=== PATIENT | female | born 1955 | race Caucasian/White ===

== ENCOUNTER 2024-06-08 08:39 | Outpatient (REF) | payer MEDICARE, SELFPAY | END 2024-06-08 08:40 | disposition home or self-care (01) | LOC: HO.SH 08:39 | PROVIDERS: Visit Provider Internal Medicine | DX: H91.09 Ototoxic hearing loss, unspecified ear (principal) | CPT/HCPCS: 92552; 92556; 92557; 92567; 92588; 92591 ==

== ENCOUNTER 2024-06-29 09:37 | Outpatient (REF) | payer MEDICARE, SELFPAY | END 2024-06-29 09:38 | disposition home or self-care (01) | LOC: HO.SH 09:37 | PROVIDERS: Visit Provider Internal Medicine | DX: H91.09 Ototoxic hearing loss, unspecified ear (principal) | CPT/HCPCS: 92552; 92556; 92588 ==

== ENCOUNTER 2024-07-28 09:53 | Outpatient (REF) | payer MEDICARE, SELFPAY | END 2024-07-28 09:54 | disposition home or self-care (01) | LOC: HO.SH 09:53 | PROVIDERS: PCP Nurse Practitioner Family; Visit Provider Internal Medicine | DX: H91.09 Ototoxic hearing loss, unspecified ear (principal) | CPT/HCPCS: 92552; 92556; 92588 ==

== ENCOUNTER 2024-08-25 10:23 | Outpatient (REF) | payer MEDICARE, SELFPAY | END 2024-08-25 10:24 | disposition home or self-care (01) | LOC: HO.SH 10:23 | PROVIDERS: PCP Nurse Practitioner Family; Visit Provider Internal Medicine | DX: H91.09 Ototoxic hearing loss, unspecified ear (principal) | CPT/HCPCS: 92552; 92556; 92588 ==

== ENCOUNTER 2024-09-30 07:53 | Outpatient (REF) | payer MEDICARE, SELFPAY ==
--- OUTSIDE RECORDS SUMMARY | 2024-09-30 07:56 | XMS_ITS | Encounter Summary ---
Author Organization [facility] Address [phone] [place] [address] Care Team Providers Care Tufting Machine Fixer Name Role Phone Melissa Mcdaniel MANAGER OF SOFTWARE DEVELOPMENT Primary Care Provider [phone] Leonel Feng MD Unavailable [phone] Les Dempsey MD Unavailable Juliet Kirkland NP Primary Care Provide r Encounter Details Date Type Department Care Team (Latest Contact Info) Description 02/17/2020 Transcribe Orders [facility] [address] [place] [address] [place] [address] Melissa Mcdaniel, MANAGER OF SOFTWARE DEVELOPMENT [address] [place] [address] Encounter for screening for other suspected endocrine disorder (Primary Dx); Encounter for screening for lipid disorder; Annual physical exam; Encounter for screening for diabetes mellitus; Anemia, unspecified type; Dysuria Social History Tobacco Use Types Packs/Day Years Used Date Smoking Tobacco: Former Smokeless Tobacco: Never Alcohol Use Standard Drinks/Week Comments Yes 0 (1 standard drink = 0.6 oz pur e alcohol) socially Sex and Gender Information Value Date Recorded Sex Assigned at Not on file Gender Identity Not on file Sexual Orientation Not on file documented as of this encounter Plan of Treatment Upcoming Encounters Date Type Department Care Team (Late st Contact Info) Description 10/08/2024 10:30 AM EST Appointment [facility] Pulmonary and Critical Care Unit [address] [facility] [address] [place] [address] Roshan Albarran MD [address] [place] [address] [email or web address] 10/08/2024 11:30 AM EST Office Visit [facility] [address] [facility] [address] [place] [address] Roshan Albarran MD [address] [place] [address] [email or web address] 10/15/2024 4:30 PM EST Office Visit [facility] Rheumatology [address] [place] [address] Sia Lebron MD [address] [facility], [address] [place] [address] [email or web address] documented as of this encounter Results * (ABNORMAL) Urinalysis w/reflex Urine Culture (02/17/2020 8:22 AM EDT) COLOR STRAW(A) Yellow [facility] CLARITY Clear [facility] GLUCOSE Negative Negative [facility] BILI Negative Negative [facility] KETONES Negative Negative [facility] SPECIFIC GRAVITY <1.005 1.005 - 1.030 [facility] BLOOD 2+(A) Negative [facility] PH 6.5 5.0 - 8.0 [facility] Protein-UA Negative Negative [facility] NITRITE Negative Negative [facility] Leukocyte esterase, ur Negative Negative [facility] Urine (Urine) 02/17/2020 8:2 2 AM EDT 02/17/2020 8:25 AM EDT Melissa Mcdaniel NP URINE ORDERABLES [facility] [address] [place] [address] * (ABNORMAL) CBC and differential (02/17/2020 7:25 AM EDT) WBC 6.46 4.00 - 11.00 K/uL [facility] Comment:Note Reference Range updates to all CBC and Differential results. RBC 3.97 3.72 - 5.30 M/uL [facility] HGB 13.1 11.4 - 15.9 g/dL [facility] Comment:Note updated Referen ce Ranges for all CBC and Differential results. HCT 39.7 34.2 - 46.8 % [facility] PLT 233 140 - 430 K/uL [facility] MCV 100.0(H) 78.0 - 97.0 fL [facility] MCH 33.0 25.0 - 33.0 pg [facility] MCHC 33.0 32.0 - 36.0 g/dL [facility] RDW 12.5 11.0 - 16.0 % [facility] MPV 11.3 8.4 - 12.8 fl [facility] NRBC 0.00 0 /100 WBCs [facility] ABSOLUTE NRBC 0.00 0 K/uL [facility] DIFF METHOD Auto [facility] NEUTS 64.8 43.0 - 75.0 % [facility] LYMPHS 23.2 18.2 - 47.4 % [facility] MONOS 9.1 4.00 - 11.00 % [facility] EOS 2.2 0.0 - 8.0 % [facility] BASOS 0.5 0.0 - 2.0 % [facility] Granulocytes, immature (%) 0.2 0.0 - 0.9 % [facility] ABSOLUTE NEUTS 4.19 1.80 - 7.70 K/uL [facility] ABSOLUTE LYMPHS 1.50 1.00 - 3.10 K/uL [facility] ABSOLUTE MONOS 0.59 0.20 - 0.80 K/uL [facility] ABSOLUTE EOS 0.14 0.00 - 0.80 K/uL [facility] ABSOLUTE BASOS 0.03 0.00 - 0.09 K/uL [facility] Granulocytes, immature 0.01 0.00 - 0.05 K/uL [facility] Blood 02/17/2020 7:25 AM EDT 02/17/2020 7:29 AM EDT Melissa Mcdaniel MANAGER OF SOFTWARE DEVELOPMENT LAB BLOOD ORDERABLES [address] [address] * (ABNORMAL) Comprehensive metabolic panel (02/17/2020 7:25 AM EDT) SODIUM 132(L) 133 - 146 mmol/L [facility] POTASSIUM 4.6 3.3 - 5.1 mmol/L [facility] CHLORIDE 98 96 - 108 mmol/L [facility] CO2 27 21 - 35 mmol/L [facility] BUN 9 6 - 19 mg/dL [facility] CREATININE 0.60 0.5 - 1.5 mg/dL [facility] GLUCOSE 99 70 - 99 mg/dL [facility] ALBUMIN 4.1 3.9 - 4.8 g/dL [facility] TOTAL PROTEIN 6.8 6.5 - 8.0 g/dL [facility] CALCIUM 9.2 8.4 - 10.3 mg/dL [facility] ALKALINE PHOSPHATASE 68 39 - 117 U/L [facility] TOTAL BILIRUBIN 1.0 0.0 - 1.2 mg/dL [facility] AST 23 0 - 37 U/L [facility] ALT 18 0 - 40 U/L [facility] GLOBULIN 2.7 1 - 4.8 g/dL [facility] EGFR 98 >59 mL/min/1.7 3m2 [facility] Comment:Estimated glomerular filtration rate calculated using the CKD-EPI equation. ANION GAP 12 10 - 20 mmol/L [facility] Blood 02/17/2020 7:25 AM EDT 02/17/2020 7:29 AM EDT Melissa Mcdaniel NP LAB BLOOD ORDERABLES [address] [address] * Hepatitis C antibody, qualitative (02/17/2020 7:25 AM EDT) HCV NON-REACTIV E NON-REACTI VE [facility] Blood 02/17/2020 7:25 AM EDT 02/17/2020 7:29 AM EDT Melissa Mcdaniel MANAGER OF SOFTWARE DEVELOPMENT LAB BLOOD ORDERABLES Performing Organization Address [facility] Co de Phone Number [address] [address] * (ABNORMAL) Lipid panel (02/17/2020 7:25 AM EDT) HDL 60 mg/dL [facility] Comment: ? Interpretation <40 mg/dL: Low HDL cholesterol (major risk factor for CHD) Greater than or equal to 60 mg/dL: High HDL cholesterol ( negative risk factor for CHD) HDL - cholesterol is affected by a number of factors, e.g. smoking, excerise, hormones, sex and age. CHOLESTEROL 155 0 - 240 mg/dL [facility] TRIGLYCERIDES 69 30 - 160 mg/dL [facility] LDL 81 50 - 129 mg/dL [facility] Comment: LDL levels in terms of risk for coronary heart disease: <100 mg/dL: Optimal 100-129 mg/dL: Near or above optimal 130-159 mg/dL: Borderline high 160-189 mg/dL: High >190 mg/dL: Very High CARDIAC RISK RATIO 2.6(L) 3.3 - 4.4 [facility] Blood 02/17/2020 7:25 AM EDT 02/17/2020 7:29 AM EDT Melissa Mcdaniel NP LAB BLOOD ORDERABLES Performing Organization Address City/[facility]/ZIP Co de Phone Number [address] [address] * TSH (02/17/2020 7:25 AM EDT) TSH 1.79 0.27 - 4.20 uIU/mL [facility] Blood 02/17/2020 7:25 AM EDT 02/17/2020 7:29 AM EDT Melissa M Jonas MANAGER OF SOFTWARE DEVELOPMENT LAB BLOOD ORDERABLES [facility] [address] [place] [address] documented in this encounter Visit Diagnoses Diagnosis Encounter for screening for other suspected endocrine disorder- Primary Encounter for screening for lipid disorder Annual physical exam Routine general medical examination at a health care facility Encounter for screening for diabetes mellitus Anemia, unspecified type Dysuria documented in this encounter 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 1:32 AM EDT [facility]-Exposed Comment:Recent close contact 08/03/2020 08/03/2020 08/17/2020 1:24 AM EST COVID-19 03/31/2021 03/31/2021 04/21/2021 1:23 AM EDT CoV-Risk 04/29/2022 04/29/2022 04/29/2022 1:04 PM EDT COVID-19 04/29/2022 04/29/2022 05/20/2022 1:21 AM EDT documented as of this encounter Care Teams Tufting Machine Fixer Relationship Specialty Start Date End Date Melissa Mcdaniel MANAGER OF SOFTWARE DEVELOPMENT [address] [place] [address] PCP - General Nurse Practitioner 03/20/18 04/19/24 Juliet Kirkland NP [address] [place] [address] PCP - General Nurse Practitioner 04/20/24 Leonel Feng MD [address] [place] [address] Pulmonary Disease 01/16/24 Les Dempsey MD [facility] [address] [address] Infectious Diseases 01/16/24 documented as of this encounter Additional Source Comments The information contained in this document represents components of the legal health record. It is not the complete legal health record.[facility]
--- OUTSIDE RECORDS SUMMARY | 2024-09-30 07:57 | XMS_ITS | Encounter Summary ---
Author Organization [facility] Address [phone] [address] [place] [address] Care Team Providers Care Physical Therapy Aid Name Role Phone Melissa Mcdaniel HOT WORKER Primary Care Provider Leonel Feng MD Unavailable [phone] Les Dempsey MD Unavailable Juliet Kirkland HOT WORKER Primary Care Provide r Encounter Details Date Type Department Care Team (Late st Contact Info) Description 01/15/2024 Procedure Pass [facility], Ct Scan - [address] [address] Social History Tobacco Use Types Packs/Day Years Used Date Smoking Tobacco: Never Passive Smoke Exposure: Past Smokeless Tobacco: Never Alcohol Use Standard Drinks/Week Comments Yes 0 (1 standard drink = 0.6 oz pur e alcohol) socially Education Answer Date Recorded Are you interested in more education? Not on cherie e 12/07/2022 Are you concerned about learning? Not on file 12/07/2022 No 12/07/2022 No 12/07/2022 Digital Access Answer Date Recorded No 01/02/2023 No 01/02/2023 Reliable internet access at home? Not on file 01/02/2023 Device with a working camera? Not on file Sex and Gender Information Value Date Recorded Sex Assigned at Not on file Gender Identity Not on file Sexual Orientation Not on file documented as of this encounter Plan of Treatment Upcoming Encounters Date Type Department Care Team (Late st Contact Info) Description 10/08/2024 10:30 AM EST Appointment [facility] Pul[facility] and [facility] Care Unit [address] [place] [address] Roshan Albarran MD [address] [place] [address] [email or web address] 10/08/2024 11:30 AM EST Office Visit [facility] [address] [place] [address] Roshan Albarran MD [address] [place] [address] [email or web address] 10/15/2024 4:30 PM EST Office Visit [facility] Rheumatology [address] [place] [address] Sia Lebron MD [address] [place] [address], [address] [place] [address] [email or web address] documented as of this encounter Visit Diagnoses Not on filedocumented in this encounter Care Teams Physical Therapy Aid Relationship Specialty Start Date End Date Melissa Mcdaniel NP [address] [place] [address] PCP - General Nurse Practitioner 03/20/18 04/19/24 Juliet Kirkland NP [address] [place] [address] PCP - General Nurse Practitioner 04/20/24 [place] [address] [place] [address] Pulmonary Disease 01/16/24 Les Dempsey MD [address] [address] Infectious Diseases 01/16/24 documented as of this encounter Additional Source Comments The information contained in this document represents components of the legal health record. It is not the complete legal health record.[facility]
--- OUTSIDE RECORDS SUMMARY | 2024-09-30 07:59 | XMS_ITS | Encounter Summary ---
Author Organization [facility] Address [phone] [address] [place] [address] Care Team Providers Care Night Shift Name Role Phone Leonel Feng MD Unavailable [phone] Les Dempsey MD Unavailable Juliet Kirkland NP Primary Care Provide r Encounter Details Date Type Department Care Team (Late st Contact Info) Description 08/28/2024 Telephone [facility] [address] [address] Rosalva Dinh, RN [address] [place] [address] [email or web address] Social History Tobacco Use Types Packs/Day Years Used Date Smoking Tobacco: Never Passive Smoke Exposure: Past Smokeless Tobacco: Never Alcohol Use Standard Drinks/Week Comments Yes 0 (1 standard drink = 0.6 oz pur e alcohol) socially Home Health Assessment: Transportation Answer Date Recorded Lack of Transportation (Medical) No 06/11/2024 Lack of Transportation (Non-Medical) No 06/11/2024 Patient Unable or Declines to Respond No 06/11/2024 Child or Family Care Answer Date Record [...] your housing situation today? I have lana sing 06/25/2024 How many times have you move [...] or tries to control you? No 06/09/2024 Sex and Gender Information Value Date Recorded Sex Assigned at Not on file Gender Identity Not on file Sexual Orientation Not on file documented as of this encounter Progress Notes * Rosalva Dinh RN - 09/03/2024 7:13 PM EST Arykayce order sent documented in this encounter Plan of Treatment Upcoming Encounters Date Type Department Care Team (Late st Contact Info) Description 10/08/2024 10:30 AM EST Appointment [facility] [place] [place] [facility] [address] [facility] [address] [place] [address] Roshan Albarran MD [address] [place] [address] [email or web address] 10/08/2024 11:30 AM EST Office Visit [facility] [address] [facility] [address] [place] [address] Roshan Albarran MD [address] [place] [address] [email or web address] 10/15/2024 4:30 PM EST Office Visit [facility] Rheumatology [address] [place] [address] Sia Lebron MD 22 [facility], [address] [place] [address] [email or web address] documented as of this encounter Visit Diagnoses Not on filedocumented in this encounter Care Teams Night Shift Relationship Specialty Start Date End Date Juliet Kirkland NP [address] [place] [address] PCP - General Nurse Practitioner 04/20/24 Leonel Feng MD [address] [place] [address] Pulmonary Disease 01/16/24 Les Dempsey MD [address] [place] [address] Infectious Diseases 01/16/24 documented as of this encounter Additional Source Comments The information contained in this document represents components of the legal health record. It is not the complete legal health record.[facility]
--- OUTSIDE RECORDS SUMMARY | 2024-09-30 08:00 | XMS_ITS | Encounter Summary ---
Author Organization [facility] Address [phone] [address] [place] [address] Care Team Providers Care Irrigation Laborer Name Role Phone Leonel Feng MD Unavailable [phone] Les Dempsey MD Unavailable [phone] Juliet Kirkland PRINTED [employer] BOARDS STRIPPER ETCHER Primary Care Provide r Encounter Details Date Type Department Care Team (Latest Contact Info) Description 09/01/2024 9:46 AM EST - 09/01/2024 11:59 PM EST Hospital Encounter [facility] [address] [place] [address] Roshan Albarran MD [address] [place] [address] [email or web address] Discharge Disposition: Home or Self Care Social History Tobacco Use Types Packs/Day Years [...] on file documented as of this encounter Medications at Time of Discharge Medication Sig Dispensed Refills Start Date End Date ALTEPLASE CATH 1 mg by Intracatheter route as needed (PICC line occlusion). Instill 2mg in 2.2 ml of sterile water into occluded cath for 30 - 120mins; aspirate and discard before flushing with saline; may repeat x 1; no more than 4mg per 24 hrs. 07/02/2024 cevimeline (EVOXAC) 30 mg capsuleIndications: Sicca syndrome TAKE 1 CAPSULE 3 TIMES A DAY 270 capsule 3 06/17/2024 dicyclomine (BENTYL) 10 MG capsule Take 20 mg by mouth daily. 08/05/2024 ELDERBERRY FRUIT ORAL Take by mouth. esomeprazole (NEXIUM) 20 MG capsule Take 20 mg by mouth daily. ESTRING 2 mg (7.5 mcg /24 hour) vaginal ring Place 2 mg vaginally every 3 (three) months. 07/24/2024 famotidine (PEPCID) 40 MG tablet Take 40 mg by mouth nightly at bedtime as needed for heartburn. gabapentin (NEURONTIN) 300 MG capsule Take 300 mg by mouth 3 (three) times a day. 10/30/2023 01/30/2025 hydroxychloroquine (PLAQUENIL) 200 mg tabletIndications:S icca syndrome,Raynaud's disease without gangrene [The details of the medication are not available because there are pending changes by a home health clinician.] 135 tablet 3 10/16/2023 Lactobacillus rhamnosus GG (CULTURELLE PROBIOTIC) 15 billion cell CpSP Take 1 capsule by mouth daily. levalbuterol (XOPENEX CONCENTRATE) 1.25 mg/0.5 mL nebulizer solution Take 1 ampule by nebulization daily. 02/19/2023 lysine 1,000 mg Tab Take 1 tablet by mouth 2 (two) times a day. ondansetron (ZOFRAN) 4 MG tablet Take 1 tablet (4 mg total) by mouth every 12 (twelve) hours as needed for nausea. 60 tablet 1 08/27/2024 pramipexole (MIRAPEX) 0.25 MG tablet Take 3 tablets (0.75 mg total) by mouth nightly at bedtime. 05/20/2024 sodium chloride (HYPER-RAQUEL) 7 % Nebu Take 4 mL by nebulization 2 (two) times a day. 05/06/2024 05/01/2025 zolpidem (AMBIEN) 10 mg tabletIndications:T isaura 1/2 tablet as needed Take 10 mg by mouth nightly as needed for sleep. fluconazole (DIFLUCAN) 200 MG tablet Take 1 tablet (200 mg total) by mouth daily for 3 days. 3 tablet 09/01/2024 09/04/2024 azithromycin (ZITHROMAX) 250 MG tablet Take 1 tablet (250 mg total) by mouth daily. 90 tablet 07/30/2024 09/29/2024 ethambutoL (MYAMBUTOL) 400 MG tablet Take 2 tablets (800 mg total) by mouth daily. 180 tablet 07/30/2024 09/29/2024 omadacycline (NUZYRA) 150 mg tablet Take 2 tablets (300 mg total) by mouth daily. 60 tablet 5 06/02/2024 09/29/2024 rifAMPin (RIFADIN) 300 MG capsule Take 2 capsules (600 mg total) by mouth daily. 180 capsule 07/30/2024 09/29/2024 documented as of this encounter Plan of Treatment Upcoming Encounters Date Type Department Care Team (Late st Contact Info) Description 10/08/2024 10:30 AM EST Appointment [facility] Pulmonary and Critical Care Unit 55 [facility] [address] [place] [address] Roshan Albarran MD [address] [place] [address] [email or web address] 10/08/2024 11:30 AM EST Office Visit [facility] 55 [facility] [address] [place] [address] Roshan Albarran MD [address] [place] [address] [email or web address] 10/15/2024 4:30 PM EST Office Visit [facility] Rheumatology [address] [place] [address] [place] [address] Sia Lebron MD 22 [facility], [address] [place] [address] (work) [email or web address] documented as of this encounter Procedures Procedure Name Priority Date/Time Associated Diagnosis Comments CREATININE/EGFR Routine 09/01/2024 9:15 AM EST Pulmonary Mycobacterium avium complex (MAC) infection AMIKACIN, TROUGH Routine 09/01/2024 9:15 AM EST Pulmonary Mycobacterium avium complex (MAC) infection LFTS (HEPATIC PANEL) Routine 09/01/2024 9:15 AM EST Pulmonary Mycobacterium avium complex (MAC) infection CBC AND DIFFERENTIAL Routine 09/01/2024 9:15 AM EST Pulmonary Mycobacterium avium complex (MAC) infection BUN Routine 09/01/2024 9:15 AM EST Pulmonary Mycobacterium avium complex (MAC) infection documented in this encounter Results * Amikacin, trough (09/01/2024 9:15 AM EST) AMIKACIN, TROUGH <0.8 <8.0 mcg/mL [facility] DPT OF LAB MED AND PAT+ Blood 09/01/2024 9:15 AM EST 09/01/2024 9:48 AM EST Roshan Albarran MD LAB BLOOD ORDERABLES [facility] DPT OF LAB MED AND PAT+ [address] [place] [address] * BUN (09/01/2024 9:15 AM EST) BUN 8 6 - 19 mg/dL [facility] Blood 09/01/2024 9:15 AM EST 09/01/2024 9:48 AM EST Roshan Albarran MD LAB BLOOD ORDERABLES [facility] [address] [place] [address] * Creatinine/eGFR (09/01/2024 9:15 AM EST) CREATININE 0.50 0.5 - 1.5 mg/dL [facility] EGFR 103 >59 mL/min/1.7 3m2 [facility] Comment:Estimated glomerular filtration rate calculated using the CKD-EPI refit equation. Blood 09/01/2024 9:15 AM EST 09/01/2024 9:48 AM EST Roshan Albarran MD LAB BLOOD ORDERABLES [facility] [address] [place], [place] [id number] * (ABNORMAL) CBC and differential (09/01/2024 9:15 AM EST) WBC 3.35(L) 4.00 - 11.00 K/uL [facility] RBC 3.84(L) 4.00 - 5.20 M/uL [facility] HGB 12.6 12.0 - 16.0 g/dL [facility] HCT 38.7 36.0 - 46.0 % [facility] PLT 166 150 - 450 K/uL [facility] MCV 100.8(H) 80.0 - 100.0 fL [facility] MCH 32.8(H) 27.0 - 31.0 pg [facility] MCHC 32.6 32.0 - 36.0 g/dL [facility] RDW 12.3 11.5 - 14.5 % [facility] MPV 11.5 8.4 - 12.0 fL [facility] NRBC 0.00 0.00 /100 WBCs [facility] ABSOLUTE NRBC 0.00 0.00 K/uL [facility] DIFF METHOD Auto [facility] NEUTS 60.8 48.0 - 76.0 % [facility] LYMPHS 22.7 18.0 - 41.0 % [facility] MONOS 9.3 4.0 - 11.0 % [facility] EOS 5.4(H) 0.0 - 5.0 % [facility] BASOS 0.9 0.0 - 1.5 % [facility] Granulocytes, immature (%) 0.9 0.0 - 0.9 % [facility] ABSOLUTE NEUTS 2.04 1.92 - 7.60 K/uL [facility] ABSOLUTE LYMPHS 0.76 0.72 - 4.10 K/uL [facility] ABSOLUTE MONOS 0.31 0.16 - 1.10 K/uL [facility] ABSOLUTE EOS 0.18 0.00 - 0.50 K/uL [facility] ABSOLUTE BASOS 0.03 0.00 - 0.15 K/uL [facility] Granulocytes, immature 0.03 0.00 - 0.09 K/uL [facility] Blood 09/01/2024 9:15 AM EST 09/01/2024 9:48 AM EST Roshan Albarran MD LAB BLOOD ORDERABLES Performing Organization Address City/[facility]/ZIP Co de Phone Number [address] [address] * LFTs (hepatic panel) (09/01/2024 9:15 AM EST) ALKALINE PHOSPHATASE 85 39 - 117 U/L [facility] TOTAL BILIRUBIN 0.7 0.0 - 1.2 mg/dL [facility] DIRECT BILIRUBIN <0.2 0 - 0.3 mg/dL [facility] Bilirubin (Indirect) NOT CALCULATED 0 - 1.5 mg/dL [facility] AST 20 0 - 37 U/L [facility] ALT 13 0 - 40 U/L [facility] TOTAL PROTEIN 6.5 6.5 - 8.0 g/dL [facility] ALBUMIN 4.3 3.9 - 4.8 g/dL [facility] GLOBULIN 2.2 1 - 4.8 g/dL [facility] A/G Ratio 1.95 1.00 - 4.80 RATIO [facility] Blood 09/01/2024 9:15 AM EST 09/01/2024 9:48 AM EST Roshan Albarran MD LAB BLOOD ORDERABLES [address] [address] documented in this encounter Visit Diagnoses Diagnosis Pulmonary Mycobacterium avium complex (MAC) infection documented in this encounter Care Teams Irrigation Laborer Relationship Specialty Start Date End Date Juliet Kirkland NP [address] [place] [address] PCP - General Nurse Practitioner 04/20/24 Leonel Feng MD [address] [place] [address] Pulmonary Disease 01/16/24 Les Dempsey MD [address] [place] [address] Infectious Diseases 01/16/24 documented as of this encounter Additional Source Comments The information contained in this document represents components of the legal health record. It is not the complete legal health record.[facility]
--- OUTSIDE RECORDS SUMMARY | 2024-09-30 08:00 | XMS_ITS | Encounter Summary ---
Author Organization Formerly [facility] Address [phone] [place] [address] Care Team Providers Care Neurophysiologist Name Role Phone Leonel Feng MD Unavailable [phone] Les Dempsey MD Unavailable Juliet Kirkland TOWER FOREMAN Primary Care Provide r Reason for Visit * Reason Onset Date Comments Medication Prior Authorization 09/02/2024 C evimeline Encounter Details Date Type Department Care Team (Late st Contact Info) Description 09/02/2024 Telephone [facility] Rheumatology 22 [place] [address] Sia Lebron MD 22 [facility], [address] [place] [address] [email or web address] Medication Prior Authorization (Cevimeline ) Social History Tobacco Use Types Packs/Day Years [...] as of this encounter Progress Notes * Monique Maynard RN - 09/04/2024 2:09 PM EST Fax notification received PA for Cevimeline approved 08/05/24-09/04/25. It looks like in the fax we received they were only covering a 30 day supply then would need PA so patient should be all set next time goes to fill it. * Monique Maynard RN - 09/04/2024 12:54 PM EST Vilma from [facility] calls and wondering if patient has ever tried pilocarpine? I dont see in records. It appears patient stable on cevimeline since 2019. We will get a fax with PA determination. * Khushboo Kern LPN - 09/02/2024 11:51 AM EST Form signed and faxed Await response * Khushboo Kern LPN - 09/02/2024 11:42 AM EST PA for cevimeline filled out awaiting provider signature then will be faxed documented in this encounter Plan of Treatment Upcoming Encounters Date Type Department Care Team (Late st Contact Info) Description 10/08/2024 10:30 AM EST Appointment [facility] Pulmonary and Critical Care Unit [address] [place] [address] Roshan Albarran MD 55 [place] [address] [email or web address] 10/08/2024 11:30 AM EST Office Visit [facility] [address] [address] Roshan Albarran MD [address] [place] [address] [email or web address] 10/15/2024 4:30 PM EST Office Visit [facility] Rheumatology 22 [place] [address] Sia Lebron MD 22 [facility], [address] [place] [address] [email or web address] documented as of this encounter Visit Diagnoses Not on filedocumented in this encounter Care Teams Neurophysiologist Relationship Specialty Start Date End Date Juliet Kirkland NP [address] [place] [address] PCP - General Nurse Practitioner 04/20/24 Leonel Feng MD [address] [place] [address] Pulmonary Disease 01/16/[address] [facility] [address] [address] Infectious Diseases 01/16/24 documented as of this encounter Additional Source Comments The information contained in this document represents components of the legal health record. It is not the complete legal health record.[facility]
--- OUTSIDE RECORDS SUMMARY | 2024-09-30 08:00 | XMS_ITS | Encounter Summary ---
Author Organization [facility] Address [phone] [facility] [place] [address] Care Team Providers Care Offset Printing Operator Name Role Phone Unavailable Primary Care Provider Unavailabl e Encounter Details Date Type Department Care Team (Late st Contact Info) Description 12/11/2016 Hospital Encounter [facility],Outside Imaging [address] [place], [place] [phone] System, Provider Not In, [facility] [address] [address] Social History Tobacco Use Types Packs/Day Years [...] Info) Description 10/08/2024 10:30 AM EST Appointment [facility] Pulmonary and Critical Care Unit 55 [facility] [place] 201 [place] [address] Roshan Albarran MD 55 [place] [address] [email or web address] 10/08/2024 11:30 AM EST Office Visit [facility] [address] Yakov [address] [place] [address] Roshan Albarran MD [address] [place] [address] [email or web address] 10/15/2024 4:30 PM EST Office Visit [facility] Rheumatology [address] [place] [address] Sia Lebron MD 22 [facility], [address] [place] [address] [email or web address] documented as of this encounter Procedures Procedure Name Priority Date/Time Associated Diagnosis Comments BI MAMMOGRAM OUTSIDE (NO INTERPRETATION) Routine 12/11/2016 12:00 AM EDT documented in this encounter Results * Mammogram Outside (No Interpretation) (12/11/2016 12:00 AM EDT) Narrative SYSTEMGENERATED, DOCUMENTATION - 12/13/2017 2:02 PM EDT This study is for PACS storage only and not for interpretation. Provider Not In System PhD IMG OUTSIDE I MAGING W/OUT INTERPRETATION documented in this encounter Visit Diagnoses Not [...] is not the complete legal health record.[facility]ly [facility]
--- OUTSIDE RECORDS SUMMARY | 2024-09-30 08:00 | XMS_ITS | Encounter Summary ---
Author Organization [facility] Address [phone] [address] [place] [address] Care Team Providers Care Jig Maker Name Role Phone Leonel Feng MD Unavailable [phone] Les Dempsey MD Unavailable uJliet Kirkland WATER/WASTEWATER PROJECT ENGINEER Primary Care Provide r Reason for Visit * Reason Onset Date Comments COPAT Follow-up 09/10/2024 Encounter Details Date Type Department Care Team (Late st Contact Info) Description 09/10/2024 Telephone [facility] [address] [address] Rosalva Dinh, RN [address] [place] [phone] [email or web address] COPAT Follow-up Social History Tobacco Use Types Packs/Day Years [...] Progress Notes * Rosalva Dinh RN - 09/10/2024 3:33 PM EST Infectious Disease COPAT Follow-up Note Weekly labs reviewed in [facility] and documented below. Note forwarded to ID DM and ID pharmacy for review. Patient now has clofazimine and Arikayce on hand. She will have a virtual teaching on how to administer Arikayce on 09/14/24 at 0900hrs. Official start date for Arikayce and clofazimine is 09/14/24. Per Dr. Albarran, Orders to D/C IV amikacin, IV imipenem, and PICC line sent to [facility] and [facility]. PICC line to be removed on 09/14/24 by [facility]. Regimen from 09/14/24: omadacycline 300mg PO daily azithromycin 250mg PO daily rifampin 600mg PO daily ethambutol 800 mg PO daily clofazimine 100mg PO daily Arikayce 590mg daily via inhalation Diagnosis: Pulmonary MAC Medication: IV imipenem/cilastatin 1000mg Q12hrs IV amikacin 1250mg TIW (, , Sat) omadacycline 300mg PO daily azithromycin 250mg PO daily rifampin 600mg PO daily Ethambutol 800 mg PO daily Weekly Labs: CBC/diff, LFTs, BUN/Cr, Amikacin trough (2-hr and 6hr levels of amikacin to be obtained after 3rd dose on 06/23) Start Date: 06/09/24 Anticipated Stop Date: 12 weeks= ~09/01/2024 PICC: R basilic DL Follow-Up Appt: 07/30/24 at 1 PM VNA: [facility] V[facility] Infusion Company: [facility] Date 05/2008/18/2408/2509/01/2409/08 BUN 14 7 7 12 6 12 11 9 12 10 12 11 7 8 10 Scr 0.74 0.50 0.40 0.50 0.50 0.50 0.40 0.40 0.40 0.40 0.30 0.40 0.50 0.50 0.50 ALT 20 14 13 16 18 15 15 14 14 16 13 14 15 13 14 AST 22 19 19 20 24 21 20 20 20 21 19 23 21 20 18 Alk Phos 85 92 84 91 83 80 80 87 83 88 90 83 87 85 78 Total Bili 0.4 0.6 0.5 0.8 0.6 0.8 0.4 0.8 0.6 0.7 0.5 0.7 1.0 0.7 0.7 Direct Bili - <0.2 <0.2 0.2 <0.2 <0.2 <0.2 <0.2 <0.2 <0.2 <0.2 <0.2 <0.2 <0.2 <0.2 WBC 5.95 8.31 6.53 4.59 4.35 3.86 4.34 4.42 4.08 5.43 4.07 4.78 3.82 3.35 3.72 Hgb 13.2 12.1 12.0 13.4 12.9 12.6 12.9 12.7 12.3 12.8 12.4 12.5 12.8 12.6 12.9 HCT 39.6 37.1 36.5 39.9 39.1 38.2 38.5 38.1 37.0 39.3 38.4 39.2 38.5 38.7 38.8 PLT 212 183 168 205 201 171 193 191 186 178 178 183 171 166 173 % Neutrophils 62.2 75.1 69.8 61.1 52.0 61.1 57.8 65.2 63.0 66.6 59.8 69.3 64.9 60.8 62.4 ANC 3.70 6.25 4.56 2.80 2.26 2.36 2.51 2.88 2.57 3.62 2.43 3.31 2.48 2.04 2.32 % Eosinophils 3.2 3.6 5.5 6.3 6.0 7.8 7.6 6.3 5.4 7.2 4.4 3.1 3.9 5.4 4.8 AEC 0.19 0.30 0.36 0.29 0.26 0.30 0.33 0.28 0.22 0.39 0.18 0.15 0.15 0.18 0.18 07/16/2407/30 Amikacin dose - 900mg TIW 900mg TIW 1100mg TIW 1250mg TIW 1250mg TIW 1250mg TIW 1250mg TIW 1250mg TIW 1250mg TIW 1250mg TIW 1250mg TIW 1250mg TIW 1250mg TIW 1250mg TIW 2hr level - 27.2 - 25.0 40.8 - - - - - - - - - - 6 hr level - 10.7 - 13.4 12.7 - - - - - - - - - - Trough - - <0.8 - - <0.8 <0.8 <0.8 <0.8 <0.8 <0.8 <0.8 <0.8 <0.8 <0.8 Comments Trough дмитрий forThur Labs are entered manually. Please reference scanned lab results for original documentation. documented in this encounter Plan of Treatment Upcoming Encounters Date Type Department Care Team (Late st Contact Info) Description 10/08/2024 10:30 AM EST Appointment [facility] Pulmonary and Critical Care Unit 55 [facility] 201 [place] [address] Roshan Albarran MD 55 [place] [address] [email or web address] 10/08/2024 11:30 AM EST Office Visit [facility] [address] [address] Roshan Albarran MD 55 [place] [address] [email or web address] 10/15/2024 4:30 PM EST Office Visit [facility] Rheumatology [address] [place] [address] [place] [address] Sia Lebron MD 22 [facility], [address] [place] [address] documented as of this encounter Visit Diagnoses Not on filedocumented in this encounter Care Teams Jig Maker Relationship Specialty Start Date End Date Juliet Kirkland NP [address] [place] [address] PCP - General Nurse Practitioner 04/20/24 Leonel Feng MD [address] [place] [address] Pulmonary Disease 01/16/24 Les Dempsey MD [address] [place] [address] Infectious Diseases 01/16/24 documented as of this encounter Additional Source Comments The information contained in this document represents components of the legal health record. It is not the complete legal health record.[facility]
--- OUTSIDE RECORDS SUMMARY | 2024-09-30 08:00 | XMS_ITS | Encounter Summary ---
Author Organization [facility] Address [phone] [place] [address] Care Team Providers Care Utility Worker Forge Name Role Phone Leonel Feng MD Unavailable [phone] Les Dempsey MD Unavailable Juliet Kirkland NURSE STAFF INDUSTRIAL Primary Care Provide r Reason for Visit * Auth/Cert (Routine) Specialty Diagnoses / Procedures Referred By Contac t Referred To Contact Referral ID Status Reason Start Date Expiration Date Visits Re quested Visits Authorized [id number] 1 1 Encounter Details Date Type Department Care Team (Late st Contact Info) Description 09/14/2024 10:30 AM EST Home [facility] Visit [facility] [address] [place], [place] [phone] Guanako Jiménez RN [address] [place] [address] [email or web address] SN OASIS DISCHARGE VISIT Social History Tobacco Use Types Packs/Day Years [...] on file documented as of this encounter Last Filed Vital Signs Vital Sign Reading Time Taken Comments Blood Pressure 114/78 09/14/2024 10:55 AM EST Pulse 76 09/14/2024 10:55 AM EST Temperature 36.5 ??C (97.7 ??F) 09/14/2024 10:[address] Respiratory Rate 18 09/14/2024 10:55 AM EST Oxygen Saturation 96% 09/14/2024 10:55 AM EST Inhaled Oxygen Concentration - - Weight - - Height - - Body Mass Index - - documented in this encounter Plan of Treatment Upcoming Encounters Date Type Department Care Team (Late st Contact Info) Description 10/08/2024 10:30 AM EST Appointment [facility] Pulmonary and Critical Care Unit [address] [place] [address] Roshan Albarran MD 55 [place] [address] [email or web address] 10/08/2024 11:30 AM EST Office Visit [facility] [address] [facility] 515 [place] [address] Roshan Albarran MD 55 [place] [address] [email or web address] 10/15/2024 4:30 PM EST Office Visit [facility] Rheumatology [address] [place] [address] Sia Lebron MD [address] [place] [address], [address] [place] [address] [email or web address] documented as of this encounter Visit Diagnoses Not on filedocumented in this encounter Home Health Visit - Care Plan Visit Details Visit Type -SN OASIS DISCHAR GE VISIT Discipline -Senior Living Problems Problem Description Start Date Status Goals Interve ntions HH - Medication Management Disciplines: All Active Home Health Disciplines 06/11/2024 Active 1 goal linked to scheduled/document ed intervention 2 goal interventions scheduled/document ed in this visit HH - Focus of Care and Teaching Disciplines: All Active Home Health Disciplines w/RD 06/11/2024 Active 1 goal linked to scheduled/document ed intervention 1 goal intervention scheduled/document ed in this visit HH - Emergency Planning - Knowledge of Disciplines: All Active Home Health Disciplines 06/11/2024 Active 1 goal linked to scheduled/document ed intervention 2 goal interventions scheduled/document ed in this visit HH - Standard of Care Disciplines: All Active Home Health Disciplines 06/11/2024 Active 1 goal linked to scheduled/document ed intervention 2 goal interventions scheduled/document ed in this visit HH - Pain Disciplines: All Active Home Health Disciplines 06/11/2024 Active 1 goal linked to scheduled/document ed intervention 1 goal intervention scheduled/document ed in this visit HH - Infusion Therapy Disciplines: Senior Living 06/11/2024 Active 1 goal linked to scheduled/document ed intervention 5 goal interventions scheduled/document ed in this visit HH - Lab Disciplines: All Active Home Health Disciplines 06/11/2024 Active 1 goal linked to scheduled/document ed intervention 2 goal interventions scheduled/document ed in this visit Goals Goal Associated Problem Outcome Goal Met? Visit Notes HH - Safe medication management, avoid unnecessary harm related to medication errors and/or interactions HH - Medication Management No HH - Communication and collaboration to achieve patient goals HH - Focus of Care and Teaching No HH - Knowledge of options for managing care in the event of an emergency related situation. HH - Emergency Planning - Knowledge of No HH - Achieve care management for a safe to home/community discharge from homecare HH - Standard of Care No HH - Frequency of pain interfering with patient's activity or movement will improve with activity or movement by discharge. Description: Pain will be managed over the course of care. Patient's acceptable level of pain is 1 - pain that doesn't interfere. HH - Pain No HH - Device will remain patent and free from infection, demonstrate/verbalize management of infusion therapy and device HH - Infusion Therapy No HH - Verbalize an understanding for lab work/specimen collection HH - Lab No Interventions Intervention Associated Problem/Goal Status Variance Visit Notes HH - I/E medication management: administration, purpose, dosages, preparation, setup, scheduling, side effects, food/drug interactions, and potential complications as indicated Description: Update patient's copy of medication list as needed. Problem:HH - Medication Management Goal:HH - Safe medication management, avoid unnecessary harm related to medication errors and/or interactions Completed HH - Complete medication review every visit and medication reconciliation as indicated. Pharmacy information: Description: [facility] Problem:HH - Medication Management Goal:HH - Safe medication management, avoid unnecessary harm related to medication errors and/or interactions Completed HH - Focus of care, teaching completed and plan for next visit Problem: - Focus of Care and Teaching Goal:HH - Communication and collaboration to achieve patient goals Completed Patient admitted to home care on 06/11/2024 for treatment of MAC with IV ABX via PICC line. PMH: underlying Sicca syndrome, fibromyalgia, chronic sinusitis and GERD and bronchiectasis noted since 2020, diagnosed with pulmonary MAC in 2021 managed with thrice weekly Azithro/rif/ethambuto l. Pt completed IV ABX treatment yesterday and has transitioned to oral and inhaled antibiotics for the next year for maintenance therapy. Pt's respiratory endurance has improved over past few weeks and increased ability to clear mucous via coughing. Appetite has improved and pt is maintaining weight. She is planning a later winter trip to [facility] with her in October for about 4 weeks and overal feels much improved. Lab draw was completed via PICC line. PICC line was removed today using sterile technique length of cath was 43cm. She tolerated the procedure well, pressure was applied x 2 min manually, no bleeding noted. VSS. Pt is aware of discharge from [facility] services. Lab specs delivered to [facility] lab in [place]. - I/E management of care in an urgent or emergency (ER) situation: When to call your Home Care Team/[facility], ER plans, supplies, evacuation, when to contact local ER officials and how to stay informed Problem: - Emergency Planning - Knowledge of Goal:HH - Knowledge of options for managing care in the event of an emergency related situation. Completed - Emergency planning assessment: the emergency plan, supplies needed, emergency contact numbers and an evacuation plan were reviewed Description: Patient is/are knowledgeable of emergency plans. Problem:HH - Emergency Planning - Knowledge of Goal:HH - Knowledge of options for managing care in the event of an emergency related situation. Completed HH - Assess vital signs, pulse oximetry, pain, and as indicated, orthostatic vital signs Description: use agency-specific parameters Problem: - Standard of Care Goal:HH - Achieve care management for a safe to home/community discharge from homecare Completed HH - Assess skin integrity Problem: - Standard of Care Goal:HH - Achieve care management for a safe to home/community discharge from homecare Completed HH - Assess pain Problem: - Pain Goal: - Frequency of pain interfering with patient's activity or movement will improve with activity or movement by discharge. Completed HH - Measure external length of IV catheter every visit Problem: - Infusion Therapy Goal:HH - Device will remain patent and free from infection, demonstrate/verbalize management of infusion therapy and device Completed - Administer IV medication per medication profile: Description: Cath blair Alteplase 2mg IV PRN for occluded cath allow to dwell 30-120 mins as needed may repeat x1. Problem:HH - Infusion Therapy Goal:HH - Device will remain patent and free from infection, demonstrate/verbalize management of infusion therapy and device Completed - May obtain blood specimen from IV access device Problem: - Infusion Therapy Goal:HH - Device will remain patent and free from infection, demonstrate/verbalize management of infusion therapy and device Completed - Flush device with: Description: 10 ml saline and 5 ml heparin 10 u/ml Problem: - Infusion Therapy Goal:HH - Device will remain patent and free from infection, demonstrate/verbalize management of infusion therapy and device Completed - Discontinue IV line: Description: Discontinue IV amikacin 1250 mg 3x week on 09/14/24 Discontinue IV imipenem 1000mg Q 12 hrs on 09/14/24 Discontinue PICC line after stopping IV antibiotics Problem: - Infusion Therapy Goal:HH - Device will remain patent and free from infection, demonstrate/verbalize management of infusion therapy and device Completed - Lab work: Draw blood for: Description: Obtain lab via PICC line- red port- weekly, CBC w/diff, BUN, Creatinine, Liver panel, Amikacin trough level DX: Pulmonary MAC, results to Roshan Albarran MD fax [phone], and NE [phone] Problem: - Lab Goal: - Verbalize an understanding for lab work/specimen collection Completed - Lab work: Collect Description: Patient will have Amikacin peak and trough drawn 06/23 at local lab Problem: - Lab Goal: - Verbalize an understanding for lab work/specimen collection Completed documented in this encounter Care Teams Utility Worker Forge Relationship Specialty Start Date End Date Juliet Kirkland NP [address] [place] [address] PCP - General Nurse Practitioner 04/20/24 Leonel Feng MD [address] [place] [address] Pulmonary Disease 01/16/24 Les Dempsey MD [address] [place] [address] Infectious Diseases 01/16/24 documented as of this encounter Additional Source Comments The information contained in this document represents components of the legal health record. It is not the complete legal health record.[facility]
--- OUTSIDE RECORDS SUMMARY | 2024-09-30 08:00 | XMS_ITS | Encounter Summary ---
Author Organization [facility] Address [phone] [facility] [address] [place] [address] Care Team Providers Care [employer] Name Role Phone Unavailable Primary Care Provider Unavailabl e Encounter Details Date Type Department Care Team (Late st Contact Info) Description 09/29/2015 Hospital Encounter [facility],Outside Imaging 30 [place], [place] [id number] System, Provider Not In, PhD Partners [address] [address] Social History Tobacco Use Types Packs/Day Years [...] Info) Description 10/08/2024 10:30 AM EST Appointment [facility] 55 [facility] 201 [place] [address] Roshan Albarran MD 55 [place] [address] [email or web address] 10/08/2024 11:30 AM EST Office Visit [facility] [address] [place] [address] Roshan Albarran MD [address] [place] [address] [email or web address] 10/15/2024 4:30 PM EST Office Visit [facility] Rheumatology [address] [place] [address] Sia Lebron MD [address] [facility], [address] [place] [address] [email or web address] documented as of this encounter Procedures Procedure [...] Not In System PhD IMG OUTSIDE I ING W/OUT INTERPRETATION documented in this encounter Visit [...] It is not the complete legal health record.[facility]
--- OUTSIDE RECORDS SUMMARY | 2024-09-30 08:00 | XMS_ITS | Encounter Summary ---
Author Organization [facility] Address [phone] [address] [place] [address] Care Team Providers Care Final Finisher Forging Dies Name Role Phone Melissa Mcdaniel PRODUCTION SOUND MIXER Primary Care Provider [phone] Leonel Feng MD Unavailable [phone] Les Dempsey MD Unavailable Juliet Kirkland NP Primary Care Provide r Encounter Details Date Type Department Care Team (Latest Contact Info) Description 07/14/2019 Transcribe Orders [facility] Laboratory [address] [place] [address] Melissa Mcdaniel, PRODUCTION SOUND MIXER [address] [place] [address] Dysuria (Primary Dx) Social History Tobacco Use Types Packs/Day Years [...] Description 10/08/2024 10:30 AM EST Appointment [facility] [place] 55 [facility] Y[address] [place] [address] Roshan Albarran MD 55 [place] [address] [email or web address] 10/08/2024 11:30 AM EST Office Visit [facility] [address] [address] Roshan Albarran MD [address] [place] [address] [email or web address] 10/15/2024 4:30 PM EST Office Visit [facility] Rheumatology [address] [place] [address] Sia Lebron MD 22 [facility], [address] [place] [address] [email or web address] documented as of this encounter Results * (ABNORMAL) Urinalysis w/reflex Urine Culture (07/14/2019 6:30 AM EST) COLOR Yellow Yellow [facility] CLARITY Clear [facility] GLUCOSE Negative Negative [facility] BILI Negative Negative [facility] KETONES Negative Negative [facility] SPECIFIC GRAVITY 1.010 1.005 - 1.030 [facility] BLOOD 3+(A) Negative [facility] PH 6.0 5.0 - 8.0 [facility] Protein-UA Negative Negative [facility] NITRITE Negative Negative [facility] Leukocyte esterase, ur 1+(A) Negative [facility] Urine (Urine) 07/14/2019 6:3 0 AM EST 07/14/2019 10:56 AM EST Melissa Mcdaniel NP URINE ORDERABLES [facility] [address] [place] [address] documented in this encounter Visit Diagnoses Diagnosis Dysuria- Primary documented in this encounter 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 1:32 AM EDT CoV-Exposed Comment:Recent close contact 08/03/2020 08/03/2020 08/17/2020 1:24 AM EST COVID-19 03/31/2021 03/31/2021 04/21/2021 1:23 AM EDT CoV-Risk 04/29/2022 04/29/2022 04/29/2022 1:04 PM EDT COVID-19 04/29/2022 04/29/2022 05/20/2022 1:21 AM EDT documented as of this encounter Care Teams Final Finisher Forging Dies Relationship Specialty Start Date End Date Melissa Mcdaniel NP [address] [place] [address] PCP - General Nurse Practitioner 03/20/18 04/19/24 Juliet Kirkland NP [address] [place] [address] PCP - General Nurse Practitioner 04/20/24 Leonel Feng MD [address] [place] [address] Pulmonary Disease 01/16/24 Les Dempsey MD [address] [place] [address] Infectious Diseases 01/16/24 documented as of this encounter Additional Source Comments The information contained in this document represents components of the legal health record. It is not the complete legal health record.[facility]
--- OUTSIDE RECORDS SUMMARY | 2024-09-30 08:00 | XMS_ITS | Encounter Summary ---
Author Organization [facility] Address [phone] [address] [place] [address] Care Team Providers Care Carpenter Wooden Tank Erecting Name Role Phone Leonel Feng MD Unavailable [phone] Les Dempsey MD Unavailable Juliet Kirkland SALES SERVICE REP Primary Care Provide r Reason for Visit * Auth/Cert (Routine) Specialty Diagnoses / Procedures Referred By Contac t Referred To Contact Referral ID Status Reason Start Date Expiration Date Visits Re quested Visits Authorized [id number] 1 1 Encounter Details Date Type Department Care Team (Late st Contact Info) Description 09/08/2024 8:30 AM EST Home Care Visit [facility] [address] [place], [place] [phone] Guanako Jiménez RN [address] [place] [address] [email or web address] SN HOME VISIT Social History Tobacco Use Types Packs/Day [...] Info) Description 10/08/2024 10:30 AM EST Appointment [facility] Pulmonary and Critical Care Unit [address] Y[address] [place] [address] Roshan Albarran MD [address] [place] [address] [email or web address] 10/08/2024 11:30 AM EST Office Visit [facility] [address] [place] [address] Roshan Albarran MD [address] [place] [address] [email or web address] 10/15/2024 4:30 PM EST Office Visit [facility] Rheumatology [address] [place] [address] Sia Lebron MD [address] [place] [address], [address] [place] [address] [email or web address] documented as of this encounter Visit Diagnoses Not on filedocumented in this encounter Home Health Visit - Care Plan Visit Details Visit Type -SN HOME VISIT Discipline -Retirement Problems Problem Description Start Date Status Goals [...] this visit HH - Infusion Therapy Disciplines: Retirement 06/11/2024 Active 1 goal linked to scheduled/document ed intervention 2 goal interventions scheduled/document ed in this visit HH - Lab Disciplines: All Active Home Health Disciplines 06/11/2024 Active 1 goal linked to scheduled/document ed intervention 1 goal intervention scheduled/document ed in this visit Goals Goal [...] - Standard of Care No HH - Device will remain patent [...] and collaboration to achieve patient goals Completed Primary Clinical Focus this Visit & Instruction Provided: pt reports feeling better. She had a CT scan last week with contrast, no results yet. she reprots that her oral meds to repalce IV ABX have arrived and her neb meds were approved but require a special nebulizer which she is working on obtaining. she is hopeful to be able to stop her IV ABX soon. Vaginal yeast infection has improved with 3 days of Fluconazole. suggested using arious probiotics other than Culturelle and add pre-biotic. PICC line care provided. Both lines with blood return today. labs obtained via PICC line, Labs delivered to [facility] lab in [place] Instruction Provided to: patient Response to Instruction/Teachin g: Is fully able to teach back topics as evidenced by verbalizes understanding. Plan for Next Visit Specific Focus & Education Needed: PICC line care and labs - possibly via venipuncture as lines doesn't always have blood return, if IV meds dc'd obtain order for dc PICC line New Orders: no Updated Discharge Plan: no change until pt has oral and neb treatments in hand and has been cleared to start using them - I/E management of care in an urgent or emergency (ER) situation: When to call your Home Care Team/911, ER plans, supplies, evacuation, when to contact local ER officials and how to stay informed Problem: - Emergency Planning - Knowledge of Goal: - Knowledge of options for managing care in the event of an emergency related situation. Completed - Emergency planning assessment: the emergency plan, supplies needed, emergency contact numbers and an evacuation plan were reviewed Description: Patient is/are knowledgeable of emergency plans. Problem: - Emergency Planning - Knowledge of Goal: - Knowledge of options for managing care in the event of an emergency related situation. Completed - Assess vital signs, pulse oximetry, pain, and as indicated, orthostatic vital signs Description: use agency-specific parameters Problem: - Standard of Care Goal: - Achieve care management for a safe to home/community discharge from homecare Completed - Assess skin integrity Problem: - Standard of Care Goal:HH - Achieve care management for a safe to home/community discharge from homecare Completed HH - Measure external length of IV catheter every visit Problem: - Infusion Therapy Goal: - Device will remain patent and free from infection, demonstrate/verbalize management of infusion therapy and device Completed - Administer IV medication per medication profile: Description: Cath blair Alteplase 2mg IV PRN for occluded cath allow to dwell 30-120 mins as needed may repeat x1. Problem: - Infusion Therapy Goal: - Device will remain patent and free from infection, demonstrate/verbalize management of infusion therapy and device Completed - Lab work: Draw blood for: Description: Obtain lab via PICC line- red port- weekly, CBC w/diff, BUN, Creatinine, Liver panel, Amikacin trough level DX: Pulmonary MAC, results to Roshan Albarran MD fax [phone], and NE [phone] Problem:HH - Lab Goal:HH - Verbalize an understanding for lab work/specimen collection Completed documented in this encounter Care Teams Carpenter Wooden Tank Erecting Relationship Specialty Start Date End Date Juliet Kirkland NP [address] [place] [address] PCP - General Nurse Practitioner 04/20/24 Leonel Feng MD [address] [place] [address] Pulmonary Disease 01/16/24 Les Dempsey MD [address] [place] [address] Infectious Diseases 01/16/24 documented as of this encounter Additional Source Comments The information contained in this document represents components of the legal health record. It is not the complete legal health record.[facility]
--- OUTSIDE RECORDS SUMMARY | 2024-09-30 08:00 | XMS_ITS | Encounter Summary ---
Author Organization [facility] Address [phone] [facility] [email or web address] [address] Care Team Providers Care Director Housekeeping Name Role Phone Melissa Mcdaniel TRANSFORMATION ARCHITECT Primary Care Provider Leonel Feng MD Unavailable [phone] Les Dempsey MD Unavailable Juliet Kirkland TRANSFORMATION ARCHITECT Primary Care Provide r Encounter Details Date Type Department Care Team (Late st Contact Info) Description 03/24/2018 Ancillary Orders Virtual Department [address] [place] [address] Mariah Soares NP [address] [place] [address] Abnormal mammogram Social History Tobacco Use Types Packs/Day Years Used Date Smoking Tobacco: Never Assessed Sex and Gender Information Value Date Recorded Sex Assigned at Not on file Gender Identity Not on file Sexual Orientation Not on file documented as of this encounter Plan of Treatment Upcoming Encounters Date Type Department Care Team (Late st Contact Info) Description 10/08/2024 10:[address] [facility] [address] [address] Roshan Albarran MD 55 [place] [address] [email or web address] 10/08/2024 11:30 AM EST Office Visit [facility] [address] [facility] [address] [place] [address] Roshan Albarran MD [address] [place] [address] [email or web address] 10/15/2024 4:30 PM EST Office Visit [facility] Rheumatology 22 [place] [address] Sia Lebron MD 22 [facility], [address] [place] [address] [email or web address] documented as of this encounter Results * BI MAMMOGRAM DIAGNOSTIC WITH TOMOSYNTHESIS WITH CAD (RIGHT) (04/22/2018 1:29 PM EDT) Anatomical Region Laterality Modality Breast Right, Breast Bilateral Right M ammography 04/22/2018 1:31 PM EDT Impressions 04/22/2018 1:47 PM EDT No mammographic evidence of malignancy. ??Recommend return to routine annual surveillance. Findings relayed to the patient via the technologist. BI-RADS CATEGORY: 1 - Negative. DENSITY: ??There are scattered fibroglandular densities. ?? POS - CDHMAMA Narrative 04/22/2018 1:47 PM EDT 62-year-old female who presents for callback mammogram for a possible right breast mass. ??Comparison made to previous mammograms. ??Interpretation made in conjunction with computer-aided detection and tomosynthesis. Spot compression and medial rolled right cc views obtained. ??The right breast is composed of scattered areas of fibroglandular density. No mass identified. Procedure Note Mega Sawant MD - 04/22/2018 62-year-old female who presents for callback mammogram for a possibleright breast mass. Comparison made to previous mammograms.Interpretation made in conjunction with computer-aided detection andtomosynthesis. Spot compression and medial rolled right cc views obtained. The rightbreast is composed of scattered areas of fibroglandular density. No massidentified. IMPRESSION: No mammographic evidence of malignancy. Recommend return to routineannual surveillance. Findings relayed to the patient via thetechnologist. BI-RADS CATEGORY: 1 - Negative. DENSITY: There are scattered fibroglandular densities. 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 1:32 AM EDT CoV-Exposed Comment:Recent close contact 08/03/2020 08/03/2020 08/17/2020 1:24 AM EST COVID-19 03/31/2021 03/31/2021 04/21/2021 1:23 AM EDT CoV-Risk 04/29/2022 04/29/2022 04/29/2022 1:04 PM EDT COVID-19 04/29/2022 04/29/2022 05/20/2022 1:21 AM EDT documented as of this encounter Care Teams Director Housekeeping Relationship Specialty Start Date End Date Melissa Mcdaniel NP [address] [place] [address] PCP - General Nurse Practitioner 03/20/18 04/19/24 Juliet Kirkland NP [address] [place] [address] PCP - General Nurse Practitioner 04/20/24 Leonel Feng MD [address] [place] [address] Pulmonary Disease 01/16/24 Les Dempsey MD [address] [place] [address] Infectious Diseases 01/16/24 documented as of this encounter Additional Source Comments The information contained in this document represents components of the legal health record. It is not the complete legal health record.[facility]
--- OUTSIDE RECORDS SUMMARY | 2024-09-30 08:00 | XMS_ITS | Encounter Summary ---
Author Organization [facility] Address [phone] [address] [place] [address] Care Team Providers Care Lathe Mechanic Name Role Phone Leonel Feng MD Unavailable [phone] Les Dempsey MD Unavailable Juliet Kirkland ASSISTANT COUNSEL Primary Care Provide r Encounter Details Date Type Department Care Team (Latest Contact Info) Description 09/08/2024 10:30 AM EST - 09/08/2024 11:[address] [facility] Hospital Encounter [facility] [address] [place] [address] Roshan Albarran MD [address] [place] [address] [email or web address] Discharge Disposition: Home or Self Care Social [...] by mouth nightly as needed for sleep. azithromycin (ZITHROMAX) 250 MG tablet Take 1 [...] 10/08/2024 10:30 AM EST Appoint[place] [facility] 55 [facility] [address] [place] [address] Roshan Albarran MD 55 [place] [address] [email or web address] 10/08/2024 11:30 AM EST Office Visit [facility] 55 [facility] [address] [place] [address] Roshan Albarran MD 55 [place] [address] [email or web address] 10/15/2024 4:30 PM EST Office Visit [facility] Rheumatology [address] [place] [address] Sia Lebron MD 22 [facility], [address] [place] [address] [email or web address] documented as of this encounter Procedures Procedure Name Priority Date/Time Associated Diagnosis Comments CREATININE/EGFR Routine 09/08/2024 9:35 AM EST Pulmonary Mycobacterium avium complex (MAC) infection AMIKACIN, TROUGH Routine 09/08/2024 9:35 AM EST Pulmonary Mycobacterium avium complex (MAC) infection LFTS (HEPATIC PANEL) Routine 09/08/2024 9:35 AM EST Pulmonary Mycobacterium avium complex (MAC) infection CBC AND DIFFERENTIAL Routine 09/08/2024 9:35 AM EST Pulmonary Mycobacterium avium complex (MAC) infection BUN Routine 09/08/2024 9:35 AM EST Pulmonary Mycobacterium avium complex (MAC) infection documented in this encounter Results * Amikacin, trough (09/08/2024 9:35 AM EST) AMIKACIN, TROUGH <0.8 <8.0 mcg/mL [facility] DPT OF LAB MED AND PAT+ Blood 09/08/2024 9:35 AM EST 09/08/2024 10:15 AM EST Roshan Albarran MD LAB BLOOD ORDERABLES [facility] DPT OF LAB MED AND PAT+ [address] [place] [address] * BUN (09/08/2024 9:35 AM EST) BUN 10 6 - 19 mg/dL [facility] Blood 09/08/2024 9:35 AM EST 09/08/2024 10:15 AM EST Roshan Albarran MD LAB BLOOD ORDERABLES [facility] [address] [place] [address] * Creatinine/eGFR (09/08/2024 9:35 AM EST) CREATININE 0.50 0.5 - 1.5 mg/dL [facility] EGFR 103 >59 mL/min/1.7 3m2 [facility] Comment:Estimated glomerular filtration rate calculated using the CKD-EPI refit equation. Blood 09/08/2024 9:35 AM EST 09/08/2024 10:15 AM EST Roshan Albarran MD LAB BLOOD ORDERABLES [address] [address] * (ABNORMAL) CBC and differential (09/08/2024 9:35 AM EST) WBC 3.72(L) 4.00 - 11.00 K/uL [facility] RBC 3.96(L) 4.00 - 5.20 M/uL [facility] HGB 12.9 12.0 - 16.0 g/dL [facility] HCT 38.8 36.0 - 46.0 % [facility] PLT 173 150 - 450 K/uL [facility] MCV 98.0 80.0 - 100.0 fL [facility] MCH 32.6(H) 27.0 - 31.0 pg [facility] MCHC 33.2 32.0 - 36.0 g/dL [facility] RDW 12.4 11.5 - 14.5 % [facility] MPV 11.1 8.4 - 12.0 fL [facility] NRBC 0.00 0.00 /100 WBCs [facility] ABSOLUTE NRBC 0.00 0.00 K/uL [facility] DIFF METHOD Auto [facility] NEUTS 62.4 48.0 - 76.0 % [facility] LYMPHS 21.2 18.0 - 41.0 % [facility] MONOS 10.5 4.0 - 11.0 % [facility] EOS 4.8 0.0 - 5.0 % [facility] BASOS 0.8 0.0 - 1.5 % [facility] Granulocytes, immature (%) 0.3 0.0 - 0.9 % [facility] ABSOLUTE NEUTS 2.32 1.92 - 7.60 K/uL [facility] ABSOLUTE LYMPHS 0.79 0.72 - 4.10 K/uL [facility] ABSOLUTE MONOS 0.39 0.16 - 1.10 K/uL [facility] ABSOLUTE EOS 0.18 0.00 - 0.50 K/uL [facility] ABSOLUTE BASOS 0.03 0.00 - 0.15 K/uL [facility] Granulocytes, immature 0.01 0.00 - 0.09 K/uL [facility] Blood 09/08/2024 9:35 AM EST 09/08/2024 10:15 AM EST Roshan Albarran MD LAB BLOOD ORDERABLES Performing Organization Address City/[facility]/ZIP Co de Phone Number [address] [address] * LFTs (hepatic panel) (09/08/2024 9:35 AM EST) ALKALINE PHOSPHATASE 78 39 - 117 U/L [facility] TOTAL BILIRUBIN 0.7 0.0 - 1.2 mg/dL [facility] DIRECT BILIRUBIN <0.2 0 - 0.3 mg/dL [facility] Bilirubin (Indirect) NOT CALCULATED 0 - 1.5 mg/dL [facility] AST 18 0 - 37 U/L [facility] ALT 14 0 - 40 U/L [facility] TOTAL PROTEIN 6.5 6.5 - 8.0 g/dL [facility] ALBUMIN 4.2 3.9 - 4.8 g/dL [facility] GLOBULIN 2.3 1 - 4.8 g/dL [facility] A/G Ratio 1.83 1.00 - 4.80 RATIO [facility] Blood 09/08/2024 9:35 AM EST 09/08/2024 10:15 AM EST Roshan Albarran MD LAB BLOOD ORDERABLES Performing Organization Address [facility]/ZIP Co de Phone Number [address] [address] documented in this encounter Visit Diagnoses Diagnosis Pulmonary Mycobacterium avium complex (MAC) infection documented in this encounter Care Teams Lathe Mechanic Relationship Specialty Start Date End Date Kirkland, Juliet Yanira, ASSISTANT COUNSEL [address] [place] [address] PCP - General Nurse Practitioner 04/20/24 Leonel Feng MD [address] [place] [address] Pulmonary Disease 01/16/24 Les Dempsey MD [address] [place] [address] Infectious Diseases 01/16/24 documented as of this encounter Additional Source Comments The information contained in this document represents components of the legal health record. It is not the complete legal health record.[facility]
--- OUTSIDE RECORDS SUMMARY | 2024-09-30 08:00 | XMS_ITS | Encounter Summary ---
Author Organization [facility] Address [phone] [place] [address] Care Team Providers Care Marketing Strategy Lead Name Role Phone Leonel Feng MD Unavailable [phone] Les Dempsey MD Unavailable Juliet Kirkland AIRCRAFT STRUCTURAL REPAIR MECHANIC Primary Care Provide r Reason for Visit * Auth/Cert (Routine) Specialty Diagnoses / Procedures Referred By Contac t Referred To Contact Referral ID Status Reason Start Date Expiration Date Visits Re quested Visits Authorized [id number] 1 1 Encounter Details Date Type Department Care Team (Late st Contact Info) Description 09/10/2024 Home Care Visit [facility] [address] [place] [address] Jacquelyn Ivey [address] [place] [address] [email or web address] CASE COMMUNICATION Social History Tobacco Use Types Packs/Day Years [...] Upcoming Encounters Date Type Department Care Team (Harish romeo Contact Info) Description 10/08/2024 10:30 AM EST Appointment [facility] [place] [address] [facility] [address] [place] [address] Roshan Albarran MD 55 [place] [address] [email or web address] [place] [email or web address] 10/08/2024 11:30 AM EST Office Visit [facility] [address] Yakov [address] [place] [address] Roshan Albarran MD 55 [place] [address] [email or web address] [email or web address] 10/15/2024 4:30 PM EST Office Visit [facility] Rheumatology [address] [place] [address] Sia Lebron MD [address] [place] [address], [address] [place] [address] [email or web address] documented as of this encounter Visit Diagnoses Not on filedocumented in this encounter Care Teams Marketing Strategy Lead Relationship Specialty Start Date End Date Juliet Kirkland NP [address] [place] [address] PCP - General Nurse Practitioner 04/20/24 Leonel Feng MD [address] [place] [address] Pulmonary Disease 01/16/24 Les Dempsey MD [address] [place] [address] Infectious Diseases 01/16/24 documented as of this encounter Additional Source Comments The information contained in this document represents components of the legal health record. It is not the complete legal health record.[facility]
--- OUTSIDE RECORDS SUMMARY | 2024-09-30 08:00 | XMS_ITS | Encounter Summary ---
Author Organization [facility] Address [phone] [address] [place] [address] Care Team Providers Care Spanish Language Lecturer Name Role Phone Leonel Feng MD Unavailable [phone] Les Dempsey MD Unavailable Juliet Kirkland [employer] [employer] Primary Care Provide r Encounter Details Date Type Department Care Team (Latest Contact Info) Description 09/14/2024 8:35 PM EST - 09/14/2024 11:59 PM [facility] Hospital Encounter [facility] Specimen Processing [address] [place] [address] Roshan Albarran MD [address] [place] [address] [email or web address] [email or web address] Discharge Disposition: Home or Self [...] more than 4mg per 24 hrs. 07/02/2024 amikacin liposomal-neb.acces sr 590 mg/8.4 mL NbSp 8.4 Inhalations by inhal. via small vol.nebulizer route daily. 09/14/2024 cevimeline (EVOXAC) 30 mg capsuleIndications: Sicca syndrome [...] home health clinician.] 135 tablet 3 10/16/2023 ID-clofazimine ([id number]) 50 mg capsule Take 100 mg by mouth daily. 09/14/2024 Lactobacillus rhamnosus GG (CULTURELLE PROBIOTIC) 15 billion [...] Info) Description 10/08/2024 10:30 AM EST Appointment [facility] 55 [facility] [address] [place] [address] Roshan Albarran MD [address] [place] [address] [email or web address] 10/08/2024 11:30 AM EST Office Visit [facility] 55 [facility] [address] [place] [address] Roshan Albarran MD [address] [place] [address] [email or web address] 10/15/2024 4:30 PM EST Office Visit [facility] Rheumatology [address] [place] [address] KlSia Reynolds MD [address] [place] [address], [address] [place] [address] [email or web address] documented as of this encounter Procedures Procedure Name Priority Date/Time Associated Diagnosis Comments CREATININE/EGFR Routine 09/14/2024 11:07 AM EST Pulmonary Mycobacterium avium complex (MAC) infection LFTS (HEPATIC PANEL) Routine 09/14/2024 11:07 AM EST Pulmonary Mycobacterium avium complex (MAC) infection CBC AND DIFFERENTIAL Routine 09/14/2024 11:07 AM EST Pulmonary Mycobacterium avium complex (MAC) infection BUN Routine 09/14/2024 11:07 AM EST Pulmonary Mycobacterium avium complex (MAC) infection documented in this encounter Results * BUN (09/14/2024 11:07 AM EST) BUN 14 6 - 19 mg/dL [facility] Blood 09/14/2024 11:0 7 AM EST 09/14/2024 8:38 PM EST Roshan Albarran MD LAB BLOOD ORDERABLES [address] [address] * (ABNORMAL) Creatinine/eGFR (09/14/2024 11:07 AM EST) CREATININE 0.40(L) 0.5 - 1.5 mg/dL [facility] EGFR 109 >59 mL/min/1.7 3m2 [facility] Comment:Estimated glomerular filtration rate calculated using the CKD-EPI refit equation. Blood 09/14/2024 11:0 7 AM EST 09/14/2024 8:38 PM EST Roshan Albarran MD LAB BLOOD ORDERABLES [facility] [address] [place] [address] * (ABNORMAL) CBC and differential (09/14/2024 11:07 AM EST) WBC 6.28 4.00 - 11.00 K/uL [facility] RBC 3.91(L) 4.00 - 5.20 M/uL [facility] HGB 12.7 12.0 - 16.0 g/dL [facility] HCT 38.8 36.0 - 46.0 % [facility] PLT 183 150 - 450 K/uL [facility] MCV 99.2 80.0 - 100.0 fL [facility] MCH 32.5(H) 27.0 - 31.0 pg [facility] MCHC 32.7 32.0 - 36.0 g/dL [facility] RDW 12.5 11.5 - 14.5 % [facility] MPV 11.2 8.4 - 12.0 fL [facility] NRBC 0.00 0.00 /100 WBCs [facility] ABSOLUTE NRBC 0.00 0.00 K/uL [facility] DIFF METHOD Auto [facility] NEUTS 70.1 48.0 - 76.0 % [facility] LYMPHS 15.8(L) 18.0 - 41.0 % [facility] MONOS 8.3 4.0 - 11.0 % [facility] EOS 4.9 0.0 - 5.0 % [facility] BASOS 0.6 0.0 - 1.5 % [facility] Granulocytes, immature (%) 0.3 0.0 - 0.9 % [facility] ABSOLUTE NEUTS 4.40 1.92 - 7.60 K/uL [facility] ABSOLUTE LYMPHS 0.99 0.72 - 4.10 K/uL [facility] ABSOLUTE MONOS 0.52 0.16 - 1.10 K/uL [facility] ABSOLUTE EOS 0.31 0.00 - 0.50 K/uL [facility] ABSOLUTE BASOS 0.04 0.00 - 0.15 K/uL [facility] Granulocytes, immature 0.02 0.00 - 0.09 K/uL [facility] Blood 09/14/2024 11:0 7 AM EST 09/14/2024 8:38 PM EST Roshan Albarran MD LAB BLOOD ORDERABLES Performing Organization Address City/[facility]/ZIP Co de Phone Number [address] [address] * LFTs (hepatic panel) (09/14/2024 11:07 AM EST) ALKALINE PHOSPHATASE 97 39 - 117 U/L [facility] TOTAL BILIRUBIN 0.4 0.0 - 1.2 mg/dL [facility] DIRECT BILIRUBIN 0.2 0 - 0.3 mg/dL [facility] Bilirubin (Indirect) 0.2 0 - 1.5 mg/dL [facility] AST 18 0 - 37 U/L [facility] ALT 15 0 - 40 U/L [facility] TOTAL PROTEIN 6.6 6.5 - 8.0 g/dL [facility] ALBUMIN 4.1 3.9 - 4.8 g/dL [facility] GLOBULIN 2.5 1 - 4.8 g/dL [facility] A/G Ratio 1.64 1.00 - 4.80 RATIO [facility] Blood 09/14/2024 11:0 7 AM EST 09/14/2024 8:38 PM EST Roshan Albarran MD LAB BLOOD ORDERABLES [address] [address] documented in this encounter Visit Diagnoses Diagnosis Pulmonary Mycobacterium avium complex (MAC) infection documented in this encounter Care Teams Spanish Language Lecturer Relationship Specialty Start Date End Date Juliet Kirkland NP [address] [place] [address] PCP - General Nurse Practitioner 04/20/24 Leonel Feng MD [address] [place] [address] Pulmonary Disease 01/16/24 [place] [address] [place] [address] Infectious Diseases 01/16/24 documented as of this encounter Additional Source Comments The information contained in this document represents components of the legal health record. It is not the complete legal health record.[facility]
--- OUTSIDE RECORDS SUMMARY | 2024-09-30 08:00 | XMS_ITS | Encounter Summary ---
Author Organization [facility] Address [phone] [address] [place] [address] Care Team Providers Care Tilting Saw Operator Name Role Phone Leonel Feng MD Unavailable [phone] Les Dempsey MD Unavailable Juliet Kirkland SENIOR GRAPHIC DESIGNER Primary Care Provide r Reason for Visit * Reason Onset Date Comments COPAT Complete 09/15/2024 Encounter Details Date Type Department Care Team (Late st Contact Info) Description 09/15/2024 Telephone [facility] [address] [address] Rosalva Dinh, RN [address] [place] [address] [email or web address] COPAT Complete Social History Tobacco Use Types Packs/Day Years [...] Progress Notes * Rosalva Dinh RN - 09/15/2024 10:12 AM EST Infectious Disease COPAT Completion Note Per Roshan Albarran MD, patient to complete IV abx and to stop COPAT monitoring. PICC line removed by [facility] yesterday. Patient has no other questions at this time and has office contact number should any additional questions arise. Regimen from 09/14/24: omadacycline 300mg PO daily azithromycin 250mg PO daily rifampin 600mg PO daily ethambutol 800 mg PO daily clofazimine 100mg PO daily Arikayce 590mg daily via inhalation Diagnosis: Pulmonary MAC Medication: I omadacycline 300mg PO daily azithromycin 250mg PO daily rifampin 600mg PO daily Ethambutol 800 mg PO daily Weekly Labs: CBC/diff, LFTs, BUN/Cr, Amikacin trough (2-hr and 6hr levels of amikacin to be obtained after 3rd dose on 06/23) Start Date: 06/09/24 Stop Date: 09/14/24 PICC: R basilic DL Follow-Up Appt: 10/08/24 at 2:30 PM VNA: [facility] Infusion Company: [facility] Date 05/2008/18/2408/2509/01/2409/08 BUN 14 7 7 12 6 12 11 9 12 10 12 11 7 8 10 14 Scr 0.74 0.50 0.40 0.50 0.50 0.50 0.40 0.40 0.40 0.40 0.30 0.40 0.50 0.50 0.50 0.40 ALT 20 14 13 16 18 15 15 14 14 16 13 14 15 13 14 15 AST 22 19 19 20 24 21 20 20 20 21 19 23 21 20 18 18 Alk Phos 85 92 84 91 83 80 80 87 83 88 90 83 87 85 78 97 Total Bili 0.4 0.6 0.5 0.8 0.6 0.8 0.4 0.8 0.6 0.7 0.5 0.7 1.0 0.7 0.7 0.4 Direct Bili - <0.2 <0.2 0.2 <0.2 <0.2 <0.2 <0.2 <0.2 <0.2 <0.2 <0.2 <0.2 <0.2 <0.2 0.2 WBC 5.95 8.31 6.53 4.59 4.35 3.86 4.34 4.42 4.08 5.43 4.07 4.78 3.82 3.35 3.72 6.28 Hgb 13.2 12.1 12.0 13.4 12.9 12.6 12.9 12.7 12.3 12.8 12.4 12.5 12.8 12.6 12.9 12.7 HCT 39.6 37.1 36.5 39.9 39.1 38.2 38.5 38.1 37.0 39.3 38.4 39.2 38.5 38.7 38.8 38.8 PLT 212 183 168 205 201 171 193 191 186 178 178 183 171 166 173 183 % Neutrophils 62.2 75.1 69.8 61.1 52.0 61.1 57.8 65.2 63.0 66.6 59.8 69.3 64.9 60.8 62.4 70.1 ANC 3.70 6.25 4.56 2.80 2.26 2.36 2.51 2.88 2.57 3.62 2.43 3.31 2.48 2.04 2.32 4.40 % Eosinophils 3.2 3.6 5.5 6.3 6.0 7.8 7.6 6.3 5.4 7.2 4.4 3.1 3.9 5.4 4.8 4.9 AEC 0.19 0.30 0.36 0.29 0.26 0.30 0.33 0.28 0.22 0.39 0.18 0.15 0.15 0.18 0.18 0.31 07/16/2407/30 Amikacin dose - 900mg TIW 900mg TIW 1100mg TIW 1250mg TIW 1250mg TIW 1250mg TIW 1250mg TIW 1250mg TIW 1250mg TIW 1250mg TIW 1250mg TIW 1250mg TIW 1250mg TIW 1250mg TIW D/C 2hr level - 27.2 - 25.0 40.8 [...] Info) Description 10/08/2024 10:30 AM EST Appointment [facility] [address] [facility] [address] [place] [address] Roshan Albarran MD [address] [place] [address] [email or web address] 10/08/2024 11:30 AM EST Office Visit [facility] 55 [facility] [address] [place] [address] Roshan Albarran MD [address] [place] [address] [email or web address] 10/15/2024 4:30 PM EST Office Visit [facility] Rheumatology [address] [place] [address] Sia Lebron MD [address] [place] [address], [address] [place] [address] [email or web address] documented as of this encounter Visit Diagnoses Not on filedocumented in this encounter Care Teams Tilting Saw Operator Relationship Specialty Start Date End Date Juliet Kirkland NP [address] [place] [address] PCP - General Nurse Practitioner 04/20/24 Leonel Feng MD [address] [place] [address] Pulmonary Disease 01/16/24 Les Dempsey MD [address] [address] Infectious Diseases 01/16/24 documented as of this encounter Additional Source Comments The information contained in this document represents components of the legal health record. It is not the complete legal health record.[facility]
--- OUTSIDE RECORDS SUMMARY | 2024-09-30 08:00 | XMS_ITS | Encounter Summary ---
Author Organization [facility] Address [phone] [address] [place] [address] Care Team Providers Care Dial Painter Name Role Phone Melissa Mcdaniel PIECER Primary Care Provider Leonel Feng MD Unavailable [phone] Les Dempsey MD Unavailable Juliet Kirkland NP Primary Care Provide r Encounter Details Date Type Department Care Team (Latest Contact Info) Description 01/02/2019 Transcribe Orders [facility] Laboratory [address] [place] [address] Melissa Mcdaniel, PIECER [address] [place] [address] Dysuria (Primary Dx) Social History Tobacco Use [...] Info) Description 10/08/2024 10:30 AM EST Appointment [facility] 55 [facility] [address] [place] [address] Roshan Albarran MD 55 [place] [address] [email or web address] 10/08/2024 11:30 AM EST Office Visit [facility] [address] [address] Roshan Albarran MD [address] [place] [address] [email or web address] 10/15/2024 4:30 PM EST Office Visit [facility] Rheumatology [address] [place] [address] Sia Lebron MD 22 [facility], [address] [place] [address] [email or web address] documented as of this encounter Results * (ABNORMAL) Urinalysis w/reflex Urine Culture (01/02/2019 6:00 AM EDT) COLOR Yellow Yellow [employer] CLARITY Clear [employer] GLUCOSE Negative Negative [employer] BILI Negative Negative [employer] KETONES Negative Negative [employer] SPECIFIC GRAVITY 1.015 1.005 - 1.030 [employer] BLOOD 2+(A) Negative [employer] PH 5.5 5.0 - 8.0 [employer] Protein-UA Negative Negative [employer] NITRITE Negative Negative [employer] Leukocyte esterase, ur Trace(A) Negative [employer] Urine (Urine) 01/02/2019 6:0 0 AM EDT 01/02/2019 10:22 AM EDT Melissa Mcdaniel NP URINE ORDERABLES [employer] [address] [place] [address] documented in this encounter Visit Diagnoses Diagnosis [...] documented as of this encounter Care Teams Dial Painter Relationship Specialty Start Date End Date Melissa Mcdaniel PIECER [address] [place] [address] PCP - General Nurse Practitioner 03/20/18 04/19/24 Juliet Kirkland NP [address] [place] [address] PCP - General Nurse Practitioner 04/20/24 Leonel Feng MD [address] [place] [address] Pulmonary Disease 01/16/24 Les Dempsey MD [address] [place] [address] Infectious Diseases 01/16/24 documented as of this encounter Additional Source Comments The information contained in this document represents components of the legal health record. It is not the complete legal health record.[facility]
--- OUTSIDE RECORDS SUMMARY | 2024-09-30 08:00 | XMS_ITS | Encounter Summary ---
Author Organization [facility] Address [phone] [facility] [place] [address] Care Team Providers Care Spud Grader Name Role Phone Unavailable Primary Care Provider Unavailabl e Encounter Details Date Type Department Care Team (Late st Contact Info) Description 09/29/2015 12:15 AM EST Hospital Encounter [facility] [address] [place] [address] System, Provider Not In, [facility] [address] [address] Social History Tobacco Use Types Packs/Day Years [...] Info) Description 10/08/2024 10:30 AM EST Appointment [facility] Pulmonary and Critical Care Unit [address] [address] Roshan Albarran MD 55 [place] [address] [email or web address] 10/08/2024 11:30 AM EST Office Visit [facility] [address] [place] [address] Roshan Albarran MD [address] [place] [address] [email or web address] 10/15/2024 4:30 PM EST Office Visit [facility] Rheumatology [address] [place] [address] Sia Lebron MD 22 [facility], [address] [place] [address] [email or web address] documented as of this encounter Procedures Procedure [...] It is not the complete legal health record.[facility]
--- OUTSIDE RECORDS SUMMARY | 2024-09-30 08:00 | XMS_ITS | Encounter Summary ---
Author Organization [facility] Address [phone] [address] [place] [address] Care Team Providers Care Operations Professional Name Role Phone Leonel Feng MD Unavailable [phone] Les Dempsey MD Unavailable [phone] Juliet Kirkland ELECTRONIC PUBLISHING SPECIALIST Primary Care Provide r Reason for Visit * Reason Onset Date Comments COPAT Follow-up 09/03/2024 Encounter Details Date Type Department Care Team (Late st Contact Info) Description 09/03/2024 Telephone [facility] [address] [address] Rosalva Dinh, RN [address] [place] [address] [email or web address] COPAT Follow-up Social History Tobacco Use [...] as of this encounter Progress Notes * Bharti Swanson, 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 We are receiving all surveillance safety labs in follow-up. A/P: All labs were reviewed. Her trough was <0.8, which is in our goal range and consistent with prior levels. We can continue the current dose of amikacin 1250 mg three times a week. We can check a trough next week with the usual safety labs. The patient's white blood cells have been trending down/hovering around 3.3-3.8 for the last few weeks, which may potentially be caused by the imipenem, as it can cause neutropenia. However, I think that she will be able to continue to tolerate imipenem until we are able to obtain clofazimine within the next few weeks. All other labs were within normal range or close to baseline for the patient. Recommendation was relayed to Dr. Albarran and the OPAT team. Bharti Swanson, PharmD Infectious Diseases Pharmacist Pager: [phone] Phone: [phone] --- Infectious Disease COPAT Follow-up Note Weekly labs reviewed in [facility] and documented below. Note forwarded to ID DM and ID pharmacy for review. Diagnosis: Pulmonary MAC Medication: IV imipenem/cilastatin 1000mg [...] Follow-Up Appt: 07/30/24 at 1 PM [facility]: [facility] Infusion Company: [facility] Date 05/2008/18/2408/2509/01/24 BUN 14 7 7 12 6 12 11 9 12 10 12 11 7 8 Scr 0.74 0.50 0.40 0.50 0.50 0.50 0.40 0.40 0.40 0.40 0.30 0.40 0.50 0.50 ALT 20 14 13 16 18 15 15 14 14 16 13 14 15 13 AST 22 19 19 20 24 21 20 20 20 21 19 23 21 20 Alk Phos 85 92 84 91 83 80 80 87 83 88 90 83 87 85 Total Bili 0.4 0.6 0.5 0.8 0.6 0.8 0.4 0.8 0.6 0.7 0.5 0.7 1.0 0.7 Direct Bili - <0.2 <0.2 0.2 <0.2 <0.2 <0.2 <0.2 <0.2 <0.2 <0.2 <0.2 <0.2 <0.2 WBC 5.95 8.31 6.53 4.59 4.35 3.86 4.34 4.42 4.08 5.43 4.07 4.78 3.82 3.35 Hgb 13.2 12.1 12.0 13.4 12.9 12.6 12.9 12.7 12.3 12.8 12.4 12.5 12.8 12.6 HCT 39.6 37.1 36.5 39.9 39.1 38.2 38.5 38.1 37.0 39.3 38.4 39.2 38.5 38.7 PLT 212 183 168 205 201 171 193 191 186 178 178 183 171 166 % Neutrophils 62.2 75.1 69.8 61.1 52.0 61.1 57.8 65.2 63.0 66.6 59.8 69.3 64.9 60.8 ANC 3.70 6.25 4.56 2.80 2.26 2.36 2.51 2.88 2.57 3.62 2.43 3.31 2.48 2.04 % Eosinophils 3.2 3.6 5.5 6.3 6.0 7.8 7.6 6.3 5.4 7.2 4.4 3.1 3.9 5.4 AEC 0.19 0.30 0.36 0.29 0.26 0.30 0.33 0.28 0.22 0.39 0.18 0.15 0.15 0.18 12/5/24 12/19 Amikacin dose - 900mg TIW 900mg TIW [...] reference scanned lab results for original documentation. * Rosalva Dinh RN - 09/03/2024 6:58 PM EST Infectious Disease COPAT Follow-up Note Weekly labs reviewed in [facility] and documented below. Note forwarded to ID DM and ID pharmacy for review. Diagnosis: Pulmonary MAC Medication: IV imipenem/cilastatin 1000mg Q12hrs IV amikacin 1250mg TIW (, , Sat) omadacycline 300mg PO daily azithromycin 250mg PO daily rifampin 600mg PO daily Ethambutol 800 mg PO daily Weekly Labs: CBC/diff, LFTs, BUN/Cr, Amikacin trough (2-hr and 6hr levels of amikacin to be obtained after 3rd dose on 06/23) Start Date: 06/09/24 Anticipated Stop Date: 12 weeks= ~09/01/2024 PICC: Carisa moralez DL Follow-Up Appt: 07/30/24 at 1 PM [facility]: [facility] Infusion Company: [facility] Date 05/2008/18/2408/2509/01/24 BUN 14 7 7 12 6 12 11 9 12 10 12 11 7 8 Scr 0.74 0.50 0.40 0.50 0.50 0.50 0.40 0.40 0.40 0.40 0.30 0.40 0.50 0.50 ALT 20 14 13 16 18 15 15 14 14 16 13 14 15 13 AST 22 19 19 20 24 21 20 20 20 21 19 23 21 20 Alk Phos 85 92 84 91 83 80 80 87 83 88 90 83 87 85 Total Bili 0.4 0.6 0.5 0.8 0.6 0.8 0.4 0.8 0.6 0.7 0.5 0.7 1.0 0.7 Direct Bili - <0.2 <0.2 0.2 <0.2 <0.2 <0.2 <0.2 <0.2 <0.2 <0.2 <0.2 <0.2 <0.2 WBC 5.95 8.31 6.53 4.59 4.35 3.86 4.34 4.42 4.08 5.43 4.07 4.78 3.82 3.35 Hgb 13.2 12.1 12.0 13.4 12.9 12.6 12.9 12.7 12.3 12.8 12.4 12.5 12.8 12.6 HCT 39.6 37.1 36.5 39.9 39.1 38.2 38.5 38.1 37.0 39.3 38.4 39.2 38.5 38.7 PLT 212 183 168 205 201 171 193 191 186 178 178 183 171 166 % Neutrophils 62.2 75.1 69.8 61.1 52.0 61.1 57.8 65.2 63.0 66.6 59.8 69.3 64.9 60.8 ANC 3.70 6.25 4.56 2.80 2.26 2.36 2.51 2.88 2.57 3.62 2.43 3.31 2.48 2.04 % Eosinophils 3.2 3.6 5.5 6.3 6.0 7.8 7.6 6.3 5.4 7.2 4.4 3.1 3.9 5.4 AEC 0.19 0.30 0.36 0.29 0.26 0.30 0.33 0.28 0.22 0.39 0.18 0.15 0.15 0.18 07/16/2407/30 Amikacin dose - 900mg TIW [...] Info) Description 10/08/2024 10:30 AM EST Appointment [facility] 55 [facility] 201 [place] [address] Roshan Albarran MD 55 [place] [address] [email or web address] 10/08/2024 11:30 AM EST Office Visit [facility] [address] [address] Roshan Albarran MD 55 [place] [address] [email or web address] 10/15/2024 4:30 PM EST Office Visit [facility] Rheumatology [address] [place] [address] Sia Lebron MD [address] [place] [address], [address] [place] [address] [email or web address] documented as of this encounter Visit Diagnoses Not on filedocumented in this encounter Care Teams Operations Professional Relationship Specialty Start Date End Date Juliet Kirkland NP [address] [place] [address] PCP - General Nurse Practitioner 04/20/24 Leonel Feng MD [address] [place] [address] Pulmonary Disease 01/16/24 Les Dempsey MD [address] [place] [address] Infectious Diseases 01/16/24 documented as of this encounter Additional Source Comments The information contained in this document represents components of the legal health record. It is not the complete legal health record.[facility]
--- OUTSIDE RECORDS SUMMARY | 2024-09-30 08:00 | XMS_ITS | Encounter Summary ---
Author Organization [facility] Address [phone] [address] [place] [address] Care Team Providers Care Fruit Picker Machine Operator Name Role Phone Leonel Feng MD Unavailable [phone] Les Dempsey MD Unavailable Juliet Kirkland NP Primary Care Provide r Encounter Details Date Type Department Care Team (Late st Contact Info) Description 08/27/2024 Procedure Pass [facility], Ct Scan - [address] [address] Social History Tobacco Use Types Packs/Day Years [...] Info) Description 10/08/2024 10:30 AM EST Appointment [facility] Pulmonary and Critical Care Unit [address] [address] Roshan Albarran MD 55 [place] [address] [email or web address] 10/08/2024 11:30 AM EST Office Visit [facility] [address] [address] Roshan Albarran MD [address] [place] [address] [email or web address] 10/15/2024 4:30 PM EST Office Visit [facility] Rheumatology [address] [place] [address] Sia Lebron MD 22 [facility], [address] [place] [address] [email or web address] documented as of this encounter Visit Diagnoses Not on filedocumented in this encounter Care Teams Fruit Picker Machine Operator Relationship Specialty Start Date End Date Juliet Kirkland NP [address] [place] [address] PCP - General Nurse Practitioner 04/20/24 Leonel Feng MD [address] [place] [address] Pulmonary Disease 01/16/24 Les Dempsey MD [address] [place] [address] Infectious Diseases 01/16/24 documented as of this encounter Additional Source Comments The information contained in this document represents components of the legal health record. It is not the complete legal health record.[facility]
--- OUTSIDE RECORDS SUMMARY | 2024-09-30 08:00 | XMS_ITS | Encounter Summary ---
Author Organization [facility] Address [phone] [facility] [address] Care Team Providers Care [employer] Baseball Coach Name Role Phone Melissa Mcdaniel NP Primary Care Provider Leonel Feng MD Unavailable [phone] Les Dempsey MD Unavailable Juliet Kirkland NP Primary Care Provide r Reason for Referral * Outpatient Procedure - Closed Specialty Diagnoses / Procedures Referred By Bob abreu Referred To Contact Radiology Diagnoses Localized swelling, mass and lump, lower limb, right Procedures US Lower Extremity Non-Vascular (Right) Melissa Mcdaniel NP [address] [place] [address] Referral ID Status Reason Start Date Expiration Date Visits Re quested Visits Authorized [id number] Closed 04/07/2019 04/06/2020 1 1 Encounter Details Date Type Department Care Team (Latest Contact Info) Description 04/07/2019 Transcribe Orders Virtual Department [address] [place] [address] Melissa Mcdaniel NP [address] [place] [address] Localized swelling, mass and lump, lower limb, right (Primary Dx) Social History Tobacco Use Types [...] Info) Description 10/08/2024 10:30 AM EST Appointment [facility] Pulmonary and Critical Care Unit [address] [facility] [address] [place] [address] Roshan Albarran MD [address] [place] [address] [email or web address] 10/08/2024 11:30 AM EST Office Visit [facility] [address] [facility] [address] [place] [address] Roshan Albarran MD [address] [place] [address] [email or web address] 10/15/2024 4:30 PM EST Office Visit [facility] Rheumatology [address] [place] [address] Sia Lebron MD [address] [place] [address], [address] [place] [address] [email or web address] documented as of this encounter Results * US LOWER EXTREMITY NON-VASCULAR LIMITED (RIGHT) (04/08/2019 5:17 PM EDT) Anatomical Region Laterality Modality Hip Right, Thigh Right, Knee Right, Leg Right, Ankle Right, Foot Right Ultrasound 04/08/2019 5:21 PM EDT Impressions 04/08/2019 5:24 PM EDT Palpable abnormality correlates with a cystic structure containing low-level internal echoes, of unknown etiology and clinical significance. ??A ganglion-type lesion could be considered but its relationship to the skeletal structures is not well established on the current examination. POS - [id number] Narrative 04/08/2019 5:24 PM EDT COMPARISON: None FINDINGS: Sonographic evaluation of the region of palpable abnormality as delineated by the patient along the anterolateral aspect of the foot was performed. ??This reveals a cystic structure containing internal low-level echoes, measuring 2.2 x 1.2 x 2.0 cm in span. ??No significant hyperemia identified. ??No solid mass apparent. Procedure Note Flash Velásquez MD - 04/08/2019 COMPARISON: None FINDINGS: Sonographic evaluation of the region of palpable abnormality as delineatedby the patient along the anterolateral aspect of the foot was performed.This reveals a cystic structure containing internal low-level echoes,measuring 2.2 x 1.2 x 2.0 cm in span. No significant hyperemiaidentified. No solid mass apparent. IMPRESSION: Palpable abnormality correlates with a cystic structure containinglow-level internal echoes, of unknown etiology and clinical significance.A ganglion-type lesion could be considered but its relationship to theskeletal structures is not well established on the current examination. 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 1:32 AM EDT CoV-Exposed Comment:Recent close contact 08/03/2020 08/03/2020 08/17/2020 1:24 AM EST COVID-19 03/31/2021 03/31/2021 04/21/2021 1:23 AM EDT CoV-Risk 04/29/2022 04/29/2022 04/29/2022 1:04 PM EDT COVID-19 04/29/2022 04/29/2022 05/20/2022 1:21 AM EDT documented as of this encounter Care Teams Middle [employer] Baseball Coach Relationship Specialty Start Date End Date Melissa Mcdaniel NP [address] [place] [address] PCP - General Nurse Practitioner 03/20/18 04/19/24 Juliet Kirkland NP [address] [place] [address] PCP - General Nurse Practitioner 04/20/24 Leonel Feng MD [address] [place] [address] Pulmonary Disease 01/16/24 Les Dempsey MD [address] [place] [address] Infectious Diseases 01/16/24 documented as of this encounter Additional Source Comments The information contained in this document represents components of the legal health record. It is not the complete legal health record.[facility]
--- OUTSIDE RECORDS SUMMARY | 2024-09-30 08:00 | XMS_ITS | Encounter Summary ---
Author Organization [facility] Address [phone] [facility] [place] [address] Care Team Providers Care Technical Advisor Name Role Phone Leonel Feng MD Unavailable [phone] Les Dempsey MD Unavailable Juliet Kirkland MELT HOUSE SUPERVISOR Primary Care Provide r Reason for Referral * MRI/CAT Scan - Closed Specialty Diagnoses / Procedures Referred By Bob abreu Referred To Contact Radiology Diagnoses Nontuberculous mycobacterial pulmonary disease Procedures CT Chest CHG DIAGNOSTIC COMPUTED TOMOGRAPHY THORAX W/O CNTRST CHG DIAGNOSTIC COMPUTED TOMOGRAPHY THORAX W/CONTRAST CHG DIAGNOSTIC COMPUTED TOMOGRAPHY THORAX C-/C+ Roshan Albarran MD [address] [place] [address] Email: [email or web address] Referral ID Status Reason Start Date Expiration Date Visits Re quested Visits Authorized [id number] Closed 08/28/2024 10/26/2024 1 1 Reason for Visit * MRI/CAT Scan - Closed Specialty Diagnoses / Procedures Referred By Bob t Referred To Contact Radiology Diagnoses Nontuberculous mycobacterial pulmonary disease Procedures CT Chest CHG DIAGNOSTIC COMPUTED TOMOGRAPHY THORAX W/O CNTRST CHG DIAGNOSTIC COMPUTED TOMOGRAPHY THORAX W/CONTRAST CHG DIAGNOSTIC COMPUTED TOMOGRAPHY THORAX C-/C+ Roshan Albarran MD [address] [place] [address] Email: [email or web address] Referral ID Status Reason Start Date Expiration Date Visits Re quested Visits Authorized [id number] Closed 08/28/2024 10/26/2024 1 1 Encounter Details Date Type Department Care Team (Latest Contact Info) Description 09/05/2024 8:53 AM EST - 09/05/2024 11:59 PM EST Hospital Encounter [facility], Ct Scan - [facility] [address] [place] [address] Roshan Albarran MD [address] [place] [address] [email or web address] Discharge Disposition: Home or Self Care Social [...] is your housing situation today? I have alna sing 06/25/2024 How many times have you [...] Info) Description 10/08/2024 10:30 AM EST Appointment [facility] Pul[facility] Unit [address] [facility] [address] [place] [address] Roshan Albarran MD [address] [place] [address] [email or web address] 10/08/2024 11:30 AM EST Office Visit [facility] [address] [facility] [address] [place] [address] Roshan Albarran MD [address] [place] [address] [email or web address] 10/15/2024 4:30 PM EST Office Visit [facility] Rheumatology 22 [place] [address] Sia Lebron MD 22 [facility], [address] [place] [address] [email or web address] documented as of this encounter Procedures Procedure Name Priority Date/Time Associated Diagnosis Comments CT CHEST WITH CONTRAST Routine 09/05/2024 9:33 AM EST Nontuberculous mycobacterial pulmonary disease documented in this encounter Results * CT CHEST WITH CONTRAST (09/05/2024 9:33 AM EST) Anatomical Region Laterality Modality Chest Computed Tomogra phy 09/07/2024 3:49 PM EST Impressions 09/07/2024 3:58 PM EST 1. ??Unchanged bronchiectasis and decrease in centrilobular tree-in-bud nodularity in the left lingula, right middle lobe, and left lower lobe most likely representing resolving aspiration or pneumonia including resolving nontuberculous mycobacterial infection. 2. ??No new or enlarging pulmonary nodules. No new areas of consolidation. 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 COMPARISON: CT CHEST WITH CONTRAST FINDINGS: Devices/Tubes/Lines: None. Lungs: The central airways are patent. Unchanged mild to moderate nodular apical scarring. Unchanged bronchiectasis inferior left lingula. Decrease in centrilobular tree-in-bud nodularity in the left lingula and right middle lobe. Resolution of previously demonstrated small cluster of centrilobular nodules in the left lower lobe. No new or enlarging pulmonary nodules. Pleura: Normal. No pleural effusion or pneumothorax. Mediastinum: Unchanged low-attenuation right thyroid nodule. No coronary calcification. Lymph Nodes: No enlarged supraclavicular, axillary, mediastinal, or hilar lymph nodes. Unchanged axillary lymph nodes at the upper limits of normal in size. Upper Abdomen: Unchanged low-attenuation areas in the liver. Chest Wall: Normal. No chest wall mass. Bones: No suspicious lytic or blastic lesions. Procedure Note Saeed Guzman MD - 09/07/2024 CT CHEST WITH CONTRAST Referring clinician's provided indication for this examination in [facility]: *Pneumonia, unresolved; Pulmonary MAC and M abscessus, assess response toongoing treatment TECHNIQUE: Multidetector CT of the chest was performed with intravenouscontrast using tailored dose modulation techniques. COMPARISON: CT CHEST WITH CONTRAST FINDINGS: Devices/Tubes/Lines: None. Lungs: The central airways are patent. Unchanged mild to moderate nodularapical scarring. Unchanged bronchiectasis inferior left lingula. Decrease in qcsbgqszvzrfdoyud-kx-vrg nodularity in the left lingula and right middle lobe. Resolution of previously demonstrated small cluster of centrilobularnodules in the left lower lobe. No new or enlarging pulmonary nodules. Pleura: Normal. No pleural effusion or pneumothorax. Mediastinum: Unchanged low-attenuation right thyroid nodule. No coronarycalcification. Lymph Nodes: No enlarged supraclavicular, axillary, mediastinal, or hilarlymph nodes. Unchanged axillary lymph nodes at the upper limits of normalin size. Upper Abdomen: Unchanged low-attenuation areas in the liver. Chest Wall: Normal. No chest wall mass. Bones: No suspicious lytic or blastic lesions. IMPRESSION: 1. Unchanged bronchiectasis and decrease in centrilobular ifrc-je-svssakzrwtlay in the left lingula, right middle lobe, and left lower lobemost likely representing resolving aspiration or pneumonia includingresolving nontuberculous mycobacterial infection. 2. No new or enlarging pulmonary nodules. No new areas ofconsolidation. Roshan Albarran MD IMG CT CHEST documented in this encounter Visit Diagnoses Diagnosis Nontuberculous mycobacterial pulmonary disease documented in this encounter Administered Medications Inactive Administered Medications - up to 3 most recent administrations Medication Order MAR Action Action Date Dose Rate Site iohexoL (OMNIPAQUE-350) 350 mg iodine/mL solution 75 mL 75 mL, Intravenous, Once as needed, pre procedure/treatment, Starting on 09/05/24 at 0924, For 1 dose, Procedural Contrast/Med Active Now, Each mL contains 755 mg of iohexol equivalent to 350 mg of organic iodine. Given 09/05/2024 9:33 AM EST 75 mL documented in this encounter Care Teams Technical Advisor Relationship Specialty Start Date End Date Juliet Kirkland NP [address] [place] [address] PCP - General Nurse Practitioner 04/20/24 Leonel Feng MD [address] [place] [address] Pulmonary Disease 01/16/24 Les Dempsey MD [address] [place] [address] Infectious Diseases 01/16/24 documented as of this encounter Additional Source Comments The information contained in this document represents components of the legal health record. It is not the complete legal health record.[facility]
--- OUTSIDE RECORDS SUMMARY | 2024-09-30 08:00 | XMS_ITS | Encounter Summary ---
Author Organization [facility] Address [phone] [facility] [place] [address] Care Team Providers Care Welder Tool [employer] Die Name Role Phone Melissa Mcdainel PHOTOCOMPOSING MACHINE OPERATOR Primary Care Provider [phone] Leonel Feng MD Unavailable [phone] Les Dempsey MD Unavailable Juliet Kirkland PHOTOCOMPOSING MACHINE OPERATOR Primary Care Provide r Encounter Details Date Type Department Care Team (Late st Contact Info) Description 01/28/2019 Documentation [facility] Infectious Disease Virtual Department [address] [place] [address] Pcp, Not Required 55 [place] [address] Social History Tobacco Use Types Packs/Day Years [...] Info) Description 10/08/2024 10:30 AM EST Appointment [facility] Pulmonary and Critical Care Unit [address] [address] Roshan Albarran MD [address] [place] [address] [email or web address] 10/08/2024 11:30 AM EST Office Visit [facility] [address] [facility]akov [address] [place] [address] Roshan Albarran MD [address] [place] [address] [email or web address] 10/15/2024 4:30 PM EST Office Visit [facility] Rheumatology 22 [place] [address] Sia Lebron MD 22 [facility], [address] [place] [address] [email or web address] documented as of this encounter Visit Diagnoses Not on filedocumented in this encounter 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 1:32 AM EDT CoV-Exposed Comment:Recent close contact 08/03/2020 08/03/2020 08/17/2020 1:24 AM EST COVID-19 03/31/2021 03/31/2021 04/21/2021 1:23 AM EDT CoV-Risk 04/29/2022 04/29/2022 04/29/2022 1:04 PM EDT COVID-19 04/29/2022 04/29/2022 05/20/2022 1:2 1 AM EDT documented as of this encounter Care Teams Welder Tool And Die Relationship Specialty Start Date End Date Melissa Mcdaniel NP [address] [place] [address] PCP - General Nurse Practitioner 03/20/18 04/19/24 Juliet Kirkland NP [address] [place] [address] PCP - General Nurse Practitioner 04/20/24 Leonel Feng MD [address] [place] [address] Pulmonary Disease 01/16/24 Les Dempsey MD [facility] [address] [address] Infectious Diseases 01/16/24 documented as of this encounter Additional Source Comments The information contained in this document represents components of the legal health record. It is not the complete legal health record.[facility]
--- OUTSIDE RECORDS SUMMARY | 2024-09-30 08:00 | XMS_ITS | Encounter Summary ---
Author Organization [facility] Address [phone] [facility] [place] [address] Care Team Providers Care Concrete Pump Operator Name Role Phone Mariah Soares DEBUBBLIZER Primary Care Provider [phone] Melissa Mcdaniel DEBUBBLIZER Primary Care Provider [phone] Leonel Feng MD Unavailable [phone] Les Dempsey MD Unavailable [phone] Juliet Kirkland DEBUBBLIZER Primary Care Provide r Encounter Details Date Type Department Care Team (Late st Contact Info) Description 12/10/2017 Ancillary Orders Virtual Department [address] [place] [address] Mariah Soares DEBUBBLIZER [address] [employer], [place] [phone] Breast screening Social History Tobacco Use Types Packs/Day Years Used Date Smoking Tobacco: Never Assessed Sex and Gender Information Value Date Recorded Sex Assigned at Not on file Gender Identity Not on file Sexual Orientation Not on file documented as of this encounter Plan of Treatment Upcoming Encounters Date Type Department Care Team (Late st Contact Info) Description 10/08/2024 10:30 AM EST Appointment [facility] Pulmonary and Critical Care Unit [address] [id number] Roshan Albarran MD 55 [place], [place] [phone] [email or web address] 10/08/2024 11:30 AM EST Office Visit [facility] [address] [place] [address] Roshan Albarran MD [address] [place] [address] [email or web address] 10/15/2024 4:30 PM EST Office Visit [facility] Rheumatology 22 [place] [address] Sia Lebron MD 22 [facility], [address] [place] [address] [email or web address] documented as of this encounter Results * (ABNORMAL) BI MAMMOGRAM SCREENING WITH TOMOSYNTHESIS WITH CAD (BILATERAL) (03/20/2018 7:39 AM EDT) Anatomical Region Laterality Modality Breast Left, Breast Right, Breast Bilateral Bila teral Mammography 03/20/2018 8:46 AM EDT Impressions 03/20/2018 8:52 AM EDT Recommend additional imaging for small asymmetry with questionable mass margins in the posterior outer right breast. ??This may prove to represent superimposed fibroglandular tissue. ??No other findings suspicious for malignancy. BI-RADS CATEGORY: 0 - Incomplete. Need additional imaging evaluation. DENSITY: ??There are scattered fibroglandular densities. LEFT RECOMMENDATION DUE DATE: ??Annual Mammography Screening RIGHT RECOMMENDATION DUE DATE: Within 1 Month Additional Imaging Recall imaging: Spot compression CC and rolled medial cc views with 3-D tomography. ??Block off right breast ultrasound in case necessary. POS - CDHMAMA Narrative 03/20/2018 8:52 AM EDT Bilateral mammography is performed in conjunction with computed aided detection. 3-D tomography along with 2-D C view imaging was also performed. Comparison made to previous dated as far back as 05/20/2013 and as recent as 12/11/2016. ?? Small asymmetry with questionable mass margins in the posterior outer right breast. ??This is a questionable change from previous mammograms. ??No definite correlate on the MLO view. ??Otherwise, no suspicious masses, areas of architectural distortion or suspicious microcalcifications. Procedure Note Speedy López MD - 03/20/2018 Bilateral mammography is performed in conjunction with computed aideddetection. 3-D tomography along with 2-D C view imaging was alsoperformed. Comparison made to previous dated as far back as 05/20/2013 andas recent as 12/11/2016. Small asymmetry with questionable mass margins in the posterior outerright breast. This is a questionable change from previous mammograms. Nodefinite correlate on the MLO view. Otherwise, no suspicious masses,areas of architectural distortion or suspicious microcalcifications. IMPRESSION: Recommend additional imaging for small asymmetry with questionable massmargins in the posterior outer right breast. This may prove to representsuperimposed fibroglandular tissue. No other findings suspicious formalignancy. BI-RADS CATEGORY: 0 - Incomplete. Need additional imaging evaluation. DENSITY: There are scattered fibroglandular densities. LEFT RECOMMENDATION DUE DATE: Annual Mammography Screening RIGHT RECOMMENDATION DUE DATE: Within 1 Month Additional Imaging Recall imaging: Spot compression CC and rolled medial cc views with 3- Dtomography. Block off right breast ultrasound in case necessary. 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 1:32 AM EDT CoV-Exposed Comment:Recent close contact 08/03/2020 08/03/2020 08/17/2020 1:24 AM EST COVID-19 03/31/2021 03/31/2021 04/21/2021 1:23 AM EDT CoV-Risk 04/29/2022 04/29/2022 04/29/2022 1:04 PM EDT COVID-19 04/29/2022 04/29/2022 05/20/2022 1:21 AM EDT documented as of this encounter Care Teams Concrete Pump Operator Relationship Specialty Start Date End Date Mariah Soares NP [address] [place] [address] PCP - General Family Medicine 12/10/17 03/19/18 Melissa Mcdaniel NP [address] [place] [address] PCP - General Nurse Practitioner 03/20/18 04/19/24 Juliet Kirkland NP [address] [place] [address] PCP - General Nurse Practitioner 04/20/24 Leonel Feng MD [address] [place] [address] Pulmonary Disease 01/16/24 Les Dempsey MD [address] [place] [address] Infectious Diseases 01/16/24 documented as of this encounter Additional Source Comments The information contained in this document represents components of the legal health record. It is not the complete legal health record.[facility]
--- OUTSIDE RECORDS SUMMARY | 2024-09-30 08:00 | XMS_ITS | Encounter Summary ---
Author Organization [facility] Address [phone] [place] [address] Care Team Providers Care Mental Health Consultant Name Role Phone Melissa Mcdaniel SECURITIES DEALER Primary Care Provider Leonel Feng MD Unavailable [phone] Les Dempsey MD Unavailable Juliet Kirkland SECURITIES DEALER Primary Care Provide r Encounter Details Date Type Department Care Team (Late st Contact Info) Description 03/24/2018 Ancillary Orders Virtual Department [address] [place] [address] Dale Neville MD [address] [facility] [address] [place] [address] Abnormal mammogram Social History Tobacco Use Types Packs/Day Years Used Date Smoking Tobacco: Never Assessed Sex and Gender Information Value Date Recorded Sex Assigned at Not on file Gender Identity Not on file Sexual Orientation Not on file documented as of this encounter Plan of Treatment Upcoming Encounters Date Type Department Care Team (Late st Contact Info) Description 10/08/2024 10:30 AM EST Appointment [facility] Pulmonary and Critical Care Unit 55 [facility] [address] [place] [address] Roshan Albarran MD 55 [place] [address] [email or web address] 10/08/2024 11:30 AM EST Office Visit [facility] [address] [place] [address] Roshan Albarran MD [address] [place] [address] [email or web address] 10/15/2024 4:30 PM EST Office Visit [facility] Rheumatology [address] [place] [address] Sia Lebron MD 22 [facility], [address] [place] [address] [email or web address] documented as of this encounter Visit Diagnoses Diagnosis Abnormal mammogram Abnormal mammogram, unspecified documented in [...] documented as of this encounter Care Teams Mental Health Consultant Relationship Specialty Start Date End Date Melissa Mcdaniel NP [address] [place] [address] PCP - General Nurse Practitioner 03/20/18 04/19/24 Juliet Kirkland NP [address] [place] [address] PCP - General Nurse Practitioner 04/20/24 Leonel Feng MD [address] [place] [address] Pulmonary Disease 01/16/24 Les Dempsey MD [address] [id number] Infectious Diseases 01/16/24 documented as of this encounter Additional Source Comments The information contained in this document represents components of the legal health record. It is not the complete legal health record.[facility]
--- OUTSIDE RECORDS SUMMARY | 2024-09-30 08:00 | XMS_ITS | Encounter Summary ---
Author Organization [facility] Address [phone] [address] [place] [address] Care Team Providers Care Heel Shaver Name Role Phone Leonel Feng MD Unavailable [phone] Les Dempsey MD Unavailable Juliet Kirkland NP Primary Care Provide r Encounter Details Date Type Department Care Team (Late st Contact Info) Description 09/01/2024 Telephone [facility] [address] [address] Rosalva Dinh, RN [address] [place] [address] MIRNA@[email or web address] [email or web address] Social History Tobacco Use Types Packs/Day Years [...] as of this encounter Progress Notes * Roshan Ko MD - 09/01/2024 3:17 PM ESTAddended by: ROSHAN KO on: 09/01/2024 03:17 PM Modules accepted: Orders * Rosalva Dinh RN - 09/01/2024 10:47 AM EST TC from patient reporting perineal redness, itchiness and discomfort. These symptoms are similar towhat she experiences when she has a yeast infection. She denies any abnormal vaginal discharge or malodor. She has previously been prescribed PO fluconazole with good effect. She is wondering if Dr. Ko would be comfortable treating. documented in this encounter Plan of Treatment Upcoming Encounters Date Type Department Care Team (Late st Contact Info) Description 10/08/2024 10:30 AM EST Appointment [facility] [place] Pulmonary and Critical Care Unit 55 [facility] 201 [place] [address] Roshan Ko MD 55 [place] [address] CONNER@[email or web address] 10/08/2024 11:30 AM EST Office Visit [facility] 55 [facility] 515 [place] [address] Roshan oK MD 55 [place] [address] CONNER@[email or web address] 10/15/2024 4:30 PM EST Office Visit [facility] Rheumatology [address] [place] [address] Sia Lebron MD [address] [facility], [address] [place] [address] [email or web address] documented as of this encounter Visit Diagnoses Not on filedocumented in this encounter Care Teams Heel Shaver Relationship Specialty Start Date End Date Juliet Kirkland NP [address] [place] [address] PCP - General Nurse Practitioner 04/20/24 Leonel Feng MD [address] [place] [address] Pulmonary Disease 01/16/24 Les Dempsey MD [address] [place] [address] Infectious Diseases 01/16/24 documented as of this encounter Additional Source Comments The information contained in this document represents components of the legal health record. It is not the complete legal health record.[facility]
--- OUTSIDE RECORDS SUMMARY | 2024-09-30 08:00 | XMS_ITS | Encounter Summary ---
Author Organization [facility] Address [phone] [address] [address] Care Team Providers Care Cream Beater Name Role Phone Leonel Feng MD Unavailable [phone] Les Dempsey MD Unavailable Juliet Kirkland NP Primary Care Provide r Encounter Details Date Type Department Care Team (Late st Contact Info) Description 09/07/2024 Telephone [facility] [address] [address] Rosalva Dinh, RN [address] [place] [address] MIRNA@[email or web address] [email or web address] Social History Tobacco Use Types Packs/Day [...] Progress Notes * Rosalva Dinh RN - 09/07/2024 2:29 PM EST Sherly WHITLOCK approved from 08/08/2024- 09/07/2025. KAMLESH #: [id number] Ruthie, patient coordinator with Joseph, has been notified. documented in this encounter Plan of Treatment Upcoming Encounters Date Type Department Care Team (Late st Contact Info) Description 10/08/2024 10:30 AM EST Appointment [facility] Pulmonary and Critical Care Unit 55 [address] [facility] 201 [place] [address] Roshan Albarran MD 55 [place] [address] CONNER@[email or web address] 10/08/2024 11:30 AM EST Office Visit [facility] [address] [facility] 515 [place] [address] Roshan Albarran MD 55 [place] [address] CONNER@[email or web address] 10/15/2024 4:30 PM EST Office Visit [facility] Rheumatology [address] [place] [address] Sia Lebron MD 22 [facility], [address] [place] [address] [email or web address] documented as of this encounter Visit Diagnoses Not on filedocumented in this encounter Care Teams Cream Beater Relationship Specialty Start Date End Date Juliet Kirkland NP [address] [place] [address] PCP - General Nurse Practitioner 04/20/24 Leonel Feng MD [address] [place] [address] Pulmonary Disease 01/16/24 Les Dempsey MD [address] [address] Infectious Diseases 01/16/24 documented as of this encounter Additional Source Comments The information contained in this document represents components of the legal health record. It is not the complete legal health record.[facility]
--- OUTSIDE RECORDS SUMMARY | 2024-09-30 08:00 | XMS_ITS | Encounter Summary ---
Author Organization [facility] Address [phone] [address] [place] [address] Care Team Providers Care Social Insurance Analyst Name Role Phone Leoenl Feng MD Unavailable [phone] Les Dempsey MD Unavailable Juliet Kirkland PEST CONTROL WORKER HELPER Primary Care Provide r Reason for Visit * Auth/Cert (Routine) Specialty Diagnoses / Procedures Referred By Contac t Referred To Contact Referral ID Status Reason Start Date Expiration Date Visits Re quested Visits Authorized [id number] 1 1 Encounter Details Date Type Department Care Team (Late st Contact Info) Description 09/01/2024 9:00 AM EST Home Care Visit [facility] 30 [place], [place] [phone] Moriah Clifford, FLASH [address] [place] [address] [email or web address] SN HOME VISIT Social History Tobacco Use [...] Sign Reading Time Taken Comments Blood Pressure - - Pulse 84 09/01/2024 9:19 AM EST Temperature 37.1 ??C (98.8 ??F) 09/01/2024 9:19 AM ES T Respiratory Rate - - Oxygen Saturation 95% 09/01/2024 9:19 AM EST Inhaled Oxygen Concentration - - Weight - - Height - - Body Mass Index - - documented in this encounter Plan of Treatment Upcoming Encounters Date Type Department Care Team (Late st Contact Info) Description 10/08/2024 10:30 AM EST Appointment [facility] [place] 55 [address] [facility] 201 [place] [address] Roshan Albarran MD 55 [place] [address] CONNER@[email or web address] [email or web address] 10/08/2024 11:30 AM EST Office Visit [facility] 55 [facility] 515 [place] [address] Roshan Albarran MD 55 [place] [address] CONNER@[email or web address] 10/15/2024 4:30 PM EST Office Visit [facility] Rheumatology [address] [place] [address] Sia Lebron MD [address] [place] [address], [address] [place] [address] [email or web address] documented as of this encounter Visit Diagnoses Not on filedocumented in this encounter Home Health Visit - Care Plan Visit Details Visit Type -SN HOME VISIT Discipline -Longterm Problems Problem Description Start Date Status Goals [...] scheduled/document ed in this visit HH - Infection - Actual or Risk of Disciplines: All Active Home Health Disciplines [...] this visit HH - Infusion Therapy Disciplines: Longterm 06/11/2024 Active 1 goal linked to scheduled/document ed intervention 2 goal interventions scheduled/document ed in this visit HH - Lab Disciplines: All Active [facility] Disciplines 06/11/2024 Active 1 goal linked to [...] Planning - Knowledge of No HH - Patient will have no new infection; any new infection that occurs will be identified and treated promptly; existing infection will resolve without complication Description: Patient and caregiver(s) will demonstrate understanding of infection prevention, monitoring, and treatment as appropriate HH - Infection - Actual or Risk of No HH - Achieve care management [...] indicated. Pharmacy information: Description: [facility] Problem: - Medication Management Goal:HH - Safe medication management, avoid unnecessary harm related to medication errors and/or interactions Completed HH - Focus of care, teaching completed and plan for next visit Problem:HH - Focus of Care and Teaching Goal:HH - Communication and collaboration to achieve patient goals Completed Primary Clinical Focus this Visit & Instruction Provided: pt reports vaginal area irritated, states she has hx of taking fluconazole for flare ups d/t abx she will contact her ID provider. lab work due today. per last ID note. Pt to cont with Imipenem until it can be replaced with Oral CLofazimine. Continue Amikacin until replaced with inhaled liposomal amikacin. awaiting approval from Insurance. cont amikacin trough while on iv therapy Continue BUN, Cr, LFTs, CBC w/ diff weekly while still on IV therapy, then change to every 4-6 weeks. Picc line care provided site cdi, no acute s/s infection of infiltration.double lumen flushing well, blood return to purple lumen. difficult blood return to red lumen. lab work via phlebotomy to left ac one successful attempt. lab dropped off to [facility] [place] Instruction Provided to: patient Response to Instruction/Teachin g: Is able to teach back topics as evidenced by verbalized understanding Plan for Next Visit Specific Focus & Education Needed: picc line dressing change, labs, New Orders: Updated Discharge Plan: - I/E management of care in an urgent or emergency (ER) situation: When to call your Home Care Team/911, ER plans, supplies, evacuation, when to contact local ER officials and how to stay informed Problem:HH - Emergency Planning - Knowledge of [...] emergency related situation. Completed HH - Assess infection risk and s/s Problem:HH - Infection - Actual or Risk of Goal:HH - Patient will have no new infection; any new infection that occurs will be identified and treated promptly; existing infection will resolve without complication Completed HH - Assess vital signs, pulse oximetry, pain, and as indicated, orthostatic vital signs Description: use agency-specific parameters Problem: - Standard of Care Goal:HH - Achieve care management for a safe to home/community discharge from homecare Completed HH - Assess skin integrity Problem:HH - Standard of Care Goal:HH - Achieve [...] MAC, results to Roshan Albarran MD fax [phone], and NE [phone] Problem: - Lab Goal: - Verbalize an understanding for lab work/specimen collection Completed documented in this encounter Care Teams Social Insurance Analyst Relationship Specialty Start Date End Date Juliet Kirkland NP [address] [place] [address] PCP - General Nurse Practitioner 04/20/24 Leonel Feng MD [address] [place] [address] Pulmonary Disease 01/16/24 Les Dempsey MD [address] [place] [address] Infectious Diseases 01/16/24 documented as of this encounter Additional Source Comments The information contained in this document represents components of the legal health record. It is not the complete legal health record.[facility]
--- OUTSIDE RECORDS SUMMARY | 2024-09-30 08:01 | XMS_ITS | Encounter Summary ---
Author Organization [employer] [facility] Address [phone] [facility] [place] [address] Care Team Providers Care Fresh Foods Clerk Name Role Phone Unavailable Primary Care Provider Unavailabl e Encounter Details Date Type Department Care Team (Late st Contact Info) Description 01/04/2017 Hospital Encounter [facility] 30 [place], [place] [phone] System, Provider Not In, [facility] [address] [address] Social History Tobacco Use Types Packs/Day Years [...] Info) Description 10/08/2024 10:30 AM EST Appointment [facility] Pulmonary and Critical Care Unit 55 [facility] 201 [place] [address] Roshan Albarran MD 55 [place] [address] [email or web address] 10/08/2024 11:30 AM EST Office Visit [facility] [address] [place] [address] Roshan Albarran MD [address] [place] [address] [email or web address] .[email or web address] 10/15/2024 4:30 PM EST Office Visit [facility] Rheumatology [address] [place] [address] Sia Lebron MD 22 [facility], [address] [place] [address] [email or web address] documented as of this encounter Procedures Procedure [...]
--- OUTSIDE RECORDS SUMMARY | 2024-09-30 08:01 | XMS_ITS | Encounter Summary ---
Author Organization [facility] Address [phone] Counts include 234 beds at the [facility] [place] [address] Care Team Providers Care Editor Greeting Card Name Role Phone Melissa Mcdaniel BOAT PAINTER Primary Care Provider Leonel Feng MD Unavailable [phone] [phone] Les Dempsey MD Unavailable Juliet Kirkland BOAT PAINTER Primary Care Provide r Encounter Details Date Type Department Care Team (Late st Contact Info) Description 04/03/2022 Procedure [facility] [address] [place] [address] Social History Tobacco Use Types Packs/Day Years [...] Info) Description 10/08/2024 10:30 AM EST Appointment [facility] Pulmonary and Critical Care Unit [address] [address] Roshan Albarran MD 55 [place] [address] CONNER@[email or web address] 10/08/2024 11:30 AM EST Office Visit 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 1:32 AM EDT CoV-Risk 04/29/2022 04/29/2022 04/29/2022 1:04 PM EDT COVID-19 04/29/2022 04/29/2022 05/20/2022 1:21 AM EDT documented as of this encounter Care Teams Editor Greeting Card Relationship Specialty Start Date End Date Melissa Mcdaniel NP [address] [place] [address] PCP - General Nurse Practitioner 03/20/18 04/19/24 Juliet Kirkland NP [address] [place] [address] PCP - General Nurse Practitioner 04/20/24 Leonel Feng MD [address] [place] [address] Pulmonary Disease 01/16/24 Les Dempsey MD [address] [address] Infectious Diseases 01/16/24 documented as of this encounter Additional Source Comments The information contained in this document represents components of the legal health record. It is not the complete legal health record.[facility]
--- OUTSIDE RECORDS SUMMARY | 2024-09-30 08:01 | XMS_ITS | Encounter Summary ---
Author Organization [employer] [facility] Address [phone] [facility] [place] [address] Care Team Providers Care Assembly Supervisor Name Role Phone Unavailable Primary Care Provider Unavailabl e Encounter Details Date Type Department Care Team (Late st Contact Info) Description 07/21/2014 Hospital Encounter [facility],Outside Imaging 30 [place], [place] [id number] System, Provider Not In, [facility] [address] [address] Social History Tobacco Use Types Packs/Day Years [...] Info) Description 10/08/2024 10:30 AM EST Appointment [facility] [place] [facility] Pulmonary and Critical Care Unit 55 [facility] 201 [place] [address] Roshan Albarran MD 55 [place] [address] [email or web address] 10/08/2024 11:30 AM EST Office Visit [facility] [address] [place] [address] Roshan Albarran MD [address] [place] [address] [email or web address] [email or web address] 10/15/2024 4:30 PM EST Office Visit [facility] Rheumatology [address] [place] [address] Sia Lebron MD 22 [facility], [address] [place] [address] [email or web address] documented as of this encounter Procedures Procedure [...] It is not the complete legal health record.[facility]
--- OUTSIDE RECORDS SUMMARY | 2024-09-30 08:01 | XMS_ITS | Encounter Summary ---
Author Organization [facility] Address [phone] [address] [place] [address] Care Team Providers Care Land Leasing Information Clerk Name Role Phone Melissa Mcdaniel HAND MITER OPERATOR Primary Care Provider Leonel Feng MD Unavailable [phone] 0-000-0000 Les Dempsey MD Unavailable Juliet Kirkland HAND MITER OPERATOR Primary Care Provide r Encounter Details Date Type Department Care Team (Latest Contact Info) Description 08/03/2020 Transcribe Orders Virtual Department 30 [place] [address] Melissa Mcdaniel, HAND MITER OPERATOR 95 [place] [address] Exposure to SARS virus (Primary Dx) Social History Tobacco Use Types [...] EST Appointment [facility] [place] Pulmonary and Critical Care Unit [address] [address] Roshan Albarran MD 55 [facility] [place] [address] CONNER@[email or web address] 10/08/2024 11:30 AM EST Office Visit [facility] [address] [address] Roshan Albarran MD [address] [place] [address] CONNER@[email or web address] 10/15/2024 4:30 PM EST Office Visit [facility] Rheumatology [address] [place] [address] Sia Lebron MD 22 [facility], [address] [place] [address] [email or web address] documented as of this encounter Results * COVID-19 PCR Order (08/04/2020 7:49 AM EST) COVID Testing Status Sent to [facility] [place] Symptomatic? 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 1:32 AM EDT CoV-Exposed Comment:Recent close contact 08/03/2020 08/03/2020 08/17/2020 1:24 AM EST COVID-19 03/31/2021 03/31/2021 04/21/2021 1:23 AM EDT CoV-Risk 04/29/2022 04/29/202204/29/2022 1:04 PM EDT COVID-19 04/29/2022 04/29/2022 05/20/2022 1:21 AM EDT documented as of this encounter Care Teams Land Leasing Information Clerk Relationship Specialty Start Date End Date Melissa Mcdaniel HAND MITER OPERATOR 95 [place] [address] PCP - General Nurse Practitioner 03/20/18 04/19/24 Juliet Kirkland NP 95 [place] [address] PCP - General Nurse Practitioner 04/20/24 Leonel Feng MD [address] [place] [address] Pulmonary Disease 01/16/24 Les Dempsey MD [address] [place] [address] Infectious Diseases 01/16/24 documented as of this encounter Additional Source Comments The information contained in this document represents components of the legal health record. It is not the complete legal health record.[facility]
--- OUTSIDE RECORDS SUMMARY | 2024-09-30 08:01 | XMS_ITS | Encounter Summary ---
Author Organization [facility] Address [phone] [address] [place] [address] Care Team Providers Care Osteology Teacher Name Role Phone Leonel Feng MD Unavailable [phone] 0-000-0000 Les Dempsey MD Unavailable Juliet Kirkland HOT STONE SETTER Primary Care Provide r Encounter Details Date Type Department Care Team (Late st Contact Info) Description 06/02/2024 Procedure Pass Interventional Radiology, [facility] - [place] [address] [facility] 300 [place] [address] Social History Tobacco Use Types Packs/Day Years [...] Encounters Date Type Department Care Team (Late Contact Info) Description 10/08/2024 10:30 AM EST Appointment [facility] [place] [place] [facility] [address] [facility] 201 [place] [address] Roshan Albarran MD 55 [place] [address] CONNER@[email or web address] 10/08/2024 11:30 AM EST Office Visit [facility] [address] Y[address] [place] [address] Roshan Albarran MD 55 [place] [address] CONNER@[email or web address] 10/15/2024 4:30 PM EST Office Visit [facility] Rheumatology [address] [place] [address] Sia Lebron MD [address] [place] [address], [address] [place] [address] [email or web address] documented as of this encounter Visit Diagnoses Not on filedocumented in this encounter Care Teams Osteology Teacher Relationship Specialty Start Date End Date Juliet Kirkland NP [address] [place] [address] PCP - General Nurse Practitioner 04/20/24 Leonel Feng MD [address] [place] [address] Pulmonary Disease 01/16/24 Les Dempsey MD [address] [place] [address] Infectious Diseases 01/16/24 documented as of this encounter Additional Source Comments The information contained in this document represents components of the legal health record. It is not the complete legal health record.[facility]
--- OUTSIDE RECORDS SUMMARY | 2024-09-30 08:01 | XMS_ITS | Encounter Summary ---
Author Organization [facility] Address [phone] [facility] [place] [address] Care Team Providers Care Back Hoe Machine Operator Name Role Phone Melissa Mcdaniel FELT CARBONIZER Primary Care Provider Leonel Feng MD Unavailable [phone] Les Dempsey MD Unavailable Juliet Kirkland FELT CARBONIZER Primary Care Provide r Reason for Referral * MRI/CAT Scan - Closed Specialty Diagnoses / Procedures Referred By Bob abreu Referred To Contact Radiology Diagnoses Other microscopic hematuria Personal history of urinary (tract) infection Procedures CT Abdomen/Pelvis Cecile Yeung MD [address] [address] Referral ID Status Reason Start Date Expiration Date Visits Re quested Visits Authorized [id number] Closed 05/25/2021 05/25/2022 1 1 Encounter Details Date Type Department Care Team (Latest Contact Info) Description 05/25/2021 Transcribe Orders Virtual Department 30 [place] [address] Cecile Yeung MD [address] [address] Other microscopic hematuria (Primary Dx); Personal history of urinary (tract) infection Social History Tobacco Use Types Packs/Day Years [...] [facility] 55 [facility] 201 [place] [address] Roshan Albarran MD 55 [place] [address] [email or web address] 10/08/2024 11:30 AM EST Office Visit [facility] 55 [facility] 515 [place] [address] Roshan Albarran MD 55 [place] [address] [email or web address] 10/15/2024 4:30 PM EST Office Visit [facility] Rheumatology [address] [place] [address] Sia Lebron MD [address] [place] [address], [address] [place] [address] [email or web address] documented as of this encounter Results * CT ABDOMEN/PELVIS WITH CONTRAST (06/05/2021 9:41 AM EDT) Anatomical Region Laterality Modality Abdomen, Pelvis Computed Tomogra phy 06/05/2021 10:1 9 AM EDT Impressions 06/05/2021 11:28 AM EDT 1. No renal/bladder stones, masses or other explanation of hematuria. 2. Infiltrative/fibrotic changes in the lowermost anterior right middle lobe and lingula. Unclear if this is an acute process or, more likely chronic. 3. 1 cm probable hemangioma low anterior right lobe of the liver. POS - [id number] Narrative 06/05/2021 11:28 AM EDT Automated Exposure Control. Multiplanar reconstructions. Water as oral contrast. Initially non-enhanced exam from adrenals to pelvic floor. Next portal venous phase contrast-enhanced exam of entire abdomen and pelvis. Lastly 8 minute delays from adrenals to the pelvic floor. Multiplanar reconstructions all phases. COMPARISON: KUB 02/17/2020 FINDINGS: No intrarenal or ureteral stones on either side. No bladder calculi. No cystic or solid renal masses. No urothelial lesions in either collecting system or the bladder. No signs of pyelonephritis No focal cortical scarring or perinephric infiltrative changes/fluid collections. No bladder wall thickening or focal filling defects. Scattered small simple hepatic cysts. 1 cm hypodense mass with centripetal enhancement in the low anterior right lobe of the liver consistent with a hemangioma. No worrisome liver lesions. Gallbladder, biliary tree, pancreas, spleen and adrenals all unremarkable. No bowel pathology is apparent allowing for lack of oral contrast. Normal appendix seen. No gynecologic pathology. No adenopathy or ascites Ill-defined infiltrative/fibrotic changes in the low anterior right middle lobe and a few small cystic airspaces within fibrosis in the lowermost anterior lingula. No nodules or effusion and the visualized lung bases. No acute or worrisome bony abnormalities Procedure Note Rodney Catherien MD - 06/05/2021 Automated Exposure Control. Multiplanar reconstructions. Water as oral contrast. Initially non-enhanced exam from adrenals to pelvic floor. Next portal venous phase contrast-enhanced exam of entire abdomen andpelvis. Lastly 8 minute delays from adrenals to the pelvic floor. Multiplanar reconstructions all phases. COMPARISON: KUB 02/17/2020 FINDINGS: No intrarenal or ureteral stones on either side. No bladder calculi. No cystic or solid renal masses. No urothelial lesions in either collecting system or the bladder. No signs of pyelonephritis No focal cortical scarring or perinephric infiltrative changes/fluidcollections. No bladder wall thickening or focal filling defects. Scattered small simple hepatic cysts. 1 cm hypodense mass with centripetalenhancement in the low anterior right lobe of the liver consistent with ahemangioma. No worrisome liver lesions. Gallbladder, biliary tree, pancreas, spleen and adrenals allunremarkable. No bowel pathology is apparent allowing for lack of oral contrast. Normalappendix seen. No gynecologic pathology. No adenopathy or ascites Ill-defined infiltrative/fibrotic changes in the low anterior right middlelobe and a few small cystic airspaces within fibrosis in the lowermostanterior lingula. No nodules or effusion and the visualized lung bases. No acute or worrisome bony abnormalities IMPRESSION: 1. No renal/bladder stones, masses or other explanation of hematuria. 2. Infiltrative/fibrotic changes in the lowermost anterior right middlelobe and lingula. Unclear if this is an acute process or, more likelychronic. 3. 1 cm probable hemangioma low anterior right lobe of the liver. 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 1:32 AM EDT CoV-Risk 04/29/2022 04/29/2022 04/29/2022 1:04 PM EDT COVID-19 04/29/2022 04/29/2022 05/20/2022 1:21 AM EDT documented as of this encounter Care Teams Back Hoe Machine Operator Relationship Specialty Start Date End Date Melissa Mcdaniel NP 95 [place] [address] PCP - General Nurse Practitioner 03/20/18 04/19/24 Juliet Kirkland NP 95 [place] [address] PCP - General Nurse Practitioner 04/20/24 Leonel Feng MD [facility] [place] [address] Pulmonary Disease 01/16/24 Les Dempsey MD [facility] [address] [id number] Infectious Diseases 01/16/24 documented as of this encounter Additional Source Comments The information contained in this document represents components of the legal health record. It is not the complete legal health record.[facility]
--- OUTSIDE RECORDS SUMMARY | 2024-09-30 08:01 | XMS_ITS | Encounter Summary ---
Author Organization [facility] Address [phone] [facility] [place] [address] Care Team Providers Care Recreation Superintendent Name Role Phone Melissa Mcdaniel PRICE ANALYST Primary Care Provider Leonel Feng MD Unavailable [phone] Les Dempsey MD Unavailable Juliet Kirkland NP Primary Care Provide r Encounter Details Date Type Department Care Team (Late Contact Info) Description 11/14/2020 Ancillary Orders Virtual Department [address] [place] [address] Melissa Mcdaniel, PRICE ANALYST 95 [place] [address] Breast screening Social History Tobacco Use Types [...] [place] [facility] [address] [phone] Roshan Albarran MD 55 [place] [address] [email or web address] 10/08/2024 11:30 AM EST Office Visit [facility] 55 [address] [facility] [address] [place] [address] Roshan Albarran MD 55 [place] [address] [email or web address] 10/15/2024 4:30 PM EST Office Visit [facility] Rheumatology 22 [place] [address] Sia Lebron MD 22 [facility], [address] [place] [address] [email or web address] documented as of this encounter Results * BI MAMMOGRAM SCREENING WITH TOMOSYNTHESIS WITH CAD (BILATERAL) (12/08/2020 7:23 AM EDT) Anatomical Region Laterality Modality Breast Left, Breast Right, Breast Bilateral Bila teral Mammography 12/08/2020 7:52 AM EDT Impressions 12/08/2020 8:21 AM EDT No mammographic evidence of malignancy. ??Recommend routine annual surveillance. BI-RADS CATEGORY: ??1 - Negative. DENSITY: ??There are scattered fibroglandular densities. Narrative 12/08/2020 8:21 AM EDT 65-year-old female with no current breast symptoms. ??Comparison made to previous on 03/20/2018 and as far back as 07/21/2014. ??Interpretation made in conjunction with computer-aided detection and tomosynthesis. There are scattered areas of fibroglandular density. There are no suspicious masses, areas of architectural distortion, or suspicious clusters of microcalcifications. Procedure Note Elio Randall MD - 12/08/2020 65-year-old female with no current breast symptoms. Comparison made toprevious on 03/20/2018 and as far back as 07/21/2014. Interpretation madein conjunction with computer-aided detection and tomosynthesis. There are scattered areas of fibroglandular density. There are no suspicious masses, areas of architectural distortion, orsuspicious clusters of microcalcifications. IMPRESSION: No mammographic evidence of malignancy. Recommend routine annualsurveillance. BI-RADS CATEGORY: 1 - Negative. DENSITY: There are scattered fibroglandular densities. 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 1:32 AM EDT COVID-19 03/31/2021 03/31/2021 04/21/2021 1:23 AM EDT CoV-Risk 04/29/2022 04/29/2022 04/29/2022 1:04 PM EDT COVID-19 04/29/2022 04/29/2022 05/20/2022 1:21 AM EDT documented as of this encounter Care Teams Recreation Superintendent Relationship Specialty Start Date End Date Melissa Mcdaniel PRICE ANALYST [address] [place] [address] PCP - General Nurse Practitioner 03/20/18 04/19/24 Juliet Kirkland NP [address] [place] [address] PCP - General Nurse Practitioner 04/20/24 Leonel Feng MD [address] [place] [address] Pulmonary Disease 01/16/24 Les Dempsey MD [address] [address] Infectious Diseases 01/16/24 documented as of this encounter Additional Source Comments The information contained in this document represents components of the legal health record. It is not the complete legal health record.[facility]
--- OUTSIDE RECORDS SUMMARY | 2024-09-30 08:01 | XMS_ITS | Encounter Summary ---
Author Organization [facility] Address [phone] [facility] [place] [address] Care Team Providers Care City Bailiff Name Role Phone Melissa Mcdaniel CLINICAL NURSE REVIEWER Primary Care Provider Leonel Feng MD Unavailable [phone] Les Dempsey MD Unavailable Juliet Kirkland CLINICAL NURSE REVIEWER Primary Care Provide r Encounter Details Date Type Department Care Team (Late st Contact Info) Description 11/14/2020 Procedure [facility] [address] [place] [address] Social History Tobacco Use Types Packs/Day Years [...] Info) Description 10/08/2024 10:30 AM EST Appointment [facility] [address] [address] Roshan Albarran MD 55 [place] [address] [email or web address] 10/08/2024 11:30 AM EST Office Visit [facility] [address] 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 1:32 AM EDT COVID-19 03/31/2021 03/31/2021 04/21/2021 1:23 AM EDT CoV-Risk 04/29/2022 04/29/2022 04/29/2022 1:04 PM EDT COVID-19 04/29/2022 04/29/2022 05/20/2022 1:21 AM EDT documented as of this encounter Care Teams City Bailiff Relationship Specialty Start Date End Date Melissa Mcdaniel NP [address] [place] [address] PCP - General Nurse Practitioner 03/20/18 04/19/24 Juliet Kirkland NP [address] [place] [address] PCP - General Nurse Practitioner 04/20/24 Leonel Feng MD [address] [place] [address] Pulmonary Disease 01/16/24 Les Dempsey MD 3300 [place] [address] Infectious Diseases 01/16/24 documented as of this encounter Additional Source Comments The information contained in this document represents components of the legal health record. It is not the complete legal health record.[facility]
--- OUTSIDE RECORDS SUMMARY | 2024-09-30 08:01 | XMS_ITS | Encounter Summary ---
Author Organization [facility] Address [phone] [facility] [place] [address] Care Team Providers Care Project Analyst Name Role Phone Unavailable Primary Care Provider Unavailabl e Encounter Details Date Type Department Care Team (Late st Contact Info) Description 09/21/2015 Hospital Encounter [facility],Outside Imaging 30 [place], [place] [id number] System, Provider Not In, [facility] [address] [address] Social History Tobacco Use Types Packs/Day Years [...] 10:30 AM EST Appointment [facility] Pul[facility] Unit 55 [facility] 201 [place] [address] Roshan Albarran MD 55 [place] [address] [email or web address] 10/08/2024 11:30 AM EST Office Visit [facility] [address] [facility] [address] [place] [address] Roshan Albarran MD [address] [place] [address] [email or web address] 10/15/2024 4:30 PM EST Office Visit [facility] Rheumatology [address] [place] [address] Sia Lebron MD 22 [facility], [address] [place] [address] [email or web address] documented as of this encounter Procedures Procedure [...] is not the complete legal health record.[facility]
--- OUTSIDE RECORDS SUMMARY | 2024-09-30 08:01 | XMS_ITS | Encounter Summary ---
Author Organization [facility] Address [phone] [facility] [place] [address] Care Team Providers Care Button Station Worker Name Role Phone Melissa Mcdaniel WAISTLINE JOINER Primary Care Provider [phone] Leonel Feng MD Unavailable [phone] Les Dempsey MD Unavailable Juliet Kirkland NP Primary Care Provide r Encounter Details Date Type Department Care Team (Latest Contact Info) Description 06/06/2018 Transcribe Orders [facility] [address] [place] [address] Melissa Mcdaniel, WAISTLINE JOINER 95 [place] [address] Screening for diabetes mellitus (Primary Dx); Screening for lipoid disorders; Routine general medical examination at a health care facility Social History Tobacco Use Types Packs/Day Years Used Date Smoking Tobacco: Never Assessed Sex and Gender Information Value Date Recorded Sex Assigned at Not on file Gender Identity Not on file Sexual Orientation Not on file documented as of this encounter Plan of Treatment Upcoming Encounters Date Type Department Care Team (Late st Contact Info) Description 10/08/2024 10:30 AM EST Appointment [facility] [address] [place] [address] [address] Roshan Albarran MD 55 [place] [address] [email or web address] 10/08/2024 11:30 AM EST Office Visit [facility] [address] [facility] [address] [place] [address] Roshan Albarran MD [address] [place] [address] [email or web address] 10/15/2024 4:30 PM EST Office Visit [facility] Rheumatology 22 [place] [address] Sia Lebron MD 22 [facility], [address] [place] [address] [email or web address] documented as of this encounter Results * TSH (06/06/2018 8:03 AM EDT) TSH 2.24 0.27 - 4.20 uIU/mL [facility] Blood 06/06/2018 8:03 AM EDT 06/06/2018 8:07 AM EDT Melissa Mcdaniel NP LAB BLOOD ORDERABLES Performing Organization Address City/State/[facility] Co de Phone Number [facility] 30 [place] [address] * (ABNORMAL) Lipid panel (06/06/2018 8:03 AM EDT) HDL 61 mg/dL [facility] Comment: Interpretation: Risk Level ? Females Decreased ?>55mg/dL Average ?50-55 mg/dL Increased ?<50 mg/dL CHOLESTEROL 179 0 - 240 mg/dL [facility] TRIGLYCERIDES 52 30 - 160 mg/dL [facility] LDL 108 50 - 129 mg/dL [facility] Comment: LDL levels in terms of risk for coronary heart disease: <100 mg/dL: Optimal 100-129 mg/dL: Near or above optimal 130-159 mg/dL: Borderline high 160-189 mg/dL: High >190 mg/dL: Very High CARDIAC RISK RATIO 2.9(L) 3.3 - 4.4 C [facility] Blood 06/06/2018 8:03 AM EDT 06/06/2018 8:07 AM EDT Melissa Mcdaniel WAISTLINE JOINER LAB BLOOD ORDERABLES [facility] 30 [place] [address] * Comprehensive metabolic panel (06/06/2018 8:03 AM EDT) SODIUM 139 133 - 146 mmol/L [facility] POTASSIUM 4.7 3.3 - 5.1 mmol/L [facility] CHLORIDE 100 96 - 108 mmol/L [facility] CO2 26 21 - 35 mmol/L [facility] BUN 12 6 - 19 mg/dL [facility] CREATININE 0.70 0.5 - 1.5 mg/dL [facility] GLUCOSE 79 70 - 99 mg/dL [facility] ALBUMIN 4.2 3.9 - 4.8 g/dL [facility] TOTAL PROTEIN 7.2 6.5 - 8.0 g/dL [facility] CALCIUM 8.7 8.4 - 10.3 mg/dL [facility] ALKALINE PHOSPHATASE 74 39 - 117 U/L [facility] TOTAL BILIRUBIN 0.4 0.0 - 1.2 mg/dL [facility] AST 25 0 - 37 U/L [facility] ALT 19 0 - 40 U/L [facility] GLOBULIN 3.0 1 - 4.8 g/dL [facility] EGFR 94 >59 mL/min/1.7 3m2 [facility] Comment:If patient is black, multiply result by 1.159. Estimated glomerular filtration rate calculated using the CKD-EPI equation. ANION GAP 18 10 - 20 mmol/L [facility] Blood 06/06/2018 8:03 AM EDT 06/06/2018 8:07 AM EDT Melissa M Jonas WAISTLINE JOINER LAB BLOOD ORDERABLES Performing Organization Address City/[facility]/ZIP Co de Phone Number [address] [address] * Hepatitis C antibody, qualitative (06/06/2018 8:03 AM EDT) HCV Negative Negative [facility] Comment: This is a screening test and should be confirmed with molecular testing Blood 06/06/2018 8:03 AM EDT 06/06/2018 8:07 AM EDT Melissa Mcdaniel WAISTLINE JOINER LAB BLOOD ORDERABLES Performing Organization Address [facility] Co de Phone Number [address] [address] documented in this encounter Visit Diagnoses Diagnosis Screening for diabetes mellitus- Primary Screening for lipoid disorders Routine general medical examination at a health care facility documented in this encounter 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 1:32 AM EDT CoV-Exposed Comment:Recent close contact 08/03/2020 08/03/2020 08/17/2020 1:24 AM EST COVID-19 03/31/2021 03/31/2021 04/21/2021 1:23 AM EDT CoV-Risk 04/29/2022 04/29/2022 04/29/2022 1:04 PM EDT COVID-19 04/29/2022 04/29/2022 05/20/2022 1:21 AM EDT documented as of this encounter Care Teams Button Station Worker Relationship Specialty Start Date End Date Melissa Mcdaniel NP 95 [place] [address] PCP - General Nurse Practitioner 03/20/18 04/19/24 Juliet Kirkland NP 95 [place] [address] PCP - General Nurse Practitioner 04/20/24 Leonel Feng MD 3300 [place] [address] Pulmonary Disease 01/16/24 Les Dempsey MD [address] [address] Infectious Diseases 01/16/24 documented as of this encounter Additional Source Comments The information contained in this document represents components of the legal health record. It is not the complete legal health record.[facility]
--- OUTSIDE RECORDS SUMMARY | 2024-09-30 08:01 | XMS_ITS | Encounter Summary ---
Author Organization [facility] Address [phone] [address] [place] [address] Care Team Providers Care Marketing Production Specialist Name Role Phone Melissa Mcdaniel MANAGER CARDIOLOGY Primary Care Provider Leonel Feng MD Unavailable [phone] Les Dempsey MD Unavailable Juliet Kirkland MANAGER CARDIOLOGY Primary Care Provide r Encounter Details Date Type Department Care Team (Latest Contact Info) Description 06/04/2018 Transcribe Orders [facility] [address] [place] [address] Humphrey Jones PA 10 [place] [address] Dysuria (Primary Dx) Social History Tobacco Use [...] Info) Description 10/08/2024 10:30 AM EST Appointment [facility] Pulmonary and Critical Care Unit 55 [facility] 201 [place] [address] Roshan Albarran MD 55 [place] [address] [email or web address] 10/08/2024 11:30 AM EST Office Visit [facility] [address] [facility] [address] [place] [address] Roshan Albarran MD [address] [place] [address] [email or web address] 10/15/2024 4:30 PM EST Office Visit [facility] Rheumatology 22 [place] [address] Sia Lebron MD 22 [facility], [address] [place] [address] [email or web address] documented as of this encounter Results * (ABNORMAL) Urinalysis w/reflex Urine Culture (06/04/2018 11:02 AM EDT) COLOR Yellow Yellow [facility] CLARITY Clear [facility] GLUCOSE Negative Negative [facility] BILI Negative Negative [facility] KETONES Negative Negative [facility] SPECIFIC GRAVITY 1.020 1.005 - 1.030 [facility] BLOOD 1+(A) Negative [facility] PH 7.0 5.0 - 8.0 [facility] Protein-UA Negative Negative [facility] NITRITE Negative Negative [facility] Leukocyte esterase, ur Negative Negative [facility] Urine (Urine) 06/04/2018 11: 02 AM EDT 06/04/2018 11:06 AM EDT Humphrey WHITLOCK URINE ORDERABLES [facility] 30 [place] [address] documented in this encounter Visit Diagnoses Diagnosis [...] documented as of this encounter Care Teams Marketing Production Specialist Relationship Specialty Start Date End Date Melissa Mcdaniel, MANAGER CARDIOLOGY [address] [place] [address] PCP - General Nurse Practitioner 03/20/18 04/19/24 Juliet Kirkland NP [address] [place] [address] PCP - General Nurse Practitioner 04/20/24 Leonel Feng MD [address] [place] [address] Pulmonary Disease 01/16/24 Les Dempsey MD [address] [place] [address] Infectious Diseases 01/16/24 documented as of this encounter Additional Source Comments The information contained in this document represents components of the legal health record. It is not the complete legal health record.[facility]
--- OUTSIDE RECORDS SUMMARY | 2024-09-30 08:01 | XMS_ITS | Encounter Summary ---
Author Organization [facility] Address [phone] [facility] [place] [address] Care Team Providers Care Cream Cheese Maker Name Role Phone Melissa Mcdaniel RECYCLING CENTER OPERATOR Primary Care Provider Leonel Feng MD Unavailable [phone] Les Dempsey MD Unavailable Juliet Kirkland RECYCLING CENTER OPERATOR Primary Care Provide r Encounter Details Date Type Department Care Team (Late st Contact Info) Description 06/18/2018 Transcribe Orders [facility] Laboratory [address] [place] [address] System, Provider Not In, PhD Partners [address] [address] Sicca syndrome (Primary Dx); Scapulohumeral fibrositis Social History Tobacco Use Types Packs/Day Years Used Date Smoking Tobacco: Never Assessed Sex and Gender Information Value Date Recorded Sex Assigned at Not on file Gender Identity Not on file Sexual Orientation Not on file documented as of this encounter Plan of Treatment Upcoming Encounters Date Type Department Care Team (Late st Contact Info) Description 10/08/2024 10:30 AM EST Appointment [facility] Pulmonary and Critical Care Unit 55 [facility] [address] [place] [address] Roshan Albarran MD 55 [place] [address] [email or web address] 10/08/2024 11:30 AM EST Office Visit [facility] [address] [facility] [address] [place] [address] Roshan Albarran MD [address] [place] [address] [email or web address] 10/15/2024 4:30 PM EST Office Visit [facility] Rheumatology [address] [place] [address] Sia Lebron MD 22 [facility], [address] [place] [address] [email or web address] documented as of this encounter Results * Antinuclear antibody (MADELINE) (06/18/2018 8:16 AM EST) MADELINE SCREEN ON HEP 2 Negative Negative [facility] Blood 06/18/2018 8:16 AM EST 06/18/2018 8:29 AM EST Provider Not In System PhD LAB BLOOD ORD ERABLES [facility] [address] [place] [address] * (ABNORMAL) CBC and differential (06/18/2018 8:16 AM EST) WBC 5.84 3.40 - 11.20 K/uL [facility] RBC 4.00 3.80 - 4.80 M/uL [facility] HGB 13.1 12.0 - 15.0 g/dL [facility] HCT 39.8 36.0 - 46.0 % [facility] PLT 234 130 - 400 K/uL [facility] MCV 99.5(H) 79.0 - 98.0 fL [facility] MCH 32.8 27.0 - 34.8 pg [facility] MCHC 32.9 31.5 - 36.0 g/dL [facility] RDW 12.6 10.8 - 14.6 % [facility] MPV 11.2 9.4 - 12.4 fl [facility] NRBC 0.00 0.00 /100 WBCs [facility] ABSOLUTE NRBC 0.00 0.00 K/uL [facility] DIFF METHOD Auto [facility] NEUTS 54.0 45.30 - 77.70 % [facility] LYMPHS 32.5 12.30 - 39.70 % [facility] MONOS 9.1 4.10 - 12.80 % [facility] EOS 3.4 0 - 7.2 % [facility] BASOS 0.7 0 - 2.80 % [facility] Granulocytes, immature (%) 0.3 0.0 - 0.9 % [facility] ABSOLUTE NEUTS 3.15 1.40 - 7.70 K/uL [facility] ABSOLUTE LYMPHS 1.90 0.60 - 3.20 K/uL [facility] ABSOLUTE MONOS 0.53 0.11 - 0.59 K/uL [facility] ABSOLUTE EOS 0.20 0.01 - 0.50 K/uL [facility] ABSOLUTE BASOS 0.04 0.00 - 0.08 K/uL [facility] Granulocytes, immature 0.02 0.00 - 0.05 K/uL [facility] Blood 06/18/2018 8:16 AM EST 06/18/2018 8:29 AM EST Provider Not In System PhD LAB BLOOD ORD ERABLES Performing Organization Address City/State/[facility] Co de Phone Number [address] [address] * Comprehensive metabolic panel (06/18/2018 8:16 AM EST) SODIUM 139 133 - 146 mmol/L [facility] POTASSIUM 4.4 3.3 - 5.1 mmol/L [facility] CHLORIDE 99 96 - 108 mmol/L [facility] CO2 30 21 - 35 mmol/L [facility] BUN 15 6 - 19 mg/dL [facility] CREATININE 0.60 0.5 - 1.5 mg/dL [facility] GLUCOSE 95 70 - 99 mg/dL [facility] ALBUMIN 4.3 3.9 - 4.8 g/dL [facility] TOTAL PROTEIN 7.4 6.5 - 8.0 g/dL [facility] CALCIUM 9.0 8.4 - 10.3 mg/dL [facility] ALKALINE PHOSPHATASE 78 39 - 117 U/L [facility] TOTAL BILIRUBIN 0.5 0.0 - 1.2 mg/dL [facility] AST 22 0 - 37 U/L [facility] ALT 18 0 - 40 U/L [facility] GLOBULIN 3.1 1 - 4.8 g/dL [facility] EGFR 99 >59 mL/min/1.7 3m2 [facility] Comment:If patient is black, multiply result by 1.159. Estimated glomerular filtration rate calculated using the CKD-EPI equation. 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 1:32 AM EDT [facility]-Exposed Comment:Recent close contact 08/03/2020 08/03/2020 08/17/2020 1:24 AM EST COVID-19 03/31/2021 03/31/2021 04/21/2021 1:23 AM EDT CoV-Risk 04/29/2022 04/29/2022 04/29/2022 1:04 PM EDT COVID-19 04/29/2022 04/29/2022 05/20/2022 1:21 AM EDT documented as of this encounter Care Teams Cream Cheese Maker Relationship Specialty Start Date End Date Melissa Mcdaniel NP [address] [place] [address] PCP - General Nurse Practitioner 03/20/18 04/19/24 Juliet Kirkland NP [address] [place] [address] PCP - General Nurse Practitioner 04/20/24 Leonel Feng MD [address] [place] [address] Pulmonary Disease 01/16/24 Les Dempsey MD [address] [place] [address] Infectious Diseases 01/16/24 documented as of this encounter Additional Source Comments The information contained in this document represents components of the legal health record. It is not the complete legal health record.[facility]
--- OUTSIDE RECORDS SUMMARY | 2024-09-30 08:01 | XMS_ITS | Encounter Summary ---
Author Organization [facility] Address [phone] [facility] [place] [address] Care Team Providers Care Metal Stamper Name Role Phone Melissa Mcdaniel PRESIDENT & CEO Primary Care Provider Leonel Feng MD Unavailable [phone] Les Dempsey MD Unavailable Juliet Kirkland PRESIDENT & CEO Primary Care Provide r Encounter Details Date Type Department Care Team (Late st Contact Info) Description 05/25/2021 Procedure [facility], Ct Scan - [address] [address] Social History Tobacco Use Types Packs/Day Years [...] Info) Description 10/08/2024 10:30 AM EST Appointment [facility] Pulmonary and Critical Care Unit [address] [address] Roshan Albarran MD 55 [place] [address] [email or web address] 10/08/2024 11:30 AM EST Office Visit [facility] [address] [facility] [address] [place] [address] Roshan Albarran MD 55 [place] [address] [email or web address] 10/15/2024 4:30 PM EST Office Visit [facility] Rheumatology 22 [place] [address] Sia Lebron MD 22 [facility], [address] [place] [address] [email or web address] documented as of this encounter Visit Diagnoses Not on filedocumented in this encounter 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 1:32 AM EDT CoV-Risk 04/29/2022 04/29/2022 04/29/2022 1:04 PM EDT COVID-19 04/29/2022 04/29/2022 05/20/2022 1:21 AM EDT documented as of this encounter Care Teams Metal Stamper Relationship Specialty Start Date End Date Melissa Mcdaniel NP [address] [place] [address] PCP - General Nurse Practitioner 03/20/18 04/19/24 Juliet Kirkland NP [address] [place] [address] PCP - General Nurse Practitioner 04/20/24 Leonel Feng MD [address] [place] [phone] Pulmonary Disease 01/16/24 Les Dempsey MD [address] [address] Infectious Diseases 01/16/24 documented as of this encounter Additional Source Comments The information contained in this document represents components of the legal health record. It is not the complete legal health record.[facility]
--- OUTSIDE RECORDS SUMMARY | 2024-09-30 08:01 | XMS_ITS | Encounter Summary ---
Author Organization [facility] Address [phone] [facility] [place] [address] Care Team Providers Care Civil Engineering Professor Name Role Phone Mariah Soares FOREST EXAMINER Primary Care Provider [phone] Melissa Mcdaniel FOREST EXAMINER Primary Care Provider [phone] Leonel Feng MD Unavailable [phone] Les Dempsey MD Unavailable Juliet Kirkland FOREST EXAMINER Primary Care Provide r Encounter Details Date Type Department Care Team (Late st Contact Info) Description 12/13/2017 Ancillary Orders [facility],Outside Imaging [address] [place] [address] System, Provider Not In, PhD [address] [address] Social History Tobacco Use Types Packs/Day Years Used Date Smoking Tobacco: Never Assessed Sex and Gender Information Value Date Recorded Sex Assigned at Not on file Gender Identity Not on file Sexual Orientation Not on file documented as of this encounter Plan of Treatment Upcoming Encounters Date Type Department Care Team (Late st Contact Info) Description 10/08/2024 10:30 AM EST Appointment [facility] Pulmonary and Critical Care Unit 55 [facility] [address] [place] [address] Roshan Albarran MD [address] [place] [address] [email or web address] 10/08/2024 11:30 AM EST Office Visit [facility] [address] [place] [place] [address] Roshan Albarran MD [address] [place] [address] [email or web address] 10/15/2024 4:30 PM EST Office Visit [facility] Rheumatology [address] [place] [address] Sia Lebron MD 22 [facility], [address] [place] [address] documented as of this encounter Results * Mammogram Outside (No Interpretation) (01/04/2017 12:00 AM EDT) Narrative SYSTEMGENERATED, DOCUMENTATION - 12/13/2017 2:02 PM EDT This study is for PACS storage only and not for interpretation. Provider Not In System PhD IMG OUTSIDE I MAGING W/OUT INTERPRETATION * Mammogram Outside (No Interpretation) (12/11/2016 12:00 AM EDT) Narrative SYSTEMGENERATED, DOCUMENTATION - 12/13/2017 2:02 PM EDT This study is for PACS storage only and not for interpretation. Provider Not In System PhD IMG OUTSIDE I MAGING W/OUT INTERPRETATION * Mammogram Outside (No Interpretation) (09/29/2015 12:15 AM EST) Narrative SYSTEMGENERATED, DOCUMENTATION - 12/13/2017 2:01 PM EDT This study is for PACS storage only and not for interpretation. Provider Not In System PhD IMG OUTSIDE I MAGING W/OUT INTERPRETATION * US Breast Outside (No Interpretation) (09/29/2015 12:00 AM EST) Narrative SYSTEMGENERATED, DOCUMENTATION - 12/13/2017 1:59 PM EDT This study is for PACS storage only and not for interpretation. Provider Not In System PhD IMG OUTSIDE I MAGING W/OUT INTERPRETATION * Mammogram Outside (No Interpretation) (09/21/2015 12:00 AM EST) Narrative SYSTEMGENERATED, DOCUMENTATION - 12/13/2017 1:58 PM EDT This study is for PACS storage only and not for interpretation. Provider Not In System PhD IMG OUTSIDE I MAGING W/OUT INTERPRETATION * Mammogram Outside (No Interpretation) (07/21/2014 12:00 AM EST) Narrative SYSTEMGENERATED, DOCUMENTATION - 12/13/2017 1:58 PM EDT This study is for PACS storage only and not for interpretation. Provider Not In System PhD IMG OUTSIDE I MAGING W/OUT INTERPRETATION * Mammogram Outside (No Interpretation) (05/20/2013 12:00 [...] documented as of this encounter Care Teams Civil Engineering Professor Relationship Specialty Start Date End Date Mariah Soares NP [address] [place] [address] PCP - General Family Medicine 12/10/17 03/19/18 Melissa Mcdaniel, FOREST EXAMINER [address] [place] [address] PCP - General Nurse Practitioner 03/20/18 04/19/24 Juliet Kirkland NP [address] [place] [address] PCP - General Nurse Practitioner 04/20/24 Leonel Feng MD [address] [place] [address] Pulmonary Disease 01/16/24 Les Dempsey MD [address] [place] [address] Infectious Diseases 01/16/24 documented as of this encounter Additional Source Comments The information contained in this document represents components of the legal health record. It is not the complete legal health record.[facility]
== END 2024-09-30 07:54 | disposition home or self-care (01) ==
LOC: HO.SH 07:53
PROVIDERS: PCP Nurse Practitioner Family; Visit Provider Internal Medicine
DX: H91.09 Ototoxic hearing loss, unspecified ear (principal)
CPT/HCPCS: 92552; 92556; 92588

== ENCOUNTER 2024-11-17 08:49 | Outpatient (REF) | payer MEDICARE, SELFPAY ==
--- OUTSIDE RECORDS SUMMARY | 2024-11-17 09:22 | XMS_ITS | Clinical Summary ---
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 Active ELDERBERRY FRUIT ORAL Take by mouth. Active levalbuterol (XOPENEX CONCENTRATE) 1.25 mg/0.5 mL nebulizer solution Take 1 ampule by nebulization daily. 02/19/2023 Active lysine 1,000 mg Tab Take 1 tablet by mouth 2 (two) times a day. Active pramipexole (MIRAPEX) 0.25 MG tablet Take 3 tablets (0.75 mg total) by mouth nightly at bedtime. 05/20/2024 Active Lactobacillus rhamnosus GG (CULTURELLE PROBIOTIC) 15 billion cell CpSP Take 1 capsule by mouth daily. Active famotidine (PEPCID) 40 MG tablet Take 40 mg by mouth nightly at bedtime as needed for heartburn. Active cevimeline (EVOXAC) 30 mg capsuleIndication s:Sicca syndrome TAKE 1 CAPSULE 3 TIMES A DAY 270 capsule 3 06/17/2024 Active ondansetron (ZOFRAN) 4 MG tablet Take 1 tablet (4 mg total) by mouth every 12 (twelve) hours as needed for nausea. 60 tablet 1 08/27/2024 Active esomeprazole (NEXIUM) 20 MG capsule Take 20 mg by mouth daily. Active ESTRING 2 mg (7.5 mcg /24 hour) vaginal ring Place 2 mg vaginally every 3 (three) months. 07/24/2024 Active dicyclomine (BENTYL) 10 MG capsule Take 20 mg by mouth daily. 08/05/2024 Active gabapentin (NEURONTIN) 300 MG capsule Take 300 mg by mouth 3 (three) times a day. 10/30/2023 01/31/20 Active sodium chloride (HYPER-RAQUEL) 7 % Nebu Take 4 mL by nebulization 2 (two) times a day. 05/06/2024 05/01/20 25 Active ID-clofazimine ([id number]) 50 mg capsule Take 100 mg by mouth daily. 09/14/2024 Active amikacin liposomal-neb.acc essr 590 mg/8.4 mL NbSp 8.4 Inhalations by inhal. via small vol.nebulizer route daily. 09/14/2024 Active azithromycin (ZITHROMAX) 250 MG tablet Take 1 tablet (250 mg total) by mouth daily. 90 tablet 09/29/2024 Active ethambutoL (MYAMBUTOL) 400 MG tablet Take 2 tablets (800 mg total) by mouth daily. 180 tablet 09/29/2024 Active omadacycline (NUZYRA) 150 mg tablet Take 2 tablets (300 mg total) by mouth daily. 60 tablet 5 09/29/2024 Active rifAMPin (RIFADIN) 300 MG capsule Take 2 capsules (600 mg total) by mouth daily. 180 capsule 09/29/2024 Active fluconazole (DIFLUCAN) 150 MG tablet Take 150 mg by mouth once a week. Active hydroxychloroquin e (PLAQUENIL) 200 mg tabletIndications :Sicca syndrome,Raynaud' s disease without gangrene Take 1 tablet (200 mg total) by mouth daily. 1 tab daily 90 tablet 3 10/12/2024 Active therapeutic multivitamin tablet Take 1 tablet by mouth daily. Active ALTEPLASE CATH 1 mg by Intracatheter route as needed (PICC line occlusion). Instill 2mg in 2.2 ml of sterile water into occluded cath for 30 - 120mins; aspirate and discard before flushing with saline; may repeat x 1; no more than 4mg per 24 hrs. 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 She follows up with prescribing infectious disease specialist at [facility] every 6 weeks. Underweight 10/12/2024 Assessment & Plan (10/13/2024 11:42 AM EST): Encouraged to eat 4-6 small, well balanced nutritionally meals at 2.5-3 hours interval throughout the day with addition of protein to regain lost weight. Nontuberculous mycobacterial pulmonary disease 0 01/15/2024 Assessment & Plan (11/12/2024 3:39 PM EDT): Found to have pulmonary MAC infection in 2021 in the context of CT scans done primarily for fatigue and weight loss. 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 In November 2021, she was started on thrice weekly azithromycin, ethambutol, and rifampin, which was associated with varying degrees of GI distress, in particular diarrhea. She continued to grow MAC from expectorated sputum, most recently 09/06/2023. A sputum sample collected 08/01/2023 grew Mycobacterium abscessus (no subspecies determined, no susceptibility testing). At the time of our initial visit on 01/15/2024, this was the only sample that had grown M abscessus. We agreed to change her anti-MAC regimen to daily therapy, which she seemed to tolerate better than thrice weekly therapy. 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 On 06/10/2024 she started imipenem 1000 mg IV q12h, amikacin 900 mg IV TIW (subsequently up-titrated to 1250 mg IV TIW in response to TDM), and omadacycline 300 mg PO daily. She tolerated the enhance regimen remarkably well, though with some anorexia and nausea. On 09/14/2024, we stopped imipenem and IV amikacin, and started clofazimine and inhaled liposomal amikacin (Arikayce). Since then, her nausea and anorexia have improved, and her energy level has been better. Initially the Arikayce was associated with hoarseness and hypophonia, but her voice has now returned to normal. Her cough has become more productive, and she has been using nebulized saline and levalbuterol at least once daily, before the Arikayce. She continues to tolerate the oral components of her regimen remarkably well. Her most recent chest CT, on 09/05/2024, showed some improvement. Sputum samples from July and August were mycobacterial culture negative, and the samples from September are also mycobacterial culture negative so far, which is very encouraging. Plan: Spontaneous and induced sputum samples today. BUN, Cr, LFTs, CBC w/ diff today Continue clofazimine 100 mg daily Continue omadacycline 300 mg daily Continue inhaled liposomal amikacin daily Continue azithromycin, ethambutol, and rifampin. If no further sputum samples grow MAC, tentatively plan to stop these antibiotics in March 2025. Continue audiogram every 3-4 weeks Continue eye exams every ~3 months Repeat ECG today: QTc remains normal and not significantly changed Office follow-up in 2 months. She will collect sputum that morning after her nebulized saline/levalbuterol. Assessment & Plan (10/13/2024 11:45 AM EST): Take azithromycin 250 mg daily+ ethambutol 800 mg daily+ rifampin 600 mg daily as prescribed in addition to an high level via nebulizer liposomal amikacin + clofazimine 100 mg daily + omadacycline 300 mg daily + Diflucan 150 mg weekly (for vaginal yeast). Continue close follow-up with [facility] [place]Dr. Ko as scheduled in early November 2024. Assessment & Plan (10/08/2024 4:50 PM EST): Found to have pulmonary MAC infection in 2021 in the context of CT scans done primarily for fatigue and weight loss. 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 In November 2021, she was started on thrice weekly azithromycin, ethambutol, and rifampin, which was associated with varying degrees of GI distress, in particular diarrhea. She continued to grow MAC from expectorated sputum, most recently 09/06/2023. A sputum sample collected 08/01/2023 grew Mycobacterium abscessus (no subspecies determined, no susceptibility testing). At the time of our initial visit on 01/15/2024, this was the only sample that had grown M abscessus. We agreed to change her anti-MAC regimen to daily therapy, which she seemed to tolerate better than thrice weekly therapy. 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 On 06/10/2024 she started imipenem 1000 mg IV q12h, amikacin 900 mg IV TIW (subsequently up-titrated to 1250 mg IV TIW in response to TDM), and omadacycline 300 mg PO daily. She tolerated the enhance regimen remarkably well, though with some anorexia and nausea. On 09/14/2024, we stopped imipenem and IV amikacin, and started clofazimine and inhaled liposomal amikacin (Arikayce). Since then, her nausea and anorexia have improved. The area case has provoke some coughing, and initially was associated with hoarseness and hypophonia, but her voice is now returned to normal. She continues to tolerate the oral components of her regimen remarkably well. Her pulmonary symptoms have remained modest, and her most recent chest CT, on 09/05/2024, showed some improvement. Sputum samples from July were mycobacterial culture negative, and the samples from August are also mycobacterial culture negative so far, which is very encouraging. Plan: Spontaneous and induced sputum samples today. Plan repeat in 6 weeks. BUN, Cr, LFTs, CBC w/ diff today Continue clofazimine Continue omadacycline Continue inhaled liposomal amikacin Continue azithromycin, ethambutol, and rifampin. If no further sputum samples grow MAC, tentatively plan to stop these antibiotics in March 2025. Continue audiogram every 3-4 weeks Continue eye exams every ~3 months Repeat ECG today: QTc remains normal and not significantly changed Office follow-up in 6 weeks, with induced sputum. Assessment & Plan (08/27/2024 9:17 PM EST): Found to have pulmonary MAC infection in 2021 in the context of CT scans done primarily for fatigue and weight loss. 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 No susceptibility testing appears to have been done. In November 2021, she was started on thrice weekly azithromycin, ethambutol, and rifampin, which was associated with varying degrees of GI distress, in particular diarrhea. She continued to grow MAC from expectorated sputum, most recently 09/06/2023. A sputum sample collected 08/01/2023 grew Mycobacterium abscessus (no subspecies determined, no susceptibility testing). At the time of our initial visit on 01/15/2024, this was the only sample that had grown M abscessus. We agreed to change her anti-MAC regimen to daily therapy, and she has tolerated that change quite well. Subsequently, she has had multiple sputum samples that have grown M abscessus (unfortunately macrolide-resistant). At our last visit, we agreed to add therapy directed vs M abscessus, and on 06/10/2024 she started imipenem 1000 mg IV q12h, amikacin 900 mg IV TIW (subsequently up-titrated to 1250 mg IV TIW in response to TDM), and omadacycline 300 mg PO daily. Since then: She has been tolerating her complex antimycobacterial regimen quite well, with some GI symptoms (will prescribe ondansetron for nausea). Safety labs and audiograms have been fine. No evidence of amikacin toxicity. Pulmonary symptoms have remained stable, with very little cough Weight has remained essentially stable to slightly down over the past 3 months We discussed clofazimine in detail today and completed informed consent. We also discussed inhaled liposomal amikacin. Plan: Spontaneous and induced sputum samples today. Plan repeat in 6 weeks. Continue imipenem until we can replace with oral clofazimine (anticipate 2-3 weeks from now) Continue IV amikacin until we can replace it with inhaled liposomal amikacin; we are starting the process of obtaining it. Continue weekly amikacin trough while on IV amikacin Continue BUN, Cr, LFTs, CBC w/ diff weekly while still on IV therapy, then change to every 4-6 weeks Continue omadacycline Continue azithromycin, ethambutol, and rifampin. If no further sputum samples grow MAC, tentatively plan to stop these antibiotics in March 2025. Audiogram every 3-4 weeks Eye exams every ~3 months Repeat ECG today: QTc remains normal and not significantly changed Office follow-up in 6 weeks, with induced sputum. Assessment & Plan (07/30/2024 4:38 PM EST): Found to have pulmonary MAC infection in 2021 in the context of CT scans done primarily for fatigue and weight loss. 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 No susceptibility testing appears to have been done. In November 2021, she was started on thrice weekly azithromycin, ethambutol, and rifampin, which was associated with varying degrees of GI distress, in particular diarrhea. She continued to grow MAC from expectorated sputum, most recently 09/06/2023. A sputum sample collected 08/01/2023 grew Mycobacterium abscessus (no subspecies determined, no susceptibility testing). At the time of our initial visit on 01/15/2024, this was the only sample that had grown M abscessus. We agreed to change her anti-MAC regimen to daily therapy, and she has tolerated that change quite well. Subsequently, she has had multiple sputum samples that have grown M abscessus (unfortunately macrolide-resistant). At our last visit, we agreed to add therapy directed vs M abscessus, and on 06/10/2024 she started imipenem 1000 mg IV q12h, amikacin 900 mg IV TIW, and omadacycline 300 mg PO daily. Since then: She has been tolerating her complex antimycobacterial regimen remarkably well. Amikacin has been up-titrated to 1250 mg IV TIW in response to TDM results. Pulmonary symptoms have remained stable, expectorating somewhat more sputum (non-purulent, no hemoptysis) with bronchial hygiene Weight has remained essentially stable to slightly down over the past 2 months Safety labs have been remarkable for minimal eosinophilia, not worsening Plan: Induced sputum submitted today. Plan repeat in 4 weeks. Continue imipenem. After 3 months (at the end of August 2024), tentatively plan to replace with oral clofazimine. Continue IV amikacin. After 3 months (at the end of August 2024), tentatively plan to replace with inhaled liposomal amikacin. Continue weekly amikacin trough, BUN, Cr, LFTs, CBC w/ diff. Continue omadacycline Continue azithromycin, ethambutol, and rifampin. If no further sputum samples grow MAC, tentatively plan to stop in March 2025. Audiogram every 3-4 weeks Repeat ECG today: QTc normal Office follow-up in 4 weeks, with induced sputum. Assessment & Plan (06/25/2024 5:56 PM EST): Found to have pulmonary MAC infection in 2021 in the context of CT scans done primarily for fatigue and weight loss. 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 No susceptibility testing appears to have been done. In November 2021, she was started on thrice weekly azithromycin, ethambutol, and rifampin, which was associated with varying degrees of GI distress, in particular diarrhea. She continued to grow MAC from expectorated sputum, most recently 09/06/2023. A sputum sample collected 08/01/2023 grew Mycobacterium abscessus (no subspecies determined, no susceptibility testing). At the time of our initial visit on 01/15/2024, this was the only sample that had grown M abscessus. We agreed to change her anti-MAC regimen to daily therapy, and she has tolerated that change quite well. Subsequently, she has had multiple sputum samples that have grown M abscessus (unfortunately macrolide-resistant). At our last visit, we agreed to add therapy directed vs M abscessus, and on 06/10/2024 she started imipenem 1000 mg IV q12h, amikacin 900 mg IV TIW, and omadacycline 300 mg PO daily. Since then: She has been tolerating her complex antimycobacterial regimen remarkably well. Amikacin has been up-titrated to 1100 mg IV TIW in response to TDM results. Pulmonary symptoms have remained stable, expectorating somewhat more sputum with bronchial hygiene Longstanding night sweats continue, and her weight has remained essentially stable We will continue her current antimycobacterial regimen, with weekly amikacin trough, BUN, Cr, LFTs, CBC w/ diff. Next audiogram 06/29. Next eye exam 07/20. Office follow-up in 4-6 weeks, with induced sputum. Assessment & Plan (05/20/2024 9:33 PM EDT): Found to have pulmonary MAC infection in 2021 in the context of CT scans done primarily for fatigue and weight loss. 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 No susceptibility testing appears to have been done. In November 2021, she was started on thrice weekly azithromycin, ethambutol, and rifampin, which was associated with varying degrees of GI distress, in particular diarrhea. She continued to grow MAC from expectorated sputum, most recently 09/06/2023. A sputum sample collected 08/01/2023 grew Mycobacterium abscessus (no subspecies determined, no susceptibility testing). At the time of our initial visit on 01/15/2024, this was the only sample that had grown M abscessus. We agreed to change her anti-MAC regimen to daily therapy, and she has tolerated that change quite well, with improved diarrhea. 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 We discussed that we usually treat MAC for one year beyond demonstrated culture conversion, and she is in favor of pursuing that. Therefore, we will continue azithromycin, ethambutol, and rifampin at current doses. Safety labs and ECG (to check QTc on azithromycin) today. We discussed the variable natural history of pulmonary Mycobacterium abscessus infection, which can be more unfavorable than that of MAC. We discussed the pros and cons of adding therapy for M abscessus, including what that would entail and potential adverse effects. Provisionally, we agreed to add treatment for M abscessus, as an outpatient: Imipenem, most likely 750-1000 mg IV q12h Amikacin, most likely 25 mg/kg IV TIW, guided by TDM Omadacycline 300 mg PO daily (contingent on insurance coverage) Will review the regimen with [facility]. If successfully initiated, we would continue this combination for three months and then likely replace IV imipenem and IV amikacin, eg with clofazimine and inhaled amikacin. She will need weekly BUN, Cr, LFTs, CBC w/ diff, and amikacin trough while on IV impenem/amikacin, and should have audiograms every 3-4 weeks. As has been demonstrated by the confirmation of M abscessus infection and determination of antimicrobial susceptibilities, it is preferable to have sputum specimens collected here so we can process them in our mycobacteriology lab, and if necessary send specimens to our reference labs of choice for susceptibility testing. Assessment & Plan (04/21/2024 6:25 PM EDT): Take azithromycin 250 mg daily+ ethambutol 800 mg daily+ rifampin 600 mg daily as prescribed. Continue close follow-up with [facility] [place]Dr. Ko as scheduled in May 2024. Assessment & Plan (01/16/2024 2:24 PM EDT): Diagnosed in 2021 in the context of CT scans done primarily for fatigue and weight loss. Chest CT showed mild bronchiectasis and multifocal nodules and TIB opacities (no cavitary lesions), and respiratory samples grew MAC. In the records available to me at this time, I do not see any reports of susceptibility testing. In November 2021, she was started on thrice weekly azithromycin, ethambutol, and rifampin. Her adherence has been fairly good, though sometimes she skips doses because of GI distress. Her pulmonary symptoms have always been minimal, and perhaps more related to postnasal drip. She has continued to grow MAC from expectorated sputum, most recently 09/06/2023. A single sputum sample, collected 08/01/2023, has grown Mycobacterium abscessus. In the absence of repeated isolation of M abscessus from expectorated sputum, or isolation from a bronchoscopy specimen, I am not convinced that this is a pathogen in this case, and I do not favor adding antibiotics to treated at this time. Doing so would be onerous, particularly in the setting of ongoing treatment for MAC, with which she is having some difficulty. Should M abscessus be isolated repeatedly, we would need to perform susceptibility testing to guide treatment options. Regarding her persistently positive sputum cultures for MAC, we discussed the following options: Enhance treatment by moving to daily administration of the antibiotics Stop antimycobacterial therapy and observe (given minimal pulmonary symptoms and GI side effects from treatment) We discussed the pros and cons of each approach, and the patient elected to try daily administration of antimycobacterial therapy. Change azithromycin to 250 mg daily Change ethambutol to 800 mg daily Change rifampin to 600 mg daily If she continues to have culture-positive sputum, will consider enhancing treatment with inhaled liposomal amikacin, and possibly clofazimine. Will repeat chest CT to help assess progress. It would be desirable to have sputum specimens collected here so we can process them in our mycobacteriology lab, and if necessary send specimens to our reference labs of choice for susceptibility testing. With her next visit here, I asked her to bring a same-day specimen, transported on ice. She reports having yearly ophthalmologic exams. While on ethambutol, it would be desirable for these exams to occur at least every 6 months. Safety labs were normal today; will plan to repeat locally in 2 months. Lateral epicondylitis of right elbow 10/16/2023 Assessment & Plan (10/16/2023 4:57 PM EST): Use lateral elbow pad for extended activities in addition to warming it and gentle, regular exercising. Examples of exercises with pictures and detailed instructions printed for home use today. She may benefit from topical cream/gel to-3 times daily and if needed at bedtime x 3 weeks. May need to consider formal PT and if all above measures unsuccessful local steroid injection. Vitamin B12 deficiency 08/31/2022 Assessment & Plan (02/25/2023 3:27 PM EDT): To check tissue reservoirs I have asked her to complete supplementation and wait for 5-7 days after last dose of vitamin B 12 supplementation in order to check serum level. Assessment & Plan (09/01/2022 2:02 PM EST): To check tissue reservoir I have asked her to complete supplementation and wait for 5-7 days after last dose of vitamin B 12 supplementation in order to check serum level. Mouth sores 08/31/2022 Assessment & Plan (02/25/2023 3:07 PM EDT): Continue proper hydration, Evoxac as prescribed. Avoid spicy, acidic foods. Diligent mouth hygiene. Double the dose of Lysine to 500 mg twice daily. Assessment & Plan (09/01/2022 2:04 PM EST): Continue proper hydration, Evoxac as prescribed. Avoid spicy, acidic foods. Diligent mouth hygiene. Double the dose of Lysine to 500 mg twice daily. Weight loss 03/03/2021 Assessment & Plan (02/23/2022 12:05 PM EDT): Well-balanced nutritionally diet in 4-5 meals daily. Consider enreaching meals by adding protein powder Assessment & Plan (03/08/2021 11:53 PM EDT): Well-balanced nutritionally diet in 4-5 meals daily. Consider enreaching meals by adding protein powder Gastroesophageal reflux disease without esophagi tis 12/23/2019 Assessment & Plan (10/13/2024 11:46 AM EST): Avoid late, large, spicy meals. Keep headboard elevated at 45?? angle for nighttime. Carefully continue Pepcid (famotidine) 40 mg nightly. Assessment & Plan (04/20/2024 8:02 AM EDT): Avoid late, large, spicy meals. Keep headboard elevated at 45?? angle for nighttime. Assessment & Plan (10/16/2023 3:01 PM EST): Avoid late, large, spicy meals. Keep headboard elevated at 45?? angle for nighttime. Assessment & Plan (02/25/2023 3:07 PM EDT): Avoid late, large, spicy meals. Keep headboard elevated at 45?? angle for nighttime. Assessment & Plan (02/23/2022 11:56 AM EDT): Avoid late, large, spicy meals. Keep headboard elevated at 45?? angle for nighttime. Assessment & Plan (03/03/2021 8:10 AM EDT): Avoid late, large, spicy meals. Keep headboard elevated at 45?? angle for nighttime. Assessment & Plan (12/01/2020 8:15 AM EDT): Avoid late, large, spicy meals. Keep headboard elevated at 45?? angle for nighttime. Assessment & Plan (09/02/2020 10:55 AM EST): Avoid late, large, spicy meals. Keep headboard elevated at 45?? angle for nighttime. Assessment & Plan (05/27/2020 11:39 AM EDT): Avoid late, large, spicy meals. Keep headboard elevated at 45?? angle for nighttime. Assessment & Plan (12/23/2019 8:20 AM EDT): Avoid late, large, spicy meals. Keep headboard elevated at 45?? angle for nighttime. Rash/skin eruption 12/23/2019 Assessment & Plan (12/23/2019 9:55 PM EDT): Monitor onset, severity, take pictures with details and modifying factors. If recurrent and worsening consider formal dermatology evaluation History of recurrent UTI (urinary tract infectio n) 09/17/2019 Assessment & Plan (05/27/2020 11:39 AM EDT): Keep well hydrated: 6-8 glasses (8 oz each) of fluids daily Take cranberry pill daily Continue preventive Hiprex as prescribed by urologist See urologist as scheduled Assessment & Plan (12/23/2019 9:56 PM EDT): Keep well hydrated: 6-8 glasses (8 oz each) of fluids daily Take cranberry pill daily Continue preventive Hiprex as prescribed by urologist See urologist as scheduled Assessment & Plan (09/17/2019 8:30 AM EST): Keep well hydrated: 6-8 glasses (8 oz each) of fluids daily Take cranberry pill daily See urologist as scheduled Facial rash 09/17/2019 Assessment & Plan (09/17/2019 8:36 AM EST): Change moistuirizer from Neutrogena to Cetaphil or Eucerin fragrance free with [id number] in it See swimming coach or instructor if not better or worse Carpal tunnel syndrome of left wrist 03/10/2019 Assessment & Plan (03/03/2021 8:19 AM EDT): Use neutral wrist splint for nighttime and extended activities. Joint protection, energy conservation techniques. Consider formal OT or local steroid injection if not better or worse. Assessment & Plan (06/21/2019 9:34 PM EST): Use neutral wrist splint for nighttime and extended activities. Joint protection, energy conservation techniques. Consider formal OT or local steroid injection if not better or worse. Assessment & Plan (03/28/2019 10:40 PM EDT): Use neutral wrist splint for nighttime and extended activities. Joint protection, energy conservation techniques. Consider formal OT or local steroid injection if not better or worse. Long-term use of Plaquenil 12/16/2018 Assessment & Plan (10/12/2024 2:02 PM EST): Get monitoring labs today-orders in [facility]. Take exactly as prescribed. Daily sun protection. Regular ophthalmological checkup as scheduled at least every 6 months because of concomitant treatment with ethambutol. Assessment & Plan (04/21/2024 6:22 PM EDT): [facility]. Take exactly as prescribed. Daily sun protection. Regular ophthalmological checkup as scheduled at least every 6 months because of concomitant treatment with ethambutol. Assessment & Plan (10/16/2023 3:01 PM EST): Get monitoring labs today-orders in [facility]. Take exactly as prescribed. Daily sun protection. Regular ophthalmological checkup as scheduled at least every 12 months. Assessment & Plan (02/25/2023 3:07 PM EDT): Get monitoring labs today-orders in [facility]. Take exactly as prescribed. Daily sun protection. Regular ophthalmological checkup as scheduled at least every 12 months. Assessment & Plan (08/31/2022 8:04 AM EST): Get monitoring labs today-orders in [facility]. Take exactly as prescribed. Daily sun protection. Regular ophthalmological checkup as scheduled at least every 12 months. Assessment & Plan (02/23/2022 11:57 AM EDT): Get monitoring labs today-orders in [facility]. Take exactly as prescribed. Daily sun protection. Regular ophthalmological checkup as scheduled at least every 12 months. Assessment & Plan (03/03/2021 8:08 AM EDT): Get monitoring labs today-orders in [facility]. Take exactly as prescribed. Daily sun protection. Regular ophthalmological checkup as scheduled at least every 12 months. Assessment & Plan (12/01/2020 8:09 AM EDT): Get monitoring labs today-orders in [facility]. Take exactly as prescribed. Daily sun protection. Regular ophthalmological checkup as scheduled at least every 12 months. Assessment & Plan (09/06/2020 9:43 AM EST): Get monitoring labs today-orders in [facility]. Take exactly as prescribed. Daily sun protection. Regular ophthalmological checkup as scheduled at least every 12 months. Assessment & Plan (05/27/2020 11:40 AM EDT): Take exactly as prescribed. Daily sun protection. Regular ophthalmological checkup as scheduled at least every 12 months. Assessment & Plan (12/23/2019 8:20 AM EDT): Take exactly as prescribed. Daily sun protection. Regular ophthalmological checkup as scheduled at least every 12 months. Assessment & Plan (09/17/2019 8:21 AM EST): Take exactly as prescribed. Daily sun protection. Regular ophthalmological checkup as scheduled at least every 12 months. Assessment & Plan (06/21/2019 9:34 PM EST): Take exactly as prescribed. Daily sun protection. Regular ophthalmological checkup as scheduled at least every 12 months. Assessment & Plan (03/28/2019 10:41 PM EDT): Take exactly as prescribed. Daily sun protection. Regular ophthalmological checkup as scheduled at least every 12 months. Assessment & Plan (12/16/2018 3:56 PM EDT): Take exactly as prescribed. Daily sun protection. Regular ophthalmological checkup as scheduled at least every 12 months. Fibromyalgia 09/03/2018 Assessment & Plan (12/23/2019 9:57 PM EDT): We discussed the diagnosis of fibromyalgia, its natural history, and treatment. Specifically, we discussed that treatment requires many interventions and recognition that we are often unable to get patients completely pain free. Management of fibromyalgia requires patient engagement to address any underlying depression, anxiety, or sleep disorder. Further, patients are encouraged to engage in regular physical activity. Some studies have suggested that Oswaldo Chi is effective. Other physical activity may including water-based aerobics, gentle yoga, walking, biking, swimming, Pilates etc. In terms of pharmacotherapy, there are many options, including tricyclic antidepressants, duloxetine, gabapentin or pregabalin, and cyclobenzaprine as well as other similar medications to those listed. In this case, the patient might try to build up carefully the dose of gabapentin-900 mg nightly. She would benefit greatly from reading book written by Dr Daniel Quick [facility] addressing management strategies for patients with fibromyalgia utilizing mindfulness approach. Assessment & Plan (09/17/2019 8:20 AM EST): Carefully cut Amitriptylline 25 mg tab in half x 5 days, if not worse Take 0.5 tab of amitriptyline 25 mg=12.5 mg every other day for 5 doses & if ok stop Carefully try cannabis after you stopped amitriptyline Assessment & Plan (06/21/2019 9:34 PM EST): Carefully continue amitriptyline as prescribed. Sleep hygiene. Well-balanced nutritionally diet. Gentle, regular exercise routine. Avoid falls, injuries, sick contacts. Keep up-to-date with age-appropriate screenings and preventive strategies. Follow mindfulness in approach to deal with fibromyalgia related issues as described in the book written by Dr Daniel [facility] Assessment & Plan (03/28/2019 10:39 PM EDT): Carefully continue amitriptyline as prescribed. Sleep hygiene. Well-balanced nutritionally diet. Gentle, regular exercise routine. Avoid falls, injuries, sick contacts. Keep up-to-date with age-appropriate screenings and preventive strategies. Follow mindfulness in approach to deal with fibromyalgia related issues as described in the book written by Dr Daniel [facility] Assessment & Plan (12/16/2018 3:53 PM EDT): Carefully continue amitriptyline as prescribed. Sleep hygiene. Well-balanced nutritionally diet. Gentle, regular exercise routine. Avoid falls, injuries, sick contacts. Keep up-to-date with age-appropriate screenings and preventive strategies. 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 No immunologic confirmation with SSA, SSB antibodies as of last checkup in 2018. Due to her low body weight I have recalculated her daily dose and asked her to reduce Plaquenil from 200 mg twice daily to alternating 200 mg every other day with 300 mg every other day. She admits to taking 1 pill Plaquenil 200 mg daily since last visit in October 2023. She is up-to-date on ophthalmologic checkups and no signs of Plaquenil toxicity detected. Next ophthalmologic checkup is scheduled in July 2025. In view of concomitant use of ethambutol her ophthalmologic checkups should be increased to every 6 months now Keep smgb-[id number] at 6-8 glasses (8 ounces each) of fluids daily. Avoid spicy and acidic foods. Diligent mouth hygiene. Regular dental checkups. Assessment & Plan (04/21/2024 6:22 PM EDT): Clinically quiescent on current regimen. No immunologic confirmation with SSA, SSB antibodies as of last checkup in 2018. Due to her low body weight I have recalculated her daily dose and asked her to reduce Plaquenil from 200 mg twice daily to alternating 200 mg every other day with 300 mg every other day. She admits to taking 1 pill Plaquenil 200 mg daily since last visit in October 2023. She is up-to-date on ophthalmologic checkups and no signs of Plaquenil toxicity detected. Next ophthalmologic checkup is scheduled in July 2024. In view of concomitant use of ethambutol her ophthalmologic checkups should be increased to every 6 months now Keep mmnn-[id number]-[id number] at 6-8 glasses (8 ounces each) of fluids daily. Avoid spicy and acidic foods. Diligent mouth hygiene. Regular dental checkups. Assessment & Plan (10/16/2023 4:59 PM EST): Clinically quiescent on current regimen. No immunologic confirmation with SSA, SSB antibodies as of last checkup in 2018. Due to her low body weight I have recalculated her daily dose and asked her to reduce Plaquenil from 200 mg twice daily to alternating 200 mg every other day with 300 mg every other day. She is up-to-date on ophthalmologic checkups and no signs of Plaquenil toxicity detected. Keep jqdr-[id number]-nrm at 6-8 glasses (8 ounces each) of fluids daily. Avoid spicy and acidic foods. Diligent mouth hygiene. Regular dental checkups. Assessment & Plan (02/25/2023 3:27 PM EDT): Carefully continue Plaquenil 200 mg twice daily and follow [employer] dyer every 12 months or as requested if needed earlier. Keep kxys-xygmveut-sdc at 6-8 glasses (8 ounces each) of fluids daily. Avoid spicy and acidic foods. Diligent mouth hygiene. Regular dental checkups. Assessment & Plan (08/31/2022 8:05 AM EST): Carefully continue Plaquenil as prescribed. Monitor for unusual skin discoloration, visual abnormalities, heart rate rhythm changes etc. Return for periodic lab work at least 3-4 months-standing orders in [facility]. Keep well-hydrated. Avoid spicy and acidic foods. Diligent ocular and mouth hygiene. Regular ocular and dental checkups. Assessment & Plan (03/11/2022 12:14 PM EDT): Carefully continue Plaquenil as prescribed. Monitor for unusual skin discoloration, visual abnormalities, heart rate rhythm changes etc. Return for periodic lab work at least 3-4 months-standing orders in [facility]. Keep well-hydrated. Avoid spicy and acidic foods. Diligent ocular and mouth hygiene. Regular ocular and dental checkups. Assessment & Plan (03/03/2021 8:07 AM EDT): Keep well-hydrated. Avoid spicy and acidic foods. Diligent ocular and mouth hygiene. Regular ocular and dental checkups. Assessment & Plan (12/01/2020 8:07 AM EDT): Keep well-hydrated. Avoid spicy and acidic foods. Diligent ocular and mouth hygiene. Regular ocular and dental checkups. Assessment & Plan (09/06/2020 9:42 AM EST): Keep well-hydrated. Avoid spicy and acidic foods. Diligent ocular and mouth hygiene. Regular ocular and dental checkups. Assessment & Plan (06/08/2020 10:58 AM EDT): Carefully continue Plaquenil and Evoxac exactly as prescribed. Keep well-hydrated. Avoid spicy and acidic foods. Diligent mouth hygiene. Regular dental checkups. Assessment & Plan (12/23/2019 10:12 PM EDT): Carefully continue Plaquenil and Evoxac exactly as prescribed. Keep well-hydrated. Avoid spicy and acidic foods. Diligent mouth hygiene. Regular dental checkups. Assessment & Plan (09/17/2019 8:22 AM EST): Keep well-hydrated. Avoid spicy and acidic foods. Diligent mouth hygiene. Regular dental checkups. Assessment & Plan (06/11/2019 8:28 AM EDT): Get labs today & prior to next visit Carefully continue Plaquenil, Lysine and Evoxac as prescribed. Keep well-hydrated. Avoid spicy and acidic foods. Diligent mouth hygiene. Regular ocular and dental checkups. Assessment & Plan (03/28/2019 10:40 PM EDT): Carefully continue Plaquenil, Lysine and Evoxac as prescribed. Keep well-hydrated. Avoid spicy and acidic foods. Diligent mouth hygiene. Regular ocular and dental checkups. Assessment & Plan (12/16/2018 3:50 PM EDT): Carefully continue Plaquenil, Lysine and Evoxac as prescribed. Keep well-hydrated. Avoid spicy and acidic foods. Diligent mouth hygiene. Regular ocular and dental checkups. Raynaud's disease without gangrene 09/03/2018 Assessment & Plan (10/12/2024 2:02 PM EST): Keep warm, dress in layers. Optimize stress management strategies. Avoid vasoconstrictors in OTC products for cold/flu and sinus. Assessment & Plan (04/20/2024 8:01 AM EDT): Keep warm, dress in layers. Optimize stress management strategies. Avoid vasoconstrictors in OTC products for cold/flu and sinus. Assessment & Plan (10/16/2023 3:01 PM EST): Keep warm, dress in layers. Optimize stress management strategies. Avoid vasoconstrictors in OTC products for cold/flu and sinus. Assessment & Plan (02/25/2023 3:08 PM EDT): Keep warm, dress in layers. Optimize stress management strategies. Avoid vasoconstrictors in OTC products for cold/flu and sinus. Assessment & Plan (08/31/2022 8:05 AM EST): Keep warm, dress in layers. Optimize stress management strategies. Avoid vasoconstrictors in OTC products for cold/flu and sinus. Assessment & Plan (02/23/2022 11:57 AM EDT): Keep warm, dress in layers. Optimize stress management strategies. Avoid vasoconstrictors in OTC products for cold/flu and sinus. Assessment & Plan (03/03/2021 8:07 AM EDT): Keep warm, dress in layers. Optimize stress management strategies. Avoid vasoconstrictors in OTC products for cold/flu and sinus. Assessment & Plan (12/01/2020 8:08 AM EDT): Keep warm, dress in layers. Optimize stress management strategies. Avoid vasoconstrictors in OTC products for cold/flu and sinus. Assessment & Plan (09/02/2020 10:54 AM EST): Keep warm, dress in layers. Optimize stress management strategies. Avoid vasoconstrictors in OTC products for cold/flu and sinus. Assessment & Plan (06/08/2020 10:58 AM EDT): Keep warm, dress in layers. Optimize stress management strategies. Avoid vasoconstrictors in OTC products for cold/flu and sinus. Assessment & Plan (12/23/2019 8:13 AM EDT): Keep warm, dress in layers. Optimize stress management strategies. Avoid vasoconstrictors in OTC products for cold/flu and sinus. Assessment & Plan (09/17/2019 8:22 AM EST): Keep warm, dress in layers. Optimize stress management strategies. Avoid vasoconstrictors in OTC products for cold/flu and sinus. Assessment & Plan (06/11/2019 8:27 AM EDT): Keep warm, dress in layers. Optimize stress management strategies. Avoid vasoconstrictors in OTC products for cold/flu and sinus. Assessment & Plan (03/28/2019 10:39 PM EDT): Keep warm, dress in layers. Optimize stress management strategies. Avoid vasoconstrictors in OTC products for cold/flu and sinus. Assessment & Plan (12/16/2018 3:50 PM EDT): Keep warm, dress in layers. Optimize stress management strategies. Avoid vasoconstrictors in OTC products for cold/flu and sinus. Vitamin D insufficiency 09/03/2018 Assessment & Plan (08/31/2022 8:06 AM EST): Since she has stopped taking vitamin D about 6 months ago I am asking her to get the serum level to make sure that she does not need to continue daily supplementation to replace insufficiency Assessment & Plan (02/23/2022 11:58 AM EDT): Since she has stopped taking vitamin D about 6 months ago I am asking her to get the serum level to make sure that she does not need to continue daily supplementation to replace insufficiency Assessment & Plan (03/03/2021 8:06 AM EDT): Since she has stopped taking vitamin D about 6 months ago I am asking her to get the serum level to make sure that she does not need to continue daily supplementation to replace insufficiency Assessment & Plan (12/01/2020 8:08 AM EDT): Since she has stopped taking vitamin D about 6 months ago I am asking her to get the serum level to make sure that she does not need to continue daily supplementation to replace insufficiency Assessment & Plan (09/06/2020 9:42 AM EST): Since she has stopped taking vitamin D about 6 months ago I am asking her to get the serum level to make sure that she does not need to continue daily supplementation to replace insufficiency Assessment & Plan (06/08/2020 10:58 AM EDT): Continue daily supplementation to replace insufficiency Assessment & Plan (09/17/2019 8:22 AM EST): Continue daily supplementation to replace insufficiency Assessment & Plan (06/11/2019 8:28 AM EDT): Continue daily supplementation to replace insufficiency Assessment & Plan (03/28/2019 10:39 PM EDT): Continue daily supplementation to replace insufficiency Assessment & Plan (12/16/2018 3:51 PM EDT): Continue daily supplementation. Postmenopausal 09/03/2018 Encounters Date Type Department Care Team Description 11/12/2024 10:00 AM EDT Office Visit [facility] [address] [facility] [address] [place] [address] Roshan Ko MD Nontuberculous mycobacterial pulmonary disease (Primary Dx); Sicca syndrome; Long-term use of Plaquenil 11/12/2024 7:05 AM EDT - 11/12/2024 11:59 PM EDT Hospital En[facility] [address] [facility] [address] [place] [address] Roshan Ko MD Discharge Disposition: Home or Self Care 11/12/2024 Orders Only [facility] [address] [place] [address] Erin Huntley Nontuberculous mycobacterial pulmonary disease 10/12/2024 2:00 PM EST Office Visit [facility] [address] [place] [address] Sia Lebron MD Sicca syndrome (Primary Dx); Raynaud's disease without gangrene; Long-term use of Plaquenil; Gastroesophageal reflux disease without esophagitis; Nontuberculous mycobacterial pulmonary disease; Antibiotic long-term use; Underweight 10/08/2024 11:30 AM EST Office Visit [address] [address] Roshan Ko MD Nontuberculous mycobacterial pulmonary disease (Primary Dx) 10/08/2024 10:08 AM EST - 10/08/2024 11:59 PM EST Hospital Encounter [facility] [address] [place] [id number] Roshan Ko MD Discharge Disposition: Home or Self Care 10/08/2024 Orders Only [facility] [address] [place], [place] [id number] Erin Huntley Nontuberculous mycobacterial pulmonary disease 10/02/[address] [id number] Rosalva Dinh RN 09/15/[address] [address] Rosalva Dinh RN COPAT Complete 09/14/2024 8:35 PM EST - 09/14/2024 11:59 PM EST Hospital Encounter [facility] [address] [place] [address] Roshan Ko MD Discharge Disposition: Home or Self Care 09/14/2024 10:30 AM EST Home Care Visit [facility] [address] [place], [place] [phone] Guanako Jiménez RN SN OASIS DISCHARGE VISIT 09/10/2024 Home Care Visit [facility] [address] [place], [place] [phone] Jacquelyn Ivey CASE COMMUNICATION 09/10/[address] [address] Rosalva Dinh RN COPAT Follow-up 09/08/2024 10:30 AM EST - 09/08/2024 11:59 PM EST Hospital Encounter [facility] [address] [place] [address] Roshan Ko MD Discharge Disposition: Home or Self Care 09/08/2024 8:30 AM EST [facility] [address] [place] [phone] Guanako Jiménez RN SN HOME VISIT 09/07/[address] [address] Rosalva Dinh RN 09/05/2024 8:53 AM EST - 09/05/2024 11:59 PM EST Hospital Encounter [facility], Ct Scan - [facility] [address] [place] [address] Roshan Ko MD Discharge Disposition: Home or Self Care 09/03/[address] [address] Rosalva Dinh RN COPAT Follow-up 09/02/2024 Telephone [facility] [address] [place] [address] Sia Lebron MD Medication Prior Authorization (Cevimeline ) 09/01/2024 9:46 AM EST - 09/01/2024 11:59 PM EST Hospital Encounter [facility] [address] [place] [address] Roshan Ko MD Discharge Disposition: Home or Self Care 09/01/2024 9:00 AM EST Home Care Visit [facility] [address] [place] [phone] Moriah Clifford, FLASH SN HOME VISIT 09/01/[address] [address] Rosalva Dinh RN 08/28/[address] [address] Rosalva Dinh RN 08/27/2024 12:58 PM EST - 08/27/2024 11:59 PM EST Hospital Encounter [facility] [address] [address] Roshan Ko MD Discharge Disposition: Home or Self Care 08/27/2024 10:30 AM EST Office Visit [address] [address] Roshan Ko MD Nontuberculous mycobacterial pulmonary disease (Primary Dx) 08/27/2024 Procedure Pass [facility], Ct Scan - [facility] [address] [place] [address] 08/27/[address] [address] Maris iL RN COPAT Follow-up (Antibiotic extension) 08/27/2024 Orders Only [facility] [address] [place] [address] Erin Huntley Nontuberculous mycobacterial pulmonary disease 08/26/[address] [address] Rosalva Dinh RN COPAT Follow-up 08/25/2024 11:24 AM EST - 08/25/2024 11:59 PM EST Hospital Encounter [facility] [address] [place] [address] Roshan Ko MD Discharge Disposition: Home or Self Care 08/25/2024 8:30 AM EST Home Care Visit [facility] [address] [place] [phone] Guanako Jiménez RN SN HOME VISIT 08/20/[address] [address] Rosalva Dinh RN COPAT Follow-up 08/19/2024 Episode Documentatio n Update [facility] [address] [place] [phone] Carolyn, Anabel Bernadette from Last 3 Months Immunizations Name Administration Dates Next Due COVID-19 (Pre-06/03) Moderna Vaccine, mRNA, PF 07/03/2021,09/30/2020,09/02/2020 COVID-19 Pfizer Comirnaty Vaccine 12+ 05/20/2024 Influenza High-Dose Trivalen t Preservative Free IM 05/20/2024 Influenza Quadrivalent Preservative Free IM 09/2021,05/18/2021 Td, unspecified formulation 08/12/2001 Zoster recombinant 10/24/2021 Social History Tobacco Use Types Packs/Day Years Used Date Smoking Tobacco: Never Passive Smoke Exposure: Past Smokeless Tobacco: Never Tobacco Cessation:Counseling Given: No Alcohol Use Standard Drinks/Week Comments Yes 0 [...] on file Sexual Orientation Not on file Last Filed Vital Signs Vital Sign Reading Time Taken Comments Blood Pressure 129/74 11/12/2024 9:53 AM EDT Pulse 91 11/12/2024 9:53 AM EDT Temperature 36 ??C (96.8 ??F) 11/12/2024 9:53 AM EDT Respiratory Rate 18 09/14/2024 10:55 AM EST Oxygen Saturation 98% 11/12/2024 9:53 AM EDT Inhaled Oxygen Concentration - - Weight 45.4 kg (100 lb) 11/12/2024 9:53 AM EDT Height 154.9 cm (5' 0.98 ) 10/12/2024 1:45 PM ES T Body Mass Index 18.9 10/12/2024 1:45 PM EST Plan of Treatment Upcoming Encounters Date Type Department Care Team (Late st Contact Info) Description 01/14/2025 10:00 AM EDT Office Visit [facility] [address] [address] Roshan Ko MD 55 [place] [address] [email or web address] 04/26/2025 9:00 AM EDT Office Visit [facility] Rheumatology [address] [place] [address] Sia Lebron MD 22 [facility], [address] [place] [address] [email or web address] Health Maintenance Due Date Last Done Comments DEPRESSION SCREENING 1969 PNEUMOCOCCAL VACCINES (50+ years) (1 of 2 - PCV) 1976 COLOGUARD 2002 COLONOSCOPY 2002 COLORECTAL CANCER SCREENING 2002 FIT TEST 2002 FOBT 2002 SIGMOIDOSCOPY 2002 VIRTUAL COLONOSCOPY 2002 Adult Td,Tdap Booster 08/12/2011 08/12/2001 MAMMOGRAM 04/12/2024 04/12/2022, 11/11, 03/20/2018, Additional history exists LIPID PANEL 09/20/2027 09/20/2022, 07/0 03/2020, 06/25/2019, Additional history exists HEPATITIS C SCREENING Completed 02/17/2020 , 06/25/2019, 06/06/2018 OSTEOPOROSIS SCREENING INITIAL (ONE-TIME) Completed 09/21/2022, 11/20/2018 ZOSTER VACCINES Completed 12/02/2023, 10/24/2021 COVID-19 VACCINE Completed 05/20/2024, 10/2022, 06/07/2022, Additional history exists INFLUENZA VACCINE Completed 05/20/2024, , 06/13/2022, Additional history exists RSV VACCINE Completed 05/26/2024 SMOKING STATUS SCREENING (Once After 26 Yrs) Completed 10/12/2024 HEPATITIS A VACCINES Aged Out No long er eligible based on patient's age to complete this topic HIB VACCINES Aged Out No longer eligi ble based on patient's age to complete this topic MENINGOCOCCAL VACCINES (ACWY) Aged Out No longer eligible based on patient's age to complete this topic Medical Devices Not on file Procedures Procedure Name Priority Date/Time Associated Diagnosis Comments ECG 12-LEAD Routine 11/12/2024 11:08 AM EDT Nontuberculous mycobacterial pulmonary disease COMPREHENSIVE METABOLIC PANEL Routine 11/12/2024 10:37 AM EDT Sicca syndrome Long-term use of Plaquenil C-REACTIVE PROTEIN Routine 11/12/2024 10 :37 AM EDT Sicca syndrome Long-term use of Plaquenil SEDIMENTATION RATE (ESR) Routine 11/12/2024 10:37 AM EDT Sicca syndrome Long-term use of Plaquenil CBC AND DIFFERENTIAL Routine 11/12/2024 10:37 AM EDT Sicca syndrome Long-term use of Plaquenil MYCOBACTERIAL CULTURE/SMEAR Routine 11/12/2024 7:45 AM EDT Nontuberculous mycobacterial pulmonary disease MYCOBACTERIAL CULTURE/SMEAR Routine 11/12/2024 7:20 AM EDT Nontuberculous mycobacterial pulmonary disease ECG 12-LEAD Routine 10/08/2024 12:46 PM EST Nontuberculous mycobacterial pulmonary disease CREATININE/EGFR Routine 10/08/2024 12:23 PM EST Nontuberculous mycobacterial pulmonary disease BUN Routine 10/08/2024 12:23 PM EST Nontuberculous mycobacterial pulmonary disease LFTS (HEPATIC PANEL) Routine 10/08/2024 12:23 PM EST Nontuberculous mycobacterial pulmonary disease CBC AND DIFFERENTIAL Routine 10/08/2024 12:23 PM EST Nontuberculous mycobacterial pulmonary disease MYCOBACTERIAL CULTURE/SMEAR Routine 10/08/2024 10:41 AM EST Nontuberculous mycobacterial pulmonary disease MYCOBACTERIAL CULTURE/SMEAR Routine 10/08/2024 6:00 AM EST Nontuberculous mycobacterial pulmonary disease BUN Routine 09/14/2024 11:07 AM EST Pulmonary Mycobacterium avium complex (MAC) infection CREATININE/EGFR Routine 09/14/2024 11:07 AM EST Pulmonary Mycobacterium avium complex (MAC) infection CBC AND DIFFERENTIAL Routine 09/14/2024 11:07 AM EST Pulmonary Mycobacterium avium complex (MAC) infection LFTS (HEPATIC PANEL) Routine 09/14/2024 11:07 AM EST Pulmonary Mycobacterium avium complex (MAC) infection BUN Routine 09/08/2024 9:35 AM EST Pulmonary Mycobacterium avium complex (MAC) infection CREATININE/EGFR Routine 09/08/2024 9:35 AM EST Pulmonary Mycobacterium avium complex (MAC) infection CBC AND DIFFERENTIAL Routine 09/08/2024 9:35 AM EST Pulmonary Mycobacterium avium complex (MAC) infection LFTS (HEPATIC PANEL) Routine 09/08/2024 9:35 AM EST Pulmonary Mycobacterium avium complex (MAC) infection AMIKACIN, TROUGH Routine 09/08/2024 9:35 AM EST Pulmonary Mycobacterium avium complex (MAC) infection CT CHEST WITH CONTRAST Routine 09/05/2024 9:33 AM EST Nontuberculous mycobacterial pulmonary disease BUN Routine 09/01/2024 9:15 AM EST Pulmonary Mycobacterium avium complex (MAC) infection CREATININE/EGFR Routine 09/01/2024 9:15 AM EST Pulmonary Mycobacterium avium complex (MAC) infection CBC AND DIFFERENTIAL Routine 09/01/2024 9:15 AM EST Pulmonary Mycobacterium avium complex (MAC) infection LFTS (HEPATIC PANEL) Routine 09/01/2024 9:15 AM EST Pulmonary Mycobacterium avium complex (MAC) infection AMIKACIN, TROUGH Routine 09/01/2024 9:15 AM EST Pulmonary Mycobacterium avium complex (MAC) infection MYCOBACTERIAL CULTURE/SMEAR Routine 08/27/2024 1:49 PM EST Nontuberculous mycobacterial pulmonary disease MYCOBACTERIAL CULTURE/SMEAR Routine 08/27/2024 11:56 AM EST Nontuberculous mycobacterial pulmonary disease ECG 12-LEAD Routine 08/27/2024 11:32 AM EST Nontuberculous mycobacterial pulmonary disease BUN Routine 08/25/2024 9:40 AM EST Pulmonary Mycobacterium avium complex (MAC) infection CREATININE/EGFR Routine 08/25/2024 9:40 AM EST Pulmonary Mycobacterium avium complex (MAC) infection CBC AND DIFFERENTIAL Routine 08/25/2024 9:40 AM EST Pulmonary Mycobacterium avium complex (MAC) infection LFTS (HEPATIC PANEL) Routine 08/25/2024 9:40 AM EST Pulmonary Mycobacterium avium complex (MAC) infection AMIKACIN, TROUGH Routine 08/25/2024 9:40 AM EST Pulmonary Mycobacterium avium complex (MAC) infection BD DXA AXIAL (SPINE) WITH HIP Routine 09/21/2022 8:09 AM EST Vitamin D insufficiency Weight loss LIPID PANEL Routine 09/20/2022 8:02 AM EST Screening for lipoid disorders BI MAMMOGRAM SCREENING WITH TOMOSYNTHESIS WITH CAD (BILATERAL) Routine 04/12/2022 7:45 AM EDT Breast screening HEPATITIS C ANTIBODY, QUALITATIVE Routine 02/17/2020 7:25 AM EDT Encounter for screening for other suspected endocrine disorder Encounter for screening for lipid disorder Annual physical exam Encounter for screening for diabetes mellitus Anemia, unspecified type Dysuria from Last 3 Months or Most Recently Relevant to Health Maintenance Results * ECG 12-LEAD (11/12/2024 11:08 AM EDT) Only the most recent of3 resultswithin the time period is included. Systolic Blood Pressure [facility] Diastolic Blood Pressure [facility] Ventricular Rate EKG/MIN 78 BPM [facility] Atrial Rate 78 BPM [facility] ND Interval 154 ms [facility] QRS Duration 78 ms [facility] QT Interval 382 ms [facility] QTC Interval 435 ms [facility] P Candor 65 degrees [facility] R Wave Candor 65 degrees [facility] T Wave Candor 49 degrees [facility] 11/12/2024 11:0 8 AM EDT 11/14/2024 10:15 AM EDT Narrative [facility] - 11/14/2024 10:15 AM EDT LOC: [facility] - INF DIS DX: DRUG MONITORING REF: DR. ROSHAN KO BASELINE WANDER SINUS RHYTHM TRACING PROBABLY WITHIN NORMAL LIMITS WHEN COMPARED WITH ECG OF 08-Oct-2024 12:46, Electronically Signed in MUSE system. Confirmed by fellow MD Almonte David I ([id number]) on 11/13/2024 1:18:15 PM Roshan Ko MD ECG ORDERABLES [facility] * Comprehensive metabolic panel (11/12/2024 10:37 AM EDT) SODIUM 142 135 - 145 mmol/L [facility] POTASSIUM 4.0 3.4 - 5.0 mmol/L [facility] CHLORIDE 104 98 - 108 mmol/L [facility] CO2 26 23 - 32 mmol/L [facility] BUN 12 8 - 25 mg/dL [facility] CREATININE 0.78 0.50 - 1.00 mg/dL [facility] GLUCOSE 109 70 - 110 mg/dL [facility] ALBUMIN 3.9 3.3 - 5.0 g/dL [facility] TOTAL PROTEIN 6.4 6.0 - 8.3 g/dL [facility] CALCIUM 9.1 8.5 - 10.5 mg/dL [facility] ALKALINE PHOSPHATASE 78 30 - 100 U/L [facility] TOTAL BILIRUBIN 0.5 0.0 - 1.0 mg/dL [facility] AST 23 9 - 32 U/L [facility] ALT 18 7 - 33 U/L [facility] GLOBULIN 2.5 1.9 - 4.1 g/dL [facility] EGFR 84 >59 mL/min/1. 73m2 [facility] Comment:Estimated glomerular filtration rate calculated using the CKD-EPI refit equation. ANION GAP 12 3 - 17 mmol/L [facility] 11/12/2024 10:3 7 AM EDT 11/12/2024 12:09 PM EDT Sia Lebron MD LAB BLOOD ORDERA BLES Performing Organization Address City/[facility]/ZIP Co de Phone Number [address] [address] * Sedimentation rate (ESR) (11/12/2024 10:37 AM EDT) ESR 9 0 - 29 mm/h [facility] 11/12/2024 10:3 7 AM EDT 11/12/2024 12:09 PM EDT Sia Lebron MD LAB BLOOD ORDERA BLES Performing Organization Address City/[facility] Co de Phone Number [address] [address] * (ABNORMAL) CBC and differential (11/12/2024 10:37 AM EDT) Only the most recent of6 resultswithin the time period is included. WBC 5.05 4.00 - 11.00 K/uL [facility] RBC 3.69(L) 4.00 - 5.20 M/uL [facility] HGB 12.2 12.0 - 16.0 g/dL [facility] HCT 36.8 36.0 - 46.0 % [facility] PLT 224 150 - 450 K/uL [facility] MCV 99.7 80.0 - 100.0 fL [facility] MCH 33.1(H) 27.0 - 31.0 pg [facility] MCHC 33.2 32.0 - 36.0 g/dL [facility] RDW 13.1 11.5 - 14.5 % [facility] MPV 10.3 8.4 - 12.0 fL [facility] NRBC 0.00 0.00 /100 WBCs [facility] ABSOLUTE NRBC 0.00 0.00 K/uL [facility] DIFF METHOD Auto [facility] NEUTS 66.5 48.0 - 76.0 % [facility] LYMPHS 19.8 18.0 - 41.0 % [facility] MONOS 10.9 4.0 - 11.0 % [facility] EOS 1.8 0.0 - 5.0 % [facility] BASOS 0.6 0.0 - 1.5 % [facility] % IMMATURE GRANS 0.4 0.0 - 0.9 % [facility] ABSOLUTE NEUTS 3.36 1.92 - 7.60 K/uL [facility] ABSOLUTE LYMPHS 1.00 0.72 - 4.10 K/uL [facility] ABSOLUTE MONOS 0.55 0.16 - 1.10 K/uL [facility] ABSOLUTE EOS 0.09 0.00 - 0.50 K/uL [facility] ABSOLUTE BASOS 0.03 0.00 - 0.15 K/uL [facility] ABS IMMATURE GRANS 0.02 0.00 - 0.09 K/uL [facility] Blood 11/12/2024 10:3 7 AM EDT 11/12/2024 12:09 PM EDT Sia Lebron MD LAB BLOOD ORDERA BLES [address] [address] * C-Reactive Protein (11/12/2024 10:37 AM EDT) C REACTIVE PROTEIN 1.3 <8.0 mg/L [facility] Comment:This reference range is for the evaluation of inflammation. Order High Sensitivity CRP for cardiac risk status evaluation. 11/12/2024 10:3 7 AM EDT 11/12/2024 12:09 PM EDT Sia Lebron MD LAB BLOOD ORDERA BLES [address] [address] * Creatinine/eGFR (10/08/2024 12:23 PM EST) Only the most recent of5 resultswithin the time period is included. CREATININE 0.71 0.50 - 1.00 mg/dL [facility] EGFR 94 >59 mL/min/1.7 3m2 [facility] Comment:Estimated glomerular filtration rate calculated using the CKD-EPI refit equation. 10/08/2024 12:2 3 PM EST 10/08/2024 12:58 PM EST Roshan Ko MD LAB BLOOD ORDERABLES [address] [address] * LFTs (hepatic panel) (10/08/2024 12:23 PM EST) Only the most recent of5 resultswithin the time period is included. ALBUMIN 4.1 3.3 - 5.0 g/dL [facility] TOTAL BILIRUBIN 0.5 0.0 - 1.0 mg/dL [facility] DIRECT BILIRUBIN <0.2 0.0 - 0.3 mg/dL [facility] ALKALINE PHOSPHATASE 85 30 - 100 U/L [facility] AST 19 9 - 32 U/L [facility] ALT 13 7 - 33 U/L [facility] TOTAL PROTEIN 6.9 6.0 - 8.3 g/dL [facility] GLOBULIN 2.8 1.9 - 4.1 g/dL [facility] 10/08/2024 12:2 3 PM EST 10/08/2024 12:58 PM EST Roshan Ko MD LAB BLOOD ORDERABLES [address] [address] * BUN (10/08/2024 12:23 PM EST) Only the most recent of5 resultswithin the time period is included. BUN 12 8 - 25 mg/dL [facility] 10/08/2024 12:2 3 PM EST 10/08/2024 12:58 PM EST Roshan Ko MD LAB BLOOD ORDERABLES [facility] [address] [place] [address] * Amikacin, trough (09/08/2024 9:35 AM EST) Only the most recent of3 resultswithin the time period is included. AMIKACIN, TROUGH <0.8 <8.0 mcg/mL [facility]PT OF LAB MED AND PAT+ Blood 09/08/2024 9:35 AM EST 09/08/2024 10:15 AM EST Roshan Ko MD LAB BLOOD ORDERABLES [facility] DPT OF LAB MED AND PAT+ [address] [place] [address] * CT CHEST WITH CONTRAST (09/05/2024 9:33 [...] clinician's provided indication for this examination in Epic: * Pneumonia, unresolved; Pulmonary MAC and M [...] clinician's provided indication for this examination in Epic: *Pneumonia, unresolved; Pulmonary MAC and M abscessus, assess response toongoing treatment TECHNIQUE: Multidetector CT of the chest was performed with intravenouscontrast using tailored dose modulation techniques. COMPARISON: CT CHEST WITH CONTRAST FINDINGS: Devices/Tubes/Lines: None. Lungs: The central airways are patent. Unchanged mild to moderate nodularapical scarring. Unchanged bronchiectasis inferior left lingula. Decrease in djeavaidhsrjbjxrv-ou-njz nodularity in the left lingula and right [...] 1. Unchanged bronchiectasis and decrease in centrilobular pkue-rl-tbnnznnoauqar in the left lingula, right middle lobe, and left lower lobemost likely representing resolving aspiration or pneumonia includingresolving nontuberculous mycobacterial infection. 2. No new or enlarging pulmonary nodules. No new areas ofconsolidation. Roshan Ko MD IMG CT CHEST * Mycobacterial culture/smear (08/27/2024 1:49 PM EST) Only the most recent of2 resultswithin the time period is included. Special Requests No Special Requests 08/27/2024 1:49 PM EST [facility] SMEAR NO ACID FAST BACILLI OBSERVED 08/28/2024 11:38 AM EST [facility] Mycobacterial Culture NEGATIVE FOR MYCOBACTERIA AFTER 56 DAYS 10/22/2024 8:04 AM EDT [facility] Other (Sputum) 08/27/2024 1: 49 PM EST 08/27/2024 3:26 PM EST Comment:INDUCED SPUTUM Roshan Ko MD MICROBIOLOGY - [place] [address] * BD DXA AXIAL (SPINE) WITH HIP (09/21/2022 8:09 AM EST) Anatomical Region Laterality Modality Bone Density Bone Density 09/21/2022 2:00 PM EST Impressions 09/21/2022 2:08 PM EST Ongoing normal bone mineral density in the lumbar spine and the right hip however there has been a significant decrease in density in both locations since 2019. POS -[id number] Narrative 09/21/2022 2:08 PM EST This is a 66-year-old woman who reports no perceived height loss. Past history of hormone therapy, stopped in 2019. No history of long-term steroid use nor calcium supplementation. Comparison : ??11/20/2018. The lumbar spine and the right hip were evaluated and felt to be technically adequate. TOTAL bone mineral density in the L1-L4 VERTEBRAL BODIES was calculated at 1.070 g/cm2 ??with a T score of 0.2, and a Z-score of 2.0. ?? This falls within the WHO classification of normal . This is a -8.1% decrease density since 2019. Density of the right femoral NECK is 0.805g/cm2, ??T score -0.4, ?? Z score 1.1. ?? Density of the TOTAL RIGHT PROXIMAL FEMUR is 0.815 g/cm2; ??T-score ??-1.0; ?? Z-score ??0.2. ?? This falls within the WHO classification of normal . This is a -13.1% decrease density since 2019. Procedure Note Rodney Catherine MD - 09/21/2022 This is a 66-year-old woman who reports no perceived heightloss. Past history of hormone therapy, stopped in 2019. No history of long-term steroid use nor calcium supplementation. Comparison : 11/20/2018. The lumbar spine and the right hip were evaluated and felt to betechnically adequate. TOTAL bone mineral density in the L1-L4 VERTEBRAL BODIES was calculated at1.070 g/cm2 with a T score of 0.2, and a Z-score of 2.0. This falls within the WHO classification of normal . This is a -8.1% decrease density since 2019. Density of the right femoral NECK is 0.805g/cm2, T score -0.4, Z score1.1. Density of the TOTAL RIGHT PROXIMAL FEMUR is 0.815 g/cm2; T-score -1.0;Z-score 0.2. This falls within the WHO classification of normal . This is a -13.1% decrease density since 2019. IMPRESSION: Ongoing normal bone mineral density in the lumbar spine and the right hiphowever there has been a significant decrease in density in both locationssince 2019. POS -[id number] Sia Lebron MD IMG BD BONE DENS ITY DEXA * (ABNORMAL) Lipid panel (09/20/2022 8:02 AM EST) HDL 93 mg/dL [facility] Comment: ? Interpretation <40 mg/dL: Low HDL cholesterol (major risk factor for CHD) Greater than or equal to 60 mg/dL: High HDL cholesterol ( negative risk factor for CHD) HDL - cholesterol is affected by a number of factors, e.g. smoking, excerise, hormones, sex and age. CHOLESTEROL 224 0 - 240 mg/dL [facility] TRIGLYCERIDES 71 30 - 160 mg/dL [facility] LDL 117 50 - 129 mg/dL [facility] Comment: LDL levels in terms of risk for coronary heart disease: <100 mg/dL: Optimal 100-129 mg/dL: Near or above optimal 130-159 mg/dL: Borderline high 160-189 mg/dL: High >190 mg/dL: Very High CARDIAC RISK RATIO 2.4(L) 3.3 - 4.4 C [facility] Blood 09/20/2022 8:02 AM EST 09/20/2022 8:06 AM EST Melissa Mcdaniel NP LAB BLOOD ORDERABLES Performing Organization Address City/State/[facility] Co de Phone Number [address] [address] * BI MAMMOGRAM SCREENING WITH TOMOSYNTHESIS WITH CAD (BILATERAL) (04/12/2022 7:45 AM EDT) Anatomical Region Laterality Modality Breast Left, Breast Right, Breast Bilateral Bila teral Mammography 04/12/2022 8:24 AM EDT Impressions 04/12/2022 8:26 AM EDT No mammographic evidence of malignancy. ??Recommend routine annual surveillance. BI-RADS CATEGORY: ??1 - Negative. DENSITY: ??There are scattered fibroglandular densities. Narrative 04/12/2022 8:26 AM EDT 66-year-old female. Comparison made to previous on 12/08/2020 and as far back as 05/20/2013. ??Interpretation made in conjunction with computer-aided detection and tomosynthesis. There are scattered areas of fibroglandular density. There are no suspicious masses, areas of architectural distortion, or suspicious clusters of microcalcifications. Procedure Note Elio Randall MD - 04/12/2022 66-year-old female. Comparison made to previous on 12/08/2020 and as farback as 05/20/2013. Interpretation made in conjunction with computer-aideddetection and tomosynthesis. There are scattered areas of fibroglandular density. There are no suspicious masses, areas of architectural distortion, orsuspicious clusters of microcalcifications. IMPRESSION: No mammographic evidence of malignancy. Recommend routine annualsurveillance. BI-RADS CATEGORY: 1 - Negative. DENSITY: There are scattered fibroglandular densities. Melissa Mcdaniel NP IMG MG EXAMS * Hepatitis C antibody, qualitative (02/17/2020 7:25 AM EDT) HCV NON-REACTIV E NON-REACTI VE [facility] Blood 02/17/2020 7:25 AM EDT 02/17/2020 7:29 AM EDT Melissa Mcdaniel NP LAB BLOOD ORDERABLES [facility] [address] [place] [address] from Last 3 Months or Most Recently Relevant to Health Maintenance Care Teams Lamp Mechanic Relationship Specialty Start Date End Date Juliet Kirkland NP [address] [place] [address] PCP - General Nurse Practitioner 04/20/24 Leonel Feng MD [address] [place] [id number] Pulmonary Disease 01/16/24 Les Dempsey MD [address] [place] [id number] Infectious Diseases 01/16/24 Additional Source Comments The information contained in this document represents components of the legal health record. It is not the complete legal health record.[facility]
--- OUTSIDE RECORDS SUMMARY | 2024-11-17 09:22 | XMS_ITS | Encounter Summary ---
Author Organization [facility] Address [address] [address] Phone Care Team Providers Care Fagoter Name Role Phone Melissa Mcdaniel EDUCATION SALES CONSULTANT Primary Care Provider Leonel Feng MD Unavailable [phone] Les Dempsey MD Unavailable Juliet Kirkland NP Primary Care Provide r Encounter Details Date Type Department Care Team (Latest Contact Info) Description 02/17/2020 Transcribe Orders [address] [place] [address] Melissa Mcdaniel, EDUCATION SALES CONSULTANT [address] [place] [address] Encounter for screening for other suspected endocrine [...] Description 01/14/2025 10:00 AM EDT Office Visit [address] [place] [place] [address] Roshan Albarran MD [address] [place] [address] [email or web address] 04/26/2025 9:00 AM EDT Office Visit [facility] Rheumatology [address] [place] [address] Sia Lebron MD 22 [facility], [address] [place] [address] [email or web address] documented as of this encounter Results * (ABNORMAL) Urinalysis w/reflex Urine Culture (02/17/2020 8:22 AM EDT) COLOR STRAW(A) Yellow [facility] CLARITY Clear [facility] GLUCOSE Negative Negative [facility] BILI Negative Negative [facility] KETONES Negative Negative [facility] SPECIFIC GRAVITY <1.005 1.005 - 1.030 [facility] BLOOD 2+(A) Negative [facility] PH 6.5 5.0 - 8.0 [facility] Protein-UA Negative Negative [facility] NITRITE Negative Negative [facility] Leukocyte esterase, ur Negative Negative [facility] Urine (Urine) 02/17/2020 8:2 2 AM EDT 02/17/2020 8:25 AM EDT Melissa Mcdaniel NP URINE ORDERABLES [facility] [address] [place] [address] * (ABNORMAL) CBC and differential (02/17/2020 7:25 AM EDT) WBC 6.46 4.00 - 11.00 K/uL [facility] Comment:Note Reference Range updates to all CBC and Differential results. RBC 3.97 3.72 - 5.30 M/uL [facility] HGB 13.1 11.4 - 15.9 g/dL [facility] Comment:Note updated Referen ce Ranges for all CBC and Differential results. HCT 39.7 34.2 - 46.8 % [facility] PLT 233 140 - 430 K/uL [facility] MCV 100.0(H) 78.0 - 97.0 fL [facility] MCH 33.0 25.0 - 33.0 pg [facility] MCHC 33.0 32.0 - 36.0 g/dL [facility] RDW 12.5 11.0 - 16.0 % [facility] MPV 11.3 8.4 - 12.8 fl [facility] NRBC 0.00 0 /100 WBCs [facility] ABSOLUTE NRBC 0.00 0 K/uL [facility] DIFF METHOD Auto [facility] NEUTS 64.8 43.0 - 75.0 % [facility] LYMPHS 23.2 18.2 - 47.4 % [facility] MONOS 9.1 4.00 - 11.00 % [facility] EOS 2.2 0.0 - 8.0 % [facility] BASOS 0.5 0.0 - 2.0 % [facility] Granulocytes, immature (%) 0.2 0.0 - 0.9 % [facility] ABSOLUTE NEUTS 4.19 1.80 - 7.70 K/uL [facility] ABSOLUTE LYMPHS 1.50 1.00 - 3.10 K/uL [facility] ABSOLUTE MONOS 0.59 0.20 - 0.80 K/uL [facility] ABSOLUTE EOS 0.14 0.00 - 0.80 K/uL [facility] ABSOLUTE BASOS 0.03 0.00 - 0.09 K/uL [facility] Granulocytes, immature 0.01 0.00 - 0.05 K/uL [facility] Blood 02/17/2020 7:25 AM EDT 02/17/2020 7:29 AM EDT Melissa Mcdaniel NP LAB BLOOD ORDERABLES [facility] [address] [place] [address] * (ABNORMAL) Comprehensive metabolic panel (02/17/2020 7:25 AM EDT) SODIUM 132(L) 133 - 146 mmol/L [facility] POTASSIUM 4.6 3.3 - 5.1 mmol/L [facility] CHLORIDE 98 96 - 108 mmol/L [facility] CO2 27 21 - 35 mmol/L [facility] BUN 9 6 - 19 mg/dL [facility] CREATININE 0.60 0.5 - 1.5 mg/dL [facility] GLUCOSE 99 70 - 99 mg/dL [facility] ALBUMIN 4.1 3.9 - 4.8 g/dL [facility] TOTAL PROTEIN 6.8 6.5 - 8.0 g/dL [facility] CALCIUM 9.2 8.4 - 10.3 mg/dL [facility] ALKALINE PHOSPHATASE 68 39 - 117 U/L [facility] TOTAL BILIRUBIN 1.0 0.0 - 1.2 mg/dL [facility] AST 23 0 - 37 U/L [facility] ALT 18 0 - 40 U/L [facility] GLOBULIN 2.7 1 - 4.8 g/dL [facility] EGFR 98 >59 mL/min/1.7 3m2 [facility] Comment:Estimated glomerular filtration rate calculated using the CKD-EPI equation. ANION GAP 12 10 - 20 mmol/L [facility] Blood 02/17/2020 7:25 AM EDT 02/17/2020 7:29 AM EDT Melissa Mcdaniel NP LAB BLOOD ORDERABLES [address] [address] * Hepatitis C antibody, qualitative (02/17/2020 7:25 AM EDT) HCV NON-REACTIV E NON-REACTI VE [facility] Blood 02/17/2020 7:25 AM EDT 02/17/2020 7:29 AM EDT Melissa Mcdaniel NP LAB BLOOD ORDERABLES [address] [address] * (ABNORMAL) Lipid panel (02/17/2020 7:25 AM EDT) HDL 60 mg/dL [facility] Comment: ? Interpretation <40 mg/dL: Low HDL cholesterol (major risk factor for CHD) Greater than or equal to 60 mg/dL: High HDL cholesterol ( negative risk factor for CHD) HDL - cholesterol is affected by a number of factors, e.g. smoking, excerise, hormones, sex and age. CHOLESTEROL 155 0 - 240 mg/dL [facility] TRIGLYCERIDES 69 30 - 160 mg/dL [facility] LDL 81 50 - 129 mg/dL [facility] Comment: LDL levels in terms of risk for coronary heart disease: <100 mg/dL: Optimal 100-129 mg/dL: Near or above optimal 130-159 mg/dL: Borderline high 160-189 mg/dL: High >190 mg/dL: Very High CARDIAC RISK RATIO 2.6(L) 3.3 - 4.4 C [facility] Blood 02/17/2020 7:25 AM EDT 02/17/2020 7:29 AM EDT Melissa Mcdaniel NP LAB BLOOD ORDERABLES Performing Organization Address City/[facility] Co de Phone Number [address] [address] * TSH (02/17/2020 7:25 AM EDT) TSH 1.79 0.27 - 4.20 uIU/mL [facility] Blood 02/17/2020 7:25 AM EDT 02/17/2020 7:29 AM EDT Melissa Mcdaniel NP LAB BLOOD ORDERABLES Performing Organization Address [facility] Co de Phone Number [address] [address] documented in this encounter Visit Diagnoses Diagnosis [...] documented as of this encounter Care Teams Fagoter Relationship Specialty Start Date End Date Melissa Mcdaniel EDUCATION SALES CONSULTANT [address] [place] [address] PCP - General Nurse Practitioner 03/20/18 04/19/24 Juliet Kirkland NP [address] [place] [address] PCP - General Nurse Practitioner 04/20/24 Leonel Feng MD [address] [place] [phone] Pulmonary Disease 01/16/24 Les Dempsey MD [address] [place] [address] Infectious Diseases 01/16/24 documented as of this encounter Additional Source Comments The information contained in this document represents components of the legal health record. It is not the complete legal health record.[facility]
--- OUTSIDE RECORDS SUMMARY | 2024-11-17 09:22 | XMS_ITS | Encounter Summary ---
Author Organization [facility] Address [address] [address] Phone Care Team Providers Care Mixing Tumbler Operator Name Role Phone Melissa Mcdaniel PHARMACIST ASSISTANT Primary Care Provider [phone] Leonel Feng MD Unavailable [phone] Les Dempsey MD Unavailable Juliet Kirkland PHARMACIST ASSISTANT Primary Care Provide r Reason for Referral * Outpatient Procedure - Closed Specialty Diagnoses / Procedures Referred By Bob t Referred To Contact Radiology Diagnoses Other microscopic hematuria Personal history of urinary tract infection Procedures US Kidneys and Bladder Cecile Yeung MD [address] [address] Referral ID Status Reason Start Date Expiration Date Visits Re quested Visits Authorized [id number] Closed 02/02/2020 02/01/2021 1 1 Encounter Details Date Type Department Care Team (Latest Contact Info) Description 02/02/2020 Transcribe Orders Virtual Department [address] [place] [address] Cecile Yeung MD [address] [address] Other microscopic hematuria (Primary Dx); Personal history of urinary tract infection Social History Tobacco Use Types Packs/Day [...] Description 01/14/2025 10:00 AM EDT Office Visit [facility] [address] [address] Roshan Albarran MD [address] [place] [address] [email or web address] 04/26/2025 9:00 AM EDT Office Visit [facility] Rheumatology [address] [place] [address] Sia Lebron MD [address] [place] [address], [address] [place] [address] documented as of this encounter Results * XR ABDOMEN 1 VIEW (02/17/2020 8:42 AM EDT) Anatomical Region Laterality Modality Abdomen Radiographic Irene ging 02/17/2020 8:57 AM EDT Impressions 02/17/2020 8:58 AM EDT No evidence of radiopaque urinary tract calculi. POS - [id number] Narrative 02/17/2020 8:58 AM EDT HISTORY: ??Microscopic hematuria. COMPARISON: Ultrasound kidneys 02/17/2020. VIEWS: ??AP supine views. FINDINGS: No suspicious calcifications in the abdomen or pelvis. Moderate amount of stool throughout the colon. No marked bowel distention. No definite signs of abdominal or pelvic masses. Procedure Note Speedy Monteiro MD - 02/17/2020 HISTORY: Microscopic hematuria. COMPARISON: Ultrasound kidneys 02/17/2020. VIEWS: AP supine views. FINDINGS: No suspicious calcifications in the abdomen or pelvis. Moderate amount of stool throughout the colon. No marked bowel distention.No definite signs of abdominal or pelvic masses. IMPRESSION: No evidence of radiopaque urinary tract calculi. POS - [id number] Cecile Yeung MD IMG XR ABDOMEN * US Kidneys and Bladder (02/17/2020 8:23 AM EDT) Anatomical Region Laterality Modality Abdomen, Kidney Ultrasound 02/17/2020 8:20 AM EDT Impressions 02/17/2020 8:42 AM EDT Normal study of the kidneys and bladder. POS [id number] Narrative 02/17/2020 8:42 AM EDT HISTORY: ??Microscopic hematuria, UTI. COMPARISON: ??None. FINDINGS: Right Kidney: The kidney is normal in size and echogenicity. It measures 11.8 cm in the long axis. No masses, calculi, pelvocaliectasis or significant cortical thinning. Left Kidney: ??The kidney is normal in size and echogenicity. It measures 11.6 cm in the long axis. No masses, calculi, pelvocaliectasis or significant cortical thinning. Bladder: The bladder is normal in configuration. Prevoid bladder volume measures 414 cc. Bilateral ureteral jets visualized. No suspicious filling defects within the bladder lumen. Post void bladder volume equals 24 cc. Procedure Note Speedy Monteiro MD - 02/17/2020 HISTORY: Microscopic hematuria, UTI. COMPARISON: None. FINDINGS: Right Kidney: The kidney is normal in size and echogenicity. It qicbveup50.8 cm in the long axis. No masses, calculi, pelvocaliectasis orsignificant cortical thinning. Left Kidney: The kidney is normal in size and echogenicity. It akebkwfq21.6 cm in the long axis. No masses, calculi, pelvocaliectasis orsignificant cortical thinning. Bladder: The bladder is normal in configuration. Prevoid bladder volumemeasures 414 cc. Bilateral ureteral jets visualized. No suspicious fillingdefects within the bladder lumen. Post void bladder volume equals 24 cc. IMPRESSION: Normal study of the kidneys and bladder. 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 1:32 AM EDT CoV-Exposed Comment:Recent close contact 08/03/2020 08/03/2020 08/17/2020 1:24 AM EST COVID-19 03/31/2021 03/31/2021 04/21/2021 1:23 AM EDT CoV-Risk 04/29/2022 04/29/2022 04/29/2022 1:04 PM EDT COVID-19 04/29/2022 04/29/2022 05/20/2022 1:21 AM EDT documented as of this encounter Care Teams Mixing Tumbler Operator Relationship Specialty Start Date End Date Melissa Mcdaniel NP [address] [place] [address] PCP - General Nurse Practitioner 03/20/18 04/19/24 Juliet Kirkland NP [address] [place] [address] PCP - General Nurse Practitioner 04/20/24 Leonel Feng MD [address] [place] [phone] Pulmonary Disease 01/16/24 Les Dempsey MD [address] [place] [address] Infectious Diseases 01/16/24 documented as of this encounter Additional Source Comments The information contained in this document represents components of the legal health record. It is not the complete legal health record.[facility]
--- OUTSIDE RECORDS SUMMARY | 2024-11-17 09:23 | XMS_ITS | Encounter Summary ---
Author Organization [facility] Address [address] [facility] [address] [place] [address] Phone Care Team Providers Care Hat And Cap Drying Room Attendant Name Role Phone Unavailable Primary Care Provider Unavailabl e Encounter Details Date Type Department Care Team (Late st Contact Info) Description 09/21/2015 Hospital Encounter [facility],Outside Imaging [address] [place] [address] System, Provider Not In, [facility] [address] [address] Social History Tobacco Use Types Packs/Day Years [...] Description 01/14/2025 10:00 AM EDT Office Visit [facility] [address] [address] Roshan Albarran MD [address] [place] [address] [email or web address] 04/26/2025 9:00 AM EDT Office Visit [facility] Rheumatology [address] [place] [address] Sia Lebron MD 22 [facility], [address] [place] [address] [email or web address] documented as of this encounter [...] It is not the complete legal health record.[facility]
--- OUTSIDE RECORDS SUMMARY | 2024-11-17 09:23 | XMS_ITS | Encounter Summary ---
Author Organization [facility] Address 399 [facility] [address] [place] [address] Phone Care Team Providers Care Diet Aid Name Role Phone Unavailable Primary Care Provider Unavailabl e Encounter Details Date Type Department Care Team (Late st Contact Info) Description 01/04/2017 Hospital Encounter [facility],Outside Imaging 30 [place] [address] System, Provider Not In, [facility] [address] [address] Social History Tobacco Use Types Packs/Day Years [...] Description 01/14/2025 10:00 AM EDT Office Visit [facility] [address] [address] Roshan Albarran MD 55 [place] [address] [email or web address] 04/26/2025 9:00 AM EDT Office Visit [facility] Rheumatology [address] [place] [address] Sia Lebron MD 22 [facility], [address] [place] [address] [email or web address] documented as of this [...] It is not the complete legal health record.[facility]
--- OUTSIDE RECORDS SUMMARY | 2024-11-17 09:23 | XMS_ITS | Encounter Summary ---
Author Organization [facility] Address [address] [facility] [address] [place] [address] Phone Care Team Providers Care Csw Name Role Phone Unavailable Primary Care Provider Unavailabl e Encounter Details Date Type Department Care Team (Late st Contact Info) Description 07/21/2014 Hospital Encounter [facility],Outside Imaging 30 [place] [address] System, Provider Not In, [facility] [address] [address] Social History Tobacco Use Types Packs/Day Years [...] Description 01/14/2025 10:00 AM EDT Office Visit [facility] [address] [address] Roshan Albarran MD 55 [place] [address] [email or web address] 04/26/2025 9:00 AM EDT Office Visit [facility] Rheumatology [address] [place] [address] Sia Lebron MD 22 [facility], [address] [place] [address] [email or web address] documented as of this [...]
--- OUTSIDE RECORDS SUMMARY | 2024-11-17 09:23 | XMS_ITS | Encounter Summary ---
Author Organization [facility] Address [address] [employer] [address] [address] Phone Care Team Providers Care Musical Instrument Maker Name Role Phone Unavailable Primary Care Provider Unavailabl e Encounter Details Date Type Department Care Team (Late st Contact Info) Description 09/29/2015 Hospital Encounter [facility],Outside Imaging 30 [place] [address] System, Provider Not In, [facility] [address] [address] Social History Tobacco Use Types Packs/Day Years [...] Description 01/14/2025 10:00 AM EDT Office Visit [facility] [address] [address] Roshan Albarran MD 55 [place] [address] [email or web address] 04/26/2025 9:00 AM EDT Office Visit [facility] Rheumatology [address] [place] [address] Sia Lebron MD 22 [facility], [address] [place] [address] [email or web address] documented as of this encounter Procedures Procedure [...] It is not the complete legal health record.[facility]
--- OUTSIDE RECORDS SUMMARY | 2024-11-17 09:23 | XMS_ITS | Encounter Summary ---
Author Organization [facility] Address [address] [facility] [address] [address] Phone Care Team Providers Care Loan Interviewer Mortgage Name Role Phone Melissa Mcdaniel HAND LEATHER TRIMMER Primary Care Provider Leonel Feng MD Unavailable [phone] Les Dempsey MD Unavailable Juliet Kirkland HAND LEATHER TRIMMER Primary Care Provide r Encounter Details Date Type Department Care Team (Late st Contact Info) Description 06/18/2018 Transcribe Orders [facility] [address] [place] [address] System, Provider Not In, [facility] [address] [address] Sicca syndrome (Primary Dx); Scapulohumeral fibrositis Social [...] Description 01/14/2025 10:00 AM EDT Office Visit [facility] [address] [address] Roshan Albarran MD 55 [place] [address] [email or web address] 04/26/2025 9:00 AM EDT Office Visit [facility] Rheumatology [address] [place] [address] Sia Lebron MD [address] [facility], [address] [place] [address] [email or web address] documented as of this encounter Results * Antinuclear antibody (MADELINE) (06/18/2018 8:16 AM EST) MADELINE SCREEN ON HEP 2 Negative Negative [facility] Blood 06/18/2018 8:16 AM EST 06/18/2018 8:29 AM EST Provider Not In System PhD LAB BLOOD ORD ERABLES Performing Organization Address City/State/[facility] Co de Phone Number [facility] [address] [place] [address] * (ABNORMAL) CBC and differential (06/18/2018 8:16 AM EST) WBC 5.84 3.40 - 11.20 K/uL [facility] RBC 4.00 3.80 - 4.80 M/uL [facility] HGB 13.1 12.0 - 15.0 g/dL [facility] HCT 39.8 36.0 - 46.0 % [facility] PLT 234 130 - 400 K/uL [facility] MCV 99.5(H) 79.0 - 98.0 fL [facility] MCH 32.8 27.0 - 34.8 pg [facility] MCHC 32.9 31.5 - 36.0 g/dL [facility] RDW 12.6 10.8 - 14.6 % [facility] MPV 11.2 9.4 - 12.4 [facility] NRBC 0.00 0.00 /100 WBCs [facility] ABSOLUTE NRBC 0.00 0.00 K/uL [facility] DIFF METHOD Auto [facility] NEUTS 54.0 45.30 - 77.70 % [facility] LYMPHS 32.5 12.30 - 39.70 % [facility] MONOS 9.1 4.10 - 12.80 % [facility] EOS 3.4 0 - 7.2 % [facility] BASOS 0.7 0 - 2.80 % [facility] Granulocytes, immature (%) 0.3 0.0 - 0.9 % [facility] ABSOLUTE NEUTS 3.15 1.40 - 7.70 K/uL [facility] ABSOLUTE LYMPHS 1.90 0.60 - 3.20 K/uL [facility] ABSOLUTE MONOS 0.53 0.11 - 0.59 K/uL [facility] ABSOLUTE EOS 0.20 0.01 - 0.50 K/uL [facility] ABSOLUTE BASOS 0.04 0.00 - 0.08 K/uL [facility] Granulocytes, immature 0.02 0.00 - 0.05 K/uL [facility] Blood 06/18/2018 8:16 AM EST 06/18/2018 8:29 AM EST Provider Not In System PhD LAB BLOOD ORD ERABLES [facility] [address] [place], [place] [id number] * Comprehensive metabolic panel (06/18/2018 8:16 AM EST) SODIUM 139 133 - 146 mmol/L [facility] POTASSIUM 4.4 3.3 - 5.1 mmol/L [facility] CHLORIDE 99 96 - 108 mmol/L [facility] CO2 30 21 - 35 mmol/L [facility] BUN 15 6 - 19 mg/dL [facility] CREATININE 0.60 0.5 - 1.5 mg/dL [facility] GLUCOSE 95 70 - 99 mg/dL [facility] ALBUMIN 4.3 3.9 - 4.8 g/dL [facility] TOTAL PROTEIN 7.4 6.5 - 8.0 g/dL [facility] CALCIUM 9.0 8.4 - 10.3 mg/dL [facility] ALKALINE PHOSPHATASE 78 39 - 117 U/L [facility] TOTAL BILIRUBIN 0.5 0.0 - 1.2 mg/dL [facility] AST 22 0 - 37 U/L [facility] ALT 18 0 - 40 U/L [facility] GLOBULIN 3.1 1 - 4.8 g/dL [facility] EGFR 99 >59 mL/min/1.7 3m2 [facility] Comment:If patient is black, multiply result by 1.159. Estimated glomerular filtration rate calculated using the CKD-EPI equation. ANION GAP 14 10 - 20 mmol/L [facility] Blood 06/18/2018 8:16 AM EST 06/18/2018 8:29 AM EST Provider Not In System PhD LAB BLOOD ORD ERABLES [facility] [address] [place] [address] documented in this encounter Visit Diagnoses Diagnosis [...] documented as of this encounter Care Teams Loan Interviewer Mortgage Relationship Specialty Start Date End Date Melissa Mcdaniel NP [address] [place] [address] PCP - General Nurse Practitioner 03/20/18 04/19/24 Juliet Kirkland NP [address] [place] [address] PCP - General Nurse Practitioner 04/20/24 Leonel Feng MD [address] [place] [address] Pulmonary Disease 01/16/24 Les Dempsey MD [address] [id number] Infectious Diseases 01/16/24 documented as of this encounter Additional Source Comments The information contained in this document represents components of the legal health record. It is not the complete legal health record.[facility]
--- OUTSIDE RECORDS SUMMARY | 2024-11-17 09:23 | XMS_ITS | Encounter Summary ---
Author Organization [facility] Address [address] [address] Phone Care Team Providers Care Process Control Operator Name Role Phone Melissa Mcdaniel CUSTOM DRESSMAKER Primary Care Provider Leonel Feng MD Unavailable [phone] Les Dempsey MD Unavailable Juliet Kirkland NP Primary Care Provide r Encounter Details Date Type Department Care Team (Late st Contact Info) Description 01/15/2024 Procedure [facility], Ct Scan - [address] [address] Social History Tobacco Use Types Packs/Day Years [...] Description 01/14/2025 10:00 AM EDT Office Visit [facility] [address] [address] Roshan Albarran MD [address] [place] [address] [email or web address] 04/26/2025 9:00 AM EDT Office Visit [facility] Rheumatology [address] [place] [address] Sia Lebron MD 22 [facility], [address] [place] [address] [email or web address] documented as of this encounter Visit Diagnoses Not on filedocumented in this encounter Care Teams Process Control Operator Relationship Specialty Start Date End Date Melissa Mcdaniel NP [address] [place] [address] PCP - General Nurse Practitioner 03/20/18 04/19/24 Juliet Kirkland NP [address] [place] [address] PCP - General Nurse Practitioner 04/20/24 Leonel Fneg MD [address] [place] [address] Pulmonary Disease 01/16/24 Les Dempsey MD [address] [place] [address] Infectious Diseases 01/16/24 documented as of this encounter Additional Source Comments The information contained in this document represents components of the legal health record. It is not the complete legal health record.[facility]
--- OUTSIDE RECORDS SUMMARY | 2024-11-17 09:23 | XMS_ITS | Encounter Summary ---
Author Organization [facility] Address [address] [address] Phone Care Team Providers Care Oak Tanner Name Role Phone Melissa Mcdaniel NP Primary [...] Extremity Non-Vascular (Right) Melissa Mcdaniel NP [address] [place] [address] Referral ID Status Reason Start Date Expiration Date Visits Re quested Visits Authorized [id number] Closed 04/07/2019 04/06/2020 1 1 Encounter Details Date Type Department Care Team (Latest Contact Info) Description 04/07/2019 Transcribe Orders Virtual Department [address] [place] [phone] Melissa Mcdaniel NP [address] [place] [address] Localized swelling, mass and lump, lower limb, [...] Description 01/14/2025 10:00 AM EDT Office Visit [facility] [address] [address] Roshan Albarran MD 55 [place] [address] [email or web address] 04/26/2025 9:00 AM EDT Office Visit [facility] Rheumatology [address] [place] [address] [place] [address] Sia Lebron MD [address] [place] [address], [address] [place] [address] [email or web address] documented [...] established on the current examination. POS - [id number] Narrative 04/08/2019 5:24 PM EDT COMPARISON: None [...] established on the current examination. POS - [id number] Melissa Mcdaniel NP IMG US EXTREMITY documented in this encounter [...] documented as of this encounter Care Teams Oak Tanner Relationship Specialty Start Date End Date Melissa Mcdaniel NP [address] [place] [address] PCP - General Nurse Practitioner 03/20/18 04/19/24 Juliet Kirkland NP [address] [place] [address] PCP - General Nurse Practitioner 04/20/24 Leonel Feng MD [address] [place] [address] Pulmonary Disease 01/16/24 [place] Dempsey MD [address] [place] [address] Infectious Diseases 01/16/24 documented as of this encounter Additional Source Comments The information contained in this document represents components of the legal health record. It is not the complete legal health record.[facility]
--- OUTSIDE RECORDS SUMMARY | 2024-11-17 09:23 | XMS_ITS | Encounter Summary ---
Author Organization [facility] Address [address] [address] Phone Care Team Providers Care Lap Welder Name Role Phone Melissa Mcdaniel DIETITIAN RESEARCH Primary Care Provider Leonel Feng MD Unavailable [phone] Les Dempsey MD Unavailable Juliet Kirkland NP Primary Care Provide r Encounter Details Date Type Department Care Team (Latest Contact Info) Description 06/06/2018 Transcribe Orders [facility] Laboratory [address] [place] [address] Melissa Mcdaniel, DIETITIAN RESEARCH [address] [place] [address] Screening for diabetes mellitus (Primary Dx); Screening [...] Description 01/14/2025 10:00 AM EDT Office Visit [facility] [address] [phone] Roshna Albarran MD 55 [place] [address] [email or web address] 04/26/2025 9:00 AM EDT Office Visit [facility] Rheumatology 22 [place] [address] Sia Lebron MD 22 [facility], [address] [place] [address] [email or web address] documented as of this encounter Results * TSH (06/06/2018 8:03 AM EDT) TSH 2.24 0.27 - 4.20 uIU/mL [facility] Blood 06/06/2018 8:03 AM EDT 06/06/2018 8:07 AM EDT Melissa Mcdaniel DIETITIAN RESEARCH LAB BLOOD ORDERABLES Performing Organization Address City/State/[facility] Co de Phone Number [facility] [address] [place] [address] * (ABNORMAL) Lipid panel (06/06/2018 8:03 AM EDT) HDL 61 mg/dL [facility] Comment: Interpretation: Risk Level ? Females Decreased ?>55mg/dL Average ?50-55 mg/dL Increased ?<50 mg/dL CHOLESTEROL 179 0 - 240 mg/dL [facility] TRIGLYCERIDES 52 30 - 160 mg/dL [facility] LDL 108 50 - 129 mg/dL [facility] Comment: LDL levels in terms of risk for coronary heart disease: <100 mg/dL: Optimal 100-129 mg/dL: Near or above optimal 130-159 mg/dL: Borderline high 160-189 mg/dL: High >190 mg/dL: Very High CARDIAC RISK RATIO 2.9(L) 3.3 - 4.4 C [facility] Blood 06/06/2018 8:03 AM EDT 06/06/2018 8:07 AM EDT Melissa Mcdaniel DIETITIAN RESEARCH LAB BLOOD ORDERABLES [address] [address] * Comprehensive metabolic panel (06/06/2018 8:03 AM EDT) SODIUM 139 133 - 146 mmol/L [facility] POTASSIUM 4.7 3.3 - 5.1 mmol/L [facility] CHLORIDE 100 96 - 108 mmol/L [facility] CO2 26 21 - 35 mmol/L [facility] BUN 12 6 - 19 mg/dL [facility] CREATININE 0.70 0.5 - 1.5 mg/dL [facility] GLUCOSE 79 70 - 99 mg/dL [facility] ALBUMIN 4.2 3.9 - 4.8 g/dL [facility] TOTAL PROTEIN 7.2 6.5 - 8.0 g/dL [facility] CALCIUM 8.7 8.4 - 10.3 mg/dL [facility] ALKALINE PHOSPHATASE 74 39 - 117 U/L [facility] TOTAL BILIRUBIN 0.4 0.0 - 1.2 mg/dL [facility] AST 25 0 - 37 U/L [facility] ALT 19 0 - 40 U/L [facility] GLOBULIN 3.0 1 - 4.8 g/dL [facility] EGFR 94 >59 mL/min/1.7 3m2 [facility] Comment:If patient is black, multiply result by 1.159. Estimated glomerular filtration rate calculated using the CKD-EPI equation. ANION GAP 18 10 - 20 mmol/L [facility] Blood 06/06/2018 8:03 AM EDT 06/06/2018 8:07 AM EDT Melissa Mcdaniel NP LAB BLOOD ORDERABLES [address] [address] * Hepatitis C antibody, qualitative (06/06/2018 8:03 AM EDT) HCV Negative Negative [facility] Comment: This is a screening test and should be confirmed with molecular testing Blood 06/06/2018 8:03 AM EDT 06/06/2018 8:07 AM EDT Melissa Mcdaniel DIETITIAN RESEARCH LAB BLOOD ORDERABLES [facility] [address] [place] [address] documented in this encounter Visit Diagnoses Diagnosis [...] documented as of this encounter Care Teams Lap Welder Relationship Specialty Start Date End Date Melissa Mcdaniel NP [address] [place] [address] PCP - General Nurse Practitioner 03/20/18 04/19/24 Juliet Kirkland NP [address] [place] [address] PCP - General Nurse Practitioner 04/20/24 Leonel Feng MD [address] [place] [address] Pulmonary Disease 01/16/24 [place] Dempsey MD [address] [place] [address] Infectious Diseases 01/16/24 documented as of this encounter Additional Source Comments The information contained in this document represents components of the legal health record. It is not the complete legal health record.[facility]
--- OUTSIDE RECORDS SUMMARY | 2024-11-17 09:23 | XMS_ITS | Encounter Summary ---
Author Organization [facility] Address [address] [address] Phone Care Team Providers Care Manager Strategic Sourcing Name Role Phone Melissa Mcdaniel EXPERIMENTAL AIRCRAFT MECHANIC Primary Care Provider Leonel Feng MD Unavailable [phone] [place] Dempsey MD Unavailable [phone] Juliet Kirkland NP Primary Care Provide r Encounter Details Date Type Department Care Team (Latest Contact Info) Description 07/14/2019 Transcribe Orders [facility] Laboratory [address] [place] [address] Melissa Mcdaniel, EXPERIMENTAL AIRCRAFT MECHANIC [address] [place] [address] Dysuria (Primary Dx) Social History Tobacco Use [...] Description 01/14/2025 10:00 AM EDT Office Visit [facility] [address] [place] [place] [place] [address] Roshan Albarran MD [address] [place] [address] [email or web address] 04/26/2025 9:00 AM EDT Office Visit [facility] Rheumatology 22 [place] [address] Sia Lebron MD 22 [facility], [address] [place] [address] [email or web address] documented as of this encounter Results * (ABNORMAL) Urinalysis w/reflex Urine Culture (07/14/2019 6:30 AM EST) COLOR Yellow Yellow [facility] CLARITY Clear [facility] GLUCOSE Negative Negative [facility] BILI Negative Negative [facility] KETONES Negative Negative [facility] SPECIFIC GRAVITY 1.010 1.005 - 1.030 [facility] BLOOD 3+(A) Negative [facility] PH 6.0 5.0 - 8.0 [facility] Protein-UA Negative Negative [facility] NITRITE Negative Negative [facility] Leukocyte esterase, ur 1+(A) Negative [facility] Urine (Urine) 07/14/2019 6:3 0 AM EST 07/14/2019 10:56 AM EST Melissa Mcdaniel EXPERIMENTAL AIRCRAFT MECHANIC URINE ORDERABLES Performing Organization Address City/State/[facility] Co de Phone Number [facility] [address] [place] [address] documented in this encounter Visit Diagnoses Diagnosis [...] documented as of this encounter Care Teams Manager Strategic Sourcing Relationship Specialty Start Date End Date Melissa Mcdaniel NP [address] [place] [address] PCP - General Nurse Practitioner 03/20/18 04/19/24 Juliet Kirkland NP [address] [place] [address] PCP - General Nurse Practitioner 04/20/24 Leonel Feng MD [address] [place] [address] Pulmonary Disease 01/16/24 [place] Dempsey MD [address] [place] [address] Infectious Diseases 01/16/24 documented as of this encounter Additional Source Comments The information contained in this document represents components of the legal health record. It is not the complete legal health record.[facility]
--- OUTSIDE RECORDS SUMMARY | 2024-11-17 09:23 | XMS_ITS | Encounter Summary ---
Author Organization [facility] Address [address] [employer] [address] [address] Phone Care Team Providers Care Health Services Information Specialist Name Role Phone Mariah Soares CHAIR FRAME BUILDER Primary Care Provider Melissa Mcdaniel CHAIR FRAME BUILDER Primary Care Provider Leonel Feng MD Unavailable [phone] [place] Dempsey MD Unavailable Juliet Kirkland CHAIR FRAME BUILDER Primary Care Provide r Encounter Details Date Type Department Care Team (Late st Contact Info) Description 12/13/2017 Ancillary Orders [facility],Outside Imaging [address] [place], [place] [phone] System, Provider Not In, [facility] [address] [address] Social History Tobacco Use Types Packs/Day Years Used Date Smoking Tobacco: Never Assessed Sex and Gender Information Value Date Recorded Sex Assigned at Not on file Gender Identity Not on file Sexual Orientation Not on file documented as of this encounter Plan of Treatment Upcoming Encounters Date Type Department Care Team (Late st Contact Info) Description 01/14/2025 10:00 AM EDT Office Visit [facility] [address] [address] Roshan Albarran MD 55 [place] [address] [email or web address] 04/26/2025 9:00 AM EDT Office Visit [facility] Rheumatology [address] [place] [address] Sia Lebron MD 22 [facility], [address] [place] [address] documented as of this encounter Results * [...] documented as of this encounter Care Teams Health Services Information Specialist Relationship Specialty Start Date End Date Mariah Soares NP [address] [place] [address] PCP - General Family Medicine 12/10/17 03/19/18 Melissa Mcdaniel NP [address] [place] [address] PCP - General Nurse Practitioner 03/20/18 04/19/24 Juliet Kirkland NP [address] [place] [address] PCP - General Nurse Practitioner 04/20/24 Leonel Feng MD [address] [place] [address] Pulmonary Disease 01/16/24 [place] Dempsey MD [address] [place] [address] Infectious Diseases 01/16/24 documented as of this encounter Additional Source Comments The information contained in this document represents components of the legal health record. It is not the complete legal health record.[facility]
--- OUTSIDE RECORDS SUMMARY | 2024-11-17 09:23 | XMS_ITS | Encounter Summary ---
Author Organization [facility] Address [address] [employer] [facility] [address] [place] [phone] Phone Care Team Providers Care Account Executive Healthcare Name Role Phone Leonel Feng MD Unavailable [phone] Les Dempsey MD Unavailable Juliet Kirkland NP Primary Care Provide r Encounter Details Date Type Department Care Team (Latest Contact Info) Description 11/12/2024 10:00 AM EDT Office Visit [facility] [address] [address] Roshan Ko MD 55 [place] [address] [email or web address] Nontuberculous mycobacterial pulmonary disease (Primary Dx); Sicca syndrome; Long-term use of Plaquenil Social History Tobacco Use Types Packs/Day Years [...] ??F) 11/12/2024 9:53 AM EDT Respiratory Rate - - Oxygen Saturation 98% 11/12/2024 9:53 AM EDT Inhaled Oxygen Concentration - - Weight 45.4 kg (100 lb) 11/12/2024 9:53 AM EDT Height - - Body Mass Index 18.9 10/12/2024 1:45 PM EST documented in this encounter Progress Notes * Roshan Ko MD - 11/12/2024 10:00 AM EDT Images from the original note were not included. [facility] 68 y.o. woman with bronchiectasis and Sicca syndrome. 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 Ms. Jeffery has noted significantly increased sputum production associatedwith her nebulized saline and levalbuterol, often tinged light yellow. She follows this nebulizer treatment with Arikayce, which tends to provoke some coughing as well, though not as much as the saline/levalbuterol. Sometimes she repeats the nebulizer treatment in the afternoon. She has noted some mild epistaxis, most recently 2 days ago. Her energy levels has improved compared to when she was on intravenous therapy. She does not experience shortness of breath while walking or climbing stairs. Hoarseness has not been a significant problem, though she notes that her voice sometimes is a bit raspy. She reports no fevers but continues to experience night sweats, although not severe enough to necessitate a change of clothes. She has gained a few pounds and reports an increased appetite. She does not feel nauseous after eating, unlike when she was on intravenous therapy. She reports no recent episodes of vomiting, abdominal pain, or diarrhea. She has loose stools, which she attributes to her antibiotic regimen, and typically has three bowel movements in the morning. This has been the case for many months. She reports no ocular symptoms or tinnitus. She has a hearing test scheduled for next week. She reports no numbness or paresthesias in her feet. Patient's Medications New Prescriptions No medications on file Previous Medications AMIKACIN LIPOSOMAL-NEB.ACCESSR 590 MG/8.4 ML NBSP 8.4 Inhalations by inhal. via small vol.nebulizerroute daily. AZITHROMYCIN (ZITHROMAX) 250 MG TABLET Take 1 tablet (250 mg total) by mouth daily. CEVIMELINE (EVOXAC) 30 MG CAPSULE TAKE 1 CAPSULE 3 TIMES A DAY DICYCLOMINE (BENTYL) 10 MG CAPSULE Take 20 mg by mouth daily. ELDERBERRY FRUIT ORAL Take by mouth. ESOMEPRAZOLE (NEXIUM) 20 MG CAPSULE Take 20 mg by mouth daily. ESTRING 2 MG (7.5 MCG /24 HOUR) VAGINAL RING Place 2 mg vaginally every 3 (three) months. ETHAMBUTOL (MYAMBUTOL) 400 MG TABLET Take 2 tablets (800 mg total) by mouth daily. FAMOTIDINE (PEPCID) 40 MG TABLET Take 40 mg by mouth nightly at bedtime as needed for heartburn. FLUCONAZOLE (DIFLUCAN) 150 MG TABLET Take 150 mg by mouth once a week. GABAPENTIN (NEURONTIN) 300 MG CAPSULE Take 300 mg by mouth 3 (three) times a day. HYDROXYCHLOROQUINE (PLAQUENIL) 200 MG TABLET Take 1 tablet (200 mg total) by mouth daily. 1 tab daily ID-CLOFAZIMINE ([id number]) 50 MG CAPSULE Take 100 mg by mouth daily. LACTOBACILLUS RHAMNOSUS GG (CULTURELLE PROBIOTIC) 15 BILLION CELL CPSP Take 1 capsule by mouth daily. LEVALBUTEROL (XOPENEX CONCENTRATE) 1.25 MG/0.5 ML NEBULIZER SOLUTION Take 1 ampule by nebulization daily. LYSINE 1,000 MG TAB Take 1 tablet by mouth 2 (two) times a day. OMADACYCLINE (NUZYRA) 150 MG TABLET Take 2 tablets (300 mg total) by mouth daily. ONDANSETRON (ZOFRAN) 4 MG TABLET Take 1 tablet (4 mg total) by mouth every 12 (twelve) hours as needed for nausea. PRAMIPEXOLE (MIRAPEX) 0.25 MG TABLET Take 3 tablets (0.75 mg total) by mouth nightly at bedtime. RIFAMPIN (RIFADIN) 300 MG CAPSULE Take 2 capsules (600 mg total) by mouth daily. SODIUM CHLORIDE (HYPER-RAQUEL) 7 % NEBU Take 4 mL by nebulization 2 (two) times a day. THERAPEUTIC MULTIVITAMIN TABLET Take 1 tablet by mouth daily. ZOLPIDEM (AMBIEN) 10 MG TABLET Take 10 mg by mouth nightly as needed for sleep. Modified Medications No medications on file Discontinued Medications ALTEPLASE CATH 1 mg by Intracatheter route as needed (PICC line occlusion). Instill 2mg in 2.2 ml of sterile water into occluded cath for 30 - 120mins; aspirate and discard before flushing with saline; may repeat x 1; no more than 4mg per 24 hrs. Vitals: BP 129/74 Pulse 91 Temp 36 ??C (96.8 ??F) (Temporal) Wt 45.4 kg (100 lb) SpO2 98% BMI 18.90 kg/m?? Physical Exam General: Alert and appropriately conversant; thin but NAD HEENT: NC/AT, anicteric sclerae, normal conjunctivae; OP w/out erythema, lesions or exudate Neck: supple, no masses or lymphadenopathy Cor: RR, S1 S2 nl, no MGR Lungs: few inspiratory squeaks at the left base, o/w clear Abdomen: soft, non-tender, not distended Extremities: no edema Ishihara testing of color vision was normal Lab Results Component Value Date BUN 12 11/12/2024 CRE 0.78 11/12/2024 SGOT 23 11/12/2024 SGPT 18 11/12/2024 ALKP 78 11/12/2024 TBILI 0.5 11/12/2024 DBILI <0.2 10/08/2024 WBC 5.05 11/12/2024 HCT 36.8 11/12/2024 PLT 224 11/12/2024 Estimated Creatinine Clearance: 51 mL/min (based on SCr of 0.78 mg/dL). ECG 11/12/2024 (reviewed) NSR with normal intervals. QTc 435. Microbiology 11/12/2024 induced sputum AFB smear neg, mycobacterial culture in process 08/27/2024 expectorated sputum AFB smear neg, mycobacterial culture in process 10/08/2024 induced sputum AFB smear neg, mycobacterial culture neg so far 10/08/2024 expectorated sputum AFB smear neg, mycobacterial culture neg so far 08/27/2024 induced sputum AFB smear neg, mycobacterial culture neg 08/27/2024 expectorated sputum AFB smear neg, mycobacterial culture neg 07/30/2024 induced sputum AFB smear neg, mycobacterial culture neg 07/30/2024 expectorated sputum AFB smear neg, mycobacterial culture neg 05/20/2024 sputum AFB smear neg, mycobacterial culture positive for M abscessus 04/06/2024 induced sputum AFB smear neg, mycobacterial culture positive for M abscessus 04/06/2024 sputum sputum AFB smear neg, mycobacterial culture positive for M abscessus 03/27/2024 induced sputum AFB smear 2+, mycobacterial culture positive for Mycobacterium abscessus 03/27/2024 sputum AFB smear neg, mycobacterial culture negative 03/23/2024 induced sputum AFB smear neg, mycobacterial culture positive for AFB (spoke with lab; most likely M abscessus) Specimens collected at [facility] and processed at [facility] 09/06/2023 Sputum AFB smear negative; 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 09/05/2023 Sputum AFB smear negative, mycobacterial culture negative 08/01/2023 Sputum AFB smear negative; mycobacterial culture positive for Mycobacterium abscessus (no subspecies or susceptibility testing) 04/18/2023 Sputum AFB smear negative; 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 (no susceptibility testing) 08/19/2022 Sputum AFB smear negative; 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 (no susceptibility testing) 05/31/2022 Sputum AFB smear negative; 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 (no susceptibility testing) 05/24/2022 Sputum AFB smear negative; 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 (no susceptibility testing) 05/23/2022 Sputum AFB smear negative, mycobacterial culture not done (specimen too old) 02/27/2022 Sputum AFB smear negative; 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 (no susceptibility testing) 02/26/2022 Sputum AFB smear negative, mycobacterial culture negative 02/25/2022 Sputum AFB smear negative; mycobacterial culture positive for AFB, with overgrowth of contaminants, so unable to identify 11/12/2021 Sputum AFB smear negative; 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 (no susceptibility testing) 11/10/2021 Sputum AFB smear negative; 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 (no susceptibility testing) 09/26/2021 Sputum AFB smear negative, mycobacterial culture negative 09/25/2021 Sputum AFB smear negative, mycobacterial culture negative Imaging 09/05/2024 CT chest with contrast (compared to 02/06/2024): Unchanged mild apical scarring. Unchangedlingular bronchiectasis. Decrease in the centrilobular tree-in-bud nodularity in the lingula and RML. Resolution of previously demonstrated small cluster of centrilobular nodules in the LLL. No new or enlarging pulmonary nodules. 02/06/2024 CT chest with contrast: Bronchiectasis with associated architectural distortion, bronchial wall thickening, and TIB nodularity in the lingula and inferior right middle lobe, decreased compared to 07/31/2021. Clustered nodules in the superolateral left upper lobe persistent but also decreased. Scattered sites of mucous plugging. No new or enlarging pulmonary nodules. No consolidation. 07/31/2021 CT chest without contrast: 1 cm lobulated nodule in the FAN abutting the fissure. TIB and nodular opacities in the lingula and left lower lobe (superior segment and posterior basal segment). Peribronchovascular confluent opacities in the RML. Bronchial wall thickening and bronchiectasis along these opacities. 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 In November 2021, she was started on thrice weekly azithromycin, ethambutol, and rifampin, which was associated withvarying degrees of GI distress, in particular diarrhea. She continued to grow MAC from expectoratedsputum, most recently 09/06/2023. A sputum sample collected 08/01/2023 grew Mycobacterium abscessus (no subspecies determined, no susceptibility testing). At the time of our initial visit on 01/15/2024,this was the only sample that had grown M abscessus. We agreed to change her anti-MAC regimen to daily therapy, which she seemed to tolerate better than thrice weekly therapy. 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 On 06/10/2024 she started imipenem 1000 mg IV q12h, amikacin 900 mg IV TIW (subsequently up-titrated to 1250 mg IV TIWin response to TDM), and omadacycline 300 mg PO daily. She tolerated the enhance regimen remarkablywell, though with some anorexia and nausea. On 09/14/2024, we stopped imipenem and IV amikacin, and started clofazimine and inhaled liposomal amikacin (Arikayce). Since then, her nausea and anorexia have improved, and her energy level has been better. Initially the Arikayce was associated with hoarsen ess and hypophonia, but her voice has now returned to normal. Her cough has become more productive,and she has been using nebulized saline and [...] If no further sputum samples grow MAC, tentativelyplan to stop these antibiotics in March 2025. Continue audiogram every 3-4 weeks Continue eye exams every ~3 months Repeat ECG today: QTc remains normal and not significantly changed Office follow-up in 2 months. She will collect sputum that morning after her nebulized saline/levalbuterol. Follow-up: 01/14/2025 Roshan Ko MD I obtained verbal consent from the patient or their proxy to record this visit for purposes of producing a draft of the encounter documentation. 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 In November 2021, she was started on thrice weekly azithromycin, ethambutol, and rifampin, which was associated withvarying degrees of GI distress, in particular diarrhea. She continued to grow MAC from expectoratedsputum, most recently 09/06/2023. A sputum sample collected 08/01/2023 grew Mycobacterium abscessus (no subspecies determined, no susceptibility testing). At the time of our initial visit on 01/15/2024,this was the only sample that had grown M abscessus. We agreed to change her anti-MAC regimen to daily therapy, which she seemed to tolerate better than thrice weekly therapy. 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 On 06/10/2024 she started imipenem 1000 mg IV q12h, amikacin 900 mg IV TIW (subsequently up-titrated to 1250 mg IV TIWin response to TDM), and omadacycline 300 mg PO daily. She tolerated the enhance regimen remarkablywell, though with some anorexia and nausea. On 09/14/2024, we stopped imipenem and IV amikacin, and started clofazimine and inhaled liposomal amikacin (Arikayce). Since then, her nausea and anorexia have improved, and her energy level has been better. Initially the Arikayce was associated with hoarsen ess and hypophonia, but her voice has now returned to normal. Her cough has become more productive,and she has been using nebulized saline and [...] If no further sputum samples grow MAC, tentativelyplan to stop these antibiotics in March 2025. Continue audiogram every 3-4 weeks Continue eye exams every ~3 months Repeat ECG today: QTc remains normal and not significantly changed Office follow-up in 2 months. She will collect sputum that morning after her nebulized saline/levalbuterol. documented in this encounter Plan of Treatment Upcoming Encounters Date Type Department Care Team (Late st Contact Info) Description 01/14/2025 10:00 AM EDT Office Visit [facility] [address] [address] Roshan Ko MD 55 [place] [address] [email or web address] 04/26/2025 9:00 AM EDT Office Visit [facility] Rheumatology [address] [place] [address] Sia Lebron MD 22 [facility], [address] [place] [address] [email or web address] documented as of this encounter Procedures Procedure Name Priority Date/Time Associated Diagnosis Comments COMPREHENSIVE METABOLIC PANEL Routine 11/12/2024 10:37 AM EDT Sicca syndrome Long-term use of Plaquenil SEDIMENTATION RATE (ESR) Routine 11/12/2024 10:37 AM EDT Sicca syndrome Long-term use of Plaquenil CBC AND DIFFERENTIAL Routine 11/12/2024 10:37 AM EDT Sicca syndrome Long-term use of Plaquenil C-REACTIVE PROTEIN Routine 11/12/2024 10 :37 AM EDT Sicca syndrome Long-term use of Plaquenil documented in this encounter Results * ECG 12-LEAD (11/12/2024 11:08 AM EDT) Systolic Blood Pressure [facility] Diastolic Blood Pressure [facility] Ventricular Rate EKG/MIN 78 BPM [facility] Atrial Rate [address] [facility] [address] Interval 154 ms [facility] QRS Duration 78 ms [facility] QT Interval 382 ms [facility] QTC Interval 435 ms [facility] P Sa[place] 65 degrees [facility] R Wave [place] 65 degrees [facility] T Wave [place] 49 degrees [facility] 11/12/2024 11:0 8 AM EDT 11/14/2024 10:15 AM EDT Narrative [facility] - 11/14/2024 10:15 AM EDT LOC: [facility] - INF DIS DX: DRUG MONITORING REF: DR. ROSHAN KO BASELINE WANDER SINUS RHYTHM TRACING PROBABLY WITHIN NORMAL LIMITS WHEN COMPARED WITH ECG OF 08-Oct-2024 12:46, Electronically Signed in MUSE system. Confirmed by fellow MD Suzy, Flash Espinoza ([id number]) on 11/13/2024 1:18:15 PM Electronically Signed in [employer] system. Confirmed by Ngoc LITTLE, WQuinton ([id number]) on 11/14/2024 10:15:40 AM Roshan Ko MD ECG ORDERABLES [facility] * Comprehensive metabolic panel (11/12/2024 10:37 AM EDT) SODIUM 142 135 - 145 mmol/L [facility] POTASSIUM 4.0 3.4 - 5.0 mmol/L [facility] CHLORIDE 104 98 - 108 mmol/L [facility] CO2 26 23 - 32 mmol/L [facility] BUN 12 8 - 25 mg/dL [facility] CREATININE 0.78 0.50 - 1.00 mg/dL [facility] GLUCOSE 109 70 - 110 mg/dL [facility] ALBUMIN 3.9 3.3 - 5.0 g/dL [facility] TOTAL PROTEIN 6.4 6.0 - 8.3 g/dL [facility] CALCIUM 9.1 8.5 - 10.5 mg/dL [facility] ALKALINE PHOSPHATASE 78 30 - 100 U/L [facility] TOTAL BILIRUBIN 0.5 0.0 - 1.0 mg/dL [facility] AST 23 9 - 32 U/L [facility] ALT 18 7 - 33 U/L [facility] GLOBULIN 2.5 1.9 - 4.1 g/dL [facility] EGFR 84 >59 mL/min/1. 73m2 [facility] Comment:Estimated glomerular filtration rate calculated using the CKD-EPI refit equation. ANION GAP 12 3 - 17 mmol/L [facility] 11/12/2024 10:3 7 AM EDT 11/12/2024 12:09 PM EDT Sia Lebron MD LAB BLOOD ORDERA BLES [address] [address] * C-Reactive Protein (11/12/2024 10:37 AM EDT) C REACTIVE PROTEIN 1.3 <8.0 mg/L [facility] Comment:This reference range is for the evaluation of inflammation. Order High Sensitivity CRP for cardiac risk status evaluation. 11/12/2024 10:3 7 AM EDT 11/12/2024 12:09 PM EDT Sia Lebron MD LAB BLOOD ORDERA BLES [address] [address] * Sedimentation rate (ESR) (11/12/2024 10:37 AM EDT) ESR 9 0 - 29 mm/h [facility] 11/12/2024 10:3 7 AM EDT 11/12/2024 12:09 PM EDT Sia Lebron MD LAB BLOOD ORDERA BLES [address] [address] * (ABNORMAL) CBC and differential (11/12/2024 10:37 AM EDT) WBC 5.05 4.00 - 11.00 K/uL [facility] RBC 3.69(L) 4.00 - 5.20 M/uL [facility] HGB 12.2 12.0 - 16.0 g/dL [facility] HCT 36.8 36.0 - 46.0 % [facility] PLT 224 150 - 450 K/uL [facility] MCV 99.7 80.0 - 100.0 fL [facility] MCH 33.1(H) 27.0 - 31.0 pg [facility] MCHC 33.2 32.0 - 36.0 g/dL [facility] RDW 13.1 11.5 - 14.5 % [facility] MPV 10.3 8.4 - 12.0 fL [facility] NRBC 0.00 0.00 /100 WBCs [facility] ABSOLUTE NRBC 0.00 0.00 K/uL [facility] [employer] [facility] NEUTS 66.5 48.0 - 76.0 % [facility] LYMPHS 19.8 18.0 - 41.0 % [facility] MONOS 10.9 4.0 - 11.0 % [facility] EOS 1.8 0.0 - 5.0 % [facility] BASOS 0.6 0.0 - 1.5 % [facility] % IMMATURE GRANS 0.4 0.0 - 0.9 % [facility] ABSOLUTE NEUTS 3.36 1.92 - 7.60 K/uL [facility] ABSOLUTE LYMPHS 1.00 0.72 - 4.10 K/uL [facility] ABSOLUTE MONOS 0.55 0.16 - 1.10 K/uL [facility] ABSOLUTE EOS 0.09 0.00 - 0.50 K/uL [facility] ABSOLUTE BASOS 0.03 0.00 - 0.15 K/uL [facility] ABS IMMATURE GRANS 0.02 0.00 - 0.09 K/uL [facility] Blood 11/12/2024 10:3 7 AM EDT 11/12/2024 12:09 PM EDT Sia Lebron MD LAB BLOOD ORDERA BLES [facility] [address] [place] [address] documented in this encounter Visit Diagnoses Diagnosis Nontuberculous mycobacterial pulmonary disease- Primary Sicca syndrome Long-term use of Plaquenil Nontuberculous mycobacterial pulmonary disease documented in this encounter Care Teams Account Executive Healthcare Relationship Specialty Start Date End Date Juliet Kirkland NP [address] [place] [address] PCP - General Nurse Practitioner 04/20/24 Leonel Feng MD [address] [place] [phone] Pulmonary Disease 01/16/24 Les Dempsey MD [address] [place] [phone] Infectious Diseases 01/16/24 documented as of this encounter Additional Source Comments The information contained in this document represents components of the legal health record. It is not the complete legal health record.[facility]
--- OUTSIDE RECORDS SUMMARY | 2024-11-17 09:23 | XMS_ITS | Encounter Summary ---
Author Organization [facility] Address [address] [facility] [address] [place] [address] Phone Care Team Providers Care Socially Responsible Investment Adviser Name Role Phone Melissa Mcdaniel TERMINAL COMPUTER OPERATOR Primary Care Provider Leonel Feng MD Unavailable [phone] Les Dempsey MD Unavailable Juliet Kirkland TERMINAL COMPUTER OPERATOR Primary Care Provide r Encounter Details Date Type Department Care Team (Late st Contact Info) Description 03/24/2018 Ancillary Orders Virtual Department [address] [place] [address] Dale Neville MD [address] [place] [address] [address] [place] [address] Abnormal mammogram Social History Tobacco [...] Description 01/14/2025 10:00 AM EDT Office Visit [facility] [address] [address] Roshan Albarran MD [address] [place] [address] [email or web address] 04/26/2025 9:00 AM EDT Office Visit [facility] Rheumatology [address] [place] [address] Sia Lebron MD 22 [facility], [address] [place] [address] [email or web address] documented as of this encounter Visit Diagnoses [...] documented as of this encounter Care Teams Socially Responsible Investment Adviser Relationship Specialty Start Date End Date Melissa Mcdaniel NP [address] [place] [phone] PCP - General Nurse Practitioner 03/20/18 04/19/24 Juliet Kirkland NP [address] [place] [address] PCP - General Nurse Practitioner 04/20/24 Leonel Feng MD [address] [place] [id number] Pulmonary Disease 01/16/24 Les Dempsey MD [address] [place] [phone] Infectious Diseases 01/16/24 documented as of this encounter Additional Source Comments The information contained in this document represents components of the legal health record. It is not the complete legal health record.[facility]
--- OUTSIDE RECORDS SUMMARY | 2024-11-17 09:23 | XMS_ITS | Encounter Summary ---
Author Organization [facility] Address 399 [facility] [address] [place] [address] Phone Care Team Providers Care Director Of Curriculum Name Role Phone Leonel Feng MD Unavailable [phone] Les Dempsey MD Unavailable Juliet Kirkland NP Primary Care Provide r Encounter Details Date Type Department Care Team (Late st Contact Info) Description 08/27/2024 Procedure Pass [facility], [facility] Scan - [address] [address] Social History Tobacco Use Types Packs/Day Years Used Date Smoking Tobacco: Never Passive Smoke Exposure: Past Smokeless Tobacco: Never Alcohol Use Standard Drinks/Week Comments Yes 0 (1 standard drink = 0.6 oz pur e alcohol) [facility] Assessment: Transportation Answer Date Recorded [...] Description 01/14/2025 10:00 AM EDT Office Visit [facility] [address] [address] Roshan Albarran MD 55 [place] [address] [email or web address] 04/26/2025 9:00 AM EDT [facility] 22 [place] [address] Sia Lebron MD 22 [facility], [address] [place] [address] [email or web address] documented as of this encounter Visit Diagnoses Not on filedocumented in this encounter Care Teams Director Of Curriculum Relationship Specialty Start Date End Date Juliet Kirkland NP [address] [place] [address] PCP - General Nurse Practitioner 04/20/24 Leonel Feng MD [address] [place] [address] Pulmonary Disease 01/16/24 Les Dempsey MD [address] [place] [address] Infectious Diseases 01/16/24 documented as of this encounter Additional Source Comments The information contained in this document represents components of the legal health record. It is not the complete legal health record.[facility]
--- OUTSIDE RECORDS SUMMARY | 2024-11-17 09:23 | XMS_ITS | Encounter Summary ---
Author Organization [facility] Address [address] [employer] [address] [address] Phone Care Team Providers Care Oracle Programmer Analyst Name Role Phone Melissa Mcdaniel COOK HELPER PRESERVES Primary Care Provider Leonel Feng MD Unavailable [phone] Les Dempsey MD Unavailable Juliet Kirkland COOK HELPER PRESERVES Primary Care Provide r Encounter Details Date Type Department Care Team (Late st Contact Info) Description 11/14/2020 Procedure Pass [facility] - [address] [place] [address] Social History Tobacco Use Types Packs/Day Years [...] Description 01/14/2025 10:00 AM EDT Office Visit [facility] [address] [address] Roshan Albarran MD 55 [place] [address] [email or web address] 04/26/2025 9:00 AM EDT Office Visit [facility] Rheumatology [address] [place] [address] Sia Lebron MD 22 [facility], [address] [place] [address] [email or web address] documented as of this encounter Visit Diagnoses Not on filedocumented in this encounter 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 1:32 AM EDT COVID-19 03/31/2021 03/31/2021 04/21/2021 1:23 AM EDT CoV-Risk 04/29/2022 04/29/2022 04/29/2022 1:04 PM EDT COVID-19 04/29/2022 04/29/2022 05/20/2022 1:21 AM EDT documented as of this encounter Care Teams Oracle Programmer Analyst Relationship Specialty Start Date End Date Melissa Mcdaniel NP [address] [place] [address] PCP - General Nurse Practitioner 03/20/18 04/19/24 Juliet Kirkland NP [address] [place] [address] PCP - General Nurse Practitioner 04/20/24 Leonel Feng MD [address] [place] [address] Pulmonary Disease 01/16/24 Les Dempsey MD [address] [place] [address] Infectious Diseases 01/16/24 documented as of this encounter Additional Source Comments The information contained in this document represents components of the legal health record. It is not the complete legal health record.[facility]
--- OUTSIDE RECORDS SUMMARY | 2024-11-17 09:23 | XMS_ITS | Encounter Summary ---
Author Organization [facility] Address [address] [address] Phone Care Team Providers Care Grades 1 Thru 6 Home Teacher Name Role Phone Melissa Mcdaniel MILLINERY DESIGNER Primary Care Provider Leonel Feng MD Unavailable [phone] Les Dempsey MD Unavailable Juliet Kirkland MILLINERY DESIGNER Primary Care Provide r Encounter Details Date Type Department Care Team (Latest Contact Info) Description 06/04/2018 Transcribe Orders [facility] Laboratory [address] [place] [address] Humphrey Jones, KAMLESH [address] [place] [address] Dysuria (Primary Dx) Social History Tobacco Use [...] Description 01/14/2025 10:00 AM EDT Office Visit [facility] [address] [address] Roshan Albarran MD 55 [place] [address] [email or web address] 04/26/2025 9:00 AM EDT Office Visit [facility] Rheumatology [address] [place] [address] Sia Lebron MD 22 [facility], [address] [place] [address] [email or web address] documented as of this encounter Results * (ABNORMAL) Urinalysis w/reflex Urine Culture (06/04/2018 11:02 AM EDT) COLOR Yellow Yellow [facility] CLARITY Clear [facility] GLUCOSE Negative Negative [facility] BILI Negative Negative [facility] KETONES Negative Negative [facility] SPECIFIC GRAVITY 1.020 1.005 - 1.030 [facility] BLOOD 1+(A) Negative [facility] PH 7.0 5.0 - 8.0 [facility] Protein-UA Negative Negative [facility] NITRITE Negative Negative [facility] Leukocyte esterase, ur Negative Negative [facility] Urine (Urine) 06/04/2018 11: 02 AM EDT 06/04/2018 11:06 AM EDT Humphrey [facility]LOCK URINE ORDERABLES Performing Organization Address City/State/[facility] Co de Phone Number [facility] [address] [place] [address] documented in this encounter Visit Diagnoses Diagnosis Dysuria- Primary documented in this encounter 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 1:32 AM EDT CoV-Exposed Comment:Recent close contact 08/03/2020 08/03/2020 08/17/2020 1:24 AM EST COVID-19 03/31/2021 03/31/2021 04/21/2021 1:23 AM EDT CoV-Risk 04/29/2022 04/29/2022 04/29/2022 1:04 PM EDT COVID-19 04/29/2022 04/29/202205/20/2022 1:21 AM EDT documented as of this encounter Care Teams Grades 1 Thru 6 Home Teacher Relationship Specialty Start Date End Date Melissa Mcdaniel NP 95 [place] [address] PCP - General Nurse Practitioner 03/20/18 04/19/24 Juliet Kirkland NP 95 [place] [address] PCP - General Nurse Practitioner 04/20/24 Leonel Feng MD [address] [place] [address] Pulmonary Disease 01/16/24 Les Dempsey MD [address] [place] [address] Infectious Diseases 01/16/24 documented as of this encounter Additional Source Comments The information contained in this document represents components of the legal health record. It is not the complete legal health record.[facility]
--- OUTSIDE RECORDS SUMMARY | 2024-11-17 09:23 | XMS_ITS | Encounter Summary ---
Author Organization [facility] Address [address] [address] Phone Care Team Providers Care Commercial Glazier Name Role Phone Leonel Feng MD Unavailable [phone] Les Dempsey MD Unavailable [phone] Juliet Kirkland NP Primary Care Provide r Encounter Details Date Type Department Care Team (Latest Contact Info) Description 11/12/2024 7:05 AM EDT - 11/12/2024 11:59 PM EDT Hospital Encounter [facility] [address] [address] Roshan Albarran MD 55 [place] [address] [email or web address] Discharge Disposition: Home or Self Care [...] Sig Dispensed Refills Start Date End Date amikacin liposomal-neb.accessr 590 mg/8.4 mL NbSp 8.4 Inhalations by inhal. via small vol.nebulizer route daily. 09/14/2024 azithromycin (ZITHROMAX) 250 MG tablet Take 1 tablet (250 mg total) by mouth daily. 90 tablet 09/29/2024 cevimeline (EVOXAC) 30 mg capsuleIndications:Si cca syndrome TAKE 1 CAPSULE 3 TIMES A DAY 270 capsule 3 06/17/2024 dicyclomine (BENTYL) 10 MG capsule Take 20 mg by mouth daily. 08/05/2024 ELDERBERRY FRUIT ORAL Take by mouth. esomeprazole (NEXIUM) 20 MG capsule Take 20 mg by mouth daily. ESTRING 2 mg (7.5 mcg /24 hour) vaginal ring Place 2 mg vaginally every 3 (three) months. 07/24/2024 ethambutoL (MYAMBUTOL) 400 MG tablet Take 2 tablets (800 mg total) by mouth daily. 180 tablet 09/29/2024 famotidine (PEPCID) 40 MG tablet Take 40 mg by mouth nightly at bedtime as needed for heartburn. fluconazole (DIFLUCAN) 150 MG tablet Take 150 mg by mouth once a week. gabapentin (NEURONTIN) 300 MG capsule Take 300 mg by mouth 3 (three) times a day. 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 1 tab daily 90 tablet 3 10/12/2024 ID-clofazimine ([id number]) 50 mg capsule Take 100 mg by mouth daily. 09/14/2024 Lactobacillus rhamnosus GG (CULTURELLE PROBIOTIC) 15 billion cell CpSP Take 1 capsule by mouth daily. levalbuterol (XOPENEX CONCENTRATE) 1.25 mg/0.5 mL nebulizer solution Take 1 ampule by nebulization daily. 02/19/2023 lysine 1,000 mg Tab Take 1 tablet by mouth 2 (two) times a day. omadacycline (NUZYRA) 150 mg tablet Take 2 tablets (300 mg total) by mouth daily. 60 tablet 5 09/29/2024 ondansetron (ZOFRAN) 4 MG tablet Take 1 tablet (4 mg total) by mouth every 12 (twelve) hours as needed for nausea. 60 tablet 1 08/27/2024 pramipexole (MIRAPEX) 0.25 MG tablet Take 3 tablets (0.75 mg total) by mouth nightly at bedtime. 05/20/2024 rifAMPin (RIFADIN) 300 MG capsule Take 2 capsules (600 mg total) by mouth daily. 180 capsule 09/29/2024 sodium chloride (HYPER-RAQUEL) 7 % Nebu Take 4 mL by nebulization 2 (two) times a day. 05/06/2024 05/01/2025 therapeutic multivitamin tablet Take 1 tablet by mouth daily. zolpidem (AMBIEN) 10 mg tabletIndications:Dereck e 1/2 tablet as needed Take 10 mg by mouth nightly as needed for sleep. documented as of this encounter Plan of Treatment Upcoming Encounters Date Type Department Care Team (Late st Contact Info) Description 01/14/2025 10:00 AM EDT Office Visit [facility] [place] [address] [address] Roshan Albarran MD 55 [place] [address] [email or web address] 04/26/2025 9:00 AM EDT Office Visit [facility] Rheumatology [address] [place] [address] Sia Lebron MD [address] [place] [address], [address] [place] [address] [email or web address] Pending Results Name Type Priority Associated Diagnoses Date /Time Mycobacterial culture/smear Microbiology Routine Nontuberculous mycobacterial pulmonary disease 11/12/2024 7:20 AM EDT Mycobacterial culture/smear Microbiology Routine Nontuberculous mycobacterial pulmonary disease 11/12/2024 7:45 AM EDT Scheduled Orders Name Type Priority Associated Diagnoses Orde r Schedule Sputum Induction Respiratory Care Routine Nontuberculous mycobacterial pulmonary disease As Needed for 1 Occurrences starting 11/12/2024 until 11/12/2024 documented as of this encounter Procedures Procedure Name Priority Date/Time Associated Diagnosis Comments MYCOBACTERIAL CULTURE/SMEAR Routine 11/12/2024 7:45 AM EDT Nontuberculous mycobacterial pulmonary disease MYCOBACTERIAL CULTURE/SMEAR Routine 11/12/2024 7:20 AM EDT Nontuberculous mycobacterial pulmonary disease documented in this encounter Visit Diagnoses Diagnosis Nontuberculous mycobacterial pulmonary disease documented in this encounter Care Teams Commercial Glazier Relationship Specialty Start Date End Date Juliet Kirkland NP [address] [place] [address] PCP - General Nurse Practitioner 04/20/24 Leonel Feng MD [address] [place] [address] Pulmonary Disease 01/16/24 Les Dempsey MD [address] [place] [address] Infectious Diseases 01/16/24 documented as of this encounter Additional Source Comments The information contained in this document represents components of the legal health record. It is not the complete legal health record.[facility]
--- OUTSIDE RECORDS SUMMARY | 2024-11-17 09:23 | XMS_ITS | Encounter Summary ---
Author Organization [facility] Address [address] [address] Phone Care Team Providers Care Screw Machine Set Up Operator Tool Name Role Phone Mariah Soares NP Primary Care Provider Melissa Mcdaniel HRIS COORDINATOR Primary Care Provider Leonel Feng MD Unavailable [phone] Les Dempsey MD Unavailable [phone] Juliet Kirkland NP Primary Care Provide r Encounter Details Date Type Department Care Team (Late st Contact Info) Description 12/10/2017 Ancillary Orders Virtual Department 30 [place] [address] Mariah Soares HRIS COORDINATOR [address] [place] [phone] Breast screening Social History Tobacco Use Types [...] Description 01/14/2025 10:00 AM EDT Office Visit [facility] [address] [phone] Roshan Albarran MD 55 [place] [address] [email or web address] 04/26/2025 9:00 AM EDT Office Visit [facility] Rheumatology [address] [place] [address] Sia Lebron MD 22 [facility], [address] [place] [address] [email or web address] [...] case necessary. POS - CDHMAMA Mariah Soares NP IMG MG EXAMS documented in this encounter [...] documented as of this encounter Care Teams Screw Machine Set Up Operator Tool Relationship Specialty Start Date End Date Mariah Soares NP [address] [place] [address] PCP - General Family Medicine 12/10/17 03/19/18 Melissa Mdcaniel NP 95 [place] [address] PCP - General Nurse Practitioner 03/20/18 04/19/24 Juliet Kirkland NP [address] [place] [address] PCP - General Nurse Practitioner 04/20/24 Leonel Feng MD [address] [place] [address] Pulmonary Disease 01/16/24 Les Dempsey MD [address] [place] [address] Infectious Diseases 01/16/24 documented as of this encounter Additional Source Comments The information contained in this document represents components of the legal health record. It is not the complete legal health record.[facility]
--- OUTSIDE RECORDS SUMMARY | 2024-11-17 09:23 | XMS_ITS | Encounter Summary ---
Author Organization [facility] Address [address] [employer] [address] [address] Phone Care Team Providers Care Cath Lab Technologist Name Role Phone Melissa Mcdaniel ENVIRONMENTAL FIELD TECHNICIAN Primary Care Provider Leonel Feng MD Unavailable [phone] [phone] Les Dempsey MD Unavailable Juliet Kirkland NP Primary Care Provide r Encounter Details Date Type Department Care Team (Late st Contact Info) Description 03/24/2018 Ancillary Orders Virtual Department 30 [place] [address] Mariah Soares ENVIRONMENTAL FIELD TECHNICIAN [address] [place], [place] [phone] Abnormal mammogram Social History Tobacco Use Types [...] AM EDT Office Visit [facility] [address] [address] Roshan Albarran MD 55 [place] [address] [email or web address] 04/26/2025 9:00 AM EDT Office Visit [facility] Rheumatology [address] [place] [address] Sia Lebron MD 22 [facility], [address] [place] [address] [email or web address] documented [...] fibroglandular densities. POS - CDHMAMA Mariah Soares ENVIRONMENTAL FIELD TECHNICIAN IMG MG EXAMS documented in this encounter [...] documented as of this encounter Care Teams Cath Lab Technologist Relationship Specialty Start Date End Date Melissa Mcdaniel NP [address] [place] [address] PCP - General Nurse Practitioner 03/20/18 04/19/24 Juliet Kirkland NP [address] [place] [address] PCP - General Nurse Practitioner 04/20/24 Leonel Feng MD [address] [place] [address] Pulmonary Disease 01/16/24 Les Dempsey MD [address] [place] [address] Infectious Diseases 01/16/24 documented as of this encounter Additional Source Comments The information contained in this document represents components of the legal health record. It is not the complete legal health record.[facility]
--- OUTSIDE RECORDS SUMMARY | 2024-11-17 09:23 | XMS_ITS | Encounter Summary ---
Author Organization [facility] Address [address] [employer] [facility] [address] [place] [address] Phone Care Team Providers Care Digital Asset Coordinator Name Role Phone Unavailable Primary Care Provider Unavailabl e Encounter Details Date Type Department Care Team (Late st Contact Info) Description 12/11/2016 Hospital Encounter [facility],Outside Imaging 30 [place] [address] System, Provider Not In, [facility] [address] [address] Social History Tobacco Use Types Packs/Day Years [...] Description 01/14/2025 10:00 AM EDT Office Visit [facility] [address] [address] Roshan Albarran MD 55 [place] [address] [email or web address] 04/26/2025 9:00 AM EDT Office Visit [facility] Rheumatology [address] [place] [address] Sia Lebron MD 22 [facility], [address] [place] [address] [email or web address] [...]
--- OUTSIDE RECORDS SUMMARY | 2024-11-17 09:23 | XMS_ITS | Encounter Summary ---
Author Organization [facility] Address [address] [address] Phone Care Team Providers Care Marketing Technology Specialist Name Role Phone Melissa Mcdaniel ACCESS CONSULTANT Primary Care Provider Leonel Feng MD Unavailable [phone] 0-000-0000 Les Dempsey MD Unavailable Juliet Kirkland ACCESS CONSULTANT Primary Care Provide r Encounter Details Date Type Department Care Team (Late st Contact Info) Description 04/03/2022 Procedure Pass [facility] - [address] [place] [address] Social History Tobacco Use Types Packs/Day Years [...] Description 01/14/2025 10:00 AM EDT Office Visit [facility] [address] [address] Roshan Albarran MD [address] [place] [address] [email or web address] 04/26/2025 9:00 AM EDT Office Visit [facility] Rheumatology [address] [place] [address] Sia Lebron MD 22 [facility], [address] [place] [address] documented as of this encounter Visit Diagnoses Not on filedocumented in this encounter 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 1:32 AM EDT CoV-Risk 04/29/2022 04/29/2022 04/29/2022 1:04 PM EDT COVID-19 04/29/2022 04/29/2022 05/20/2022 1:21 AM EDT documented as of this encounter Care Teams Marketing Technology Specialist Relationship Specialty Start Date End Date Melissa Mcdaniel NP [address] [place] [address] PCP - General Nurse Practitioner 03/20/18 04/19/24 Juliet Kirkland NP [address] [place] [address] PCP - General Nurse Practitioner 04/20/24 Leonel Feng MD [address] [place] [address] Pulmonary Disease 01/16/24 Les Dempsey MD [address] [place] [address] Infectious Diseases 01/16/24 documented as of this encounter Additional Source Comments The information contained in this document represents components of the legal health record. It is not the complete legal health record.[facility]
--- OUTSIDE RECORDS SUMMARY | 2024-11-17 09:23 | XMS_ITS | Encounter Summary ---
Author Organization [facility] Address [address] [address] Phone Care Team Providers Care Financial Agent Name Role Phone Melissa Mcdaniel HAND RIGGER Primary Care Provider Leonel Feng MD Unavailable [phone] 0-000-0000 Les Dempsey MD Unavailable Juliet Kirkland HAND RIGGER Primary Care Provide r Encounter Details Date Type Department Care Team (Late st Contact Info) Description 01/28/2019 Documentation [facility] Infectious Disease Virtual Department [address] [place] [address] Pcp, Not Required [address] [place] [address] Social History Tobacco Use Types Packs/Day Years [...] Description 01/14/2025 10:00 AM EDT Office Visit [facility] [address] [address] Roshan Albarran MD 55 [place] [address] [email or web address] 04/26/2025 9:00 AM EDT Office Visit [facility] Rheumatology [address] [place] [address] Sia Lebron MD 22 [facility], [address] [place] [address] [email or web address] documented as of this encounter Visit Diagnoses [...] documented as of this encounter Care Teams Financial Agent Relationship Specialty Start Date End Date Melissa Mcdaniel NP [address] [place] [address] PCP - General Nurse Practitioner 03/20/18 04/19/24 Julite Kirkland NP [address] [place] [address] PCP - General Nurse Practitioner 04/20/24 Leonel Feng MD [address] [place] [address] Pulmonary Disease 01/16/24 Lse Dempsey MD [address] [place] [address] Infectious Diseases 01/16/24 documented as of this encounter Additional Source Comments The information contained in this document represents components of the legal health record. It is not the complete legal health record.[facility]
--- OUTSIDE RECORDS SUMMARY | 2024-11-17 09:23 | XMS_ITS | Encounter Summary ---
Author Organization [facility] Address [address] [employer] [address] [address] Phone Care Team Providers Care Cannery Worker Name Role Phone Leonel Feng MD Unavailable [phone] Les Dempsey MD Unavailable Juliet Kirkland ASSIGNMENT CLERK Primary Care Provide r Encounter Details Date Type Department Care Team (Late st Contact Info) Description 11/12/2024 Orders Only [facility] VIRTUAL DEPARTMENT [address] [place], [place] [id number] Erin Huntley [address] [place] [phone] [email or web address] Nontuberculous mycobacterial pulmonary disease Social History Tobacco Use Types Packs/Day Years [...] Description 01/14/2025 10:00 AM EDT Office Visit [facility] [address] Briones Yakov [address] [place] [address] Roshan Ko MD [address] [place] [address] [email or web address] [email or web address] 04/26/2025 9:00 AM EDT Office Visit [facility] Rheumatology [address] [place] [address] Sia Lebron MD 22 [facility], [address] [place] [address] [email or web address] documented as of this encounter Procedures Procedure Name Priority Date/Time Associated Diagnosis Comments ECG 12-LEAD Routine 11/12/2024 11:08 AM EDT Nontuberculous mycobacterial pulmonary disease documented in this encounter Results * ECG 12-LEAD (11/12/2024 11:08 AM EDT) Systolic Blood Pressure [facility] Diastolic Blood Pressure [facility] Ventricular Rate EKG/MIN 78 BPM [facility] Atrial Rate 78 BPM [facility] CO Interval 154 ms [facility] QRS Duration 78 ms [facility] QT Interval 382 ms [facility] QTC Interval 435 ms [facility] P [place] 65 degrees [facility] R Wave [place] 65 degrees [facility] T Wave [place] 49 degrees [facility] 11/12/2024 11:0 8 AM EDT 11/14/2024 10:15 AM EDT Narrative [facility] - 11/14/2024 10:15 AM EDT LOC: [facility] - INF DIS DX: DRUG MONITORING REF: DR. ROSHAN KO BASELINE WANDER SINUS RHYTHM TRACING PROBABLY WITHIN NORMAL LIMITS WHEN COMPARED WITH ECG OF 08-Oct-2024 12:46, Electronically Signed in MUSE system. Confirmed by fellow MD Suzy, Flash Espinoza ([id number]) on 11/13/2024 1:18:15 PM Roshan Ko MD ECG ORDERABLES [facility] documented in this encounter Visit Diagnoses Diagnosis Nontuberculous mycobacterial pulmonary disease documented in this encounter Care Teams Cannery Worker Relationship Specialty Start Date End Date Juliet Kirkland NP [address] [place] [address] PCP - General Nurse Practitioner 04/20/24 Leonel Feng MD [address] [place] [address] Pulmonary Disease 01/16/24 Les Dempsey MD [address] [place] [address] Infectious Diseases 01/16/24 documented as of this encounter Additional Source Comments The information contained in this document represents components of the legal health record. It is not the complete legal health record.[facility]
--- OUTSIDE RECORDS SUMMARY | 2024-11-17 09:23 | XMS_ITS | Encounter Summary ---
Author Organization [facility] Address [address] [employer] [facility] [address] [place] [address] Phone Care Team Providers Care Street Vendor Name Role Phone Unavailable Primary Care Provider Unavailabl e Encounter Details Date Type Department Care Team (Late st Contact Info) Description 09/29/2015 12:15 AM EST Hospital Encounter [facility],Outside Imaging [address] [place] [address] System, Provider Not In, [facility] [employer] [address] [address] Social History Tobacco Use Types Packs/Day Years [...] Description 01/14/2025 10:00 AM EDT Office Visit [facility] [address] [address] Roshan Albarran MD 55 [place] [address] [email or web address] 04/26/2025 9:00 AM EDT Office Visit [facility] Rheumatology [address] [place] [address] Sia Lebron MD 22 [facility], [address] [place] [address] [email or web address] documented as of [...]
--- OUTSIDE RECORDS SUMMARY | 2024-11-17 09:24 | XMS_ITS | Encounter Summary ---
Author Organization [facility] Address [address] [facility] [facility] [address] [place] [address] Phone Care Team Providers Care Distilling Department Supervisor Name Role Phone Unavailable Primary Care Provider Unavailabl e Encounter Details Date Type Department Care Team (Late st Contact Info) Description 05/20/2013 Hospital Encounter [facility],Outside Imaging [address] [place] [address] System, Provider Not In, [facility] [employer] [address] [address] Social History Tobacco Use Types Packs/Day Years [...] Description 01/14/2025 10:00 AM EDT Office Visit [facility] [address] [address] Roshan Albarran MD 55 [place] [address] [email or web address] 04/26/2025 9:00 AM EDT Office Visit [facility] Rheumatology [address] [place] [address] Sia Lebron MD 22 [facility], [address] [place] [address] [email or web address] documented as of this encounter Procedures Procedure [...] complete legal health record.[facility]
--- OUTSIDE RECORDS SUMMARY | 2024-11-17 09:24 | XMS_ITS | Encounter Summary ---
Author Organization [facility] Address [address] [address] Phone Care Team Providers Care Dock Operations Supervisor Name Role Phone Melissa Mcdaniel FUND RAISER Primary Care Provider Leonel Feng MD Unavailable [phone] Les Dempsey MD Unavailable Juliet Kirkland FUND RAISER Primary Care Provide r Reason for Referral * MRI/CAT Scan - Closed Specialty Diagnoses / Procedures Referred By Bob abreu Referred To Contact Radiology Diagnoses Other microscopic hematuria Personal history of urinary (tract) infection Procedures CT Abdomen/Pelvis Cecile Yeung MD [address] [address] Referral ID Status Reason Start Date Expiration Date Visits Re quested Visits Authorized [id number] Closed 05/25/2021 05/25/2022 1 1 Encounter Details Date Type Department Care Team (Latest Contact Info) Description 05/25/2021 Transcribe Orders Virtual Department 30 [place] [address] Cecile Yeung MD [address] [address] Other microscopic hematuria (Primary Dx); Personal history [...] 01/14/2025 10:00 AM EDT Office Visit [facility] [address] [address] Roshan Albarran MD 55 [place] [address] [email or web address] 04/26/2025 9:00 AM EDT Office Visit [facility] Rheumatology [address] [place] [address] Sia Lebron MD 22 [facility], [address] [place] [address] [email or web address] documented as of this encounter Results * [...] or worrisome bony abnormalities Procedure Note Rodney Catherine MD - 06/05/2021 Automated Exposure Control. Multiplanar [...] documented as of this encounter Care Teams Dock Operations Supervisor Relationship Specialty Start Date End Date Melissa Mcdaniel NP [address] [place] [address] PCP - General Nurse Practitioner 03/20/18 04/19/24 Juliet Kirkland NP [address] [place] [address] PCP - General Nurse Practitioner 04/20/24 Leonel Feng MD [address] [place] [address] Pulmonary Disease 01/16/24 Les Dempsey MD [address] [address] Infectious Diseases 01/16/24 documented as of this encounter Additional Source Comments The information contained in this document represents components of the legal health record. It is not the complete legal health record.[facility]
--- OUTSIDE RECORDS SUMMARY | 2024-11-17 09:24 | XMS_ITS | Encounter Summary ---
Author Organization [facility] Address [address] [address] Phone Care Team Providers Care Dairy Tester Name Role Phone Melissa Mcdaniel MILL SET UP Primary Care Provider Leonel Feng MD Unavailable [phone] Les Dempsey MD Unavailable Juliet Kirkland MILL SET UP Primary Care Provide r Encounter Details Date Type Department Care Team (Late st Contact Info) Description 05/25/2021 Procedure Pass [facility], Ct Scan - [address] [address] Social History Tobacco Use Types Packs/Day Years [...] 01/14/2025 10:00 AM EDT Office Visit [facility] [address] [address] Roshan Albarran MD 55 [place] [address] [email or web address] 04/26/2025 9:00 AM EDT Office Visit [facility] Rheumatology [address] [place] [address] Sia Lebron MD 22 [facility], [address] [place] [address] documented as of this encounter Visit Diagnoses Not on filedocumented in this encounter 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 1:32 AM EDT CoV-Risk 04/29/2022 04/29/2022 04/29/2022 1:04 PM EDT COVID-19 04/29/2022 04/29/2022 05/20/2022 1:21 AM EDT documented as of this encounter Care Teams Dairy Tester Relationship Specialty Start Date End Date Melissa Mcdaniel NP [address] [place] [address] PCP - General Nurse Practitioner 03/20/18 04/19/24 Juliet Kirkland NP [address] [place] [address] PCP - General Nurse Practitioner 04/20/24 Leonel Feng MD [address] [place] [address] Pulmonary Disease 01/16/24 Les Dempsey MD [address] [place] [address] Infectious Diseases 01/16/24 documented as of this encounter Additional Source Comments The information contained in this document represents components of the legal health record. It is not the complete legal health record.[facility]
--- OUTSIDE RECORDS SUMMARY | 2024-11-17 09:24 | XMS_ITS | Encounter Summary ---
Author Organization [facility] Address [address] [facility] [address] [place] [address] Phone Care Team Providers Care Machine Tool Rebuilder Name Role Phone Leonel Feng MD Unavailable [phone] Les Dempsey MD Unavailable Juliet Kirkland NP Primary Care Provide r Encounter Details Date Type Department Care Team (Late st Contact Info) Description 06/02/2024 Procedure Pass Interventional Radiology, [facility] [place] [address] [facility] [address] [place] [address] Social History Tobacco Use Types [...] Description 01/14/2025 10:00 AM EDT Office Visit [facility] [address] [address] Roshan Albarran MD [address] [place] [address] [email or web address] 04/26/2025 9:00 AM EDT Office Visit [facility] Rheumatology 22 [place] [address] Sia Lebron MD 22 [facility], [address] [place] [address] [email or web address] documented as of this encounter Visit Diagnoses Not on filedocumented in this encounter Care Teams Machine Tool Rebuilder Relationship Specialty Start Date End Date Juliet Kirkland NP [address] [place] [address] PCP - General Nurse Practitioner 04/20/24 Leonel Feng MD [address] [place] [address] Pulmonary Disease 01/16/24 Les Dempsey MD [address] [place] [address] Infectious Diseases 01/16/24 documented as of this encounter Additional Source Comments The information contained in this document represents components of the legal health record. It is not the complete legal health record.[facility]
--- OUTSIDE RECORDS SUMMARY | 2024-11-17 09:24 | XMS_ITS | Encounter Summary ---
Author Organization [facility] Address [address] [address] Phone Care Team Providers Care Undercoater Name Role Phone Melissa Mcdaniel FREIGHT RATE ANALYST Primary Care Provider Leonel Feng MD Unavailable [phone] Les Dempsey MD Unavailable Juliet Kirkland NP Primary Care Provide r Encounter Details Date Type Department Care Team (Latest Contact Info) Description 08/03/2020 Transcribe Orders Virtual Department 30 [place] [address] Melissa Mcdaniel, FREIGHT RATE ANALYST [address] [place] [address] Exposure to SARS virus (Primary Dx) Social [...] Description 01/14/2025 10:00 AM EDT Office Visit [facility] [address] Avendaño Yakov [address] [place] [address] Roshan Albarran MD [address] [place] [address] [email or web address] 04/26/2025 9:00 AM EDT Office Visit [facility] Rheumatology 22 [place] [address] Sia Lebron MD 22 [facility], [address] [place] [address] [email or web address] documented as of this encounter Results * COVID-19 PCR Order (08/04/2020 7:49 AM EST) COVID Testing Status Sent to [facility] Symptomatic? NO [facility] Other 08/04/2020 7:49 AM EST 08/04/2020 12:55 PM EST Melissa Mcdaniel NP BODY FLUIDS AND STOO LS ORDERABLES Performing Organization Address City/State/[facility] Co de Phone Number [facility] [address] [place] [address] documented in this encounter Visit Diagnoses Diagnosis [...] documented as of this encounter Care Teams Undercoater Relationship Specialty Start Date End Date Melissa Mcdaniel NP [address] [place] [address] PCP - General Nurse Practitioner 03/20/18 04/19/24 Juliet Kirkland NP [address] [place] [address] PCP - General Nurse Practitioner 04/20/24 Leonel Feng MD [address] [place] [address] Pulmonary Disease 01/16/24 Les Dempsey MD [address] [place] [address] Infectious Diseases 01/16/24 documented as of this encounter Additional Source Comments The information contained in this document represents components of the legal health record. It is not the complete legal health record.[facility]
--- OUTSIDE RECORDS SUMMARY | 2024-11-17 09:24 | XMS_ITS | Encounter Summary ---
Author Organization [facility] Address [address] [address] Phone Care Team Providers Care Dean For Student Affairs Name Role Phone Melissa Mcdaniel SUPERVISOR TUMBLERS Primary Care Provider Leonel Feng MD Unavailable [phone] Les Dempsey MD Unavailable Juliet Kirkland NP Primary Care Provide r Encounter Details Date Type Department Care Team (Late st Contact Info) Description 11/14/2020 Ancillary Orders Virtual Department 30 [place] [address] Melissa Mcdaniel, SUPERVISOR TUMBLERS [address] [place] [address] Breast screening Social History Tobacco Use Types [...] Description 01/14/2025 10:00 AM EDT Office Visit [facility] [address] [address] Roshan Albarran MD [address] [place] [address] [email or web address] 04/26/2025 9:00 AM EDT Office Visit [facility] Rheumatology 22 [place] [address] Sia Lebron MD 22 [facility], [address] [place] [address] [email or web address] documented as of this encounter Results * [...] There are scattered fibroglandular densities. Melissa Mcdaniel SUPERVISOR TUMBLERS IMG MG EXAMS documented in this encounter [...] documented as of this encounter Care Teams Dean For Student Affairs Relationship Specialty Start Date End Date Melissa Mcdaniel, NADEEN [address] [place] [address] PCP - General Nurse Practitioner 03/20/18 04/19/24 Juliet Kirkland NP [address] [place] [address] PCP - General Nurse Practitioner 04/20/24 Leonel Feng MD [address] [place] [address] Pulmonary Disease 01/16/24 Les Dempsey MD [address] [place] [address] Infectious Diseases 01/16/24 documented as of this encounter Additional Source Comments The information contained in this document represents components of the legal health record. It is not the complete legal health record.[facility]
== END 2024-11-17 08:50 | disposition home or self-care (01) ==
LOC: HO.SH 08:49
PROVIDERS: PCP Nurse Practitioner Family; Visit Provider Internal Medicine
DX: H91.03 Ototoxic hearing loss, bilateral (principal)
CPT/HCPCS: 92552; 92556; 92588

== ENCOUNTER 2025-01-05 08:41 | Outpatient (REF) | payer MEDICARE, SELFPAY ==
--- OUTSIDE RECORDS SUMMARY | 2025-01-05 09:01 | XMS_ITS | Patient Health Record ---
Author Organization [facility] Address [address] [place] [address] Care Team Providers Care Appellate Court Clerk Name Role Phone Isael Juliet Primary Care Provider Marcio Griffin Unavailable [phone] Allergies Allergen (clinical drug ingredient) Drug/Non Drug Allergy documented on EMR Reaction Allergy Type Onset Date Status sulfamethoxazole / trimethoprim Bactrim Unknown Drug Allergy Active Reason For Referral No Information Medications Medication SIG (Take, Route, Frequency, Duration) Notes Start Date End Date Status Gabapentin 300 MG 1 capsule Orally Onc e a day Active Hydroxychloroquine Sulfate 2 00 MG as directed Orally Active Fluticasone Propionate Active Multivitamin Active Sodium Chloride 7 % 4 mL Inhalation Twic e a day Active Estring 7.5 MCG/24HR 1 ring Vaginal Active Culturelle Probiotics Active Pramipexole Dihydrochloride 0.25 MG 1 tablet Orally Once a day Active Elderberry Active rifAMPin 300 MG as directed Orally Active Nuzyra Active Omeprazole Active Levalbuterol HCl 1.25 MG/3ML 3 mL as nee ded Inhalation every 8 hrs Active Lysine Active Clotrimazole 3 2 % 1 application at bedtime Vaginal Once a day Active Famotidine 40 MG 1 tablet Orally Once a day Active Esomeprazole Magnesium 20 MG 1 capsule 1 /2 to 1 hour before morning meal Orally Once a day Active Vitamin D3 Active Zolpidem Tartrate 10 MG 1 tablet at bedt jazmin as needed Orally Once a day Active Ethambutol HCl 400 MG as directed Orally Active Fluconazole 150 MG 1 tablet Orally Active Cevimeline HCl 30 MG 1 capsule Orally Th ree times a day Active Dicyclomine HCl 20 MG 1 tablet Orally Active Azithromycin 250 MG as directed Orally Once a day Active Arikayce 590 MG/8.4ML 8.4 mL Inhalation Once a day Active Ondansetron HCl 4 MG 1 tablet Orally Onc e a day Active Omadacycline Tosylate 150 MG 2 tablets O rally Once a day Active Social History Tobacco Use: Social History Observation Description Date Details (start date - stop date) Never Smoker NA - NA Tobacco use other than smoking: Question Answer Notes Are you an other tobacco user? No Tobacco Control (Standard) Question Answer Notes Tobacco use: Nonsmoker Additional Findings: Tobacco non-user Current no nsmoker AUDIT-C (Standard) Question Answer Notes Did you have a drink contain ing alcohol in the past year? Yes How often did you have a dri nk containing alcohol in the past year? Monthly or less (1 point) How many drinks did you have on a typical day when you were drinking in the past year? 1 or 2 drinks (0 point) How often did you have six o r more drinks on one occasion in the past year? 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 Problem Ganglion cyst of right foot (410174916447049 8) Ganglion of foot, right (M67.471) Active confirmed Vital Signs Blood pressure diastolic 60 mm Hg 12/11/2024 Height 5 ft 2 in in 12/11/2024 Blood pressure systolic 128 mm Hg 12/11/2024 Weight 95 lbs 12/11/2024 BMI 17.37 kg/m2 12/11/2024 Encounters Encounter Location Date Provider Diagnosis [facility] [address] [address] 12/11/2024 Marcio Gwen Pain in right foot M79.671 ; Plantar fibromatosis M72.2 ; 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 ; Pain in left foot M79.672 ; Benign neoplasm of soft tissues of left lower extremity D21.22 and Ganglion of foot, right M67.[address] [facility] [address] 12/09/2024 Marcio Hidalgo Assessments Encounter Date Diagnosis (ICD Code) Assessment Notes Treatment Notes Treatment Clinical Notes Section Notes 12/11/2024 Pain in right foot (ICD-10 - M79.671) 12/11/2024 Plantar fibromatosis (ICD-10 - M72.2) 12/11/2024 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 (ICD-10 - D21.21) 12/11/2024 Pain in left foot (ICD-10 - M79.672) 12/11/2024 Benign neoplasm of soft tissues of left lower extremity (ICD-10 - D21.22) 12/11/2024 Ganglion of foot, right (ICD-10 - M67.471) Plan Of Treatment No Information Insurance Providers Payer Name Payer Address Payer Phone Subscriber Number Group Number Insured Name Patient Relationship to Insured Coverage Start Date Coverage End Date BlueCare 65 Medicare Preferred [address] [place] [address] [id number] Gissell Henley Self - patient is the insured Medical (General) History Medical History History ICD Code Vitamin D deficiency Fibromyalgia raynauds disease Postmenopausal state Sicca syndrome Carpal tunnel Non Tuberculous mycobacterial Basal cell carcinoma Neoplasm of uncertain behavi or vs. plantar fibroma vs. lipoma vs. rheumatoid nodule vs. atypical infection Rheumatoid arthritis Lung disease Surgical History Surgery Date(Month/Year) Nodular BCC - Left rib cage s/p: ED&C Nodular BCC - Right Medial C anth, s/p: Mohs with oculoplastic repair 08/30/2023
== END 2025-01-05 08:42 | disposition home or self-care (01) ==
LOC: HO.SH 08:41
PROVIDERS: Visit Provider Internal Medicine
DX: Z01.118 Encounter for examination of ears and hearing with other abnormal findings (principal); H91.03 Ototoxic hearing loss, bilateral
CPT/HCPCS: 92552; 92556; 92588

== ENCOUNTER 2025-02-02 07:51 | Outpatient (REF) | payer MEDICARE, SELFPAY ==
--- OUTSIDE RECORDS SUMMARY | 2025-02-02 07:54 | XMS_ITS | Patient Health Record ---
Author Organization [facility] Address [address] [place] [address] Care Team Providers Care Ginseng Farmer Name Role Phone Isael Juliet Primary Care Provider Marcio Griffin Unavailable [phone] Allergies Allergen (clinical drug ingredient) Drug/Non Drug [...] W/U Status Risk Notes Problem Plantar fibromatosis (04120926) Plantar fibromatosis (M72.2) Active confirmed Problem Ganglion cyst of right foot (764701511056826 8) Ganglion of foot, right (M67.471) Active confirmed Vital Signs Blood pressure diastolic 60 mm Hg 12/11/2024 Height 5 ft 2 in in 12/11/2024 Blood pressure systolic 128 mm Hg 12/11/2024 Weight 95 lbs 12/11/2024 BMI 17.37 kg/m2 12/11/2024 Encounters Encounter Location Date Provider Diagnosis [facility] [address] [address] 12/11/2024 Marcio Gwen Pain in right foot M79.671 ; Plantar fibromatosis M72.2 ; 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 ; Pain in left foot M79.672 ; Benign neoplasm of soft tissues of left lower extremity D21.22 and Ganglion of foot, right M67.[address] [facility] [address] 12/09/2024 Marcio Hidalgo Assessments Encounter Date Diagnosis [...] Date Blue[employer] 65 Medicare Preferred [address] [place] [address] [id number] Gissell Henley Self - patient is the [...]
== END 2025-02-02 07:52 | disposition home or self-care (01) ==
LOC: HO.SH 07:51
PROVIDERS: Visit Provider Internal Medicine
DX: Z01.118 Encounter for examination of ears and hearing with other abnormal findings (principal); H91.03 Ototoxic hearing loss, bilateral
CPT/HCPCS: 92552; 92556; 92588

== ENCOUNTER 2025-03-08 07:52 | Outpatient (REF) | payer MEDICARE, SELFPAY ==
--- OUTSIDE RECORDS SUMMARY | 2025-03-08 07:55 | XMS_ITS | Patient Health Record ---
[facility] Address [address] [address] Care Team Providers Care Algebra Teacher Name Role Phone Isael Juliet Primary Care Provider Marcio Griffin Unavailable [phone] Allergies Allergen (clinical drug ingredient) Drug/Non Drug [...] W/U Status Risk Notes Problem Plantar fibromatosis (31517745) Plantar fibromatosis (M72.2) Active confirmed Problem Ganglion of foot (797715388) Ganglion of foot, right (M67.471) Active confirmed Vital Signs Blood pressure diastolic 60 mm Hg 12/11/2024 Height 5 ft 2 in in 12/11/2024 Blood pressure systolic 128 mm Hg 12/11/2024 Weight 95 lbs 12/11/2024 BMI 17.37 kg/m2 12/11/2024 Encounters Encounter Location Date Provider Diagnosis [facility] [address] [address] 12/11/2024 Marcio Gwen Pain in right foot M79.671 ; Plantar fibromatosis M72.2 ; 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 ; Pain in left foot M79.672 ; Benign neoplasm of soft tissues of left lower extremity D21.22 and Ganglion of foot, right M67.471 [facility] [address] [address] 12/09/2024 Marcio Hidalgo Assessments Encounter Date Diagnosis [...] Date BlueCare 65 Medicare Preferred [address] [place] [address] [id number] Maria Ines ramesh Gissell Self - patient is the insured Medical [...] ED&C Nodular BCC - Right Medial C anthus, s/p: Mohs with oculoplastic repair 08/30/2023
--- OUTSIDE RECORDS SUMMARY | 2025-03-08 07:55 | XMS_ITS | Encounter Summary ---
Author Organization [facility] Address [address] [address] Phone Care Team Providers Care Customs Entry Writer Name Role Phone Melissa Mcdaniel PRECISION LENS POLISHER Primary Care Provider Leonel Feng MD Unavailable [phone] Les Dempsey MD Unavailable Juliet Kirkland PRECISION LENS POLISHER Primary Care Provide r Reason for Referral * Outpatient Procedure - Closed Specialty Diagnoses / Procedures Referred By Bob abreu Referred To Contact Radiology Diagnoses Other microscopic hematuria Personal history of urinary tract infection Procedures US Kidneys and Bladder Cecile Yeung MD Phone: tel: fax: [email or web address] Referral ID Status Reason Start Date Expiration Date Visits Re quested Visits Authorized [id number] Closed 02/02/2020 02/01/2021 1 1 Encounter Details Date Type Department Care Team (Latest Contact Info) Description 02/02/2020 Transcribe Orders Virtual Department [address] [place] [address] Cecile Yeung MD [address] [place] [phone] [email or web address] Other microscopic hematuria (Primary Dx); Personal history of urinary tract infection Social History Tobacco Use Types Packs/Day Years Used Date Smoking Tobacco: Former Smokeless Tobacco: Never Alcohol Use Standard Drinks/Week Comments Yes 0 (1 standard drink = 0.6 oz pur e alcohol) socially Comments No Sex and Gender Information Value Date Recorded Sex Assigned at Not on file Legal Sex Female 4:37 PM EST Gender Identity Not on file Sexual Orientation Not on file documented as of this encounter Plan of Treatment Upcoming Encounters Date Type Department Care Team (Late st Contact Info) Description 03/18/2025 10:00 AM EDT Office Visit [facility] [address] [facility], 5t Floor, [address] [place] [address] Roshan Albarran MD [address] [place] [address] [email or web address] 04/26/2025 9:00 AM EDT Office Visit [facility] Rheumatology 22 [place] [address] Sia Lebron MD [address] [facility], [address] [place] [address] [email or web address] documented as of this encounter Results * XR ABDOMEN 1 VIEW (02/17/2020 8:42 AM EDT) Anatomical Region Laterality Modality Abdomen Radiographic Irene ging 02/17/2020 8:57 AM EDT Impressions 02/17/2020 8:58 AM EDT No evidence of radiopaque urinary tract calculi. POS - [id number] Narrative 02/17/2020 8:58 AM EDT HISTORY: Microscopic hematuria. COMPARISON: Ultrasound kidneys 02/17/2020. [...] radiopaque urinary tract calculi. POS - [id number] us Cecile Yeung MD IMG XR ABDOMEN Final Resu lt * US Kidneys and Bladder (02/17/2020 8:23 AM EDT) Anatomical Region Laterality Modality Abdomen, Kidney Ultrasound 02/17/2020 8:20 AM EDT Impressions 02/17/2020 8:42 AM EDT Normal study of the kidneys and bladder. POS [id number] Narrative 02/17/2020 8:42 AM EDT HISTORY: Microscopic hematuria, UTI. COMPARISON: None. FINDINGS: Right Kidney: The kidney is normal in size and echogenicity. It measures 11.8 cm in the long axis. No masses, calculi, pelvocaliectasis or significant cortical thinning. Left Kidney: The kidney is [...] is normal in size and echogenicity. It vqqawqrp59.8 cm in the long axis. No masses, calculi, pelvocaliectasis orsignificant cortical thinning. Left Kidney: The kidney is normal in size and echogenicity. It ldgwbyrn77.6 cm in the long axis. No masses, calculi, pelvocaliectasis orsignificant cortical thinning. Bladder: The bladder is normal in configuration. Prevoid bladder volumemeasures 414 cc. Bilateral ureteral jets visualized. No suspicious fillingdefects within the bladder lumen. Post void bladder volume equals 24 cc. IMPRESSION: Normal study of the kidneys and bladder. POS [id number] Cecile Yeung MD IMG US RENAL Final Resu lt documented in this encounter Visit Diagnoses Diagnosis [...] documented as of this encounter Care Teams Customs Entry Writer Relationship Specialty Start Date End Date Melissa Mcdaniel NP [address] [place] [address] PCP - General Nurse Practitioner 03/20/18 04/19/24 Juliet Kirkland NP [address] [place] [address] PCP - General Nurse Practitioner 04/20/24 Leonel Feng MD [address] [place] [address] Pulmonary Disease 01/16/24 Les Dempsey MD [address] [address] Infectious Diseases 01/16/24 documented as of this encounter Additional Source Comments The information contained in this document represents components of the legal health record. It is not the complete legal health record.[facility]
== END 2025-03-08 07:53 | disposition home or self-care (01) ==
LOC: HO.SH 07:52
PROVIDERS: PCP Nurse Practitioner Family; Visit Provider Internal Medicine
DX: Z01.118 Encounter for examination of ears and hearing with other abnormal findings (principal); H91.03 Ototoxic hearing loss, bilateral
CPT/HCPCS: 92552; 92556; 92588

== ENCOUNTER 2025-07-07 07:46 | Outpatient (REF) | payer MEDICARE, SELFPAY ==
--- OUTSIDE RECORDS SUMMARY | 2013-05-19 23:00 | XMS_ITS | Encounter Summary ---
Author Organization [facility] Address [address] [employer] [facility] [address] [place] [address] Phone Care Team Providers Care Marketing Production Specialist Name Role Phone Unavailable Primary Care Provider Unavailabl e Encounter Details Date Type Department Care Team (Late st Contact Info) Description 05/20/2013 Hospital Encounter [facility],Outside Imaging [address] [place] [address] System, Provider Not In, PhD Partners [address] [address] Social History Tobacco Use Types Packs/Day Years Used Date Smoking Tobacco: Never Passive Smoke Exposure: Past Smokeless Tobacco: Never Alcohol Use Standard Drinks/Week Comments Yes 0 (1 standard drink = 0.6 oz pur e alcohol) socially Home Health Assessment: Transportation Answer Date Recorded Lack of Transportation (Medical) No 09/14/2024 Lack of Transportation (Non-Medical) No 09/14/2024 Patient Unable or Declines to Respond No 09/14/2024 Child or Family Care Answer Date Record ed Do you have problems with on e of the following making it difficult for you to work, study, or receive health care? No 06/25/2024 Education Answer Date Recorded Are you interested in more education? Not on cherie e 12/07/2022 Are you concerned about learning? Not on file 12/07/2022 No 12/07/2022 No 12/07/2022 Food Answer Date Recorded Within the past 6 months we worried whether our food would run out before we got money to buy more. Never True 06/25/2024 Within the past 6 months the food we bought just didn't last and we didn't have enough money to get more. Never True Residential Stability Answer Date Recor ded What is your housing situation today? I have lana hernandez 06/25/2024 How many times have you move d in the past 12 months? Zero (I did not move) 06/25/2024 Paying for Meds Answer Date Recorded Do you have trouble paying for medicines? No 06/25/2024 Paying Utility Bills Answer Date Record ed Do you have trouble paying your heating or elect ricity bill? No 06/25/2024 Transportation Answer Date Recorded Has the lack of transportati on kept you from medical appointments or from getting medications? No 06/25/2024 Digital Access Answer Date Recorded No 06/25/2024 Yes 06/25/2024 Do you have reliable internet access at home? Ye s 06/25/2024 Do you have a device (e.g., phone, tablet, computer) with a working camera? Yes 06/25/2024 Intimate Partner Violence Answer Date R ecorded Are you denied basic needs s uch as food, clothing, or medical care? No 06/09/2024 In the past 12 months have y ou been in a relationship with a person who hurts, threatens, or tries to control you? No 06/09/2024 Are you denied basic needs s uch as food, clothing, or medical care? No 06/09/2024 In the past 12 months have y ou been in a relationship with a person who hurts, threatens, or tries to control you? No 06/09/2024 Comments No Sex and Gender Information Value Date Recorded Sex Assigned at Not on file Legal Sex Female 4:37 PM EST Gender Identity Not on file Sexual Orientation Not on file documented as of this encounter Plan of Treatment Upcoming Encounters Date Type Department Care Team (Late st Contact Info) Description 05/19/2025 Procedure Pass [address] [address] 08/09/2025 12:15 PM EST Appointment [address] [address] Roshan Albarran MD [address] [place] [address] [place] [address] CONNER@[email or web address] 08/18/2025 1:00 PM EST Office Visit [facility] [address] [facility] Building, 5t Floor, [address] [place] [address] Roshan Albarran MD 55 [facility] 515 [place] [address] CONNER@[email or web address] 11/15/2025 8:00 AM EDT Office Visit [facility] Rheumatology [address] [place] [address] Sia Lebron MD 22 [facility], [address] [place] [address] [email or web address] documented as of this encounter Procedures Procedure Name Priority Date/Time Associated Diagnosis Comments BI MAMMOGRAM OUTSIDE (NO INTERPRETATION) Routine 05/20/2013 12:00 AM EDT documented in this encounter Results * Mammogram Outside (No Interpretation) (05/20/2013 12:00 AM EDT) Narrative SYSTEMGENERATED, DOCUMENTATION - 12/13/2017 1:57 PM EDT This study is for PACS storage only and not for interpretation. 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 It is not the complete legal health record.[facility]
--- OUTSIDE RECORDS SUMMARY | 2014-07-21 | XMS_ITS | Encounter Summary ---
Author Organization [facility] Address [address] [facility] [address] [place] [address] Phone Care Team Providers Care Bone Grinder Name Role Phone Unavailable Primary Care Provider Unavailabl e Encounter Details Date Type Department Care Team (Late st Contact Info) Description 07/21/2014 Hospital Encounter [facility],Outside Imaging 30 [place] [address] System, Provider Not In, PhD Partners [address] [address] Social History Tobacco Use Types Packs/Day Years [...] st Contact Info) Description 05/19/2025 Procedure Pass [address] [address] 08/09/2025 12:15 PM EST Appointment [address] [address] Roshan Albarran MD [address] [place] [address] [place] [address] CONNER@[email or web address] 08/18/2025 1:00 PM EST Office Visit [facility] [address] [facility] Building, 5t Floor, [address] [place] [address] Roshan Albarran MD 55 [facility] [address] [place] [address] CONNER@[email or web address] 11/15/2025 8:00 AM EDT Office Visit [facility] Rheumatology [address] [place] [address] Sia Lebron MD 22 [facility], [address] [place] [address] [email or web address] g documented as of this encounter Procedures Procedure Name Priority Date/Time Associated Diagnosis Comments BI MAMMOGRAM OUTSIDE (NO INTERPRETATION) Routine 07/21/2014 12:00 AM EST documented in this encounter Results * Mammogram Outside (No Interpretation) (07/21/2014 12:00 AM EST) Narrative SYSTEMGENERATED, DOCUMENTATION - 12/13/2017 1:58 PM EDT This study is for PACS [...] 03/31/2021 04/21/2021 1:23 AM EDT CoV-Risk 04/29/2022 04/29/202204/29/2022 1:04 PM EDT COVID-19 04/29/2022 04/29/2022 05/20/2022 1:21 AM EDT documented as of this encounter Additional Source Comments The information contained in this document represents components of the legal health record. It is not the complete legal health record.[facility]
--- OUTSIDE RECORDS SUMMARY | 2015-09-21 | XMS_ITS | Encounter Summary ---
Author Organization [facility] Address [address] [employer] [address] [address] Phone Care Team Providers Care Jet Mechanic Name Role Phone Unavailable Primary Care Provider Unavailabl e Encounter Details Date Type Department Care Team (Late st Contact Info) Description 09/21/2015 Hospital Encounter [facility],Outside Imaging 30 [place] [address] System, Provider Not In, PhD Partners [address] [address] Social History Tobacco Use Types Packs/Day Years [...] st Contact Info) Description 05/19/2025 Procedure Pass [address] [address] 08/09/2025 12:15 PM EST Appointment [address] [address] Roshan Albarran MD [address] [place] [address] [place] [address] CONNER@[email or web address] 08/18/2025 1:00 PM EST Office Visit [facility] [address] [facility] Building, 5t Floor, [address] [place] [address] Roshan Albarran MD 55 [facility] 515 [place] [address] CONNER@[email or web address] 11/15/2025 8:00 AM EDT Office Visit [facility] Rheumatology [address] [place] [address] Sia Lebron MD 22 [facility], [address] [place] [address] [email or web address] documented as of this encounter Procedures Procedure Name Priority Date/Time Associated Diagnosis Comments BI MAMMOGRAM OUTSIDE (NO INTERPRETATION) Routine 09/21/2015 12:00 AM EST documented in this encounter Results * Mammogram Outside (No Interpretation) (09/21/2015 12:00 AM EST) Narrative SYSTEMGENERATED, DOCUMENTATION - [...] It is not the complete legal health record.[facility]
--- OUTSIDE RECORDS SUMMARY | 2015-09-29 | XMS_ITS | Encounter Summary ---
Author Organization [facility] Address [address] [employer] [address] [address] Phone Care Team Providers Care Pipe Jeeper Name Role Phone Unavailable Primary Care Provider Unavailabl e Encounter Details Date Type Department Care Team (Late st Contact Info) Description 09/29/2015 Hospital Encounter [facility],Outside Imaging 30 [place] [address] System, Provider Not In, PhD Partners [address] [address] Social History Tobacco Use Types Packs/Day Years [...] st Contact Info) Description 05/19/2025 Procedure Pass [address] [address] 08/09/2025 12:15 PM EST Appointment [address] [address] Roshan Albarran MD [address] [place] [address] [place] [address] CONNER@[email or web address] 08/18/2025 1:00 PM EST Office Visit [facility] [address] [facility] Building, 5t Floor, [address] [place] [address] Roshan Albarran MD 55 [facility] 515 [place] [address] CONNER@[email or web address] 11/15/2025 8:00 AM EDT Office Visit [facility] Rheumatology 22 [place] [address] Sia Lebron MD 22 [facility], [address] [place] [address] [email or web address] g documented as of this encounter Procedures Procedure Name Priority Date/Time Associated Diagnosis Comments BI US BREAST OUTSIDE (NO INTERPRETATION) Routine 09/29/2015 12:00 AM EST documented in this encounter Results * US Breast Outside (No Interpretation) (09/29/2015 12:00 AM EST) Narrative SYSTEMGENERATED, DOCUMENTATION - 12/13/2017 1:59 PM EDT This study is for PACS [...] It is not the complete legal health record.[facility]
--- OUTSIDE RECORDS SUMMARY | 2015-09-29 00:15 | XMS_ITS | Encounter Summary ---
Author Organization [facility] Address [address] [employer] [facility] [address] [place] [address] Phone Care Team Providers Care Board Liner Operator Name Role Phone Unavailable Primary Care Provider Unavailabl e Encounter Details Date Type Department Care Team (Late st Contact Info) Description 09/29/2015 12:15 AM EST Hospital Encounter [facility],Outside Imaging 30 [place] [address] System, Provider Not In, PhD Partners [address] [address] Social History Tobacco Use Types Packs/Day Years [...] st Contact Info) Description 05/19/2025 Procedure Pass [facility], Ct Scan [address] [address] 08/09/2025 12:15 PM EST Appointment [facility], [address] [address] Roshan Albarran MD 55 [facility] [address] [place] [address] CONNER@[email or web address] 08/18/2025 1:00 PM EST Office Visit [facility] [address] [facility] Building, 5t Floor, [address] [place] [address] Roshan Albarran MD 55 [facility] 515 [place] [address] CONNER@[email or web address] 11/15/2025 8:00 AM EDT Office Visit [facility] Rheumatology [address] [place] [address] Sia Lebron MD 22 [facility], [address] [place] [address] [email or web address] documented as of this encounter Procedures Procedure Name Priority Date/Time Associated Diagnosis Comments BI MAMMOGRAM OUTSIDE (NO INTERPRETATION) Routine 09/29/2015 12:15 AM EST documented in this encounter Results * Mammogram Outside (No Interpretation) (09/29/2015 12:15 AM EST) Narrative SYSTEMGENERATED, DOCUMENTATION - 12/13/2017 2:01 PM EDT This study is for PACS [...] It is not the complete legal health record.[facility]
--- OUTSIDE RECORDS SUMMARY | 2016-12-10 23:00 | XMS_ITS | Encounter Summary ---
Author Organization [facility] Address [address] [employer] [facility] [address] [place] [address] Phone Care Team Providers Care Excavating Contractor Name Role Phone Unavailable Primary Care Provider Unavailabl e Encounter Details Date Type Department Care Team (Late st Contact Info) Description 12/11/2016 Hospital Encounter [facility],Outside Imaging [address] [place] [address] System, Provider Not In, PhD Partners [address] [address] Social History Tobacco Use Types Packs/Day Years [...] st Contact Info) Description 05/19/2025 Procedure Pass [address] [address] 08/09/2025 12:15 PM EST Appointment [address] [address] Roshan Albarran MD [address] [place] [address] [place] [address] CONNER@[email or web address] 08/18/2025 1:00 PM EST Office Visit [facility] [address] [facility] Building, 5t Floor, [address] [place] [address] Roshan Albarran MD [address] [facility] 515 [place] [address] CONNER@[email or web address] 11/15/2025 8:00 AM EDT Office Visit [facility] Rheumatology [address] [place] [address] Sia Lebron MD 22 [facility], [address] [place] [address] [email or web address] g documented as of this encounter Procedures Procedure Name Priority Date/Time Associated Diagnosis Comments BI MAMMOGRAM OUTSIDE (NO INTERPRETATION) Routine 12/11/2016 12:00 AM EDT documented in this encounter Results * Mammogram Outside (No Interpretation) (12/11/2016 12:00 AM EDT) Narrative SYSTEMGENERATED, DOCUMENTATION - 12/13/2017 2:02 PM EDT This study is for PACS [...] It is not the complete legal health record.[facility]
--- OUTSIDE RECORDS SUMMARY | 2017-01-03 23:00 | XMS_ITS | Encounter Summary ---
Author Organization [facility] Address [address] [employer] [facility] [address] [place] [address] Phone Care Team Providers Care Derrick Worker Name Role Phone Unavailable Primary Care Provider Unavailabl e Encounter Details Date Type Department Care Team (Late st Contact Info) Description 01/04/2017 Hospital Encounter [facility],Outside Imaging 30 [place] [address] System, Provider Not In, PhD Partners [address] [address] Social History Tobacco Use Types Packs/Day Years [...] st Contact Info) Description 05/19/2025 Procedure Pass [address] [address] 08/09/2025 12:15 PM EST Appointment [address] [address] Roshan Albarran MD [address] [place] [address] [place] [address] CONNER@[email or web address] 08/18/2025 1:00 PM EST Office Visit [facility] [address] [facility] Building, 5t Floor, [address] [place] [address] Roshan Albarran MD 55 [facility] 515 [place] [address] CONNER@[email or web address] 11/15/2025 8:00 AM EDT Office Visit [facility] Rheumatology [address] [place] [address] Sia Lebron MD 22 [facility], [address] [place] [address] [email or web address] g documented as of this encounter Procedures Procedure Name Priority Date/Time Associated Diagnosis Comments BI MAMMOGRAM OUTSIDE (NO INTERPRETATION) Routine 01/04/2017 12:00 AM EDT documented in this encounter Results * Mammogram Outside (No Interpretation) (01/04/2017 12:00 AM EDT) Narrative SYSTEMGENERATED, DOCUMENTATION - [...] It is not the complete legal health record.[facility]
--- OUTSIDE RECORDS SUMMARY | 2025-07-07 07:49 | XMS_ITS | Encounter Summary ---
Author Organization [facility] Address [address] [address] Phone Care Team Providers Care Banking Management Consulting Manager Name Role Phone Melissa Mcdaniel RADIO TIME SALES SUPERVISOR Primary Care Provider Leonel Feng MD Unavailable [phone] Les Dempsey MD Unavailable Juliet Kirkland RADIO TIME SALES SUPERVISOR Primary Care Provide r Reason for Referral * Outpatient Procedure - Closed Specialty Diagnoses / Procedures Referred By Bob abreu Referred To Contact Radiology Diagnoses Other microscopic hematuria Personal history of urinary tract infection Procedures US Kidneys and Bladder Cecile Yeung MD Phone: tel: fax: [email or web address] Referral ID Status Reason Start Date Expiration Date Visits Re quested Visits Authorized [id number] Closed 02/02/2020 02/01/2021 1 1 Encounter Details Date Type Department Care Team (Latest Contact Info) Description 02/02/2020 Transcribe Orders Virtual Department 30 [place] [address] Cecile Yeung MD [address] [place] [address] Other microscopic hematuria (Primary Dx); Personal history [...] st Contact Info) Description 05/19/2025 Procedure Pass [address] [address] 08/09/2025 12:15 PM EST Appointment [address] [address] Roshan Albarran MD [address] [place] [address] [email or web address] 08/18/2025 1:00 PM EST Office Visit [facility] [address] [facility], 5t Floor, [address] [place] [address] Roshan Albarran MD [address] [place] [address] [email or web address] 11/15/2025 8:00 AM EDT Office Visit [facility] Rheumatology 22 [place] [address] Sia Lebron MD [address] [place] [address], [address] [place] [address] [email or web address] documented as of this encounter Results * [...] is normal in size and echogenicity. It qtycvcml65.8 cm in the long axis. No masses, calculi, pelvocaliectasis orsignificant cortical thinning. Left Kidney: The kidney is normal in size and echogenicity. It msnfuykd59.6 cm in the long axis. No masses, calculi, pelvocaliectasis orsignificant cortical thinning. Bladder: The bladder is normal in configuration. Prevoid bladder volumemeasures 414 cc. Bilateral ureteral jets visualized. No suspicious fillingdefects within the bladder lumen. Post void bladder volume equals 24 cc. IMPRESSION: Normal study of the kidneys and bladder. POS [id number] Cecile [facility]ung [facility] Final Resu lt documented in this [...] documented as of this encounter Care Teams Banking Management Consulting Manager Relationship Specialty Start Date End Date Melissa Mcdaniel NP [address] [place] [address] PCP - General Nurse Practitioner 03/20/18 04/19/24 Juliet Kirkland NP [address] [place] [address] PCP - General Nurse Practitioner 04/20/24 Leonel Feng MD [address] [place] [address] Pulmonary Disease 01/16/24 Les Dempsey MD [address] [place] [address] Infectious Diseases 01/16/24 documented as of this encounter Additional Source Comments The information contained in this document represents components of the legal health record. It is not the complete legal health record.[facility]
--- OUTSIDE RECORDS SUMMARY | 2025-07-07 07:49 | XMS_ITS | Encounter Summary ---
Author Organization [facility] Address [address] [address] Phone Care Team Providers Care Environmental Engineering Intern Name Role Phone Melissa Mcdaniel APPEALS BOARD REFEREE Primary Care Provider Leonel Feng MD Unavailable [phone] Les Dempsey MD Unavailable Juliet Kirkland NP Primary Care Provide r Encounter Details Date Type Department Care Team (Latest Contact Info) Description 02/17/2020 Transcribe Orders [address] [place] [address] Melissa Mcdaniel, APPEALS BOARD REFEREE [address] [place] [address] Encounter for screening for other suspected endocrine [...] Department Care Team (Late Contact Info) Description 05/19/2025 Procedure Pass [facility], Ct Scan - [address] [address] 08/09/2025 12:15 PM EST Appointment [facility] 30 [place] [address] Roshan Albarran MD [address] [place] [address] [email or web address] 08/18/2025 1:00 PM EST Office Visit [facility] [address] [facility], 5t Floor, [address] [place] [address] Roshan Albarran MD [address] [place] [address] [email or web address] 11/15/2025 8:00 AM EDT Office Visit [facility] Rheumatology [address] [place] [address] Sia Lebron MD [address] [facility], [address] [place] [address] [email or web address] documented as of this encounter Results * (ABNORMAL) Urinalysis w/reflex Urine Culture (02/17/2020 8:22 AM EDT) COLOR STRAW(A) Yellow [facility] CLARITY Clear [facility] GLUCOSE Negative Negative [facility] BILI Negative Negative [facility] KETONES Negative Negative [facility] SPECIFIC GRAVITY <1.005 1.005 - 1.030 [facility] BLOOD 2+(A) Negative [facility] PH 6.5 5.0 - 8.0 [facility] Protein-UA Negative Negative [facility] NITRITE Negative Negative [facility] Leukocyte esterase, ur Negative Negative [facility] Urine (Urine) 02/17/2020 8:2 2 AM EDT 02/17/2020 8:25 AM EDT us Melissa Mcdaniel APPEALS BOARD REFEREE LAB URINE ORDERABLES Final R esult [facility] [address] [place] [address] * (ABNORMAL) CBC and differential (02/17/2020 7:25 AM EDT) WBC 6.46 4.00 - 11.00 K/uL [facility] Comment:Note Reference Range updates to all CBC and Differential results. RBC 3.97 3.72 - 5.30 M/uL [facility] HGB 13.1 11.4 - 15.9 g/dL [facility] Comment:Note updated Referen ce Ranges for all CBC and Differential results. HCT 39.7 34.2 - 46.8 % [facility] PLT 233 140 - 430 K/uL [facility] MCV 100.0(H) 78.0 - 97.0 fL [facility] MCH 33.0 25.0 - 33.0 pg [facility] MCHC 33.0 32.0 - 36.0 g/dL [facility] RDW 12.5 11.0 - 16.0 % [facility] MPV 11.3 8.4 - 12.8 [facility] NRBC 0.00 0 /100 WBCs [facility] ABSOLUTE NRBC 0.00 0 K/uL [facility] DIFF METHOD Auto [facility] NEUTS 64.8 43.0 - 75.0 % [facility] LYMPHS 23.2 18.2 - 47.4 % [facility] MONOS 9.1 4.00 - 11.00 % [facility] EOS 2.2 0.0 - 8.0 % [facility] BASOS 0.5 0.0 - 2.0 % [facility] Granulocytes, immature (%) 0.2 0.0 - 0.9 % [facility] ABSOLUTE NEUTS 4.19 1.80 - 7.70 K/uL [facility] ABSOLUTE LYMPHS 1.50 1.00 - 3.10 K/uL [facility] ABSOLUTE MONOS 0.59 0.20 - 0.80 K/uL [facility] ABSOLUTE EOS 0.14 0.00 - 0.80 K/uL [facility] ABSOLUTE BASOS 0.03 0.00 - 0.09 K/uL [facility] Granulocytes, immature 0.01 0.00 - 0.05 K/uL [facility] Blood 02/17/2020 7:25 AM EDT 02/17/2020 7:29 AM EDT us Melissa Mcdaniel APPEALS BOARD REFEREE LAB BLOOD BKR ORDERABLES Fin al Result [facility] [address] [place] [address] * (ABNORMAL) Comprehensive metabolic panel (02/17/2020 7:25 AM EDT) SODIUM 132(L) 133 - 146 mmol/L [facility] POTASSIUM 4.6 3.3 - 5.1 mmol/L [facility] CHLORIDE 98 96 - 108 mmol/L [facility] CO2 27 21 - 35 mmol/L [facility] BUN 9 6 - 19 mg/dL [facility] CREATININE 0.60 0.5 - 1.5 mg/dL [facility] GLUCOSE 99 70 - 99 mg/dL [facility] ALBUMIN 4.1 3.9 - 4.8 g/dL [facility] TOTAL PROTEIN 6.8 6.5 - 8.0 g/dL [facility] CALCIUM 9.2 8.4 - 10.3 mg/dL [facility] ALKALINE PHOSPHATASE 68 39 - 117 U/L [facility] TOTAL BILIRUBIN 1.0 0.0 - 1.2 mg/dL [facility] AST 23 0 - 37 U/L [facility] ALT 18 0 - 40 U/L [facility] GLOBULIN 2.7 1 - 4.8 g/dL [facility] EGFR 98 >59 mL/min/1.7 3m2 [facility] Comment:Estimated glomerular filtration rate calculated using the CKD-EPI equation. ANION GAP 12 10 - 20 mmol/L [facility] Blood 02/17/2020 7:25 AM EDT 02/17/2020 7:29 AM EDT us Melissa Mcdaniel NP LAB BLOOD BKR ORDERABLES Fin al Result Performing Organization Address City[facility] Co de Phone Number [address] [address] * Hepatitis C antibody, qualitative (02/17/2020 7:25 AM EDT) HCV NON-REACTIV E NON-REACTI VE [facility] Blood 02/17/2020 7:25 AM EDT 02/17/2020 7:29 AM EDT us Melissa Mcdaniel NP LAB BLOOD BKR ORDERABLES Fin al Result Performing Organization Address [facility] de Phone Number [address] [address] * (ABNORMAL) Lipid panel (02/17/2020 7:25 AM EDT) HDL 60 mg/dL [facility] Comment: Interpretation <40 mg/dL: Low HDL cholesterol (major risk factor for CHD) Greater than or equal to 60 mg/dL: High HDL cholesterol ( negative risk factor for CHD) HDL - cholesterol is affected by a number of factors, e.g. smoking, excerise, hormones, sex and age. CHOLESTEROL 155 0 - 240 mg/dL [facility] TRIGLYCERIDES 69 30 - 160 mg/dL [facility] LDL 81 50 - 129 mg/dL [facility] Comment: LDL levels in terms of risk for coronary heart disease: <100 mg/dL: Optimal 100-129 mg/dL: Near or above optimal 130-159 mg/dL: Borderline high 160-189 mg/dL: High >190 mg/dL: Very High CARDIAC RISK RATIO 2.6(L) 3.3 - 4.4 [facility] Blood 02/17/2020 7:25 AM EDT 02/17/2020 7:29 AM EDT us Melissa Mcdaniel NP LAB BLOOD BKR ORDERABLES Fin al Result Performing Organization Address [facility] Co de Phone Number [address] [place] [address] * TSH (02/17/2020 7:25 AM EDT) TSH 1.79 0.27 - 4.20 uIU/mL [facility] Blood 02/17/2020 7:25 AM EDT 02/17/2020 7:29 AM EDT us Melissa Mcdaniel APPEALS BOARD REFEREE LAB BLOOD BKR ORDERABLES Fin al Result [address] [address] documented in this encounter Visit Diagnoses Diagnosis [...] documented as of this encounter Care Teams Environmental Engineering Intern Relationship Specialty Start Date End Date Melissa Mcdaniel, APPEALS BOARD REFEREE [address] [place] [address] PCP - General Nurse Practitioner 03/20/18 04/19/24 Juliet Kirkland NP [address] [place] [address] PCP - General Nurse Practitioner 04/20/24 Leonel Feng MD [address] [place] [address] Pulmonary Disease 01/16/24 Les Dempsey MD [address] [id number] Infectious Diseases 01/16/24 documented as of this encounter Additional Source Comments The information contained in this document represents components of the legal health record. It is not the complete legal health record.[facility]
--- OUTSIDE RECORDS SUMMARY | 2025-07-07 07:50 | XMS_ITS | Patient Health Record ---
Author [facility] Address [address] [place] [address] Care Team Providers Care Senior Risk Manager Name Role Phone Isael Juliet Primary Care Provider Marcio Griffin Unavailable [phone] Allergies Allergen (clinical drug ingredient) Drug/Non Drug [...] W/U Status Risk Notes Problem Plantar fibromatosis (02953274) Plantar fibromatosis (M72.2) Active confirmed Problem Ganglion of foot (428706627) Ganglion of foot, right (M67.471) Active confirmed Vital Signs Blood pressure diastolic 60 mm Hg 12/11/2024 Height 5 ft 2 in in 12/11/2024 Blood pressure systolic 128 mm Hg 12/11/2024 Weight 95 lbs 12/11/2024 BMI 17.37 kg/m2 12/11/2024 Encounters Encounter Location Date Provider Diagnosis [facility] [address] [address] 12/11/2024 Marcio Gwen Pain in right foot M79.671 ; Plantar fibromatosis M72.2 ; 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
--- OUTSIDE RECORDS SUMMARY | 2025-07-07 07:50 | XMS_ITS | Encounter Summary ---
Author Organization [facility] Address [address] [employer] [address] [address] Phone Care Team Providers Care Emergency Communications Operator Name Role Phone Melissa Mcdaniel MIX HOUSE OPERATOR Primary Care Provider Leonel Feng MD Unavailable [phone] [phone] Les Dempsey MD Unavailable Juliet Kirkland NP Primary Care Provide r Encounter Details Date Type Department Care Team (Late st Contact Info) Description 01/15/2024 Procedure Pass [facility], Ct Scan - [address] [address] Social History Tobacco Use Types Packs/Day Years [...] with a working camera? Not on file Comments No Sex and Gender Information Value Date Recorded Sex Assigned at Not on file Legal Sex Female 4:37 PM EST Gender Identity Not on file Sexual Orientation Not on file documented as of this encounter Plan of Treatment Upcoming Encounters Date Type Department Care Team (Late st Contact Info) Description 05/19/2025 Procedure Pass [address] [address] 08/09/2025 12:15 PM EST Appointment [address] [address] Roshan Albarran MD [address] [place] [phone] [email or web address] 08/18/2025 1:00 PM EST Office Visit [address], 5t Floor, [address] [place] [address] Roshan Albarran MD [address] [place] [address] [email or web address] 11/15/2025 8:00 AM EDT Office Visit [facility] Rheumatology [address] [place] [address] Sia Lebron MD [address] [place] [address], [address] [place] [address] [email or web address] documented as of this encounter Visit Diagnoses Not on filedocumented in this encounter Care Teams Emergency Communications Operator Relationship Specialty Start Date End Date Melissa Mcdaniel NP [address] [place] [address] PCP - General Nurse Practitioner 03/20/18 04/19/24 Juliet Kirkland NP [address] [place] [address] PCP - General Nurse Practitioner 04/20/24 Leonel Feng MD [address] [place] [address] Pulmonary Disease 01/16/24 Les Dempsey MD [facility] [address] [address] Infectious Diseases 01/16/24 documented as of this encounter Additional Source Comments The information contained in this document represents components of the legal health record. It is not the complete legal health record.[facility]
--- OUTSIDE RECORDS SUMMARY | 2025-07-07 07:50 | XMS_ITS | Clinical Summary ---
Author Organization [facility] Address [address] [address] Phone Care Team Providers Care Personal Security Specialist Name Role Phone Leonel Feng MD Unavailable [phone] Les Dempsey MD Unavailable Juliet Kirkland PROCESS AREA SUPERVISOR Primary Care Provide r Allergies Active Allergy Reactions Criticality Noted Date Comments Sulfamethoxazole-Trimethoprim Rash Low 2018 Medications ELDERBERRY FRUIT ORAL Take by mouth. Activ e levalbuterol (XOPENEX CONCENTRATE) 1.25 mg/0.5 mL nebulizer solution Take 1 ampule by nebulization 2 (two) times a day. 02/20/20 23 Active lysine 1,000 mg Tab Take 1 tablet by mouth 2 (two) times a day. Active pramipexole (MIRAPEX) 0.25 MG tablet Take 3 tablets (0.75 mg total) by mouth nightly at bedtime. 05/20/20 24 Active Lactobacillus rhamnosus GG (CULTURELLE PROBIOTIC) 15 billion cell CpSP Take 1 capsule by mouth daily. Active famotidine (PEPCID) 40 MG tablet Take 40 mg by mouth nightly at bedtime as needed for heartburn. Active ondansetron (ZOFRAN) 4 MG tablet Take 1 tablet (4 mg total) by mouth every 12 (twelve) hours as needed for nausea. 60 tablet 1 08/27/19 25 Active esomeprazole (NEXIUM) 20 MG capsule Take 20 mg by mouth daily. Active hydroxychloroquin e (PLAQUENIL) 200 mg tabletIndications :Sicca syndrome,Raynaud' s disease without gangrene Take 1 tablet (200 mg total) by mouth daily. 1 tab daily 90 tablet 3 10/13/19 25 Active therapeutic multivitamin tablet Take 1 tablet by mouth daily. Active cevimeline (EVOXAC) 30 mg capsuleIndication s:Sicca syndrome TAKE 1 CAPSULE 3 TIMES A DAY 270 capsule 3 05/03/20 25 Active cholecalciferol (VITAMIN D3) 5,000 unit capsuleIndication s:Vitamin D insufficiency Take 1 capsule (5,000 Units total) by mouth daily. 90 capsule 1 05/03/20 25 Active cyanocobalamin, vitamin B-12, 500 MCG tablet Take 500 mcg by mouth daily. Active dicyclomine (BENTYL) 10 MG capsuleIndication s:Gastroesophagea l reflux disease Take 1 capsule (10 mg total) by mouth 2 (two) times a day. 180 capsule 06/22/20 25 Active dicyclomine (BENTYL) 10 MG capsule Take 20 mg by mouth daily. 08/05/20 24 025 Discontin ued(Reord er) Active Problems Problem Noted Date Diagnosed Date Immunization counseling 05/19/2025 Assessment & Plan (05/19/2025 6:41 PM EDT): UTD with RSV, influenza, and COVID vaccines. I do not see pneumococcal vaccines on record; I asked her to inquire with her other physicians. She may need PCV20/21. Muscle cramping 05/03/2025 Assessment & Plan (05/03/2025 9:46 AM EDT): Keep well-hydrated, eat well-balanced nutritionally diet, rich in electrolytes, vitamins, micro and ultra elements. Gentle massage and stretching after warm pack versus warm shower. 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 [place] [facility] [place] every 6 weeks. 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 She follows up with prescribing infectious disease [place] [facility] [place] every 6 weeks. Underweight 10/12/2024 Assessment & Plan (05/03/2025 9:10 AM EDT): Encouraged to eat 4-6 small, well balanced nutritionally meals at 2.5-3 hours interval throughout the day with addition of protein to regain lost weight. Assessment & Plan (10/13/2024 11:42 AM EST): Encouraged to eat 4-6 small, well balanced nutritionally meals at 2.5-3 hours interval throughout the day with addition of protein to regain lost weight. 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 We agreed to treat the M abscessus, while continuing treatment for MAC. On 06/10/2024 she started imipenem 1000 mg IV q12h, amikacin 900 mg IV TIW (subsequently up-titrated to 1250 mg IV TIW in response to TDM), and omadacycline 300 mg PO daily. She tolerated the enhanced regimen reasonably well, though with some anorexia, nausea, and fatigue. On 09/14/2024, we stopped imipenem and IV amikacin, and started clofazimine and inhaled liposomal amikacin (Arikayce). Since then, her nausea has resolved, her appetite has improved, and her energy level has been better. Initially the Arikayce was associated with hoarseness and hypophonia, but her voice returned to normal over the course of several weeks. Chest CT on 09/05/2024 showed some improvement. Sputum samples from July, August, and September were mycobacterial culture negative, but the samples from November grew M abscessus, resistant to amikacin; sputum samples from 01/14/2025 and 03/18/2025 were AFB smear-positive, and also grew M abscessus. On 01/22/2025, we agreed to stop omadacycline, clofazimine, and Arikayce. She had a period of increased cough, wheezing, and congestion from late January into early February, but her symptoms improved subsequently, and her cough has remained modest. By mutual agreement, we stopped azithromcyin, ethambutol, and rifampin (for MAC) on 04/12/2025. She has been feeling better since then, with improved GI symptoms and energy level. . Plan: Sputum for AFB smear and mycobacterial culture today BID nebulizer and Acapella valve Watchful waiting off antibiotics Should we agree to restart treatment for M abscessus, a potential re-induction regimen would be clofazimine, omadacycline, bedaquiline, and imipenem. RTC in 3 months; chest CT shortly before then Assessment & Plan (05/03/2025 9:09 AM EDT): Take azithromycin 250 mg daily+ ethambutol 800 mg daily+ rifampin 600 mg daily as prescribed in addition to an high level via nebulizer liposomal amikacin + clofazimine 100 mg daily + omadacycline 300 mg daily + Diflucan 150 mg weekly (for vaginal yeast). Continue close [place] [facility] [place]Dr. Ablarran as scheduled in early November 2024. Assessment & Plan (03/18/2025 4:12 PM EDT): Found to have pulmonary MAC [...] multiple sputum samples that grew M abscessus (macrolide-resistant). We agreed to treat the M abscessus, while continuing treatment for MAC. On 06/10/2024 she started imipenem 1000 mg IV q12h, amikacin 900 mg IV TIW (subsequently up-titrated to 1250 mg IV TIW in response to TDM), and omadacycline 300 mg PO daily. She tolerated the enhanced regimen reasonably well, though with some anorexia, nausea, and fatigue. On 09/14/2024, we stopped imipenem and IV amikacin, and started clofazimine and inhaled liposomal amikacin (Arikayce). Since then, her nausea has resolved, her appetite has improved, and her energy level has been better. Initially the Arikayce was associated with hoarseness and hypophonia, but her voice returned to normal over the course of several weeks. She has mild intermittent hoarseness now. Her most recent chest CT, on 09/05/2024, showed some improvement. Sputum samples from July, August, and September were mycobacterial culture negative, but the samples from November grew M abscessus, resistant to amikacin; sputum from 01/14/2025 was AFB smear-positive, and also grew M abscessus. On 01/22/2025, we agreed to stop omadacycline, clofazimine, and Arikayce. She had a period of increased cough, wheezing, and congestion from late January into early February, but her symptoms have improved since then, and her cough is now minimal. Her exercise tolerance, energy level, and appetite have all improved, while continuing to take azithromycin, ethambutol, and rifampin. Plan: Safety labs today Sputum for AFB smear and mycobacterial culture today Continue azithromycin, ethambutol, and rifampin for MAC, until she runs out, or until 04/11/2025, whichever is earlier. Regarding M abscessus, watchful waiting for now. Potential re-induction regimen: clofazimine, omadacycline, bedaquiline, and imipenem. Restart use of Acapella valve with BID nebulizer Patient to discuss with her manager data warehouse (Dr. Feng): Chest physiotherapy [facility] RTC in 2 months Assessment & Plan (01/22/2025 1:47 PM EDT): Found to have pulmonary MAC [...] multiple sputum samples that grew M abscessus (macrolide-resistant). We agreed to treat the M abscessus, while continuing treatment for MAC. On 06/10/2024 she started imipenem 1000 mg IV q12h, amikacin 900 mg IV TIW (subsequently up-titrated to 1250 mg IV TIW in response to TDM), and omadacycline 300 mg PO daily. She tolerated the enhanced regimen reasonably well, though with some anorexia, nausea, and fatigue. On 09/14/2024, we stopped imipenem and IV amikacin, and started clofazimine and inhaled liposomal amikacin (Arikayce). Since then, her nausea has resolved, her appetite has improved, and her energy level has been better. Initially the Arikayce was associated with hoarseness and hypophonia, but her voice returned to normal over the course of several weeks. She has mild intermittent hoarseness now. Her most recent chest CT, on 09/05/2024, showed some improvement. Sputum samples from July, August, and September were mycobacterial culture negative, but the samples from November grew M abscessus, resistant to amikacin; sputum from 01/14/2025 was AFB smear-positive, and is already growing AFB, almost certainly M abscessus. When she started using Arikayce, her cough became more productive, but not more bothersome. Over the past 1-2 weeks, cough has become slightly more frequent during the day. The improvement in her general sense of well-being since completing IV imipenem/amikacin in early September has been sustained. The sputum results from 11/12/2024 and 01/14/2025 are discouraging though not altogether surprising. We discussed options going forward: Stay the course (except d/c Arikayce given amikacin YEYO 128). I am concerned about treatment emergent resistance to omadacycline and clofazimine, and there is some cross resistance between the latter and bedaquiline. Intensify treatment. This would entail adding at least bedaquiline and preferably IV imipenem also. Bedaquiline levels are reduced by rifampin so I would not prescribed these together. Stop M abscessus-directed treatment for now, while continuing azithromycin, ethambutol, and rifampin. We agreed to the latter course of action. Stop omadacycline, clofazimine, and Arikayce. It is possible that the latter is responsible for the (asymptomatic) high frequency hearing loss on her most recent audiogram. On 01/14, serum amikacin was detectable at 4.9 mcg/mL. Continue azithromycin, ethambutol, and rifampin for MAC. Tentatively plan to stop in March 2025. Revisit treatment for M abscessus after stopping the MAC regimen. Potential re-induction regimen: clofazimine, omadacycline, bedaquiline, and imipenem. Repeat audiogram later this month Office follow-up 03/18/2025. Assessment & Plan (01/14/2025 11:53 AM EDT): Found to have pulmonary MAC infection [...] 300 mg PO daily. She tolerated the enhanced regimen quite well, though with some anorexia, nausea, and fatigue. On 09/14/2024, we stopped imipenem and IV amikacin, and started clofazimine and inhaled liposomal amikacin (Arikayce). Since then, her nausea has resolved, her appetite has improved, and her energy level has been better. Initially the Arikayce was associated with hoarseness and hypophonia, but her voice returned to normal over the course of several weeks. She has mild intermittent hoarseness now. Her cough has become somewhat more productive since the transition, though not more bothersome. Her most recent chest CT, on 09/05/2024, showed some improvement. Sputum samples from July, August, and September were mycobacterial culture negative, but the samples from November grew M , which has become resistant to amikacin. Her most recent audiogram raised concern for high frequency hearing loss, and a repeat study is planned later this month. There has been no subjective decrement to her hearing. Plan: Spontaneous sputum sample for AFB smear and mycobacterial culture. BUN, Cr, LFTs, CBC w/ diff today. Also random amikacin level to look for absorption given the audiogram findings. Repeat ECG to check QTc Continue clofazimine 100 mg daily Continue omadacycline 300 mg daily For now, continue inhaled liposomal amikacin daily. Impact on M abscessus may be limited at this point, but likely active vs residual MAC. Continue azithromycin, ethambutol, and rifampin. If no further sputum samples grow MAC, tentatively plan to stop these antibiotics in March 2025. If repeat audiogram later this month raises additional concerns, we may need to stop azithromycin (and perhaps the other MAC antibiotics) sooner. Continue audiogram every 3-4 weeks Continue eye exams every ~3 months The recrudescence of M abscessus in the November sputum samples is disappointing, but not surprising. We may need to enhance the regimen again, especially given the increased amikacin YEYO, though our options are limited and she is understandably reluctant to resume IV therapy (eg imipenem), because she felt significantly more poorly on it. Options include linezolid/tidezolid and bedaquiline. The latter would require that she be off rifampin, and insurance coverage may be difficult to secure. Office follow-up in 2 months. She will collect sputum that morning after her nebulized saline/levalbuterol and before Arikayce. Assessment & Plan (11/12/2024 3:39 PM EDT): [...] (for vaginal yeast). Continue close [place] [facility] [place]. Albarran as scheduled in early November 2024. Assessment [...] daily as prescribed. Continue close follow-up [place] [facility] [place] [place]Dr. Albarran as scheduled in May 2024. Assessment & [...] without esophagi tis 12/23/2019 Assessment & Plan (05/03/2025 9:09 AM EDT): Avoid late, large, spicy meals. Keep headboard elevated at 45 angle for nighttime. Carefully continue Pepcid (famotidine) 40 mg nightly. Assessment & Plan (10/13/2024 11:46 AM EST): Avoid late, large, spicy meals. Keep headboard elevated at 45 angle for nighttime. Carefully continue Pepcid (famotidine) 40 mg nightly. Assessment & Plan (04/20/2024 8:02 AM EDT): Avoid late, large, spicy meals. Keep headboard elevated at 45 angle for nighttime. Assessment & Plan (10/16/2023 3:01 PM EST): Avoid late, large, spicy meals. Keep headboard elevated at 45 angle for nighttime. Assessment & Plan (02/25/2023 3:07 PM EDT): Avoid late, large, spicy meals. Keep headboard elevated at 45 angle for nighttime. Assessment & Plan (02/23/2022 11:56 AM EDT): Avoid late, large, spicy meals. Keep headboard elevated at 45 angle for nighttime. Assessment & Plan (03/03/2021 8:10 AM EDT): Avoid late, large, spicy meals. Keep headboard elevated at 45 angle for nighttime. Assessment & Plan (12/01/2020 8:15 AM EDT): Avoid late, large, spicy meals. Keep headboard elevated at 45 angle for nighttime. Assessment & Plan (09/02/2020 10:55 AM EST): Avoid late, large, spicy meals. Keep headboard elevated at 45 angle for nighttime. Assessment & Plan (05/27/2020 11:39 AM EDT): Avoid late, large, spicy meals. Keep headboard elevated at 45 angle for nighttime. Assessment & Plan (12/23/2019 8:20 AM EDT): Avoid late, large, spicy meals. Keep headboard elevated at 45 angle for nighttime. Rash/skin eruption 12/23/2019 Assessment [...] to Cetaphil or Eucerin fragrance free with [id number] in it See railroad maintenance clerk if not better or worse Carpal tunnel [...] use of Plaquenil 12/16/2018 Assessment & Plan (05/03/2025 9:09 AM EDT): Get monitoring labs today-orders in [facility]. Take exactly as prescribed. Daily sun protection. Regular ophthalmological checkup as scheduled at least every 6 months because of concomitant treatment with ethambutol. Assessment & Plan (10/12/2024 2:02 PM EST): Get monitoring labs today-orders in [facility]. Take exactly as prescribed. Daily sun protection. Regular ophthalmological checkup as scheduled at least every 6 months because of concomitant treatment with ethambutol. Assessment & Plan (04/21/2024 6:22 PM EDT): Get monitoring labs today-orders in [facility]. Take exactly as prescribed. Daily sun protection. Regular ophthalmological checkup as scheduled at least every 6 months because of concomitant treatment with ethambutol. Assessment & Plan (10/16/2023 3:01 PM EST): Get monitoring labs today-orders in [facility]. Take exactly as prescribed. Daily sun protection. Regular ophthalmological checkup as scheduled at least every 12 months. Assessment & Plan (02/25/2023 3:07 PM EDT): Get monitoring labs today-orders in [facility]. Take exactly as prescribed. Daily sun protection. Regular ophthalmological checkup as scheduled at least every 12 months. Assessment & Plan (08/31/2022 8:04 AM EST): Get monitoring labs today-orders in [facility]. Take exactly as prescribed. Daily sun protection. Regular ophthalmological checkup as scheduled at least every 12 months. Assessment & Plan (02/23/2022 11:57 AM EDT): Get monitoring labs today-orders in [facility]. Take exactly as prescribed. Daily sun protection. Regular ophthalmological checkup as scheduled at least every 12 months. Assessment & Plan (03/03/2021 8:08 AM EDT): Get monitoring labs today-orders in [facility]. Take exactly as prescribed. Daily sun protection. Regular ophthalmological checkup as scheduled at least every 12 months. Assessment & Plan (12/01/2020 8:09 AM EDT): Get monitoring labs today-orders in [facility]. Take exactly as prescribed. Daily sun protection. Regular ophthalmological checkup as scheduled at least every 12 months. Assessment & Plan (09/06/2020 9:43 AM EST): Get monitoring labs today-orders in [facility]. Take exactly as prescribed. Daily sun [...] from reading book written by Dr Daniel Michael [facility] addressing management strategies for patients with fibromyalgia [...] in the book written by Dr Daniel Michael [facility] Assessment & Plan (03/28/2019 10:39 PM EDT): Carefully continue amitriptyline as prescribed. Sleep hygiene. Well-balanced nutritionally diet. Gentle, regular exercise routine. Avoid falls, injuries, sick contacts. Keep up-to-date with age-appropriate screenings and preventive strategies. Follow mindfulness in approach to deal with fibromyalgia related issues as described in the book written by Dr Daniel Michael [facility] Assessment & Plan (12/16/2018 3:53 PM EDT): Carefully continue amitriptyline as prescribed. Sleep hygiene. Well-balanced nutritionally diet. Gentle, regular exercise routine. Avoid falls, injuries, sick contacts. Keep up-to-date with age-appropriate screenings and preventive strategies. Follow mindfulness in approach to deal with fibromyalgia related issues as described in the book written by Dr Daniel Michael [facility] Sicca syndrome 09/03/2018 Assessment & Plan (05/03/2025 9:09 AM EDT): Clinically quiescent on current regimen. No [...] increased to every 6 months now Keep [id number] at 6-8 glasses (8 ounces each) of fluids daily. Avoid spicy and acidic foods. Diligent mouth hygiene. Regular dental checkups. Assessment & Plan (10/13/2024 11:42 AM EST): [...] increased to every 6 months now Keep [id number]-[id number]-[id number] at 6-8 glasses (8 ounces each) of [...] increased to every 6 months now Keep wnoe-[id number] at 6-8 glasses (8 ounces each) of [...] no signs of Plaquenil toxicity detected. Keep cbzl-vcguekoc-vrb at 6-8 glasses (8 ounces each) of fluids daily. Avoid spicy and acidic foods. Diligent mouth hygiene. Regular dental checkups. Assessment & Plan (02/25/2023 3:27 PM EDT): Carefully continue Plaquenil 200 mg twice daily and follow interior designer every 12 months or as requested if needed earlier. Keep fsad-[id number]-[id number] at 6-8 glasses (8 ounces each) of fluids daily. Avoid spicy and acidic foods. Diligent mouth hygiene. Regular dental checkups. Assessment & Plan (08/31/2022 8:05 AM EST): Carefully continue Plaquenil as prescribed. Monitor for unusual skin discoloration, visual abnormalities, heart rate rhythm changes etc. Return for periodic lab work at least 3-4 months-standing orders in [facility]. Keep well-hydrated. Avoid spicy and acidic foods. Diligent ocular and mouth hygiene. Regular ocular and dental checkups. Assessment & Plan (03/11/2022 12:14 PM EDT): Carefully continue Plaquenil as prescribed. Monitor for unusual skin discoloration, visual abnormalities, heart rate rhythm changes etc. Return for periodic lab work at least 3-4 months-standing orders in [facility]. Keep well-hydrated. Avoid spicy and acidic [...] disease without gangrene 09/03/2018 Assessment & Plan (05/03/2025 9:09 AM EDT): Keep warm, dress in layers. Optimize stress management strategies. Avoid vasoconstrictors in OTC products for cold/flu and sinus. Assessment & Plan (10/12/2024 2:02 PM EST): [...] Vitamin D insufficiency 09/03/2018 Assessment & Plan (05/03/2025 9:46 AM EDT): Take vitamin D 5000 units daily to replace deficit and bring it into optimal range: 40-45 ng/ml. Assessment & Plan (08/31/2022 8:06 AM EST): [...] Encounters Date Type Department Care Team Description 06/21/2025 Telephone [facility] [address] [place] [address] Leidy Gandhi, BIG DATA HADOOP DEVELOPER Refill 06/11/2025 Telephone [facility] [address] [place] [address] Leonie Torres Medication Refill 05/19/2025 2:00 PM EDT Office Visit [address], [address], [address] [place] [id number] Roshan Albarran MD Nontuberculous mycobacterial pulmonary disease (Primary Dx); Immunization counseling 05/05/2025 8:59 AM EDT - 05/05/2025 11:59 PM EDT Hospital Encounter [facility] [address] [place] [address] Sia Lebron MD Discharge Disposition: Home or Self Care 05/03/2025 9:00 AM EDT Office Visit [facility] [address] [place] [address] Sia Lebron MD Sicca syndrome (Primary Dx); Raynaud's disease without gangrene; Long-term use of Plaquenil; Gastroesophageal reflux disease without esophagitis; Nontuberculous mycobacterial pulmonary disease; Underweight; Muscle cramping; Vitamin D insufficiency from Last 3 Months Immunizations Immunization Administration Dates Next Due COVID-19 (Pre-06/03) Moderna Vaccine, mRNA, PF 07/03/2021,09/30/2020,09/02/2020 COVID-19 Pfizer Comirnaty Vaccine 12+ 05/20/2024 Influenza High-Dose Trivalen t Preservative Free IM 05/20/2024 Influenza Quadrivalent Adjuv anted Preservative Free IM 06/14/2023 Influenza Quadrivalent Preservative Free IM 09/2021,05/18/2021 Influenza Trivalent Adjuvant ed Preservative free IM 04/30/2025 Pneumococcal conjugate PCV20 05/25/2025 RSV Vaccine (bivalent) 05/26/2024 Td, unspecified formulation 08/12/2001 Zoster recombinant 12/02/2023,10/24/2021 Social History Tobacco Use Types Packs/Day Years [...] Sign Reading Time Taken Comments Blood Pressure 112/50 05/19/2025 2:15 PM EDT Pulse 73 05/19/2025 2:03 PM EDT Temperature 36.4 C (97.5 F) 05/19/2025 2:03 PM EDT Respiratory Rate 18 09/14/2024 10:55 AM EST Oxygen Saturation 100% 05/19/2025 2:03 PM EDT Inhaled Oxygen Concentration - - Weight 44.5 kg (98 lb) 05/03/2025 8:51 AM EDT Height 154.9 cm (5' 0.98 ) 05/03/2025 8:51 AM ED T Body Mass Index 18.53 05/03/2025 8:51 AM EDT Plan of Treatment Upcoming Encounters Date Type Department Care Team (Late st Contact Info) Description 05/19/2025 Procedure Pass [address] [address] 08/09/2025 12:15 PM EST Appointment [address] [address] Roshan Albarran MD [address] [place] [address] [email or web address] 08/18/2025 1:00 PM EST Office Visit [address], 5t Floor, [address] [place] [address] Roshan Albarran MD [address] [place] [phone] [email or web address] 11/15/2025 8:00 AM EDT Office Visit [facility] Rheumatology [address] [place] [address] Sia Lebron MD [address] [place] [address], [address] [place] [address] [email or web address] g Health Maintenance Due Date Last Done Comments DEPRESSION SCREENING 1969 COLOGUARD 2002 FIT TEST 2002 FOBT 2002 SIGMOIDOSCOPY 2002 VIRTUAL COLONOSCOPY 2002 Adult Td,Tdap Booster 08/12/2011 08/12/2001 MAMMOGRAM 04/12/2024 04/12/2022, 04/04/2021, 03/20/2018, Additional history exists COVID-19 VACCINE (2024- season) 2025 04/30/2025, 05/20/2024, 06/14/2023, Additional history exists LIPID PANEL 09/20/2027 09/20/2022, 07/0 03/2020, 06/25/2019, Additional history exists COLONOSCOPY 01/09/2029 11/25/2024 COLORECTAL CANCER SCREENING 01/09/2029 HEPATITIS C SCREENING Completed 02/17/2020 , 06/25/2019, 06/06/2018 OSTEOPOROSIS SCREENING INITIAL (ONE-TIME) Completed 09/21/2022, 11/20/2018 ZOSTER VACCINES Completed 12/02/2023, 10/24/2021 RSV VACCINE Completed 05/26/2024 INFLUENZA VACCINE Completed 04/30/2025, , 06/14/2023, Additional history exists SMOKING STATUS SCREENING (Once After 26 Yrs) Completed 05/03/2025 PNEUMOCOCCAL VACCINES (50+ years) Completed 05/25/2025 HEPATITIS A VACCINES Aged Out No long er eligible based on patient's age to complete this topic HIB VACCINES Aged Out No longer eligi ble based on patient's age to complete this topic MENINGOCOCCAL VACCINES (ACWY) Aged Out No longer eligible based on patient's age to complete this topic MENINGOCOCCAL VACCINES (B) Aged Out N o longer eligible based on patient's age to complete this topic Medical Devices Not on file Procedures Procedure Name Priority Date/Time Associated Diagnosis Comments MYCOBACTERIAL CULTURE/SMEAR Routine 05/19/2025 2:40 PM EDT Nontuberculous mycobacterial pulmonary disease OUTSIDE LAB 05/10/2025 COMPREHENSIVE METABOLIC PANEL (CMP) Routine 05/05/2025 8:58 AM EDT Sicca syndrome Long-term use of Plaquenil C-REACTIVE PROTEIN (CRP) Routine 05/05/2025 8:58 AM EDT Sicca syndrome Long-term use of Plaquenil SEDIMENTATION RATE (ESR) Routine 05/05/2025 8:58 AM EDT Sicca syndrome Long-term use of Plaquenil CBC AND DIFFERENTIAL Routine 05/05/2025 8:58 AM EDT Sicca syndrome Long-term use of Plaquenil HM COLONOSCOPY FOR RESULT ENTRY ONLY Routine 11/25/2024 BD DXA AXIAL (SPINE) WITH HIP Routine [...] Recently Relevant to Health Maintenance Results * Outside Lab (05/10/2025) us Scanning Interface Provider LAB BLOOD BKR ORDERA BLES Final Result * Comprehensive metabolic panel (05/05/2025 8:58 AM EDT) SODIUM 137 133 - 146 mmol/L [facility] POTASSIUM 4.7 3.3 - 5.1 mmol/L [facility] CHLORIDE 101 96 - 108 mmol/L [facility] CO2 25 21 - 35 mmol/L [facility] BUN 11 6 - 19 mg/dL [facility] CREATININE 0.50 0.5 - 1.5 mg/dL [facility] GLUCOSE 89 70 - 99 mg/dL [facility] ALBUMIN 4.3 3.9 - 4.8 g/dL [facility] TOTAL PROTEIN 7.0 6.5 - 8.0 g/dL [facility] CALCIUM 9.5 8.4 - 10.3 mg/dL [facility] ALKALINE PHOSPHATASE 77 39 - 117 U/L [facility] TOTAL BILIRUBIN 0.8 0.0 - 1.2 mg/dL [facility] AST 33 0 - 37 U/L [facility] ALT 26 0 - 40 U/L [facility] GLOBULIN 2.7 1 - 4.8 g/dL [facility] EGFR 103 >59 mL/min/1.7 3m2 [facility] Comment:Estimated glomerular filtration rate calculated using the CKD-EPI refit equation. ANION GAP 16 10 - 20 mmol/L [facility] Blood 05/05/2025 8:58 AM EDT 05/05/2025 9:00 AM EDT us Sia Lebron MD LAB BLOOD BKR ORDERABLES Final Result Performing Organization Address City/[facility]/ZIP Co de Phone Number [address] [address] * Sedimentation rate (ESR) (05/05/2025 8:58 AM EDT) ESR 10 0 - 30 mm/h [facility] Blood 05/05/2025 8:58 AM EDT 05/05/2025 9:00 AM EDT us Sia Lebron MD LAB BLOOD BKR ORDERABLES Final Result [address] [address] * (ABNORMAL) CBC and differential (05/05/2025 8:58 AM EDT) WBC 5.83 4.00 - 11.00 K/uL [facility] RBC 4.09 4.00 - 5.20 M/uL [facility] HGB 13.6 12.0 - 16.0 g/dL [facility] HCT 41.4 36.0 - 46.0 % [facility] PLT 210 150 - 450 K/uL [facility] MCV 101.2(H) 80.0 - 100.0 fL [facility] MCH 33.3(H) 27.0 - 31.0 pg [facility] MCHC 32.9 32.0 - 36.0 g/dL [facility] RDW 13.2 11.5 - 14.5 % [facility] MPV 10.9 8.4 - 12.0 fL [facility] NRBC 0.00 0.00 /100 WBCs [facility] ABSOLUTE NRBC 0.00 0.00 K/uL [facility] DIFF METHOD Auto [facility] NEUTS 59.7 48.0 - 76.0 % [facility] LYMPHS 26.2 18.0 - 41.0 % [facility] MONOS 8.1 4.0 - 11.0 % [facility] EOS 5.0 0.0 - 5.0 % [facility] BASOS 0.7 0.0 - 1.5 % [facility] Granulocytes, immature (%) 0.3 0.0 - 0.9 % [facility] ABSOLUTE NEUTS 3.48 1.92 - 7.60 K/uL [facility] ABSOLUTE LYMPHS 1.53 0.72 - 4.10 K/uL [facility] ABSOLUTE MONOS 0.47 0.16 - 1.10 K/uL [facility] ABSOLUTE EOS 0.29 0.00 - 0.50 K/uL [facility] ABSOLUTE BASOS 0.04 0.00 - 0.15 K/uL [facility] Granulocytes, immature 0.02 0.00 - 0.09 K/uL [facility] Blood 05/05/2025 8:58 AM EDT 05/05/2025 9:00 AM EDT us Sia Lebron MD LAB BLOOD BKR ORDERABLES Final Result [facility] [address] [place] [address] * C-Reactive Protein (05/05/2025 8:58 AM EDT) C REACTIVE PROTEIN <3.0 0.0 - 4.0 mg/L [facility] Blood 05/05/2025 8:58 AM EDT 05/05/2025 9:00 AM EDT Sia Lebron MD LAB BLOOD BKR ORDERABLES Final Result [address] [address] * COLONOSCOPY FOR RESULT ENTRY ONLY (11/25/2024) Colonoscopy External Historical Provider HEALTH MAINTENANCE Final Result * BD DXA AXIAL (SPINE) WITH HIP (09/21/2022 8:09 AM EST) Anatomical Region Laterality Modality Bone Density Bone Density 09/21/2022 2:00 PM EST Impressions 09/21/2022 2:08 PM EST Ongoing normal bone mineral density in the lumbar spine and the right hip however there has been a significant decrease in density in both locations since 2019. POS -[id number] Narrative 09/21/2022 2:08 PM EST This is [...] VERTEBRAL BODIES was calculated at 1.070 g/cm2 with a T score of 0.2, and a Z-score of 2.0. This falls within the WHO classification of normal . This is a -8.1% decrease density since 2019. Density of the right femoral NECK is 0.805g/cm2, T score -0.4, Z score 1.1. Density of the TOTAL RIGHT PROXIMAL FEMUR is 0.815 g/cm2; T-score -1.0; Z-score 0.2. This falls within the WHO classification [...] in density in both locationssince 2019. POS -[id number] Sai Lebron MD [facility] BD BONE DENSITY DEXA Final Result * (ABNORMAL) Lipid panel (09/20/2022 8:02 AM EST) HDL 93 mg/dL [facility] Comment: Interpretation <40 mg/dL: Low HDL cholesterol (major risk factor for CHD) Greater than or equal to 60 mg/dL: High HDL cholesterol ( negative risk factor for CHD) HDL - cholesterol is affected by a number of factors, e.g. smoking, excerise, hormones, sex and age. CHOLESTEROL 224 0 - 240 mg/dL [facility] TRIGLYCERIDES 71 30 - 160 mg/dL [facility] LDL 117 50 - 129 mg/dL [facility] Comment: LDL levels in terms of risk for coronary heart disease: <100 mg/dL: Optimal 100-129 mg/dL: Near or above optimal 130-159 mg/dL: Borderline high 160-189 mg/dL: High >190 mg/dL: Very High CARDIAC RISK RATIO 2.4(L) 3.3 - 4.4 C [facility] Blood 09/20/2022 8:02 AM EST 09/20/2022 8:06 AM EST us Melissa Mcdaniel PROCESS AREA SUPERVISOR LAB BLOOD BKR ORDERABLES Fin al Result [facility] [address] [place], [place] [id number] * BI MAMMOGRAM SCREENING WITH TOMOSYNTHESIS WITH CAD (BILATERAL) (04/12/2022 7:45 AM EDT) Anatomical Region Laterality Modality Breast Left, Breast Right, Breast Bilateral Bila teral Mammography 04/12/2022 8:24 AM EDT Impressions 04/12/2022 8:26 AM EDT No mammographic evidence of malignancy. Recommend routine annual surveillance. BI-RADS CATEGORY: 1 - Negative. DENSITY: There are scattered fibroglandular densities. Narrative 04/12/2022 8:26 AM EDT 66-year-old female. Comparison made to previous on 12/08/2020 and as far back as 05/20/2013. Interpretation made in conjunction with computer-aided detection and [...] There are scattered fibroglandular densities. Melissa Mcdaniel PROCESS AREA SUPERVISOR IMG MG EXAMS Final Result * Hepatitis C antibody, qualitative (02/17/2020 7:25 AM EDT) HCV NON-REACTIV E NON-REACTI VE [facility] Blood 02/17/2020 7:25 AM EDT 02/17/2020 7:29 AM EDT Melissa Mcdaniel NP LAB BLOOD BKR ORDERABLES Fin al Result [address] [address] from Last 3 Months or Most Recently Relevant to Health Maintenance Insurance MEDICARE PART A & B [place] BLUE REPLACEMENT MEDICARE PART A & B MEDICARE PPO BLUE REPLACEMENT MEDICARE PART A & B Member Subscriber Plan / Payer (Ef fective 2022-) Name:Gissell Jeffery Member ID:[id number] Relation to Subscriber:Self Name:Gissell Jeffery Subscriber ID:[id number] Payer ID:[id number] Group ID:Not on file Type:Medicare Address: [employer] [address] [place] [address] [place] [address] MEDICARE PPO BLUE REPLACEMENT MEDICARE PART A & B [place] BLUE REPLACEMENT MEDICARE PART A & B Member Subscriber Plan / Payer (Ef fective 2022-) Name:Gissell Jeffery Member ID:[id number] Relation to Subscriber:Self Name:Gissell Jeffery Subscriber ID:[id number] Payer ID:[id number] Group ID:Not on file Type:Medicare Address: [employer] [address] [place] [id number] [place] [address] MEDICARE PPO BLUE REPLACEMENT MEDICARE PART A & B [facility] MEDICARE PPO BLUE REPLACEMENT Care Teams Personal Security Specialist Relationship Specialty Start Date End Date Juliet Kirkland NP [address] [place] [address] PCP - General Nurse Practitioner 04/20/24 [place] Feng MD [address] [place] [address] Pulmonary Disease 01/16/24 Les Dempsey MD [address] [place] [address] Infectious Diseases 01/16/24 Additional Source Comments The information contained in this document represents components of the legal health record. It is not the complete legal health record.[facility]
--- OUTSIDE RECORDS SUMMARY | 2025-07-07 07:50 | XMS_ITS | Encounter Summary ---
Author Organization [facility] Address [address] [employer] [address] [address] Phone Care Team Providers Care Buggy Ladle Tender Name Role Phone Melissa Mcdaniel CHIEF OPERATIONS OFFICER Primary Care Provider [place] Feng MD Unavailable [phone] Les Dempsey MD Unavailable Juliet Kirkland NP Primary Care Provide r Encounter Details Date Type Department Care Team (Latest Contact Info) Description 07/14/2019 Transcribe Orders [facility] ED [address] [place] [address] Melissa Mcdaniel, CHIEF OPERATIONS OFFICER [address] [place] [address] Dysuria (Primary Dx) Social History Tobacco Use [...] st Contact Info) Description 05/19/2025 Procedure Pass [facility], Ct Scan - [address] [address] 08/09/2025 12:15 PM EST Appointment [facility], Ct Scan - [address] [address] Roshan Albarran MD [address] [address] [email or web address] 08/18/2025 1:00 PM EST Office Visit [facility] [address] [facility], 5t Floor, [address] [place] [address] Roshan Albarran MD [address] [place] [address] [email or web address] 11/15/2025 8:00 AM EDT Office Visit [facility] Rheumatology [address] [place] [address] Sia Lebron MD 22 [facility], [address] [place] [address] [email or web address] documented as of this encounter Results * (ABNORMAL) Urinalysis w/reflex Urine Culture (07/14/2019 6:30 AM EST) COLOR Yellow Yellow [facility] CLARITY Clear [facility] GLUCOSE Negative Negative [facility] BILI Negative Negative [facility] KETONES Negative Negative [facility] SPECIFIC GRAVITY 1.010 1.005 - 1.030 [facility] BLOOD 3+(A) Negative [facility] PH 6.0 5.0 - 8.0 [facility] Protein-UA Negative Negative [facility] NITRITE Negative Negative [facility] Leukocyte esterase, ur 1+(A) Negative [facility] Urine (Urine) 07/14/2019 6:3 0 AM EST 07/14/2019 10:56 AM EST us Melissa M Jonas CHIEF OPERATIONS OFFICER LAB URINE ORDERABLES Final R esult [facility] [address] [place] [address] documented in this encounter Visit Diagnoses Diagnosis [...] documented as of this encounter Care Teams Buggy Ladle Tender Relationship Specialty Start Date End Date Melissa Mcdaniel, CHIEF OPERATIONS OFFICER [address] [place] [address] PCP - General Nurse Practitioner 03/20/18 04/19/24 Juliet Kirkland NP [address] [place] [address] PCP - General Nurse Practitioner 04/20/24 [place] Feng MD [address] [place] [address] Pulmonary Disease 01/16/24 [place] Dempsey MD [address] [place] [address] Infectious Diseases 01/16/24 documented as of this encounter Additional Source Comments The information contained in this document represents components of the legal health record. It is not the complete legal health record.[facility]
--- OUTSIDE RECORDS SUMMARY | 2025-07-07 07:50 | XMS_ITS | Encounter Summary ---
Author Organization [facility] Address [address] [employer] [address] [address] Phone Care Team Providers Care Can Filler Name Role Phone Melissa Mcdaniel ASSISTANT ADMINISTRATOR Primary Care Provider [place] Feng MD Unavailable [phone] [place] Dempsey MD Unavailable Juliet Kirkland ASSISTANT ADMINISTRATOR Primary Care Provide r Encounter Details Date Type Department Care Team (Late st Contact Info) Description 01/28/2019 Documentation [facility] Infectious Disease Virtual Department [address] [place] [address] Pcp, Not Required [address] [place] [address] Social History Tobacco Use Types Packs/Day Years [...] (Late Contact Info) Description 05/19/2025 Procedure Pass [facility], [address] [address] 08/09/2025 12:15 PM EST Appointment [address] [place] [address] Roshan Albarran MD [address] [address] [email or web address] 08/18/2025 1:00 PM EST Office Visit [facility] [address] [facility], 5t Floor, [address] [place] [address] Roshan Albarran MD [address] [address] [email or web address] 11/15/2025 8:00 AM EDT Office Visit [facility] Rheumatology [address] [place] [address] Sia Lebron MD 22 [facility], [address] [place] [address] [email or web address] documented as of this encounter Visit [...] documented as of this encounter Care Teams Can Filler Relationship Specialty Start Date End Date Melissa Mcdaniel NP [address] [place] [address] PCP - General Nurse Practitioner 03/20/18 04/19/24 Juliet Kirkland NP [address] [place] [address] PCP - General Nurse Practitioner 04/20/24 [place] Feng MD [address] [place] [address] Pulmonary Disease 01/16/24 [place] Dempsey MD [address] [place] [address] Infectious Diseases 01/16/24 documented as of this encounter Additional Source Comments The information contained in this document represents components of the legal health record. It is not the complete legal health record.[facility]
--- OUTSIDE RECORDS SUMMARY | 2025-07-07 07:50 | XMS_ITS | Encounter Summary ---
Author Organization [facility] Address [address] [address] Phone Care Team Providers Care Historian Research Assistant Name Role Phone Melissa Mcdaniel TRIPLE VALVE MECHANIC Primary Care Provider [phone] Leonel Feng MD Unavailable [phone] Les Dempsey MD Unavailable Juliet Kirkland NP Primary Care Provide r Encounter Details Date Type Department Care Team (Latest Contact Info) Description 01/02/2019 Transcribe Orders [facility] [address] [place] [address] Melissa Mcdaniel, TRIPLE VALVE MECHANIC [address] [place] [address] Dysuria (Primary Dx) Social History Tobacco Use [...] st Contact Info) Description 05/19/2025 Procedure Pass [facility], Ct Scan - [address] [address] 08/09/2025 12:15 PM EST Appointment [facility], Ct Scan - [address] [address] Roshan Albarran MD [address] [address] [email or web address] 08/18/2025 1:00 PM EST Office Visit [facility] [address] [facility], 5t Floor, [address] [place] [address] Roshan Albarran MD [address] [place] [address] [email or web address] 11/15/2025 8:00 AM EDT Office Visit [facility] Rheumatology [address] [place] [address] Sia Lebron MD 22 [facility], [address] [place] [address] [email or web address] documented as of this encounter Results * (ABNORMAL) Urinalysis w/reflex Urine Culture (01/02/2019 6:00 AM EDT) COLOR Yellow Yellow [facility] CLARITY Clear [facility] GLUCOSE [facility] Negative [facility] BILI Negative Negative [facility] KETONES Negative Negative [facility] SPECIFIC GRAVITY 1.015 1.005 - 1.030 [facility] BLOOD 2+(A) Negative [facility] PH 5.5 5.0 - 8.0 [facility] Protein-UA Negative Negative [facility] NITRITE Negative Negative [facility] Leukocyte esterase, ur Trace(A) Negative [facility] Urine (Urine) 01/02/2019 6:0 0 AM EDT 01/02/2019 10:22 AM EDT Melissa Mcdaniel TRIPLE VALVE MECHANIC LAB URINE ORDERABLES Final R esult [facility] [address] [place] [address] documented in this encounter Visit Diagnoses Diagnosis [...] documented as of this encounter Care Teams Historian Research Assistant Relationship Specialty Start Date End Date Melissa Mcdaniel, TRIPLE VALVE MECHANIC [address] [place] [address] PCP - General Nurse Practitioner 03/20/18 04/19/24 Juliet Kirkland NP [address] [place] [address] PCP - General Nurse Practitioner 04/20/24 Le[place] Feng MD [address] [place] [address] Pulmonary Disease 01/16/24 [place] Dempsey MD [address] [place] [address] Infectious Diseases 01/16/24 documented as of this encounter Additional Source Comments The information contained in this document represents components of the legal health record. It is not the complete legal health record.[facility]
--- OUTSIDE RECORDS SUMMARY | 2025-07-07 07:50 | XMS_ITS | Encounter Summary ---
Author Organization [facility] Address [address] [facility] [address] [place] [address] Phone Care Team Providers Care Dominatrix Name Role Phone Leonel Feng MD Unavailable [phone] Les Dempsey MD Unavailable Juliet Kirkland NP Primary Care Provide r Encounter Details Date Type Department Care Team (Late st Contact Info) Description 08/27/2024 Procedure Pass [facility], Ct Scan - [address] [address] Social History Tobacco Use Types Packs/Day Years Used Date Smoking Tobacco: Never Passive Smoke Exposure: Past Smokeless Tobacco: Never Alcohol Use Standard Drinks/Week Comments Yes 0 (1 standard drink = 0.6 oz pur e alcohol) [facility] Assessment: Transportation Answer Date Recorded [...] st Contact Info) Description 05/19/2025 Procedure Pass [facility], Ct Scan - [address] [address] 08/09/2025 12:15 PM EST Appointment [facility], Ct Scan - [facility] [address] [place] [address] Roshan Albarran MD [address] [address] [email or web address] 08/18/2025 1:00 PM EST Office Visit [facility] [address] [facility], 5t Floor, [address] [place] [address] Roshan Albarran MD [address] [address] [email or web address] 11/15/2025 8:00 AM EDT Office Visit [facility] Rheumatology [address] [place] [address] Sia Lebron MD [address] [place] [address], [address] [place] [address] [email or web address] documented as of this encounter Visit Diagnoses Not on filedocumented in this encounter Care Teams Dominatrix Relationship Specialty Start Date End Date Juliet Kirkland NP [address] [place] [address] PCP - General Nurse Practitioner 04/20/24 Leonel Feng MD [address] [place] [address] Pulmonary Disease 01/16/24 [place] Dempsey MD [address] [place] [address] Infectious Diseases 01/16/24 documented as of this encounter Additional Source Comments The information contained in this document represents components of the legal health record. It is not the complete legal health record.[facility]
--- OUTSIDE RECORDS SUMMARY | 2025-07-07 07:51 | XMS_ITS | Encounter Summary ---
Author Organization [facility] Address [address] [employer] [address] [address] Phone Care Team Providers Care Investment Counselor Name Role Phone Melissa Mcdaniel NOUGAT CUTTER MACHINE Primary Care Provider Leonel Feng MD Unavailable [phone] Les Dempsey MD Unavailable Juliet Kirkland NOUGAT CUTTER MACHINE Primary Care Provide r Encounter Details Date Type Department Care Team (Late st Contact Info) Description 05/25/2021 Procedure Pass [address] [address] Social History Tobacco Use Types Packs/Day Years [...] st Contact Info) Description 05/19/2025 Procedure Pass [address] [address] 08/09/2025 12:15 PM EST Appointment [address] [address] Roshan Albarran MD [address] [address] [email or web address] 08/18/2025 1:00 PM EST Office Visit [facility] 55 [facility] Building, 5t Floor, [address] [place] [address] Roshan Albarran MD [address] [address] [email or web address] 11/15/2025 8:00 AM EDT Office Visit [facility] Rheumatology [address] [place] [address] Sia Lebron MD 22 [facility], [address] [place] [address] [email or web address] g documented as of this encounter Visit Diagnoses Not on filedocumented in this encounter 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 1:32 AM EDT CoV-Risk 04/29/2022 04/29/2022 04/29/2022 1:04 PM EDT COVID-19 04/29/2022 04/29/2022 05/20/2022 1:21 AM EDT documented as of this encounter Care Teams Investment Counselor Relationship Specialty Start Date End Date Melissa Mcdaniel NP 95 [place] [address] PCP - General Nurse Practitioner 03/20/18 04/19/24 Juliet Kirkland NP [address] [place] [address] PCP - General Nurse Practitioner 04/20/24 Leonel Feng MD [address] [place] [address] Pulmonary Disease 01/16/24 [place] Dempsey MD [address] [id number] Infectious Diseases 01/16/24 documented as of this encounter Additional Source Comments The information contained in this document represents components of the legal health record. It is not the complete legal health record.[facility]
--- OUTSIDE RECORDS SUMMARY | 2025-07-07 07:51 | XMS_ITS | Encounter Summary ---
Author Organization [facility] Address [address] [address] Phone Care Team Providers Care Structural Biologist Name Role Phone Mariah Soares HOT DOG VENDOR Primary Care Provider Melissa Mcdaniel HOT DOG VENDOR Primary Care Provider Leonel Feng MD Unavailable [phone] Les Dempsey MD Unavailable Juliet Kirkland HOT DOG VENDOR Primary Care Provide r Encounter Details Date Type Department Care Team (Late st Contact Info) Description 12/13/2017 Ancillary Orders [facility],Outside Imaging [address] [place], [place] [id number] System, Provider Not In, [place] [address] Social History Tobacco Use Types Packs/Day Years Used Date Smoking Tobacco: Never Assessed Comments Unknown Sex and Gender Information Value Date Recorded Sex Assigned at Not on file Legal Sex Female 4:37 PM EST Gender Identity Not on file Sexual Orientation Not on file documented as of this encounter Plan of Treatment Upcoming Encounters Date Type Department Care Team (Late st Contact Info) Description 05/19/2025 Procedure Pass [facility], Ct Scan - [facility] 30 [place] [address] 08/09/2025 12:15 PM EST Appointment [facility], Ct Scan - Main Hospital [address] [place] [address] Roshan Albarran MD 55 [facility] [address] [place] [address] CONNER@[email or web address] 08/18/2025 1:00 PM EST Office Visit [facility] 55 [facility] Building, 5t Floor, [address] [place] [address] Roshan Albarran MD 55 [facility] [address] [place] [address] [email or web address] 11/15/2025 8:00 AM EDT Office Visit [address] [address] Sia Lebron MD 22 [facility], [address] [place] [address] [email or web address] documented as of this encounter Results * Mammogram Outside (No Interpretation) (01/04/2017 12:00 AM EDT) Narrative SYSTEMGENERATED, DOCUMENTATION - 12/13/2017 2:02 PM EDT This study is for PACS storage only and not for interpretation. us Provider Not In System PhD IMG OUTSIDE IMAGING W /OUT INTERPRETATION Final Result * Mammogram Outside (No Interpretation) (12/11/2016 12:00 AM EDT) Narrative SYSTEMGENERATED, DOCUMENTATION - 12/13/2017 2:02 PM EDT This study is for PACS storage only and not for interpretation. us Provider Not In System PhD IMG OUTSIDE IMAGING W /OUT INTERPRETATION Final Result * Mammogram Outside (No Interpretation) (09/29/2015 12:15 AM EST) Narrative SYSTEMGENERATED, DOCUMENTATION - 12/13/2017 2:01 PM EDT This study is for PACS storage only and not for interpretation. us Provider Not In System PhD IMG OUTSIDE IMAGING W /OUT INTERPRETATION Final Result * US Breast Outside (No Interpretation) (09/29/2015 12:00 AM EST) Narrative SYSTEMGENERATED, DOCUMENTATION - 12/13/2017 1:59 PM EDT This study is for PACS storage only and not for interpretation. us Provider Not In System PhD IMG OUTSIDE IMAGING W /OUT INTERPRETATION Final Result * Mammogram Outside (No Interpretation) (09/21/2015 12:00 AM EST) Narrative SYSTEMGENERATED, DOCUMENTATION - 12/13/2017 1:58 PM EDT This study is for PACS storage only and not for interpretation. us Provider Not In System PhD IMG OUTSIDE IMAGING W /OUT INTERPRETATION Final Result * Mammogram Outside (No Interpretation) (07/21/2014 12:00 AM EST) Narrative SYSTEMGENERATED, DOCUMENTATION - 12/13/2017 1:58 PM EDT This study is for PACS storage only and not for interpretation. us Provider Not In System PhD IMG OUTSIDE IMAGING W /OUT INTERPRETATION Final Result * Mammogram Outside (No Interpretation) (05/20/2013 12:00 [...] documented as of this encounter Care Teams Structural Biologist Relationship Specialty Start Date End Date Mariah Soares HOT DOG VENDOR [address] [place] [address] PCP - General Family Medicine 12/10/17 03/19/18 Melissa Mcdaniel, HOT DOG VENDOR [address] [place] [address] PCP - General Nurse Practitioner 03/20/18 04/19/24 Juliet Kirkland NP [address] [place] [address] PCP - General Nurse Practitioner 04/20/24 Leonel Feng MD [address] [place] [address] Pulmonary Disease 01/16/24 Les Dempsey MD [address] [place] [address] Infectious Diseases 01/16/24 documented as of this encounter Additional Source Comments The information contained in this document represents components of the legal health record. It is not the complete legal health record.[facility]
--- OUTSIDE RECORDS SUMMARY | 2025-07-07 07:51 | XMS_ITS | Encounter Summary ---
Author Organization [facility] Address 399 [facility] [address] [place] [address] Phone Care Team Providers Care Carbon Paper Coating Machine Setter Name Role Phone Melissa Mcdaniel SUPERVISOR COUNSELING AND GUIDANCE Primary Care Provider Leonel Feng MD Unavailable [phone] Les Dempsey MD Unavailable Juliet Kirkland NP Primary Care Provide r Encounter Details Date Type Department Care Team (Late st Contact Info) Description 03/24/2018 Ancillary Orders Virtual Department 30 [place] [address] Dale Neville MD [address] [place] [address] Drive [address] [place] [address] Abnormal mammogram Social History Tobacco Use Types Packs/Day Years Used Date Smoking Tobacco: Never Assessed Comments No Sex and Gender Information Value Date Recorded Sex Assigned at Not on file Legal Sex Female 4:37 PM EST Gender Identity Not on file Sexual Orientation Not on file documented as of this encounter Plan of Treatment Upcoming Encounters Date Type Department Care Team (Late st Contact Info) Description 05/19/2025 Procedure Pass [facility], [facility] 30 [place] [address] 08/09/2025 12:15 PM EST Appointment [facility] 30 [place] [address] Roshan Albarran MD [address] [address] [email or web address] 08/18/2025 1:00 PM EST Office Visit [facility] 55 [facility] Building, 5t Floor, [address] [place] [address] Roshan Albarran MD [address] [address] [email or web address] 11/15/2025 8:00 AM EDT Office Visit [facility] Rheumatology 22 [place] [address] Sia Lebron MD 22 [facility], [address] [place] [address] [email or web address] documented as of this encounter Visit [...] documented as of this encounter Care Teams Carbon Paper Coating Machine Setter Relationship Specialty Start Date End Date Melissa Mcdaniel NP [address] [place] [address] PCP - General Nurse Practitioner 03/20/18 04/19/24 Juliet Kirkland NP [address] [place] [address] PCP - General Nurse Practitioner 04/20/24 Leonel Feng MD [address] [place] [address] Pulmonary Disease 01/16/24 Les Dempsey MD [address] [place] [address] Infectious Diseases 01/16/24 documented as of this encounter Additional Source Comments The information contained in this document represents components of the legal health record. It is not the complete legal health record.[facility]
--- OUTSIDE RECORDS SUMMARY | 2025-07-07 07:51 | XMS_ITS | Encounter Summary ---
Author Organization [facility] Address [address] [address] Phone Care Team Providers Care Novelty Twister Operator Name Role Phone Melissa Mcdaniel WIDE AREA NETWORK ENGINEER Primary Care Provider Leonel Feng MD Unavailable [phone] Les Dempsey MD Unavailable Juliet Kirkland NP Primary Care Provide r Encounter Details Date Type Department Care Team (Latest Contact Info) Description 06/04/2018 Transcribe Orders [facility] [address] [place] [address] Humphrey Jones PA 10 [place] [address] Dysuria (Primary Dx) Social History Tobacco Use [...] st Contact Info) Description 05/19/2025 Procedure Pass [facility], Ct Scan - [facility] 30 [place] [address] 08/09/2025 12:15 PM EST Appointment [facility], Ct Scan - [facility] 30 [place] [address] Roshan Albarran MD [address] [address] [email or web address] 08/18/2025 1:00 PM EST Office Visit [facility] 55 [facility] Building, 5t Floor, [address] [place] [address] Roshan Albarran MD [address] [address] CONNER@[email or web address] 11/15/2025 8:00 AM EDT Office Visit [facility] Rheumatology [address] [place] [address] Sia Lebron MD 22 [facility], [address] [place] [address] [email or web address] documented as of this encounter Results * (ABNORMAL) Urinalysis w/reflex Urine Culture (06/04/2018 11:02 AM EDT) COLOR Yellow Yellow [facility] CLARITY Clear [facility] GLUCOSE Negative Negative [facility] BILI Negative Negative [facility] KETONES Negative Negative [facility] SPECIFIC GRAVITY 1.020 1.005 - 1.030 [facility] BLOOD 1+(A) Negative [facility] PH 7.0 5.0 - 8.0 [facility] Protein-UA Negative Negative [facility] NITRITE Negative Negative [facility] Leukocyte esterase, ur Negative Negative [facility] Urine (Urine) 06/04/2018 11: 02 AM EDT 06/04/2018 11:06 AM EDT us Humphrey [facility] URINE ORDERABLES Fin al Result [facility] 30 [place] [address] documented in this encounter Visit Diagnoses Diagnosis [...] documented as of this encounter Care Teams Novelty Twister Operator Relationship Specialty Start Date End Date Melissa Mcdaniel WIDE AREA NETWORK ENGINEER 95 [place] [address] PCP - General Nurse Practitioner 03/20/18 04/19/24 Juliet Kirkland NP 95 [place] [address] PCP - General Nurse Practitioner 04/20/24 Leonel Feng MD [address] [place] [address] Pulmonary Disease 01/16/24 Les Dempsey MD [address] [place] [address] Infectious Diseases 01/16/24 documented as of this encounter Additional Source Comments The information contained in this document represents components of the legal health record. It is not the complete legal health record.[facility]
--- OUTSIDE RECORDS SUMMARY | 2025-07-07 07:51 | XMS_ITS | Encounter Summary ---
Author Organization [facility] Address [address] [employer] [address] [address] Phone Care Team Providers Care Boiler Tube Reamer Name Role Phone Melissa Mcdaniel AUTOMOTIVE BRAKE ADJUSTER Primary Care Provider Leonel Feng MD Unavailable [phone] Les Dempsey MD Unavailable Juliet Kirkland NP Primary Care Provide r Encounter Details Date Type Department Care Team (Latest Contact Info) Description 08/03/2020 Transcribe Orders Virtual Department [address] [place] [address] Melissa Mcdaniel, AUTOMOTIVE BRAKE ADJUSTER 95 [place] [address] Exposure to SARS virus (Primary Dx) Social [...] st Contact Info) Description 05/19/2025 Procedure Pass [facility], Ct Scan - [facility] [address] [place] [address] 08/09/2025 12:15 PM EST Appointment [facility], Ct Scan - [facility] 30 [place] [address] Roshan Albarran MD [address] [place] [address] [email or web address] 08/18/2025 1:00 PM EST Office Visit [facility] 55 [facility] Building, 5t Floor, [address] [place] [address] Roshan Albarran MD [address] [place] [address] [email or web address] 11/15/2025 8:00 AM EDT Office Visit [facility] Rheumatology 22 [place] [address] Sia Lebron MD 22 [facility], [address] [place] [address] [email or web address] documented as of this encounter Results * COVID-19 PCR Order (08/04/2020 7:49 AM EST) COVID Testing Status Sent to [facility] Symptomatic? NO [facility] Other 08/04/2020 7:49 AM EST 08/04/2020 12:55 PM EST us Melissa Mcdaniel NP LAB GENERAL ORDERABLES Final Result [address] [address] documented in this encounter Visit Diagnoses Diagnosis [...] documented as of this encounter Care Teams Boiler Tube Reamer Relationship Specialty Start Date End Date Melissa Mcdaniel, AUTOMOTIVE BRAKE ADJUSTER 95 [place] [address] PCP - General Nurse Practitioner 03/20/18 04/19/24 Juliet Kirkland NP 95 [place] [address] PCP - General Nurse Practitioner 04/20/24 Leonel Feng MD [address] [place] [address] Pulmonary Disease 01/16/24 Les Dempsey MD [facility] [address] [address] Infectious Diseases 01/16/24 documented as of this encounter Additional Source Comments The information contained in this document represents components of the legal health record. It is not the complete legal health record.[facility]
--- OUTSIDE RECORDS SUMMARY | 2025-07-07 07:51 | XMS_ITS | Encounter Summary ---
Author Organization [facility] Address [address] [address] Phone Care Team Providers Care Laborer Vegetable Farm Name Role Phone Melissa Mcdaniel LEAD JAVA SOFTWARE ENGINEER Primary Care Provider Leonel Feng MD Unavailable [phone] Les Dempsey MD Unavailable Juliet Kirkland LEAD JAVA SOFTWARE ENGINEER Primary Care Provide r Reason for Referral * MRI/CAT Scan - Closed Specialty Diagnoses / Procedures Referred By Bob abreu Referred To Contact Radiology Diagnoses Other microscopic hematuria Personal history of urinary (tract) infection Procedures CT Abdomen/Pelvis Cecile Yeung MD Phone: tel: fax: [email or web address] Referral ID Status Reason Start Date Expiration Date Visits Re quested Visits Authorized [id number] Closed 05/25/2021 05/25/2022 1 1 Encounter Details Date Type Department Care Team (Latest Contact Info) Description 05/25/2021 Transcribe Orders Virtual Department 30 [place] [address] Cecile Yeung MD [address] [place] [address] [email or web address] Other microscopic hematuria (Primary Dx); Personal history [...] st Contact Info) Description 05/19/2025 Procedure Pass [address] [address] 08/09/2025 12:15 PM EST Appointment [address] [address] Roshan Albarran MD [address] [place] [address] [email or web address] 08/18/2025 1:00 PM EST Office Visit [address], 5t Floor, [address] [place] [address] Roshan Albararn MD [address] [place] [address] [email or web address] 11/15/2025 8:00 AM EDT Office Visit [facility] Rheumatology [address] [place] [address] Sia Lebron MD [address] [place] [address], [address] [place] [address] [email or web address] documented as of this encounter Results [...] [id number] Cecile Yeung MD IMG CT ABD/PELVIS Final Re sult documented in this encounter Visit Diagnoses Diagnosis [...] documented as of this encounter Care Teams Laborer Vegetable Farm Relationship Specialty Start Date End Date Melissa Mcdaniel NP 95 [place] [address] PCP - General Nurse Practitioner 03/20/18 04/19/24 Juliet Kirkland NP [address] [place] [address] PCP - General Nurse Practitioner 04/20/24 Leonel Feng MD [address] [place] [address] Pulmonary Disease 01/16/24 Les Dempsey MD [address] [place] [address] Infectious Diseases 01/16/24 documented as of this encounter Additional Source Comments The information contained in this document represents components of the legal health record. It is not the complete legal health record.[facility]
--- OUTSIDE RECORDS SUMMARY | 2025-07-07 07:51 | XMS_ITS | Encounter Summary ---
Author Organization [facility] Address [address] [address] Phone Care Team Providers Care Freight Team Associate Name Role Phone Melissa Mcdaniel EDUCATIONAL INSTITUTION PRESIDENT Primary Care Provider Leonel Feng MD Unavailable [phone] Les Dempsey MD Unavailable Juliet Kirkland NP Primary Care Provide r Encounter Details Date Type Department Care Team (Latest Contact Info) Description 06/06/2018 Transcribe Orders [facility] [address] [place] [address] Melissa Mcdaniel, EDUCATIONAL INSTITUTION PRESIDENT 95 [place] [address] Screening for diabetes mellitus (Primary Dx); Screening [...] st Contact Info) Description 05/19/2025 Procedure Pass [facility], Ct Scan - [address] [address] 08/09/2025 12:15 PM EST Appointment [facility], Ct Scan - [facility] 30 [place] [address] Roshan Albarran MD [address] [place] [address] CONNER@[email or web address] 08/18/2025 1:00 PM EST Office Visit [facility] 55 [facility] Building, 5t Floor, [address] [place] [address] Roshan Albarran MD [address] [address] [email or web address] 11/15/2025 8:00 AM EDT Office Visit [facility] Rheumatology 22 [place] [address] Sia Lebron MD 22 [facility], [address] [place] [address] [email or web address] documented as of this encounter Results * TSH (06/06/2018 8:03 AM EDT) Pathologist [facility] TSH 2.24 0.27 - 4.20 uIU/mL [facility] Blood 06/06/2018 8:03 AM EDT 06/06/2018 8:07 AM EDT us Melissa Mcdaniel EDUCATIONAL INSTITUTION PRESIDENT LAB BLOOD BKR ORDERABLES Fin al Result [facility] 30 [place] [address] * (ABNORMAL) Lipid panel (06/06/2018 8:03 AM EDT) HDL 61 mg/dL [facility] Comment: Interpretation: Risk Level Females Decreased >55mg/dL Average 50-55 mg/dL Increased <50 mg/dL CHOLESTEROL 179 0 - 240 mg/dL [facility] TRIGLYCERIDES 52 30 - 160 mg/dL [facility] LDL 108 50 - 129 mg/dL [facility] Comment: LDL levels in terms of risk for coronary heart disease: <100 mg/dL: Optimal 100-129 mg/dL: Near or above optimal 130-159 mg/dL: Borderline high 160-189 mg/dL: High >190 mg/dL: Very High CARDIAC RISK RATIO 2.9(L) 3.3 - 4.4 C [facility] Blood 06/06/2018 8:03 AM EDT 06/06/2018 8:07 AM EDT us Melissa Mcdaniel EDUCATIONAL INSTITUTION PRESIDENT LAB BLOOD BKR ORDERABLES Fin al Result [facility] 30 [place], [place] [id number] * Comprehensive metabolic panel (06/06/2018 8:03 AM EDT) SODIUM 139 133 - 146 mmol/L [facility] POTASSIUM 4.7 3.3 - 5.1 mmol/L [facility] CHLORIDE 100 96 - 108 mmol/L [facility] CO2 26 21 - 35 mmol/L [facility] BUN 12 6 - 19 mg/dL [facility] CREATININE 0.70 0.5 - 1.5 mg/dL [facility] GLUCOSE 79 70 - 99 mg/dL [facility] ALBUMIN 4.2 3.9 - 4.8 g/dL [facility] TOTAL PROTEIN 7.2 6.5 - 8.0 g/dL [facility] CALCIUM 8.7 8.4 - 10.3 mg/dL [facility] ALKALINE PHOSPHATASE 74 39 - 117 U/L [facility] TOTAL BILIRUBIN 0.4 0.0 - 1.2 mg/dL [facility] AST 25 0 - 37 U/L [facility] ALT 19 0 - 40 U/L [facility] GLOBULIN 3.0 1 - 4.8 g/dL [facility] EGFR 94 >59 mL/min/1.7 3m2 [facility] Comment:If patient is black, multiply result by 1.159. Estimated glomerular filtration rate calculated using the CKD-EPI equation. ANION GAP 18 10 - 20 mmol/L [facility] Blood 06/06/2018 8:03 AM EDT 06/06/2018 8:07 AM EDT Melissa Mcdaniel EDUCATIONAL INSTITUTION PRESIDENT LAB BLOOD BKR ORDERABLES Fin al Result Performing Organization Address [facility] Co de Phone Number [address] [address] * Hepatitis C antibody, qualitative (06/06/2018 8:03 AM EDT) HCV Negative Negative [facility] Comment: This is a screening test and should be confirmed with molecular testing Blood 06/06/2018 8:03 AM EDT 06/06/2018 8:07 AM EDT Melissa Mcdaniel NP LAB BLOOD BKR ORDERABLES Fin al Result Performing Organization Address [facility] Co de Phone Number [address] [address] documented in this encounter Visit Diagnoses Diagnosis [...] documented as of this encounter Care Teams Freight Team Associate Relationship Specialty Start Date End Date Melissa Mcdaniel NP [address] [place] [address] PCP - General Nurse Practitioner 03/20/18 04/19/24 Juliet Kirkland NP [address] [place] [address] PCP - General Nurse Practitioner 04/20/24 Leonel Feng MD [address] [place] [address] Pulmonary Disease 01/16/24 Les Dempsey MD [address] [place] [address] Infectious Diseases 01/16/24 documented as of this encounter Additional Source Comments The information contained in this document represents components of the legal health record. It is not the complete legal health record.[facility]
--- OUTSIDE RECORDS SUMMARY | 2025-07-07 07:51 | XMS_ITS | Encounter Summary ---
Author Organization [facility] Address [address] [place] [address] Phone Care Team Providers Care Small Animal Veterinarian Name Role Phone Leonel Feng MD Unavailable [phone] Les Dempsey MD Unavailable Juliet Kirkland DIRECTOR ONLINE MARKETING Primary Care Provide r Encounter Details Date Type Department Care Team (Late st Contact Info) Description 06/02/2024 Procedure Pass Interventional Radiology, [facility] Imaging - [address], [address] [place] [id number] Social History Tobacco Use Types Packs/Day Years [...] st Contact Info) Description 05/19/2025 Procedure Pass [facility], Ct Scan - [address] [address] 08/09/2025 12:15 PM EST Appointment [facility], Ct Scan - [address] [address] Roshan Albarran MD [address] [place] [address] [email or web address] 08/18/2025 1:00 PM EST Office Visit [address], 5t Floor, [address] [place] [address] Roshan Albarran MD [address] [place] [address] [email or web address] 11/15/2025 8:00 AM EDT Office Visit [facility] Rheumatology [address] [place] [address] Sia Lebron MD [address] [place] [address], [address] [place] [address] [email or web address] documented as of this encounter Visit Diagnoses Not on filedocumented in this encounter Care Teams Small Animal Veterinarian Relationship Specialty Start Date End Date Juliet Kirkland NP [address] [place] [address] PCP - General Nurse Practitioner 04/20/24 Leonel Feng MD [address] [place] [address] Pulmonary Disease 01/16/24 Les Dempsey MD [facility] [address] [address] Infectious Diseases 01/16/24 documented as of this encounter Additional Source Comments The information contained in this document represents components of the legal health record. It is not the complete legal health record.[facility]
--- OUTSIDE RECORDS SUMMARY | 2025-07-07 07:51 | XMS_ITS | Encounter Summary ---
Author Organization [facility] Address [address] [employer] [address] [address] Phone Care Team Providers Care Substance Abuse Clinician Name Role Phone Melissa Mcdaniel ENVIRONMENTAL HEALTH SAFETY MANAGER Primary Care Provider Leonel Feng MD Unavailable [phone] Les Dempsey MD Unavailable Juliet Kirkland NP Primary Care Provide r Encounter Details Date Type Department Care Team (Late st Contact Info) Description 06/18/2018 Transcribe Orders [facility] [address] [place] [address] System, Provider Not In, PhD Partners [address] [address] Sicca syndrome (Primary Dx); Scapulohumeral fibrositis Social [...] st Contact Info) Description 05/19/2025 Procedure Pass [facility], Ut Scan [facility] [address] [place] [address] 08/09/2025 12:15 PM EST Appointment [facility], Ct Scan - [address] [address] Roshan Albarran MD [address] [address] [email or web address] 08/18/2025 1:00 PM EST Office Visit [facility] 55 [facility] Building, 5t Floor, [address] [place] [address] Roshan Albarran MD [address] [address] [email or web address] 11/15/2025 8:00 AM EDT Office Visit [facility] Rheumatology [address] [place] [address] Sia Lebron MD [address] [place] [address], [address] [place] [address] [email or web address] g documented as of this encounter Results * Antinuclear antibody (MADELINE) (06/18/2018 8:16 AM EST) Pathologist [facility] MADELINE SCREEN ON HEP 2 Negative Negative [facility] Blood 06/18/2018 8:16 AM EST 06/18/2018 8:29 AM EST us Provider Not In System PhD LAB BLOOD BKR ORDERAB LES Final Result [facility] [address] [place] [address] * (ABNORMAL) CBC and differential (06/18/2018 8:16 AM EST) Pathologist [facility] WBC 5.84 3.40 - 11.20 K/uL [facility] RBC 4.00 3.80 - 4.80 M/uL [facility] HGB 13.1 12.0 - 15.0 g/dL [facility] HCT 39.8 36.0 - 46.0 % [facility] PLT 234 130 - 400 K/uL [facility] MCV 99.5(H) 79.0 - 98.0 fL [facility] MCH 32.8 27.0 - 34.8 pg [facility] MCHC 32.9 31.5 - 36.0 g/dL [facility] RDW 12.6 10.8 - 14.6 % [facility] MPV 11.2 9.4 - 12.4 fl [facility] NRBC 0.00 0.00 /100 WBCs [facility] ABSOLUTE NRBC 0.00 0.00 K/uL [facility] DIFF METHOD Auto [facility] NEUTS 54.0 45.30 - 77.70 % [facility] LYMPHS 32.5 12.30 - 39.70 % [facility] MONOS 9.1 4.10 - 12.80 % [facility] EOS 3.4 0 - 7.2 % [facility] BASOS 0.7 0 - 2.80 % [facility] Granulocytes, immature (%) 0.3 0.0 - 0.9 % [facility] ABSOLUTE NEUTS 3.15 1.40 - 7.70 K/uL [facility] ABSOLUTE LYMPHS 1.90 0.60 - 3.20 K/uL [facility] ABSOLUTE MONOS 0.53 0.11 - 0.59 K/uL [facility] ABSOLUTE EOS 0.20 0.01 - 0.50 K/uL [facility] ABSOLUTE BASOS 0.04 0.00 - 0.08 K/uL [facility] Granulocytes, immature 0.02 0.00 - 0.05 K/uL [facility] Blood 06/18/2018 8:16 AM EST 06/18/2018 8:29 AM EST us Provider Not In System PhD LAB BLOOD BKR ORDERAB LES Edited Result - Final [facility] [address] [place] [address] * Comprehensive metabolic panel (06/18/2018 8:16 AM EST) SODIUM 139 133 - 146 mmol/L [facility] POTASSIUM 4.4 3.3 - 5.1 mmol/L [facility] CHLORIDE 99 96 - 108 mmol/L [facility] CO2 30 21 - 35 mmol/L [facility] BUN 15 6 - 19 mg/dL [facility] CREATININE 0.60 0.5 - 1.5 mg/dL [facility] GLUCOSE 95 70 - 99 mg/dL [facility] ALBUMIN 4.3 3.9 - 4.8 g/dL [facility] TOTAL PROTEIN 7.4 6.5 - 8.0 g/dL [facility] CALCIUM 9.0 8.4 - 10.3 mg/dL [facility] ALKALINE PHOSPHATASE 78 39 - 117 U/L [facility] TOTAL BILIRUBIN 0.5 0.0 - 1.2 mg/dL [facility] AST 22 0 - 37 U/L [facility] ALT 18 0 - 40 U/L [facility] GLOBULIN 3.1 1 - 4.8 g/dL [facility] EGFR 99 >59 mL/min/1.7 3m2 [facility] Comment:If patient is black, multiply result by 1.159. Estimated glomerular filtration rate calculated using the CKD-EPI equation. ANION GAP 14 10 - 20 mmol/L [facility] Blood 06/18/2018 8:16 AM EST 06/18/2018 8:29 AM EST us Provider Not In System PhD LAB BLOOD BKR ORDERAB LES Edited Result - Final Performing Organization Address City/State/[facility] Co de Phone Number [address] [address] documented in this encounter Visit Diagnoses Diagnosis [...] documented as of this encounter Care Teams Substance Abuse Clinician Relationship Specialty Start Date End Date Melissa Mcdaniel ENVIRONMENTAL HEALTH SAFETY MANAGER [address] [place] [address] PCP - General Nurse Practitioner 03/20/18 04/19/24 Juliet Kirkland NP [address] [place] [address] PCP - General Nurse Practitioner 04/20/24 Leonel Feng MD [address] [place] [address] Pulmonary Disease 01/16/24 Les Dempsey MD [address] [place] [address] Infectious Diseases 01/16/24 documented as of this encounter Additional Source Comments The information contained in this document represents components of the legal health record. It is not the complete legal health record.[facility]
--- OUTSIDE RECORDS SUMMARY | 2025-07-07 07:51 | XMS_ITS | Encounter Summary ---
Author Organization [facility] Address [address] [employer] [address] [address] Phone Care Team Providers Care Electrical Equipment Technician Name Role Phone Melissa Mcdaniel HONEYCOMB BLANKET MAKER Primary Care Provider Leonel Feng MD Unavailable [phone] Les Dempsey MD Unavailable Juliet Kirkland HONEYCOMB BLANKET MAKER Primary Care Provide r Encounter Details Date Type Department Care Team (Late st Contact Info) Description 04/03/2022 Procedure Pass [facility] - [address] [place] [address] Social History Tobacco Use Types Packs/Day Years [...] st Contact Info) Description 05/19/2025 Procedure Pass [address] [address] 08/09/2025 12:15 PM EST Appointment [address] [address] Roshan Albarran MD [address] [address] [email or web address] 08/18/2025 1:00 PM EST Office Visit [facility] 55 [facility] Building, 5t Floor, [address] [place] [address] Roshan Albarran MD [address] [address] [email or web address] 11/15/2025 8:00 AM EDT Office Visit [facility] Rheumatology [address] [place] [address] Sia Lebron MD 22 [facility], [address] [place] [address] [email or web address] documented as of this encounter Visit Diagnoses Not on filedocumented in this encounter 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 1:32 AM EDT CoV-Risk 04/29/2022 04/29/2022 04/29/2022 1:04 PM EDT COVID-19 04/29/2022 04/29/2022 05/20/2022 1:21 AM EDT documented as of this encounter Care Teams Electrical Equipment Technician Relationship Specialty Start Date End Date Melissa Mcdaniel NP [address] [place] [address] PCP - General Nurse Practitioner 03/20/18 04/19/24 Juliet Kirkland NP [address] [place] [address] PCP - General Nurse Practitioner 04/20/24 Leonel Feng MD [address] [place] [address] Pulmonary Disease 01/16/24 Les Dempsey MD [address] [id number] Infectious Diseases 01/16/24 documented as of this encounter Additional Source Comments The information contained in this document represents components of the legal health record. It is not the complete legal health record.[facility]
--- OUTSIDE RECORDS SUMMARY | 2025-07-07 07:51 | XMS_ITS | Encounter Summary ---
Author Organization [facility] Address [address] [employer] [address] [address] Phone Care Team Providers Care Psychiatric Arnp Name Role Phone Melissa Mcdaniel FISHERIES SPECIALIST Primary Care Provider Leonel Feng MD Unavailable [phone] Les Dempsey MD Unavailable Juliet Kirkland FISHERIES SPECIALIST Primary Care Provide r Encounter Details Date Type Department Care Team (Late st Contact Info) Description 11/14/2020 Procedure Pass [facility] - [address] [place] [address] Social History Tobacco Use Types Packs/Day Years [...] st Contact Info) Description 05/19/2025 Procedure Pass [address] [address] 08/09/2025 12:15 PM EST Appointment [address] [address] Roshan Albarran MD [address] [address] [email or web address] 08/18/2025 1:00 PM EST Office Visit [facility] 55 [facility] Building, 5t Floor, [address] [place] [address] Roshan Albarran MD [address] [address] [email or web address] 11/15/2025 8:00 AM EDT Office Visit [facility] Rheumatology [address] [place] [address] Sia Lebron MD 22 [facility], [address] [place] [address] [email or web address] documented as of this encounter Visit Diagnoses Not on filedocumented in this encounter 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 1:32 AM EDT COVID-19 03/31/2021 03/31/2021 04/21/2021 1:23 AM EDT CoV-Risk 04/29/2022 04/29/2022 04/29/2022 1:04 PM EDT COVID-19 04/29/2022 04/29/2022 05/20/2022 1:21 AM EDT documented as of this encounter Care Teams Psychiatric Arnp Relationship Specialty Start Date End Date Melissa Mcdaniel NP [address] [place] [address] PCP - General Nurse Practitioner 03/20/18 04/19/24 Juliet Kirkland NP [address] [place] [address] PCP - General Nurse Practitioner 04/20/24 Leonel Feng MD [address] [place] [address] Pulmonary Disease 01/16/24 Les Dempsey MD [address] [place] [address] Infectious Diseases 01/16/24 documented as of this encounter Additional Source Comments The information contained in this document represents components of the legal health record. It is not the complete legal health record.[facility]
--- OUTSIDE RECORDS SUMMARY | 2025-07-07 07:51 | XMS_ITS | Encounter Summary ---
Author Organization [facility] Address [address] [address] Phone Care Team Providers Care Seed Sales Manager Name Role Phone Melissa Mcdaniel TRAUMA COORDINATOR Primary Care Provider [phone] Leonel Feng MD Unavailable [phone] Les Dempsey MD Unavailable Juliet Kirkland NP Primary Care Provide r Encounter Details Date Type Department Care Team (Late st Contact Info) Description 11/14/2020 Ancillary Orders Virtual Department [address] [place] [address] Melissa Mcdaniel, TRAUMA COORDINATOR [address] [place] [address] Breast screening Social History Tobacco Use Types [...] (Late Contact Info) Description 05/19/2025 Procedure Pass [facility], Ct Scan - [facility] [address] [place] [address] 08/09/2025 12:15 PM EST Appointment [facility], Ct Scan - [facility] [address] [place] [address] Roshan Albarran MD 55 [facility] [address] [place] [address] [email or web address] 08/18/2025 1:00 PM EST Office Visit [facility] 55 [facility] Building, 5t Floor, [address] [place] [address] Roshan Albarran MD [address] [address] [email or web address] 11/15/2025 8:00 AM EDT Office Visit [facility] Rheumatology [address] [place] [address] Sia Lebron MD 22 [facility], [address] [place] [address] [email or web address] documented as of this encounter Results * BI MAMMOGRAM SCREENING WITH TOMOSYNTHESIS WITH CAD (BILATERAL) (12/08/2020 7:23 AM EDT) Anatomical Region Laterality Modality Breast Left, Breast Right, Breast Bilateral Bila teral Mammography 12/08/2020 7:52 AM EDT Impressions 12/08/2020 8:21 AM EDT No mammographic evidence of malignancy. Recommend routine annual surveillance. BI-RADS CATEGORY: 1 - Negative. DENSITY: There are scattered fibroglandular densities. Narrative 12/08/2020 8:21 AM EDT 65-year-old female with no current breast symptoms. Comparison made to previous on 03/20/2018 and as far back as 07/21/2014. Interpretation made in conjunction with computer-aided detection [...] There are scattered fibroglandular densities. Melissa Mcdaniel TRAUMA COORDINATOR IMG MG EXAMS Final Result documented in this encounter Visit Diagnoses Diagnosis [...] documented as of this encounter Care Teams Seed Sales Manager Relationship Specialty Start Date End Date Melissa Mcdaniel NP [address] [place] [address] PCP - General Nurse Practitioner 03/20/18 04/19/24 Juliet Kirkland NP [address] [place] [address] PCP - General Nurse Practitioner 04/20/24 Leonel Feng MD [address] [place] [address] Pulmonary Disease 01/16/24 Les Dempsey MD [address] [phone] Infectious Diseases 01/16/24 documented as of this encounter Additional Source Comments The information contained in this document represents components of the legal health record. It is not the complete legal health record.[facility]
--- OUTSIDE RECORDS SUMMARY | 2025-07-07 07:51 | XMS_ITS | Encounter Summary ---
Author Organization [facility] Address [address] [employer] [address] [address] Phone Care Team Providers Care Senior Gamemaster Name Role Phone Melissa Mcdaniel DOUGH MACHINE OPERATOR Primary Care Provider Leonel Feng MD Unavailable [phone] Les Dempsey MD Unavailable Juliet Kirkland NP Primary Care Provide r Encounter Details Date Type Department Care Team (Late st Contact Info) Description 03/24/2018 Ancillary Orders Virtual Department [address] [place] [address] Mariah Soares NP [address] [place] [address] [phone] Abnormal mammogram Social History Tobacco Use Types [...] (Late Contact Info) Description 05/19/2025 Procedure Pass [facility], [address] [address] 08/09/2025 12:15 PM EST Appointment [facility], [address] [place] [address] Roshan Albarran MD [address] [address] [email or web address] 08/18/2025 1:00 PM EST Office Visit [facility] 55 [facility] Building, 5t Floor, [address] [place] [address] Roshan Albarran MD [address] [address] [email or web address] 11/15/2025 8:00 AM EDT Office Visit [facility] Rheumatology [address] [place] [address] Sia Lebron MD [address] [place] [address], [address] [place] [address] [email or web address] g documented as of this encounter Results * BI MAMMOGRAM DIAGNOSTIC WITH TOMOSYNTHESIS WITH CAD (RIGHT) (04/22/2018 1:29 PM EDT) Anatomical Region Laterality Modality Breast Right, Breast Bilateral Right M ammography 04/22/2018 1:31 PM EDT Impressions 04/22/2018 1:47 PM EDT No mammographic evidence of malignancy. Recommend return to routine annual surveillance. Findings relayed to the patient via the technologist. BI-RADS CATEGORY: 1 - Negative. DENSITY: There are scattered fibroglandular densities. POS - CDHMAMA Narrative 04/22/2018 1:47 PM EDT 62-year-old female who presents for callback mammogram for a possible right breast mass. Comparison made to previous mammograms. Interpretation made in conjunction with computer-aided detection and tomosynthesis. Spot compression and medial rolled right cc views obtained. The right breast is composed of scattered areas [...] fibroglandular densities. POS - CDHMAMA Mariah Soares NP IMG MG EXAMS Final Result documented in [...] documented as of this encounter Care Teams Senior Gamemaster Relationship Specialty Start Date End Date Melissa Mcdaniel NP [address] [place] [address] PCP - General Nurse Practitioner 03/20/18 04/19/24 Juliet Kirkland NP [address] [place] [address] PCP - General Nurse Practitioner 04/20/24 Leonel Feng MD [address] [place] [address] Pulmonary Disease 01/16/24 Les Dempsey MD [address] [place] [address] Infectious Diseases 01/16/24 documented as of this encounter Additional Source Comments The information contained in this document represents components of the legal health record. It is not the complete legal health record.[facility]
== END 2025-07-07 07:47 | disposition home or self-care (01) ==
LOC: HO.SH 07:46
PROVIDERS: Visit Provider Nurse Practitioner Family
DX: H91.03 Ototoxic hearing loss, bilateral (principal)
CPT/HCPCS: 92552; 92556; 92588